=== PATIENT | male | born 1950 | race Caucasian/White ===

== ENCOUNTER 2017-04-27 09:29 | Observation (INO) | payer OTHER ==
[2017-04-21 15:04] VITALS: BMI 32.0
--- NOTE | 2017-04-21 15:43 | PAT Medication Instructions ---
Service Date Apr 21, 2017. Current Home Medication List Albuterol Sulfate (Proair Respiclick), 2 PUFF INH Q4 PRN for Wheezing Amlodipine (Norvasc), 5 MG PO QAM Aspirin (Aspirin Ec), 81 MG PO QAM Budesonide/Formoterol Fumarate (Symbicort 160/4.5 Inhaler ), 2 PUFFS INH BID Carvedilol (Coreg), 1 TAB PO BID Cetirizine (Zyrtec), 10 MG PO QAM Hydrocodone/Acetaminophen 5MG/325MG ([place] 5MG/325MG), 1 TABLET PO Q6 PRN for Pain Ibuprofen Tab (Advil), 400 MG PO QAM Pantoprazole (Protonix), 40 MG PO QAM Tamsulosin Hcl (Flomax), 0.4 MG PO QDD Tiotropium [place] (Spiriva Respimat), 1 PUFF INH QAM Medication Instructions For Your Scheduled Surgery - Hold the following medications the morning of surgery: Cetirizine (Zyrtec), 10 MG PO QAM Ibuprofen Tab (Advil), 400 MG PO QAM (otherwise okay to continue per surgeon) - Take the following medications the morning of surgery with a sip of water OTHERWISE NOTHING TO EAT OR DRINK AFTER MIDNIGHT: Budesonide/Formoterol Fumarate (Symbicort 160/4.5 Inhaler ), 2 PUFFS INH BID Albuterol Sulfate (Proair Respiclick), 2 PUFF INH Q4 PRN for Wheezing (use if needed; BRING TO HOSPITAL) Hydrocodone/Acetaminophen 5MG/325MG ([place] 5MG/325MG), 1 TABLET PO Q6 PRN for Pain (may take if needed up to 4 hours prior to surgery) Aspirin (Aspirin Ec), 81 MG PO QAM Tiotropium [place] (Spiriva Respimat), 1 PUFF INH QAM Pantoprazole (Protonix), 40 MG PO QAM Amlodipine (Norvasc), 5 MG PO QAM Carvedilol (Coreg), 1 TAB PO BID - Take the following medications as scheduled the night before surgery: Budesonide/Formoterol Fumarate (Symbicort 160/4.5 Inhaler ), 2 PUFFS INH BID Albuterol Sulfate (Proair Respiclick), 2 PUFF INH Q4 PRN for Wheezing Hydrocodone/Acetaminophen 5MG/325MG ([place] 5MG/325MG), 1 TABLET PO Q6 PRN for Pain Carvedilol (Coreg), 1 TAB PO BID Tamsulosin Hcl (Flomax), 0.4 MG PO QDD If you have any questions please call us at [phone] or [phone] or [phone]
[2017-04-21 16:29] LABS: BASO % 1.5 %; BASO ABS # 0.08 K/uL (0-0.2); COMPLETE YES; EOS % 5.1 %; HEMATOCRIT 43.5 % (42-52); IG% 0.2 %; LYMPH % 28.3 %; LYMPH ABS # 1.55 K/uL (1.2-3.4); MEAN CELL VOLUME 94.4 fL (80-100); MEAN CORPUSCULAR HEMOGLOBIN 34.1 pg (25-34); MEAN CORPUSCULAR HGB CONC 36.1 g/dl (32-36); MEAN PLATELET VOLUME 9.2 fL (7.4-10.4); MONO % 13.5 %; NEUT % 51.4 %; PLATELET COUNT 289 K/uL (130-400); RED BLOOD COUNT 4.61 M/uL (4.7-6.1); WHITE BLOOD COUNT 5.48 K/uL (4.8-10.8)
[2017-04-21 16:33] LABS: URINE APPEARANCE CLEAR (CLEAR); URINE BILIRUBIN NEG (NEG); URINE COLOR YELLOW; URINE EPITHELIAL CELL AUTO 0-5 /lpf (0-5); URINE NITRITE NEG (NEG); URINE SPECIFIC GRAVITY 1.008 (1.000-1.030); UROBILINOGEN NEG (NEG)
[2017-04-21 16:34] LABS: MANUAL MICROSCOPIC REQUIRED? NO; REVIEW REQ? NO
[2017-04-21 16:41] LABS: BUN/CREATININE RATIO 8.7 (10-20); CALCIUM 9.3 mg/dl (8.5-10.1); CREATININE 0.99 mg/dl (0.60-1.40); POTASSIUM 4.6 mmol/L (3.5-5.1)
--- NOTE | 2017-04-26 15:36 | HISTORY & PHYSICAL EXAMINATION ---
DATE OF ADMISSION: 04/27/2017 CHIEF COMPLAINT: Chronic right shoulder pain. HISTORY OF PRESENT ILLNESS: This is a 66-year-old male patient of Dr. Ruiz, complaining of chronic right shoulder pain, longstanding, progressively getting worse. The patient has failed conservative treatment. An MRI has confirmed a rotator cuff tear, impingement and AC joint arthritis with biceps tendinopathy. The patient wishes to proceed with a right shoulder arthroscopy, subacromial decompression, distal clavicle excision, rotator cuff repair, and possible biceps tenodesis. PAST MEDICAL HISTORY: Hypertension, atrial fibrillation and flutter, COPD, acid reflux, obesity, dental issues and BPH. SOCIAL HISTORY: He is a cigar smoker about 2 per week. Alcohol 12 drinks per week. PAST SURGICAL HISTORY: Cataract. REVIEW OF SYSTEMS: The patient complains of right shoulder pain and weakness. Otherwise, denies any shortness of breath, chest pain, nausea, vomiting or any other joint complaints. FAMILY HISTORY: Noncontributory. MEDICATIONS: 1. Coreg 12.5 mg b.i.d. 2. Norvasc 5 mg daily. 3. Flomax 0.4 mg daily. 4. Protonix 40 mg daily. 5. Zyrtec 10 mg daily. 6. Aspirin 81 mg daily. 7. Advil 200 mg as needed. 8. Symbicort 160/4.5 two puffs twice daily in the morning and evening. 9. Spiriva 2.5 mcg per actuation 2 puffs daily. 10. ProAir HFA 90 mcg per actuation aerosol 2 puffs every 4-6 hours p.r.n. ALLERGIES: No known drug allergies. PHYSICAL EXAMINATION: GENERAL: Well-developed and well-nourished 66-year-old male in no acute distress. He is alert and oriented x3 and pleasant. HEENT: Normocephalic and atraumatic. Extraocular motions are intact. Pupils are equal and reactive to light. HEART: Regular rate and rhythm, no murmurs appreciated. LUNGS: Clear. ABDOMEN: Soft and nontender. Bowel sounds present. EXTREMITIES: Right shoulder reveals 3/5 strength globally. He has got AC joint tenderness. He has got pain with impingement maneuvering. NEUROLOGIC: Neurovascularly, he is intact in his right upper extremity. DIAGNOSES: Right shoulder rotator cuff tear, impingement, acromioclavicular arthritis, and biceps tendinopathy. He also has a history of hypertension, atrial fibrillation and atrial flutter, chronic obstructive pulmonary disease, acid reflux, obesity, dental issues and benign prostatic hypertrophy. PLAN: The patient was advised of his diagnoses. Indications, risks, benefits, and postop course have all been reviewed. The patient wishes to proceed with a right shoulder arthroscopic rotator cuff repair, subacromial decompression and distal clavicle excision with a possible biceps tenodesis. Necessary consent forms, preoperative testing and clearances will be obtained.
[2017-04-27] VITALS (10 sets, daily range): BP systolic 130–189; BP diastolic 70–108; PULSE 68–92; TEMP 36.6–36.7; O2SAT 92–97; Ht 198.1 cm; Wt 126.1 kg
[~2017-04-27] VITALS: Ht 198.1 cm; Wt 126.1 kg
[~2017-04-27 09:29] MED LIST: ALBU18002 INH; AMLO-110 PO; ASPI81TA28 PO; CARV12.52 PO; CEFAZOLIN 3000 MG/65 ML D5W IV SCH; CETI10TA84 PO; DEXAMETHASONE SOD INJ 4 MG/ML VIAL ONE; HYDR-5688 PO; IBUP-103 PO; LACTATED RINGER'S 1000ML 1,000 ML IV SCH; PANT40TA PO; ROPIVACAINE 0.5% 5 MG/ML 30 ML VIAL ONE; SYMIN160 INH; TAMS0.4C38 PO; TIOT1SPR INH
[2017-04-27 11:10] LABS: BUN/CREATININE RATIO 10.2 (10-20); CALCIUM 8.7 mg/dl (8.5-10.1); POTASSIUM 4.3 mmol/L (3.5-5.1)
[2017-04-27] MEDS ORDERED: LIDOCAINE HCL 2% 2 ML VIAL (20MG/ML) ONE (11:42)
[2017-04-27] MEDS ORDERED: ROCURONIUM BROMIDE 10 MG/ML 5 ML VIAL ONE (11:42)
[2017-04-27] MEDS ORDERED: PROPOFOL IV EMULSION 10 MG/ML 20 ML VIAL IV ONE ×2 (11:42→15:49)
[2017-04-27] MEDS ORDERED: FENTANYL CITRATE INJ 50 MCG/1 ML 2 ML VIAL ONE ×3 (11:43→15:56)
[2017-04-27] MEDS ORDERED: MIDAZOLAM HCL 1 MG/ML 2ML VIAL ONE ×2 (11:43→13:23)
--- NOTE | 2017-04-27 13:20 | History & Physical Bridge Note ---
H&P Re-Evaluation Bridge Note: I have examined the patient, reviewed the History & Physical and in the interval since the performance of the History & Physical I have noted the following changes of clinical significance: No changes noted
[2017-04-27] MEDS ORDERED: EpINEphrine HCL INJ 1 MG/ML 5ML SYRINGE ONE ×4 (13:37→17:04)
[2017-04-27] MEDS ORDERED: ATROPINE SULFATE 0.1 MG/ML 5ML SYR IV PRN (14:45)
[2017-04-27] MEDS ORDERED: PROMETHAZINE HCL INJ 6.25 MG in SODIUM CHLORIDE 0.9% 50ML 50 ML IV PRN (14:45)
[2017-04-27] MEDS ORDERED: ONDANSETRON INJ 2 MG/ML 2 ML VIAL IV PRN ×2 (14:45→17:00)
[2017-04-27] MEDS ORDERED: FENTANYL CITRATE INJ 50 MCG/1 ML 2 ML VIAL IV PRN (14:45)
[2017-04-27] MEDS ORDERED: EpHEDrine SULFATE INJ 50 MG/ML AMP IV PRN (14:45)
[2017-04-27] MEDS ORDERED: ONDANSETRON INJ 2 MG/ML 2 ML VIAL ONE (15:11)
[2017-04-27] MEDS ORDERED: DEXAMETHASONE SOD INJ 4 MG/ML VIAL ONE (15:11)
--- NOTE | 2017-04-27 15:58 | Discharge Instructions ---
Discharge Instructions Date of Service Apr 27, 2017. Visit Reason for Visit: Right Shoulder Impingement Syndrome, Djd, Rtc Tear Discharge Discharge Diagnosis / Problem: Right Shoulder Impingement Syndrome; RTC Tear Discharge Goals Goal(s): Decrease discomfort, Improve function Activity Recommendations Activity Limitations: per Instructions/Follow-up section Anesthesia . Post Anesthesia Instructions: If you have had General Anesthesia or IV Sedation: * Do not drive today. * Resume driving when surgeon permits. * Do not make important decisions or sign legal documents today. * Call surgeon for: 1. Temperature elevations greater than 101 degrees F. 2. Uncontrollable pain. 3. Excessive bleeding. 4. Persistent nausea and vomiting. 5. Medication intolerance (nausea, vomiting or rash). * For nausea and vomiting use only clear liquids such as: tea, soda, bouillon until nausea subsides, then gradually increase diet as tolerated. * If you have any concerns or questions, call your surgeon's office. If physician is unavailable and it is an emergency, call 911 or go to the nearest emergency room. . Instructions / Follow-Up Instructions / Follow-Up U DISCHARGE INSTRUCTIONS: ROTATOR CUFF REPAIR SELF CARE INSTRUCTIONS A. You are permitted to loosen your sling/immobilizer to move your elbow, wrist , and hand to prevent stiffness. You should use your well arm (good arm) to assist the operated extremity when trying to raise the arm away from the body, hygiene purposes. Do NOT actively try to use/engage your shoulder muscles in operative arm at this time. You should NOT do overhead activity, lifting, or attempt to reach behind your back. B. You may/may not be instructed to start Physical Therapy upon discharge depending upon the size and difficulty of the repair. You will be provided a prescription for therapy with specific restrictions, if needed, at time of discharge. C. At 48 hours post-operatively, you may change your dressing. (Leave white steri-strips intact if present). Use band-aids and change daily. You are allowed to shower at this time and get the incision area wet, but DO NOT soak or submerge incision area in water. (No baths, swimming pools, hot tubs) D. Do NOT apply soap or any ointment/lotions directly over incision. E. You may use ice as needed to operative shoulder SPECIAL CARE INSTRUCTIONS: VERY IMPORTANT TO READ AND REVIEW A. There are a few signs you need to watch for after you are home. Call [facility] at [phone] if you experience any of the following: a. Increased severe shoulder pain. Some pain is expected especially when you exercise b. Increased swelling in your shoulder or arm; pain or swelling in either upper extremity. (Note: swelling and stiffness is normal and expected for several weeks post op, depending on type of shoulder surgery you had). c. Any fluid or drainage from the incision; redness of the incision. d. Shortness of breath or chest pain. B. Please call [facility] at [phone] if you have any questions or concerns about your operation or recovery. C. Call your physician if: a. Temperature is greater than 101 degrees (F). b. Pain is not relieved by prescribed pain medications. c. Increase drainage or redness from incision. d. Unanswered questions or concerns. D. Pain Medication: a. You will be prescribed pain medication upon discharge that should last till your first post-operative appointment. b. If you experience nausea and/or skin rash, discontinue this medication and contact our office for an alternative medication. c. Caution- narcotic pain medication can cause constipation. FOLLOW UP VISIT: Please call [facility] at [phone] to schedule a follow up appointment 10-14 days from your surgery date. Diet Recommendations Recommended Home Diet: resume previous diet Pending Studies Studies pending at discharge: no Medical Emergencies . Who to Call and When: Medical Emergencies: If at any time you feel your situation is an emergency, please call 911 immediately. . Non-Emergent Contact Non-Emergency issues call your: Surgeon Call Non-Emergent contact if: temperature is above 101.5, your pain is not controlled, your pain is worsening, wound has increased drainage, wound has increased redness . . "Provider Documentation" section prepared by Andrew Dobbs. . [place] Drug Monitoring Program Search Results: patient reviewed within database, no issues identified
[2017-04-27] MEDS ORDERED: MAGNESIUM HYDROXIDE SUSP 30 ML UDC PO PRN (17:00)
[2017-04-27] MEDS ORDERED: ALUMINUM/MAGNESIUM SUSP 30 ML UDC PO PRN (17:00)
[2017-04-27] MEDS ORDERED: MoRPHine SULFATE 4 MG/ML 1 ML CARP\\VIAL IV PRN (17:00)
[2017-04-27] MEDS ORDERED: BISACODYL 10 MG SUPP PR PRN (17:00)
[2017-04-27] MEDS ORDERED: MoRPHine SULFATE 2 MG/ML CARP IV PRN (17:00)
[2017-04-27] MEDS ORDERED: OXYCODONE HCL IR 5 MG TAB (IMMEDIATE RELEASE) PO PRN (17:00)
--- NOTE | 2017-04-27 18:18 | [facility] Post Operative Brief Note ---
Immediate Operative Summary Operative Date Apr 27, 2017. Pre-Operative Diagnosis Right shoulder rotator cuff tear, impingement, acromioclavicular arthritis, and biceps tendinopathy Post-Operative Diagnosis Right shoulder rotator cuff tear, biceps partial tear, acromioclavicular arthritis, glenohumeral arthritis,glenoid labral tear Procedure(s) Performed Right Shoulder Arthroscopy with Rotator Cuff Repair, Subacromial Decompression, Distal Clavicle Excision, Extensive Debridement, Biceps Tenodesis Surgeon Dr. Ruiz Food Service Counter Clerk Surgeon(s) none Estimated Blood Loss 20ML Findings Grade 4 humeral head chondral lesion, degenerative glenoid labral tear, synovitis glenohumeral joint, chronic scarred rotator cuff subacromial bursa. Simply retracted tears of supraspinatus and infraspinatus. Intact subscapularis. Biceps tendinopathy with Ceftin fraying of biceps tendon intra- articular. Subacromial impingement type III acromion advanced acromial clavicular joint osteoarthritis with deformed acromioclavicular joint Specimens None per surgeon Drains none Anesthesia Gen. and regional block Complication(s) None Disposition Recovery Room / PACU
[2017-04-27] MEDS ORDERED: ALBUTEROL HFA 8 GM INHALER INH PRN (19:00)
--- NOTE | 2017-04-27 19:07 | Anesthesiology Progress Note ---
Anesthesia Post Op Note Date & Time Apr 27, 2017 at 19:07 Vital Signs Pain Intensity: 0 Vital Signs Past 12 Hours Date Time Temp Pulse Resp B/P (MAP) Pulse Ox O2 Delivery O2 Flow Rate FiO2 04/27/17 18:40 36.3 87 18 186/101 96 Nasal Cannula 2 04/27/17 18:30 83 17 178/100 96 Nasal Cannula 2 04/27/17 18:20 81 14 183/101 99 Oxymask 10 04/27/17 18:10 82 21 171/97 98 Oxymask 10 04/27/17 18:03 36.3 86 20 173/99 97 Oxymask 10 04/27/17 10:02 36.6 68 18 176/99 (124) 97 Notes Mental Status: alert / awake / arousable, participated in evaluation Pt Amnestic to Procedure: Yes Nausea / Vomiting: adequately controlled Pain: adequately controlled Airway Patency, RR, SpO2: stable & adequate BP & HR: stable & adequate Hydration State: stable & adequate Anesthetic Complications: no major complications apparent
[2017-04-27] MEDS ORDERED: D5W AND 1/2NSS + 20MEQ KCL 1,000 ML IV SCH (19:30)
[2017-04-27] MEDS ORDERED: TAMSULOSIN HCL 0.4 MG CAP PO SCH (19:45)
[2017-04-27] MEDS: CEFAZOLIN IV 2,000 MG in DEXTROSE 5% 50ML 50 ML IV SCH (19:56)
[2017-04-27] MEDS: KETOROLAC TROMETHAMINE 15 MG/ML VIAL IV. SCH (19:57)
[2017-04-27] MEDS: CARVEDILOL 12.5 MG TAB PO SCH (20:13)
[2017-04-27] MEDS: BUDESONIDE/FORMOTEROL FUMARATE 160/4.5 60 PUFFS/INHALER INH SCH (21:31)
[2017-04-27] MEDS: ACETAMINOPHEN 500 MG TAB PO SCH (21:32)
[2017-04-27] MEDS ORDERED: CARVEDILOL 3.125 MG TAB PO ONE (22:30)
--- NOTE | 2017-04-27 22:33 | Medical Consult ---
Consultation Date of Consultation: Apr 27, 2017. Attending Physician: Oleksandr Ruiz M.D. Reason for Consultation: Hypertension History of Present Illness Mr Mcbride is a 66-year-old male with long history of hypertension who had right shoulder surgery today with Dr. Ochoa. He has had elevated blood pressure since arrival, during his surgery, and now postoperatively. He reports that he has a history of whitecoat hypertension and his home medication regime includes carvedilol 12.5 mg twice a day and amlodipine 5 mg in the morning. He denies any headaches, visual changes, chest pain, shortness of breath. He reports his pain from his surgery is tolerable. He is tolerating PO intake. Past Medical/Surgical History Medical Problems: (1) Rotator cuff tear, right Family History No pertinent family history Social History Smoking Status: Current Every Day Smoker Smokeless Tobacco Use: No Alcohol Use: socially Drug Use: none Marital Status: Housing Status: lives with family Occupation Status: employed Allergies Uncoded Allergies: CHLORHEXADINE GLUCONATE (Allergy, Mild, redness, burning, 04/27/17) SEASONAL (Allergy, Unknown, runny nose, cough, itching eyes, 04/21/17) Home Medications Reported Home Medications Medications Dose Route/Sig Max Daily Dose Days Date Category Dose Instructions [place] 5MG/325MG (Acetaminophen/Hydrocodone Bitart) Tab 1 Tablet PO Q6 PRN 04/21/17 Reported PRN PAIN Proair Respiclick (Albuterol Sulfate) 108 Mcg/Act Aer 2 Puff INH Q4 PRN 04/21/17 Reported Spiriva Respimat (Tiotropium [place]) 2.5 Mcg/Act Spr 1 Puff INH QAM 04/21/17 Reported Symbicort 160/4.5 Inhaler (Budesonide/Formoterol Fumarate) Aero 2 Puffs INH BID 04/21/17 Reported Advil (Ibuprofen) 200 Mg Tab 400 Mg PO QAM 04/21/17 Reported Aspirin Ec (Aspirin) 81 Mg Tab 81 Mg PO QAM 04/21/17 Reported Zyrtec (Cetirizine HCl) 10 Mg Tab 10 Mg PO QAM 04/21/17 Reported Protonix (Pantoprazole Sodium) 40 Mg Tab 40 Mg PO QAM 04/21/17 Reported Flomax (Tamsulosin Hcl) 0.4 Mg Cap 0.4 Mg PO QDD 04/21/17 Reported Norvasc (Amlodipine Besylate) 5 Mg Tab 5 Mg PO QAM 04/21/17 Reported Coreg (Carvedilol) 12.5 Mg Tab 1 Tab PO BID 90 04/21/17 Reported take with food Current Inpatient Medications Current Inpatient Medications Medications (Trade) Dose Ordered Sig/Jules Route Start Time Stop Time Status Last Admin Dose Admin Lactated Ringer's 1,000 ml @ 15 mls/hr Q24H IV 04/27/17 06:00 04/28/17 05:59 Amlodipine Besylate (Norvasc Tab) 5 mg QAM PO 04/28/17 09:00 05/28/17 08:59 Aspirin (Ecotrin Tab) 81 mg QAM PO 04/28/17 09:00 05/28/17 08:59 Budesonide/ Formoterol Fumarate (Symbicort 160/ 4.5 Inh) 2 puffs BID INH 04/27/17 21:00 05/27/17 20:59 04/27/17 21:31 2 PUFFS Carvedilol (Coreg Tab) 12.5 mg BID PO 04/27/17 21:00 05/27/17 20:59 04/27/17 20:13 12.5 MG Cetirizine HCl (zyrTEC TAB) 10 mg QAM PO 04/28/17 09:00 05/28/17 08:59 Pantoprazole Sodium (Protonix Tab) 40 mg QAM PO 04/28/17 09:00 05/28/17 08:59 Tamsulosin HCl (Flomax Cap) 0.4 mg QDD PO 04/27/17 19:45 05/27/17 19:44 04/27/17 19:56 0.4 MG Albuterol (Ventolin Hfa Inhaler) 2 puffs Q4H PRN INH 04/27/17 19:00 05/27/17 18:59 Tiotropium [place] (Spiriva Handihaler Inhaler) 1 puff QAM INH 04/28/17 09:00 05/28/17 08:59 Morphine Sulfate (MoRPHine SULFATE INJ) 2 mg Q4HWA PRN IV 04/27/17 17:00 05/11/17 16:59 Morphine Sulfate (MoRPHine SULFATE INJ) 4 mg Q4HWA PRN IV 04/27/17 17:00 05/11/17 16:59 Ondansetron HCl (Zofran Inj) 4 mg Q6H PRN IV 04/27/17 17:00 05/27/17 16:59 Al Hydroxide/Mg Hydroxide (Maalox Susp) 30 ml Q4H PRN PO 04/27/17 17:00 05/27/17 16:59 Potassium Chloride/Dextrose/ Sod Cl 1,000 ml @ 100 mls/hr Q10H IV 04/27/17 19:30 05/27/17 19:29 04/27/17 19:56 100 MLS/HR Ketorolac Tromethamine (Toradol Inj) 15 mg Q6H IV. 04/27/17 20:00 04/29/17 19:59 04/27/17 19:57 15 MG Oxycodone HCl (Roxicodone Immediate Rel Tab) `1-2 TABS FOR PAIN `1 TAB... Q4H PRN PO 04/27/17 17:00 05/11/17 16:59 Acetaminophen (Tylenol Tab) 1,000 mg Q8 PO 04/27/17 22:00 05/27/17 21:59 04/27/17 21:32 1,000 MG Magnesium Hydroxide (Milk Of Magnesia Susp) 30 ml Q6H PRN PO 04/27/17 17:00 05/27/17 16:59 Bisacodyl (Dulcolax Supp) [address] 04/27/17 17:00 05/27/17 16:59 Cefazolin Sodium 2000 mg/Dextrose 60 ml @ 100 mls/hr Q8H IV 04/27/17 20:00 04/28/17 04:35 04/27/17 19:56 100 MLS/HR Review of Systems See HPI for pertinent positives & negatives. A total of 10 systems reviewed and were otherwise negative. Physical Exam Date Time Temp Pulse Resp B/P (MAP) Pulse Ox O2 Delivery O2 Flow Rate FiO2 04/27/17 21:38 165/92 (116) 04/27/17 21:25 36.6 91 18 177/108 (131) 94 Room Air 04/27/17 20:40 Room Air 04/27/17 20:37 36.7 92 18 155/82 (106) 96 Nasal Cannula 3.0 04/27/17 20:03 36.6 86 18 174/89 (117) 92 Room Air 04/27/17 19:40 36.7 90 17 172/100 (124) 97 Nasal Cannula 3.0 04/27/17 19:00 Nasal Cannula 2.0 04/27/17 18:40 36.3 87 18 186/101 96 Nasal Cannula 2 04/27/17 18:30 83 17 178/100 96 Nasal Cannula 2 04/27/17 18:20 81 14 183/101 99 Oxymask 10 04/27/17 18:10 82 21 171/97 98 Oxymask 10 04/27/17 18:03 36.3 86 20 173/99 97 Oxymask 10 04/27/17 17:00 36.7 86 20 189/107 (134) 93 Nasal Cannula 2.0 04/27/17 10:02 36.6 68 18 176/99 (124) 97 GENERAL: Awake, alert, well-appearing, in no acute distress HENT: Normocephalic, atraumatic. Oropharynx unremarkable. EYES: Normal conjunctiva. Sclera non-icteric. NECK: Supple. No nuchal rigidity. FROM. No JVD. RESPIRATORY: Clear to auscultation. CARDIAC: Regular rate, normal rhythm. Extremities warm and well perfused. Pulses equal. ABDOMEN: Soft, non-distended. No tenderness to palpation. No rebound or guarding. No masses. MUSCULOSKELETAL: R shoulder in dressing. Chest examination reveals no tenderness. The back is symmetrical on inspection without obvious abnormality. LOWER EXTREMITIES: Calves are equal size bilaterally and non-tender. No edema. No discoloration. NEURO: Normal sensorium. No sensory or motor deficits noted. SKIN: No rash or jaundice noted. Laboratory Results Last 24 Hours Test 04/27/17 10:41 Sodium Level 134 mmol/L Potassium Level 4.3 mmol/L Chloride Level 103 mmol/L Carbon Dioxide Level 28 mmol/L Anion Gap 3.0 mmol/L Blood Urea Nitrogen 10 mg/dl Creatinine 1.00 mg/dl Est Creatinine Clear Calc Drug Dose 106.7 ml/min Estimated GFR () 89.9 Estimated GFR (Non- 77.5 BUN/Creatinine Ratio 10.2 Random Glucose 102 mg/dl Calcium Level 8.7 mg/dl Assessment & Plan 66 yo M day 0 s/p R shoulder surgery, with known HTN. Recommendations: - His home medications have been restarted, he received a dose of carvedilol this evening and will receive amlodipine tomorrow morning - Overnight if his blood pressure remains elevated, I recommended a 3.125 mg dose of carvedilol for SBP > 160 when the heart rate is greater than 70. - If his heart rate is less than 70, with a systolic blood pressure > 160, he can receive amlodipine 2.5 mg. - Both of these medications may take time to work. Thank you for this consult. We will continue to follow along. Attending Addendum: I have physically seen and examined this patient, have supervised the medical residents activities, and agree with the H&P as noted above with the following exceptions: NONE The patient denies chest pain, palpitations, shortness of breath, cough, sore throat, fevers, chills, sweats, fatigue, nausea, vomiting, abdominal pain, pelvic pain, blood in urine or stool, dysuria, urinary frequency or urgency, lightheadedness, dizziness, headache, rash, abnormal bruising or bleeding, imbalance, focal or generalized weakness, numbness or tingling in arms or legs, arthralgias or myalgias, back or neck pain, or allergy symptoms. The review of systems is otherwise negative other than for that already noted above, and at least 10 systems have been reviewed. The patient is awake, well-developed and adequately nourished, alert and oriented 3, normocephalic and atraumatic, lying in bed and in no acute distress. HEENT--PERRL, EOMI, mucous membranes and oropharynx dry. Neck--supple, no JVD or bruits, thyroid normal, trachea midline, no adenopathy. Heart--normal S1 and S2, no extra beats, no murmurs, rubs or gallops. Lungs--clear bilaterally with good air movement, no respiratory distress, no accessory muscle use. Abdomen--normal bowel sounds and soft, nontender and nondistended, no hernias or masses, no organomegaly. Extremities--no cyanosis, clubbing or edema. There are good distal pulses b/l. Dermatologic--normal skin turgor, normal color, warm and dry, no abnormal lymph nodes, no rash. Neurologic--cranial nerves II through XII grossly intact, motor and sensory examination normal. Rheumatologic--right shoulder and post surgical dressing is clean, dry and intact Psychiatric--normal affect. Assessment and Plan: 1. Status post right shoulder surgery is medically stable. 2. Hypertension/elevated blood pressure postoperatively--continue carvedilol 12.5 mg by mouth twice a day and amlodipine 5 mg by mouth every morning. We will add carvedilol 3.125 mg by mouth tonight if systolic blood pressure greater 160 while heart rate is greater than 70, or amlodipine 2.5 mg by mouth if systolic blood pressure rate was 60 and heart rate less than 70. 3. Asthma--continue albuterol HFA, Spiriva, and Symbicort as at home. If develops shortness of breath, will add Xopenex/Atrovent nebulizers to use every 2 hours when necessary. 4. BPH--continue Flomax 0.4 mg by mouth at bedtime. 5. GERD--continue pantoprazole 40 mg by mouth every morning. 6. Seasonal allergy--continue Zyrtec 10 mg by mouth every morning. 7. Pain management--per primary service. Resident Tracking Resident Involvement: Resident Care Provided Care Provided: Adult [facility]
[2017-04-27] MEDS ORDERED: AMLODIPINE BESYLATE 5 MG TAB PO STA (22:35)
--- NOTE | 2017-04-27 23:47 | OPERATIVE REPORT ---
DATE OF OPERATION: 04/27/2017 INDICATION FOR PROCEDURE: The patient is a 66-year-old male with an injury to his right shoulder and severe weakness after the injury. He had marked bruising down the entire arm below the elbow to his forearm and inability to raise his arm any longer. He was having some difficulty prior to that, so it may have had some chronic component to this tissue of his shoulder, but he clearly had some acute tear of his rotator cuff. MRI verifies massive retracted tear of the rotator cuff, supraspinatus and infraspinatus completely torn and retracted, possible upper subscapularis damage and biceps tendinopathy, probable. He also had hypertrophic AC joint arthritis and significant inflammation in the AC joint, so likely an impingement syndrome and AC joint arthritis preexisting the injury. PREOPERATIVE DIAGNOSIS: Subacute rotator cuff tear but likely chronic rotator cuff tendinopathy or tear prior to the acute component of the tear with biceps tendinopathy and acromioclavicular joint osteoarthritis contributing to impingement syndrome of the right shoulder. POSTOPERATIVE DIAGNOSIS: Large retracted rotator cuff tear, supraspinatus and infraspinatus. Some chronicity to this tear with the marked retraction and significant scarred bursa tissue identified. The scarred rotator cuff bursitis which appeared to be chronic, there was subacromial impingement and acromioclavicular joint osteoarthritis. There was osteoarthritis in the glenohumeral joint with grade 4 humeral head chondral lesion. There was degeneration of the glenoid labrum and partial tearing of the biceps with biceps tendinopathy with intact subscapularis. PROCEDURE: Right shoulder arthroscopic rotator cuff repair, supraspinatus and infraspinatus tendons, with subacromial decompression, distal clavicle excision and biceps tenodesis and extensive debridement including debridement of the rotator cuff, synovium, glenoid labral tear, biceps tendinopathy, subacromial bursa. SURGEON: Dr. Ruiz. EXPORT PACKER: None. ANESTHESIA: Regional block general. OPERATIVE PROCEDURE: The patient was taken to the operating room, anesthetized under regional block and general anesthetic. He was placed in the 70 degree beach chair position on a [facility] shoulder table and we secured his head with foam straps and he had well-padded extremities. His right shoulder was examined. He had good passive range of motion and had a prominent AC joint and he had ecchymosis down his arm into his forearm. His right shoulder was sterilely prepped and draped where we used DuraPrep instead of ChloraPrep because HE HAD SOME ALLERGIC REACTION TO CHLORHEXIDINE WIPES. His shoulder was then arthroscoped starting with a posterior arthroscopy portal in the soft spot, and an anterior portal in the rotator interval anterior to the AC joint and a lateral portal in the subacromial space. Then we used 3 small stab wounds superolaterally and anterior superolaterally for placement of 3 different suture anchors. Intra-articular findings demonstrated that he had a large grade 4 lesion in the central region of the humeral head. This was at least 3 cm in diameter. There were delaminating flaps around the edge of the lesion. The glenoid had a good articular surface though. There was degenerative fraying of the glenoid labrum primarily posterior superiorly. This was consistent with type 1 SLAP tear. There was significant fraying of the biceps tendon just at the entrance to the bicipital groove area. The rotator cuff was torn and retracted medially, it was almost to the point at the glenoid rim but not that close. The subscapularis tendon was intact. The supraspinatus was completely torn and retracted, the infraspinatus was completely torn and retracted, teres minor was still intact. In the subacromial space, there was very thickened frayed CA ligament. There was type 3 acromion. There was significant subacromial impingement. There was a very deformed eroded articular surface of the AC joint with significant acromioclavicular joint osteoarthritis. There was a significant scarred bursa tissue overlying the cuff tear, so this is not typical of a recent acute tear without some chronic component to it. There was very thickened scarred bursa surrounding the teres minor and the rest of the rotator cuff. Starting in the glenohumeral joint, I did a circumferential debridement of the delaminated flaps around the humeral head lesion. I debrided the labrum back to intact tissue. I debrided the biceps tendon back to intact good biceps tendon tissue. Then because of the biceps tendinopathy, we thought that biceps tenodesis would be required, so a spinal needle was placed through the biceps tendon and #1 PDS suture was advanced to control the biceps and then we used a radiofrequency ablator to do tenotomy of the biceps. Then I released the superior capsule underlying the supraspinatus and the infraspinatus using radiofrequency ablator taking care not to go too far medially to protect the suprascapular nerve. We did ablate and resection some of the markedly inflamed synovium tissue from the chronic synovitis. At this time, the arthroscopic instrumentation was placed into the subacromial space. Then I did a thorough subacromial bursectomy and we used both the radiofrequency ablator to ablate bursa tissue, we used the resector blade to resect the tissues so we could fully visualize the rotator cuff tear pattern. We debrided the edges of the rotator cuff, undersurface of the rotator cuff. The teres minor was still intact. The infraspinatus was retracted medially and toward the posterior aspect. After we debrided all of the scarred bursa tissue overlying the rotator cuffs and debrided the very thickened CA ligament tissue back, then I used a soft tissue manipulator to see if the cuff could be reduced back to the greater tuberosity after we released the scarred bursa overlying the cuff, we were able to mobilize the cuff back to the greater tuberosity not all the way lateral but close to within 4 mm of the anatomic placement. There was a good portion of cuff tissue still remaining on the greater tuberosity, supraspinatus and infraspinatus where the cuff tore off of, so there was some tendon loss. At this point, I felt the cuff was repairable, so we went ahead and debrided the remaining cuff tissue on the greater tuberosity back to bleeding bony surface for repair, we debrided off the lateral aspect of the greater tuberosity some to help with the healing response. Then I first placed a [id number] suture between the infraspinatus and the teres minor using a scorpion suture passer to place it through the infraspinatus and using a spinal needle, advanced through the teres minor and shuttling the other remaining suture end with a PDS suture. This was done percutaneously. Then the fixation for the cuff was performed by placing two FiberTape type sutures in inverted horizontal mattress fashion, one in the infraspinatus and one in the supraspinatus. These were [employer] FiberWire tapes. Then we placed the Q-FIX anchors one for the infraspinatus and one for the supraspinatus. These were two-way Q-FIX anchors fixed in the lateral tuberosity footprint of the supraspinatus and infraspinatus. I then placed a 2.8 Q-FIX anchor in the proximal bicipital groove for tenodesis of the biceps. We placed traction on the biceps tendon to get the outer length appropriately, placed the Q-FIX anchor into the upper bicipital groove with good fixation, placed 1 whipstitch and 1 simple suture to do the tenodesis. I resected the excess biceps tendon. I took the elbow through range of motion and repair was secure. Then we repaired the rotator cuff by placing the Q-FIX sutures around each of the tapes which were used as rip-stop sutures. We placed it a little bit more medial in the cuff, then tapes were placed. Then the Q-FIX sutures were tied with a [place] sliding locking knots, 3 reverse half hitches in alternating posts and then that brought the cuff back to the greater tuberosity, infraspinatus followed by supraspinatus and then we placed the tapes through a footprint anchor laterally causing further compression and taking tension off the repair. The repair was secured with the arm at the side with rotation. After the repair was completed and felt to be stable, we went ahead and did a subacromial decompression using a 5.5 bur to plane down the acromion to a type 1 flat shape and resected 1 cm of distal clavicle. I then closed the arthroscopic portals with 3-0 nylon sutures and placed sterile dressings and a sterile gauze and foam tape in place. The patient was then placed into abduction pillow, sling and immobilizer. The patient tolerated the procedure well. I attest to the content of the Intraoperative Record and any orders documented therein. Any exception s are noted below.
[2017-04-28] MEDS: KETOROLAC TROMETHAMINE 15 MG/ML VIAL IV. SCH ×2 (01:57→08:07)
[2017-04-28 03:13] VITALS: BP 128/67; PULSE 76; TEMP 36.7; O2SAT 94
[2017-04-28] MEDS: CEFAZOLIN IV 2,000 MG in DEXTROSE 5% 50ML 50 ML IV SCH (03:50)
[2017-04-28] MEDS: ACETAMINOPHEN 500 MG TAB PO SCH (05:01)
[2017-04-28 07:58] VITALS: BP 130/78; PULSE 78; TEMP 36.8; O2SAT 97
[2017-04-28] MEDS: CARVEDILOL 12.5 MG TAB PO SCH (08:10)
[2017-04-28] MEDS: BUDESONIDE/FORMOTEROL FUMARATE 160/4.5 60 PUFFS/INHALER INH SCH (08:11)
--- NOTE | 2017-04-28 08:14 | Anesthesiology Progress Note ---
Anesthesia Post Op Note Date & Time Apr 28, 2017 at 08:13 Vital Signs Vital Signs Past 12 Hours Date Time Temp Pulse Resp B/P (MAP) Pulse Ox O2 Delivery O2 Flow Rate FiO2 04/28/17 07:58 36.8 78 18 130/78 (95) 97 Room Air 04/28/17 07:34 Room Air 04/28/17 03:13 36.7 76 16 128/67 (87) 94 Room Air 04/27/17 23:24 Room Air 04/27/17 23:00 36.7 82 16 130/70 (90) 92 Room Air 04/27/17 22:50 84 149/74 (99) 94 Room Air 04/27/17 22:30 36.7 85 18 157/82 (107) 94 Room Air 04/27/17 21:38 165/92 (116) 04/27/17 21:25 36.6 91 18 177/108 (131) 94 Room Air 04/27/17 20:40 Room Air 04/27/17 20:37 36.7 92 18 155/82 (106) 96 Nasal Cannula 3.0 Notes Mental Status: alert / awake / arousable, participated in evaluation Pt Amnestic to Procedure: Yes Nausea / Vomiting: adequately controlled Pain: adequately controlled Airway Patency, RR, SpO2: stable & adequate BP & HR: stable & adequate Hydration State: stable & adequate Anesthetic Complications: no major complications apparent
[2017-04-28 08:40] VITALS: O2SAT 97
[2017-04-28] MEDS ORDERED: CETIRIZINE HCL 10 MG TAB PO SCH (09:00)
[2017-04-28] MEDS ORDERED: ASPIRIN 81 MG ECTAB PO SCH (09:00)
[2017-04-28] MEDS ORDERED: TIOTROPIUM BROMIDE 5 PUFF/90 MCG INH INH SCH (09:00)
[2017-04-28] MEDS ORDERED: OXYCODONE HCL IR 5 MG TAB (IMMEDIATE RELEASE) PO STA (09:00)
[2017-04-28] MEDS ORDERED: PANTOprazole SOD 40 MG TAB PO SCH (09:00)
[2017-04-28] MEDS ORDERED: AMLODIPINE BESYLATE 5 MG TAB PO SCH (09:00)
[2017-04-28] MEDS ORDERED: OXYC-57 PO (09:19)
[2017-04-28 09:23] VITALS: BP 130/78; PULSE 78; TEMP 36.8; O2SAT 97
--- NOTE | 2017-04-28 09:23 | Orthopedic Progress Note ---
Orthopedic Progress Note Date of Service Apr 28, 2017. Subjective Post OP Day: 1 Reports: feeling well, pain controlled w PO medications, Denies: complaints, chest pain, SOB, nausea / vomiting, light headedness, calf pain Objective calves soft nontender, splint C/D/I, capillary refill less than 2 sec., dressing C/D/I, A&O x3, toes mobile Patient is able to move fingers. He is Neurovascularly intact. Date Time Temp Pulse Resp B/P (MAP) Pulse Ox O2 Delivery O2 Flow Rate FiO2 04/28/17 08:40 97 Room Air 04/28/17 07:58 36.8 78 18 130/78 (95) 97 Room Air 04/28/17 07:34 Room Air 04/28/17 03:13 36.7 76 16 128/67 (87) 94 Room Air 04/27/17 23:24 Room Air 04/27/17 23:00 36.7 82 16 130/70 (90) 92 Room Air 04/27/17 22:50 84 149/74 (99) 94 Room Air 04/27/17 22:30 36.7 85 18 157/82 (107) 94 Room Air 04/27/17 21:38 165/92 (116) 04/27/17 21:25 36.6 91 18 177/108 (131) 94 Room Air 04/27/17 20:40 Room Air 04/27/17 20:37 36.7 92 18 155/82 (106) 96 Nasal Cannula 3.0 04/27/17 20:03 36.6 86 18 174/89 (117) 92 Room Air 04/27/17 19:40 36.7 90 17 172/100 (124) 97 Nasal Cannula 3.0 04/27/17 19:00 Nasal Cannula 2.0 04/27/17 18:40 36.3 87 18 186/101 96 Nasal Cannula 2 04/27/17 18:30 83 17 178/100 96 Nasal Cannula 2 04/27/17 18:20 81 14 183/101 99 Oxymask 10 04/27/17 18:10 82 21 171/97 98 Oxymask 10 04/27/17 18:03 36.3 86 20 173/99 97 Oxymask 10 04/27/17 17:00 36.7 86 20 189/107 (134) 93 Nasal Cannula 2.0 04/27/17 10:02 36.6 68 18 176/99 (852) 30 Assessment & Plan Assessment: POD# 1 Right shoulder RCR, SAD, biceps tenodesis. Plan: Going home today. Patient is feeling well. He will not be doing PT for 3 weeks. Inhouse Planning Pain Management: Percocet Discharge Planning Discharge Planning: home Pain Management: Percocet Therapy: Physical Therapy (will start in 3 weeks. )
--- NOTE | 2017-04-28 10:25 | Family Medicine Progress Note ---
Progress Note Date of Service Apr 28, 2017. Subjective Pt evaluation today including: conversation w/ patient, physical exam, chart review, lab review The patient was seen and examined at bedside. No acute overnight events. Pt has a brace on right arm. States that he would like more pain medication for his long road trip. 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 Lives in [place]. present at bedside. Patient is resting comfortably in bed. Eating and urinating well. Plan of care was described to the patient and all questions were answered. ROS: No chest pain, no SOB, no dyspnea on exertion, no palpitations, no fevers, no chills, no nausea, no vomiting, no diarrhea, no dysuria, no rash. +R Shoulder Pain. Objective Physical Exam General Appearance: WD/WN, no apparent distress Respiratory/Chest: chest non-tender, lungs clear, normal breath sounds, no respiratory distress, no accessory muscle use Cardiovascular: regular rate, rhythm, no edema, no gallop, no JVD, no murmur Abdomen: normal bowel sounds, non tender, soft, no organomegaly, no pulsatile mass Extremities: + pertinent finding (R Arm in slight, limited ROM, defer to Dr. Ruiz's assessment) Neurologic/Psychiatric: alert, normal mood/affect, oriented x 3 Skin: warm/dry, + pertinent finding (venous stasis changes in the lower extremities bilaterally) Assessment and Plan 66M s/p R Shoulder Surgery. Post Op Day #1. Right shoulder surgery Progressing towards goals, Defer to Dr. Ruiz's Management. HTN Well controlled at present Continue home meds: carvedilol 12.5 mg by mouth twice a day and amlodipine 5 mg by mouth every morning. Will continue to monitor, if BP elevates consider 2.5mg dose of Amlodipine or 3.125mg one time dose of Carvedilol (if SBP > 160 and HR > 70) Asthma Continue albuterol HFA, Spiriva, and Symbicort as at home. If develops shortness of breath, will add Xopenex/Atrovent nebulizers to use every 2 hours when necessary. BPH Continue Flomax 0.4 mg by mouth at bedtime. GERD Continue pantoprazole 40 mg by mouth every morning. Seasonal allergy Continue Zyrtec 10 mg by mouth every morning. Dispo: Med Surg FULL CODE Resident Physician Supervision Note: I interviewed and examined the patient. Discussed with Dr. Gallegos and agree with findings and plan as documented in the note. Any exceptions or clarifications are listed here: None Documented By: Kelvin Eldridge feeling better ready to go home already written for dc from ortho. no new complaints vitals noted nad breathing unlabored no pallor or icterus HTN - reasonable control continue home meds asthma - breathing stable continue home meds medically stable for home f/u PCP Resident Involvement: Resident Care Provided Care Provided: Adult Hospital Medicine
--- NOTE | 2017-04-28 13:24 | DISCHARGE SUMMARY ---
DISCHARGE DIAGNOSES: Right shoulder rotator cuff tear, biceps partial tear, acromioclavicular arthritis, glenohumeral arthritis, glenoid labral tear. SECONDARY DIAGNOSES: Hypertension, atrial fibrillation and flutter, chronic obstructive pulmonary disease, gastroesophageal reflux disease, obesity, benign prostatic hypertrophy, dental issues. CONSULTS: Darling Luciano M.D. COMPLICATIONS: None. PROCEDURES: Right shoulder arthroscopy with rotator cuff repair, subacromial decompression, distal clavicle excision, extensive debridement and biceps tenodesis by Dr. Ruiz on 04/27/2017. BRIEF HISTORY: As dictated in history and physical. HOSPITAL SUMMARY: The patient was admitted under observation on the above-noted date and had the above-noted surgery performed which he tolerated well. On his first postoperative day, he was feeling well and pain was controlled. He had no complaints. Calves were soft and nontender. Capillary refill is less than 2 seconds. Dressings clean, dry and intact. Toes were mobile. The patient was moving all his fingers and was neurovascularly intact. Vital signs were stable. He was afebrile. He was remaining medically stable, had been seen by medicine service this morning and it was felt he could be discharged to home. For further review, please see chart. LAB AND X-RAY DATA: As per chart. DISCHARGE INSTRUCTIONS: The patient was discharged to home in satisfactory condition on 04/28/2017. DIET: Resume previous diet. ACTIVITY: Follow rotator cuff repair instructions and follow up with Dr. Ruiz in 2 weeks. The patient to call for appointment if one has not been made for you. DISCHARGE MEDICATIONS: Percocet 5/325 1-2 tabs p.o. q. 4-6 hours p.r.n. Resume home meds as listed and stop taking [place].
== END 2017-04-28 09:48 | disposition home or self-care (01) ==
LOC: C.ACU 09:29 → C.3E 17:01 → ENRESERV 18:26
PROVIDERS: ADMIT Orthopaedic Surgery Sports Medicine; ATTEND Orthopaedic Surgery Sports Medicine
DX: M75.101 Unspecified rotator cuff tear or rupture of right shoulder, not specified as traumatic (principal); M75.51 Bursitis of right shoulder; M19.011 Primary osteoarthritis, right shoulder; M75.21 Bicipital tendinitis, right shoulder; I48.91 Unspecified atrial fibrillation; I48.92 Unspecified atrial flutter; I10 Essential (primary) hypertension; J44.9 Chronic obstructive pulmonary disease, unspecified; K21.9 Gastro-esophageal reflux disease without esophagitis; N40.0 Benign prostatic hyperplasia without lower urinary tract symptoms; E66.9 Obesity, unspecified; F17.290 Nicotine dependence, other tobacco product, uncomplicated; Z79.82 Long term (current) use of aspirin; Z79.899 Other long term (current) drug therapy

== ENCOUNTER 2019-04-02 08:14 | Inpatient (IN) ==
--- NOTE | 2019-03-06 15:51 | PAT Medication Instructions ---
Medication Instructions Date of Service March 06, 2019 Home Medications albuterol sulfate [ProAir HFA] 2 puff INHALATION QID PRN amlodipine 5 mg PO QAM aspirin [Aspirin Low Dose] 81 mg PO QAM budesonide-formoterol 2 puff INHALATION BID carvedilol 12.5 mg PO BID pantoprazole 40 mg PO QAM tamsulosin 0.4 mg PO QDD tiotropium bromide 2 puff INHALATION QAM Take morning of surgery With a small sip of water, OTHERWISE NOTHING TO EAT OR DRINK AFTER MIDNIGHT: albuterol sulfate [ProAir HFA] 2 puff INHALATION QID PRN (if needed, and bring with you to the hospital) amlodipine 5 mg PO QAM aspirin [Aspirin Low Dose] 81 mg PO QAM budesonide-formoterol 2 puff INHALATION BID carvedilol 12.5 mg PO BID pantoprazole 40 mg PO QAM tiotropium bromide 2 puff INHALATION QAM Take evening before surgery albuterol sulfate [ProAir HFA] 2 puff INHALATION QID PRN (if needed) budesonide-formoterol 2 puff INHALATION BID carvedilol 12.5 mg PO BID tamsulosin 0.4 mg PO QDD Other Notes If you have any questions please call us at [phone] or [phone] or [phone] or [phone]
--- NOTE | 2019-03-07 11:57 | Anesthesiology Consultation ---
Date of Service March 07, 2019 Assessment & Plan (1) Encounter for pre-operative examination: Cardiology clearance 03/19/2019: "He has rate controlled atrial fibrillation. He continues on carvedilol 12.5 mg twice per day. He continues to decline anticoagulation due to severe nosebleed. Heart rate and BP are both well controlled on current regimen... The patient is stable and at optimal cardiac status presently to proceed with the planned surgery." Note sent to nephro regarding chronic hyponatremia. Per response, "check Na level AM DOS, restrict fluids, avoid ETOH." CHECK BMP AM DOS. Chart Review Chart Review: Acceptable Risk for Surgery and Patient seen in Pre Admission Testing Teaching & Discussion Instructed NPO after midnight before surgery, except medications with 15 cc of water. Medication instructions provided according to the PAT guidelines. History Surgery Operation Date: 04/02/19 08:50 Proposed Procedures p Left Total Knee Replacement - Rubin Grimes MD Height/Weight Height: 6 ft 6 in Weight: 119.6 kg Allergies Allergy/AdvReac Type Severity Reaction Status Date / Time CHLORHEXADINE GLUCONATE Allergy Mild redness, Uncoded 03/06/19 09:55 burning SEASONAL Allergy Unknown runny Uncoded 03/06/19 09:55 nose, cough, itching eyes Medications Home Medications Medication Instructions Recorded Confirmed Last Taken albuterol sulfate [ProAir HFA] 2 puff INHALATION QID PRN 03/06/19 03/06/19 Unknown aspirin [Aspirin Low Dose] 81 mg PO QAM 03/06/19 03/06/19 Unknown budesonide-formoterol 2 puff INHALATION BID 03/06/19 03/06/19 Unknown carvedilol 12.5 mg PO BID 03/06/19 03/06/19 Unknown pantoprazole 40 mg PO QAM 03/06/19 03/06/19 Unknown tamsulosin 0.4 mg PO QDD 03/06/19 03/06/19 Unknown tiotropium bromide 2 puff INHALATION QAM 03/06/19 03/06/19 Unknown furosemide 20 mg PO QAM 03/07/19 03/07/19 Unknown hydrochlorothiazide 12.5 mg PO QAM 03/07/19 03/07/19 Unknown levocetirizine 5 mg PO QAM 03/07/19 03/07/19 Unknown lisinopril 10 mg PO HS 03/07/19 03/07/19 Unknown Past Medical History Medical History AA (aortic aneurysm) Following with vascular, CTA chest 11/2018 showed aortic root to be 4.8-5 cm. Per vascular office note 02/26/19, "Maintain good BP control, pt is at risk of complications of rupture and dissection which were discussed...Echo in [address] Thorax in 12 months" BPH (benign prostatic hyperplasia) Chronic obstructive pulmonary disease Per pulmonology 08/2018, "He is stable at this time and stays on his current regimen." Environmental allergies GERD (gastroesophageal reflux disease) History of epistaxis DESCRIBES SEVERE SINGLE EPISODE THAT REQUIRED PLATELETS AND FFP TO BE TRANSFUSED, spring 2017. No other bleeding issues. Hypertension Hyponatremia Following with nephrology. Per last office note 10/2018 "ETOH/liver disease and/or COPD/pulmonary nodule (R/O CA)/SIADH...longstanding history of hyponatremia, 128-133 dating back to 2009. Paroxysmal A-fib and A-flutter. S/P radiofrequency ablation ~3 yrs ago, but afib/flutter has reoccurred. Per cardiology, patient should be on anticoagulation, but he refuses anything more than ASA 81mg. Seasonal allergies Sleep apnea NO CPAP OR BIPAP Exercise / Class Metabolic Activity III < 4 Walking/Shop/Light housework (No SOB or CP with ambulation, very limited by knee pain. +SOB but no CP with stairs.) Past Family History Family History Father Family hx of colon cancer Past Surgical History Surgical History History of cardiac radiofrequency ablation DONE AT [facility] Hx of appendectomy Hx of foot surgery LEFT Hx of repair of left rotator cuff Hx of repair of right rotator cuff Hx of tonsillectomy Past Anesthesia History No Hx of Anesthesia Complications and No Family Hx of Anesthesia Complications History of PONV No Hx of PONV and No Hx of Motion Sickness Social History Smoking Status: Current every day smoker tobacco type: cigars Smoking cigarettes per day: 2-3 PE WK Do You Dip or Chew Tobacco: No Hx Alcohol Use: Yes Alcohol type: beer and hard liquor alcohol intake frequency: 0-2 drinks per day (1/day) Hx Substance Use: No Review of Systems Pt denies any recent chest pain, shortness of breath, palpitations, cough, fever or URI. +sinus drainage from seasonal allergies Physical Exam Vital Signs BP: 182/89 (pt states he has severe white coat syndrome) P: 71bpm SPO2: 96% RA T: 98.7 F R: 16 ENMT Mouth: + chipped teeth (several broken) and + small oral opening (large mouth but narrow opening between tongue and teeth); no dental restorations and no loose teeth Thyromental Distance: > or= 3.5 Finger Breadths (4) Mallampati Class: III Neck + thick neck and + facial hair (short goatee); neck extension not limited Respiratory normal respiratory effort Auscultation: lungs clear to auscultation bilaterally Cardiovascular Rate/Rhythm: regular rate; + abnormal rhythm (irregularly irregular -- PVCS???) Heart Sounds: no murmur Vessels: no carotid bruit Extremities: no edema Testing Laboratory Results 03/07/19 12:35 03/07/19 12:35 PT 10.9 Seconds (9.0-12.0) 03/07/19 12:35 INR 1.1 (0.9-1.1) 03/07/19 12:35 APTT 26.8 Seconds (21.0-31.0) 03/07/19 12:35 Blood Type O Positive 03/07/19 12:35 Antibody Screen NEGATIVE 03/07/19 12:35 Electrocardiogram Date: 03/07/19 Findings: + AFIB @ (64) Chest X-Ray Date: 03/07/19 Findings: + NAD Echocardiogram Date: 06/07/17 EF: 60% Mild concentric LVH. Left ventricular function is normal. Moderately abnormal left atrial volume (moderately dilated). Trace aortic regurgitation. The aortic valve is thickened. Mildly dilated thoracic aorta measuring 41 mm at the sinus of Valsalva and 42 mm at the proximal ascending aorta. Pulmonary Function Test Date: 01/21/19 Findings: + FEV1 pre (80% predicted) and + FEV1 post (83% predicted) No obstruction. Postbronchodilator decreased FEV1 and FVC. No significant bronc dilator response. Nonsignificant bronchodilator response does not preclude a clinical response to bronchodilators. Maximum voluntary ventilation is reduced. Other Testing 11/21/18 CT Chest Angio No evidence of pulmonary embolism. Stable caliber of the ascending aorta without evidence of rupture (up to 4.8 cm measured perpendicular to the long axis or 5 cm on axial images). Cholelithiasis.
--- NOTE | 2019-03-07 12:28 | PAT Medication Instructions ---
Medication Instructions Date of Service March 07, 2019 Home Medications albuterol sulfate [ProAir HFA] 2 puff INHALATION QID PRN aspirin [Aspirin Low Dose] 81 mg PO QAM budesonide-formoterol 2 puff INHALATION BID carvedilol 12.5 mg PO BID pantoprazole 40 mg PO QAM tamsulosin 0.4 mg PO QDD tiotropium bromide 2 puff INHALATION QAM furosemide 20 mg PO QAM hydrochlorothiazide 12.5 mg PO QAM levocetirizine 5 mg PO QAM lisinopril 10 mg PO HS DO NOT take the morning of surgery furosemide 20 mg PO QAM hydrochlorothiazide 12.5 mg PO QAM levocetirizine 5 mg PO QAM Take morning of surgery With a small sip of water, OTHERWISE NOTHING TO EAT OR DRINK AFTER MIDNIGHT: albuterol sulfate [ProAir HFA] 2 puff INHALATION QID PRN (if needed, and bring with you to the hospital) aspirin [Aspirin Low Dose] 81 mg PO QAM budesonide-formoterol 2 puff INHALATION BID carvedilol 12.5 mg PO BID pantoprazole 40 mg PO QAM tiotropium bromide 2 puff INHALATION QAM Take evening before surgery albuterol sulfate [ProAir HFA] 2 puff INHALATION QID PRN (if needed) budesonide-formoterol 2 puff INHALATION BID carvedilol 12.5 mg PO BID tamsulosin 0.4 mg PO QDD lisinopril 10 mg PO HS Other Notes If you have any questions please call us at [phone] or [phone] or [phone] or [phone]
--- NOTE | 2019-03-07 13:23 | XRay Report ---
XR chest Pre-admission PA/Lat CLINICAL HISTORY: pat preoperative evaluation COMPARISON STUDY: No previous studies for comparison. FINDINGS: The bones soft tissues and hemidiaphragms are normal. The cardiomediastinal silhouette is n ormal. The lungs are clear. The pulmonary vasculature is normal. IMPRESSION: Negative chest. The above report was generated using voice recognition software. It may contain grammatical, syntax or spelling errors. Electronically signed by: Sim Crockett M.D. 03/07/2019 1:22 PM
[2019-03-07 14:22] LABS: Basophils # (auto) 0.03 K/uL (0-0.2); Basophils % (auto) 0.4 %; Eosinophils % (auto) 1.4 %; Hematocrit (blood only) 34.8 % (42-52); Hemoglobin 12.7 g/dL (14.0-18.0); Immature Granulocytes # (auto) 0.02 K/uL (0.00-0.02); Immature Granulocytes % (auto) 0.3 %; Lymphocytes # (auto) 1.43 K/uL (1.2-3.4); Lymphocytes % (auto) 20.3 %; Mean Corpuscular Hgb Conc 36.5 g/dL (32-36); Mean Corpuscular Volume 91.6 fL (80-100); Mean Platelet Volume 9.6 fL (7.4-10.4); Monocytes # (auto) 0.92 K/uL (0.11-0.59); Neutrophils # (auto) 4.55 K/uL (1.4-6.5); Neutrophils % (auto) 64.6 %; Platelet Count 254 K/uL (130-400); RDW Coefficient of Variation 14.4 % (11.5-14.5); RDW Standard Deviation 49.2 fL (36.4-46.3); White Blood Count 7.05 K/uL (4.8-10.8)
[2019-03-07 14:29] LABS: INR 1.1 (0.9-1.1); Partial Thromboplastin Time 26.8 Seconds (21.0-31.0); Prothrombin Time 10.9 Seconds (9.0-12.0)
[2019-03-07 14:33] LABS: BUN Creatinine Ratio 17.7 (10-20); Calcium 9.2 mg/dl (8.5-10.1); Creatinine Clr Calc Pharmacy 100.3 ml/min; Est GFR (African American) 87.6; Est GFR (Non-African American) 75.5; Potassium 4.1 mmol/L (3.5-5.1)
--- NOTE | 2019-03-29 20:57 | History and Physical Report ---
DATE OF ADMISSION: 04/02/2019 CHIEF COMPLAINT: Left knee pain, discomfort and instability. 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 He had his knee scoped at some point. 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 He continues to have persistent progressive left knee pain, which has gotten worse over the past 10-15 years. He has been through extensive conservative treatment including steroid shots and viscosupplementation, which help him very little anymore. Over the past several months, he has resorted to using a cane due to the pain and instability in his knee. He has had a fall or 2 intermittently and is concerned about this. His pain is global. The more he walks, the more it hurts. It does swell. He now would like to have his knee fixed. PAST MEDICAL HISTORY: Significant for: 1. COPD. 2. Chronic AFib and he refuses anticoagulation. 3. Hypertension. PAST SURGICAL HISTORY: Include: 1. Cardiac ablation done at [facility] for atrial fibrillation. 2. Appendectomy. 3. Bilateral shoulder rotator cuff surgery. 4. Left big toe surgery. ALLERGIES: None. CURRENT MEDICINES: Include: 1. Carvedilol 12.5 mg twice a day. 2. Tamsulosin 0.4 mg once a day. 3. Pantoprazole 40 mg a day. 4. Baby aspirin 81 mg. 5. Lisinopril 10 mg a day. 6. Furosemide 20 mg a day as needed. 7. Levocetirizine once a day. 8. Hydrochlorothiazide 20 mg. 9. Symbicort inhaler 2 puffs twice a day. 10. Spiriva inhaler 2 puffs once a day. 11. ProAir inhaler 2 puffs 4 times a day. 12. Vitamin D. SOCIAL HISTORY: A 68-year-old male. Recently moved to [place]. 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 His is a therapist. FAMILY HISTORY: Significant for heart disease, diabetes and colon cancer. REVIEW OF SYSTEMS: Significant for atrial fibrillation, currently on a beta christina and rate controlled. He is refusing anticoagulation. Denies any chest pain or shortness of breath. No signs of DVT or PE. PHYSICAL EXAMINATION: GENERAL: Reveals a pleasant, fairly large middle-aged male, looks to be in pretty good health. HEENT: Benign. NECK: Supple. No lymphadenopathy. LUNGS: Clear to auscultation. HEART: Has an irregularly irregular rhythm consistent with AFib. No detectable murmurs. ABDOMEN: Soft, nontender and nondistended. EXTREMITIES: Grossly neurovascularly intact except as follows: Examination of the left knee reveals patient walks with a fairly neutral alignment. He does use a cane to walk. He has got diffuse tenderness around his knee. He has got bony hypertrophy medially. Range of motion is 5-10 degrees short of full extension to 120 degrees of flexion. No gross instability. Small knee effusion. X-RAYS: X-rays of the left knee are reviewed. It shows moderately advanced tricompartment DJD with chondrocalcinosis. He has a little bit of tibial femoral subluxation. He does have evidence of previous femur fracture above this with a healed fracture. He fractured this as a child. X-rays of the femur revealed just a slight deformity due to the previous femur fracture. His alignment otherwise looks good. 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 He has failed conservative care. PLAN: We talked about treatment options. He would like to have his left knee replaced. He has failed conservative treatment. We will proceed with left total knee replacement. The risks and benefits of this procedure were explained to the patient including but not limited to DVT, PE, , infection, neurological injury, vascular injury, bleeding problem, pain, limited range of motion, stiffness, failure to relieve his symptoms, incomplete relief of symptoms, persistent pain, etc. The patient understands and desires to proceed. Informed consent is obtained. He has been seen by his supply chain program manager and cleared. His AFib is stable and rate controlled with the beta christina. He has refused anticoagulation. We will likely use a baby aspirin twice a day for DVT prophylaxis. As far as discharge plans, he is planning to be discharged to home. He will use [facility] home health program. His is also a therapist. BERYL
[~2019-04-02 08:14] MED LIST changes: +ACETAMINOPHEN 500 MG TAB PO SCH; -ALBU18002 INH; -AMLO-110 PO; -ASPI81TA28 PO; +BUPIVACAINE 0.5 % 5 MG/1 ML PF 10ML VIAL ONE; +BUPIVACAINE LIPOSOME/PF 266 MG, BUPIVACAINE/EPINEPHRINE 50 ML, SODIUM CHLORIDE 0.9% 30 ... INFIL SCH; -CARV12.52 PO; +CEFAZOLIN 2000MG 2,000 MG/15 ML SYR IV SCH; -CEFAZOLIN 3000 MG/65 ML D5W IV SCH; -CETI10TA84 PO; -DEXAMETHASONE SOD INJ 4 MG/ML VIAL ONE; +FAMOTIDINE 20 MG TAB PO SCH; +GABAPENTIN 300 MG CAP PO SCH; -HYDR-5688 PO; -IBUP-103 PO; -LACTATED RINGER'S 1000ML 1,000 ML IV SCH; +LR 60ML/HR IV SCH; +METOCLOPRAMIDE HCL 10 MG TABLET PO SCH; -PANT40TA PO; -SYMIN160 INH; -TAMS0.4C38 PO; -TIOT1SPR INH; +TRANEXAMIC ACID 1,000 MG **IV Intra-op IV SCH
--- NOTE | 2019-04-02 08:29 | History & Physical Bridge Note ---
Date of Service April 02, 2019 History & Physical Bridge Note I have examined the patient, reviewed the History & Physical and in the interval since the performance of the History & Physical I have noted the following changes of clinical significance: no changes noted
[2019-04-02] MEDS ORDERED: MIDAZOLAM HCL 1 MG/ML 2ML VIAL ONE ×2 (08:57→11:59)
[2019-04-02] MEDS ORDERED: LIDOCAINE HCL 2% 2 ML VIAL/AMP(20MG/ML) INFIL ONE (09:07)
[2019-04-02] MEDS ORDERED: PROPOFOL IV EMULSION 10 MG/ML 20 ML VIAL IV ONE (09:07)
[2019-04-02] MEDS: LR 500ML BOLUS, THEN 15ML/HR IV SCH ×2 (09:13→10:24)
[2019-04-02 09:20] LABS: BUN Creatinine Ratio 17.5 (10-20); Calcium 9.6 mg/dl (8.5-10.1); Creatinine Clr Calc Pharmacy 72.9 ml/min; Est GFR (African American) 60.6; Est GFR (Non-African American) 52.3
[2019-04-02] MEDS ORDERED: fentaNYL citrate 100 MCG/2 ML VIAL IV PRN (09:49)
[2019-04-02] MEDS ORDERED: ATROPINE SULFATE 0.1 MG/ML 10ML SYR IV PRN (09:49)
[2019-04-02] MEDS ORDERED: ePHEDrine sulfate 50 MG/ML AMP IV PRN (09:49)
[2019-04-02] MEDS ORDERED: ONDANSETRON INJ 2 MG/ML 2 ML VIAL IV PRN ×2 (09:49→15:19)
[2019-04-02] MEDS ORDERED: SODIUM CHLORIDE 0.9% PF 50 ML VIAL ONE (10:23)
[2019-04-02] MEDS ORDERED: BUPIVACAINE LIPOSOME 1.3% 266 MG/20 ML VIAL ONE (10:24)
[2019-04-02] MEDS ORDERED: BACITRACIN INJ 50,000 UNIT VIAL ONE (10:24)
[2019-04-02] MEDS ORDERED: BUPIVACAINE/EPINEPHRINE 0.25% 1:200,000 30 ML VIAL ONE (10:25)
[2019-04-02] MEDS ORDERED: BUPIVACAINE/EPINEPHRINE 0.25% 1:200,000 30 ML VIAL INFIL ONE (11:43)
--- NOTE | 2019-04-02 12:26 | Post Operative Brief Note ---
Immediate Post Op Note v1 Date of Surgery April 02, 2019 Pre & Post Diagnosis Operation Date: 04/02/19 10:40 Pre-Op Diagnosis: LEFT KNEE DEGENERATIVE JOINT DISEASE W/KNEE PAIN Post-Op Diagnosis: LEFT KNEE DEGENERATIVE JOINT DISEASE W/KNEE PAIN Procedure Operation Date: 04/02/19 10:40 Actual Procedures p Left Total Knee Replacement(Left) - Rubin Grimes MD Surgeon Rubin Grimes MD Seating And Mobility Technologist Deb, PAC Estimated Blood Loss 50 Findings Consistent with Post-Op Diagnosis Fluids 1500 cc Specimens Left Knee Drains Garvey Catheter Anesthesia Type Spinal MAC Complications none Disposition Accompanied Patient To Recovery: No Disposition: Recovery Room
--- NOTE | 2019-04-02 13:08 | XRay Report ---
XR knee LT 2V routine CLINICAL HISTORY: Postoperative evaluation. COMPARISON: Left knee radiographs March 01, 2019. FINDINGS: Alignment of the total left knee arthroplasty is anatomic. There is no periprosthetic frac ture or unexpected radiopaque foreign body. There are skin moiz. Cortical thickening of the mid to distal diaphysis of the left femur is chronic and may reflect an old healed fracture. IMPRESSION: Expected findings following total left knee arthroplasty. Electronically signed by: Jonathan Carpenter M.D. 04/02/2019 1:07 PM
--- NOTE | 2019-04-02 13:31 | Anesthesiology Progress Note ---
Date of Service April 02, 2019 Anesthesia Post Procedure Vital Signs Vital Signs: Temp Pulse Pulse Resp BP Pulse Ox 04/02/19 13:15 47 L 15 104/91 100 04/02/19 13:05 391 H 15 170/82 H 100 04/02/19 12:55 37 L 15 153/83 H 100 04/02/19 12:45 48 L 17 132/91 100 04/02/19 12:35 53 L 19 133/87 100 04/02/19 12:28 97.0 F L 55 L 17 124/79 100 04/02/19 08:53 97.5 F L 89 20 156/92 H 95 Pain Intensity Left Knee: Pain Intensity: 0 Transfer of Care Handoff Completed per policy Notes Mental Status: alert / awake / arousable and participated in evaluation Patient Amnestic to Procedure: Yes Nausea / Vomiting: adequately controlled Pain: adequately controlled Airway Patency, RR, SpO2: stable & adequate BP & HR: stable & adequate Hydration State: stable & adequate Neuraxial Anesthesia: was administered and sensory block is resolving Anesthetic Complications: no major complications apparent and Pt Satisfied with anesthetic care
[2019-04-02] MEDS ORDERED: BISACODYL 10 MG SUPP PR PRN (15:19)
[2019-04-02] MEDS ORDERED: ALUMINUM/MAGNESIUM SUSP 30 ML UDC PO PRN (15:19)
[2019-04-02] MEDS ORDERED: MAGNESIUM HYDROXIDE SUSP 30 ML UDC PO PRN (15:19)
[2019-04-02] MEDS ORDERED: ALBUTEROL HFA 8 GM INHALER INH PRN (15:19)
[2019-04-02] MEDS ORDERED: METOCLOPRAMIDE HCL INJ 5 MG/ML 2 ML VIAL IV PRN (15:19)
[2019-04-02] MEDS ORDERED: TAMSULOSIN HCL 0.4 MG CAP PO PRN (15:19)
[2019-04-02] MEDS ORDERED: NALOXONE HCL 0.4 MG/1 ML VIAL/CARP IV PRN (15:19)
[2019-04-02] MEDS: SODIUM CHLORIDE 0.9% 1000ML 1,000 ML IV SCH ×2 (16:17→22:12)
[2019-04-02] MEDS: FERROUS GLUCONATE 324 MG TAB PO SCH (17:42)
[2019-04-02] MEDS: ACETAMINOPHEN 500 MG TAB PO SCH ×2 (17:42→22:06)
[2019-04-02] MEDS: TAMSULOSIN HCL 0.4 MG CAP PO SCH (17:42)
[2019-04-02] MEDS: KETOROLAC TROMETHAMINE 15 MG/ML VIAL IV SCH ×2 (17:42→23:20)
[2019-04-02] MEDS: ASCORBIC ACID 500 MG TAB PO SCH (17:42)
[2019-04-02] MEDS: CEFAZOLIN 2000MG 2,000 MG/15 ML SYR IV SCH (17:43)
--- NOTE | 2019-04-02 19:27 | Progress Note ---
DATE: 04/02/2019 SUBJECTIVE: A 68-year-old gentleman with underlying chronic AFib, postop from a left knee replacement. He is doing well. His legs are still numb. No significant sensory or motor function yet. He has no chest pain or shortness of breath. He was transferred to the PCU from the recovery room due to low pulse. He is asymptomatic. OBJECTIVE: VITAL SIGNS: Temperature is 36.6. Pulse is now 70. GENERAL: Reveals a pleasant, middle-aged male. He is sitting up in bed and talking to his . He looks comfortable. LUNGS: Clear to auscultation. HEART: Heart has an irregularly irregular rhythm. ABDOMEN: Soft, nontender, nondistended. EXTREMITIES: Grossly neurovascularly intact except as follows: Examination of the left lower extremity reveals the leg to be well aligned. Dressing is clean, dry and intact. His toes are pink with good refill. He has no significant sensory or motor function yet. X-RAYS: X-rays of the left knee from recovery room are reviewed. It shows a cemented posterior stabilized total knee arthroplasty. Components looked to be in good position. No signs of problems. ASSESSMENT: A 68-year-old gentleman postoperative from a left knee replacement, doing well. His pain is controlled. He is neurologically intact. He has been bradycardic and therefore sent to the PCU to monitor overnight. He is asymptomatic. He does have chronic atrial fibrillation and has refused anticoagulation. PLAN: 1. DVT prophylaxis including thigh-high TEDs, SCDs, and aspirin twice a day. 2. PT/OT. Weight bear as tolerated. Left total knee protocol. 3. Pain control, doing well with current pain regimen. 4. IV antibiotics x24 hours. 5. Bradycardia. Heart rate has already improved significantly. He is asymptomatic. 6. Disposition: Plan to discharge to home with some home health once adequately recovered.
[2019-04-02] MEDS: OXYCODONE HCL IR 5 MG TAB (IMMEDIATE RELEASE) PO PRN (19:30)
[2019-04-02] MEDS: DOCUSATE SODIUM 100 MG CAP PO SCH (20:37)
[2019-04-02] MEDS: TAPENTADOL HCL ER 50 MG TABCR PO SCH (20:37)
[2019-04-02] MEDS: CARVEDILOL 12.5 MG TAB PO SCH (20:37)
[2019-04-02] MEDS: HYDROmorphone INJ 0.5 MG/0.5 ML SYR IV PRN (20:37)
[2019-04-02] MEDS: SENNA 8.6 MG TAB PO SCH (20:38)
[2019-04-02] MEDS: LISINOPRIL 10 MG TAB PO SCH (20:38)
[2019-04-02] MEDS: ASPIRIN 81 MG ECTAB PO SCH (20:38)
[2019-04-02] MEDS: BUDESONIDE/FORMOTEROL FUMARATE 160/4.5 60 PUFFS/INHALER INH SCH (20:38)
--- NOTE | 2019-04-03 00:46 | Operative Report ---
DATE OF OPERATION: 04/02/2019 SURGEON: Rubin Grimes MD SPRING WINDER: CAREY Burks PREOPERATIVE DIAGNOSIS: Left knee degenerative joint disease. POSTOPERATIVE DIAGNOSIS: Left knee degenerative joint disease. PROCEDURE PERFORMED: Left cemented posterior stabilized total knee arthroplasty. COMPLICATIONS: None. ESTIMATED BLOOD LOSS: 50 mL. FLUID REPLACEMENT: 1500 mL crystalloid fluid replacement. TOURNIQUET TIME: 60 minutes at 300 mmHg. ANESTHESIA: Spinal with adductor canal block. DRAINS: None. SPECIMENS: Left knee sent for pathology. OPERATIVE INDICATIONS: The patient is a 68-year-old gentleman with a history of chronic atrial fibrillation and longstanding left knee pain. 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 He had some surgery back then. Over the years, he has developed increased pain and discomfort. He describes it has gotten worse over the past 10-15 years. He had x-rays which revealed tricompartment DJD. The patient failed conservative care and elected to proceed with total knee arthroplasty. OPERATIVE FINDINGS: Operative findings revealed extensive grade 4 [id number] disease in all 3 compartments. He had a moderate sized joint effusion and osteophytes in all 3 compartments. OPERATIVE IMPLANTS: Operative implants consisted of: 1. Biomet Vanguard size 72.5 left posterior bifemoral component. 2. Biomet size 83 tibial tray. 3. A 10 mm posterior stabilized polyethylene insert. 4. A 34 x 8.5 all poly patella. OPERATIVE PROCEDURE: The patient was taken to the operating room, identified and placed on the Operating Room table in supine position. All contact areas were appropriately padded. I.V. antibiotics provided by anesthesia team. A spinal anesthetic and adductor canal block had been provided in the holding area. Garvey catheter was placed in sterile fashion. Left thigh tourniquet was then placed and left lower extremity was then prepped and draped in usual sterile fashion. Left leg was elevated and exsanguinated with Esmarch and tourniquet was placed at 300 mmHg. An anterior approach to the left knee was then performed through a longitudinal incision centered over the patella. Sharp dissection was carried through the subcutaneous tissue down below the extensor mechanism. A medial parapatellar arthrotomy incision was made. Some subperiosteal dissection was carried out medially. The fat pad resected from beneath the patellar tendon. The lateral patellofemoral ligament was released. The patella was everted and knee was flexed. The osteophytes were taken off the distal femur. His ACL was chronically absent. The PCL was released from the distal femur. The tibia subluxated anteriorly. I did a pretty extensive medial and posteromedial release due to his flexion contracture and his varus deformity. The external tibial alignment jig was then placed in the anterior face of the tibia and adjusted 16 mm medially. Proximal tibial cut was made to remove about a millimeter or 2 of bone from the most deficient aspect of the medial tibial plateau. Some osteophytes were taken off medial and posteromedially. Tibia sized to a size 83. Attention was then drawn to the femur. The distal femur was entered with a sharp drill bit. Intramedullary canal was suctioned. A left 6-degree valgus cutting guide was placed. Distal femoral cutting block was pinned in place. Distal femoral cut was made to take an additional 3 mm of bone off distal femur. Femur was then sized to a size 72.5. We did downsize this slightly. The AP cutting block was pinned parallel to the epicondylar axis, which was 5 degrees of external rotation. The anterior cut, anterior chamfer, posterior cut, posterior chamfer cuts were made. Box cutting guide was placed and adjusted slightly lateral and the box cut was made. The knee was flexed. The remnants of the medial and lateral menisci were excised. The osteophytes were taken off the posterior aspect of the femur. Trial femoral component was placed. Tibial tray was pinned in maximum external rotation and drill and stem punch were used to create defect in proximal tibia for the tibial tray. The knee was then trialed with a 10 mm insert fit most appropriately. Attention was then drawn to the patella. The patella cleaned of all soft tissues. Patella thickness measured 25 mm in thickness and was cut down to 15. It was sized to a size 34 patella. Lateral osteophyte was removed. Patella button was placed. Knee was taken through range of motion, patella tracked nicely with no thumbs test. Attention was then drawn toward placement of permanent components. All trial components were removed. Bone plug was placed in the distal femur to limit blood loss. A double batch of Palacos G cement was mixed. A BiomIdeedock Vanguard size 72.5 left posterior stabilized femoral component, size 83 tibial tray, 10 mm posterior stabilized polyethylene insert, and a 34 x 8.5 all poly patella were then cemented in place. The knee was brought out into full extension until cement hardened. A final cement check was then performed. Pericapsular tissues were injected with a total of 100 mL of a combination of 20 mL of Exparel, 30 mL of normal saline, 50 mL of 0.25% Marcaine with epinephrine. The patient did receive 1 g of tranexamic acid. The tourniquet was then let down for a final tourniquet time of 60 minutes. Hemostasis was assured using electrocautery. The extensor mechanism was then closed with a combination of #1 PDS suture and #1 Vicryl suture in a [id number]-[id number] fashion. Extensor mechanism was checked and found to be intact and subcutaneous tissue was then closed with #2 Dexon suture in buried interrupted fashion. Skin was closed with skin moiz. Leg was then cleaned and dried and a sterile dressing of Xeroform, 4 x 4, sterile cast padding and Austen bandage were applied. The patient was then transferred to the recovery room in a stable condition. The patient tolerated the procedure well with no complications. All needle and sponge counts were correct at the end of the operation. I attest to the content of the Intraoperative Record and any orders documented therein. Any exception s are noted below.
[2019-04-03] MEDS: HYDROmorphone INJ 0.5 MG/0.5 ML SYR IV PRN ×4 (02:31→17:02)
[2019-04-03] MEDS: CEFAZOLIN 2000MG 2,000 MG/15 ML SYR IV SCH (02:31)
[2019-04-03] MEDS: ACETAMINOPHEN 500 MG TAB PO SCH ×3 (05:52→21:29)
[2019-04-03] MEDS: KETOROLAC TROMETHAMINE 15 MG/ML VIAL IV SCH ×3 (05:52→17:58)
[2019-04-03 07:27] LABS: Hematocrit (blood only) 30.9 % (42-52); Hemoglobin 10.9 g/dL (14.0-18.0); Mean Corpuscular Hgb Conc 35.3 g/dL (32-36); Mean Corpuscular Volume 91.2 fL (80-100); Mean Platelet Volume 9.4 fL (7.4-10.4); Platelet Count 170 K/uL (130-400); RDW Coefficient of Variation 14.1 % (11.5-14.5); RDW Standard Deviation 46.5 fL (36.4-46.3); Red Blood Count 3.39 M/uL (4.7-6.1); White Blood Count 4.59 K/uL (4.8-10.8)
[2019-04-03 07:59] LABS: BUN Creatinine Ratio 16.6 (10-20); Calcium 8.7 mg/dl (8.5-10.1); Creatinine Clr Calc Pharmacy 81.2 ml/min; Est GFR (Non-African American) 59.5; Potassium 4.3 mmol/L (3.5-5.1)
[2019-04-03] MEDS: FUROSEMIDE 20 MG TAB PO SCH (08:12)
[2019-04-03] MEDS: FERROUS GLUCONATE 324 MG TAB PO SCH ×2 (08:12→17:59)
[2019-04-03] MEDS: TIOTROPIUM BROMIDE 5 PUFF/90 MCG INH INH SCH (08:12)
[2019-04-03] MEDS: BUDESONIDE/FORMOTEROL FUMARATE 160/4.5 60 PUFFS/INHALER INH SCH ×2 (08:12→21:32)
[2019-04-03] MEDS: hydroCHLOROthiazide 25 MG TAB PO SCH (08:12)
[2019-04-03] MEDS: PANTOprazole 40 MG TAB PO SCH (08:12)
[2019-04-03] MEDS: ASCORBIC ACID 500 MG TAB PO SCH ×2 (08:13→17:59)
[2019-04-03] MEDS: CARVEDILOL 12.5 MG TAB PO SCH ×2 (08:13→21:29)
[2019-04-03] MEDS: MULTIVITAMIN TAB PO SCH (08:13)
[2019-04-03] MEDS: DOCUSATE SODIUM 100 MG CAP PO SCH ×2 (08:13→21:29)
[2019-04-03] MEDS: ASPIRIN 81 MG ECTAB PO SCH ×2 (08:13→21:30)
[2019-04-03] MEDS: TAPENTADOL HCL ER 50 MG TABCR PO SCH ×2 (08:19→21:31)
[2019-04-03] MEDS: OXYCODONE HCL IR 5 MG TAB (IMMEDIATE RELEASE) PO PRN ×3 (09:39→21:32)
--- NOTE | 2019-04-03 13:49 | Progress Note ---
DATE: 04/03/2019 SUBJECTIVE: A 68-year-old gentleman postop day #1 from a left knee replacement. He is doing pretty well. Having a little bit more pain today. Denies any chest pain or shortness of breath. Not feeling dizzy or lightheaded. OBJECTIVE: VITAL SIGNS: Temperature 36.8. Vital signs stable. GENERAL: Physical examination shows a pleasant, middle-aged male. He is sitting up in bed, looks completely comfortable. He is talking to his . LUNGS: Clear to auscultation. HEART: Has an irregularly irregular rhythm, but normal rate. ABDOMEN: Soft, nontender, nondistended. EXTREMITIES: Grossly neurovascularly intact except as follows: Examination of the left lower extremity reveals the leg to be well aligned. Dressing is clean, dry, and intact. He can dorsiflex and plantarflex his foot appropriately. He is neurologically intact. LABORATORY DATA: Hemoglobin 10.9, hematocrit 30.9. Electrolytes are stable. Sodium continues to be a little low, which is his baseline. ASSESSMENT: A 68-year-old gentleman postop day #1 from a left knee replacement, doing well. He was sent to the PCU for bradycardia. Heart rate is now in the normal range. He is in chronic atrial fibrillation. He is refusing anticoagulation. PLAN: 1. DVT prophylaxis including thigh-high TEDs, SCDs, and aspirin twice a day for. 2. PT/OT. Weight bear as tolerated. Left total knee protocol. 3. Pain control, doing okay with current pain regimen. 4. Bradycardia. This seems to be resolved. He is completely asymptomatic. We will transfer him to the floor today. 5. Disposition: He is planning to be discharged to home with some home health once adequately recovered.
[2019-04-03] MEDS: TAMSULOSIN HCL 0.4 MG CAP PO SCH (17:59)
[2019-04-03] MEDS: LISINOPRIL 10 MG TAB PO SCH (21:28)
[2019-04-03] MEDS: SENNA 8.6 MG TAB PO SCH (21:29)
[2019-04-04] MEDS: KETOROLAC TROMETHAMINE 15 MG/ML VIAL IV SCH ×3 (00:09→11:26)
[2019-04-04] MEDS: ACETAMINOPHEN 500 MG TAB PO SCH ×2 (06:09→13:47)
[2019-04-04] MEDS: OXYCODONE HCL IR 5 MG TAB (IMMEDIATE RELEASE) PO PRN ×2 (07:36→14:13)
--- NOTE | 2019-04-04 08:04 | Progress Note ---
DATE: 04/04/2019 SUBJECTIVE: A 68-year-old gentleman postop day 2 from a left knee replacement. He is doing well. Pain is controlled. Only problem is he is having trouble voiding. They had the straight cath him this morning. No chest pain or shortness of breath. Not feeling dizzy or lightheaded. OBJECTIVE: VITAL SIGNS: Temperature 37.0. Vital signs stable. GENERAL: Physical examination shows a pleasant, middle-aged male. He is sitting up in bed, looks pretty comfortable. EXTREMITIES: Examination of the left leg reveals some bruising around the knee. Some moderate swelling. He does have a little bit of bloody drainage from the incision site. His calf is soft and supple. He is neurologically intact. ASSESSMENT: A 68-year-old gentleman postop day 2 from left knee replacement, doing pretty well. He is having difficulty voiding. PLAN: 1. DVT prophylaxis including thigh-high TEDs, SCDs, and aspirin twice a day. 2. PT/OT. Weight bear as tolerated. Left total knee protocol. 3. Pain control, doing okay with current pain regimen. 4. Voiding difficulties. He is going to get some Flomax this morning, we will see how he does. If he is not voiding on his own, we will have to get a urology consult. 5. Disposition: Plan to discharge to home with some home health once adequately recovered and voiding voluntarily.
[2019-04-04] MEDS: FERROUS GLUCONATE 324 MG TAB PO SCH (09:02)
[2019-04-04] MEDS: ASCORBIC ACID 500 MG TAB PO SCH (09:02)
[2019-04-04] MEDS: DOCUSATE SODIUM 100 MG CAP PO SCH (09:02)
[2019-04-04] MEDS: hydroCHLOROthiazide 25 MG TAB PO SCH (09:03)
[2019-04-04] MEDS: ASPIRIN 81 MG ECTAB PO SCH (09:03)
[2019-04-04] MEDS: CARVEDILOL 12.5 MG TAB PO SCH (09:03)
[2019-04-04] MEDS: MULTIVITAMIN TAB PO SCH (09:04)
[2019-04-04] MEDS: FUROSEMIDE 20 MG TAB PO SCH (09:04)
[2019-04-04] MEDS: PANTOprazole 40 MG TAB PO SCH (09:06)
[2019-04-04] MEDS: TIOTROPIUM BROMIDE 5 PUFF/90 MCG INH INH SCH (09:07)
[2019-04-04] MEDS: BUDESONIDE/FORMOTEROL FUMARATE 160/4.5 60 PUFFS/INHALER INH SCH (09:09)
[2019-04-04] MEDS: TAPENTADOL HCL ER 50 MG TABCR PO SCH (09:12)
--- NOTE | 2019-04-04 15:45 | Urology Consultation ---
Date of Consultation April 04, 2019 Assessment & Plan (1) Postoperative urinary retention: Postop UR. Recommend that patient continue Tamsulosin QHS and maintain Garvey for a total of 7-10d. Discussed with patient and , they live in [facility] and are interested in seeking further URO care close to home. Will arrange outpatient follow up with our office here in [place] for patient if unable to locate closer urologist. Thanks for allowing us to participate in the inpatient care of Mr. Mcbride. Please contact our service if we can be of further assistance during hospitalization. History of Present Illness Reason for Consultation: Postop urinary retention Attending Physician: Rubin Grimes MD History of Present Illness 68 YO male POD #2 s/p orthopaedic surgery with urinary retention. Patient reports that he has never seen a Urologist. He takes Tamsulosin as baseline x several years per PCP. Reports voiding difficulty after shoulder surgery several years ago. Has required straight cath since surgery. Indwelling Garvey placed earlier this afternoon by nursing. Feeling better since Garvey insertion. No bladder or genital pain. No hematuria. Allergies Allergy/AdvReac Type Severity Reaction Status Date / Time CHLORHEXADINE GLUCONATE Allergy Mild redness, Uncoded 04/02/19 08:44 burning SEASONAL Allergy Unknown runny Uncoded 04/02/19 08:44 nose, cough, itching eyes Home Medications Home Medications Medication Instructions Recorded Confirmed Type albuterol sulfate [ProAir HFA] 2 puff INHALATION QID PRN 03/06/19 04/02/19 History budesonide-formoterol 2 puff INHALATION BID 03/06/19 04/02/19 History carvedilol 12.5 mg PO BID 03/06/19 04/02/19 History pantoprazole 40 mg PO QAM 03/06/19 04/02/19 History tamsulosin 0.4 mg PO QDD 03/06/19 04/02/19 History tiotropium bromide 2 puff INHALATION QAM 03/06/19 04/02/19 History furosemide 20 mg PO QAM 03/07/19 04/02/19 History hydrochlorothiazide 12.5 mg PO QAM 03/07/19 04/02/19 History levocetirizine 5 mg PO QAM 03/07/19 04/02/19 History lisinopril 10 mg PO HS 03/07/19 04/02/19 History acetaminophen [Tylenol Extra 1,000 mg PO Q8 30 Days #180 tab 04/03/19 Rx Strength] aspirin [Ecotrin Low Strength] 81 mg PO BID 45 Days #90 tab 04/03/19 Rx ferrous gluconate 324 mg PO BIDM 30 Days #60 tab 04/03/19 Rx oxycodone 5 - 10 mg PO Q6H PRN 15 Days #40 04/03/19 Rx tab Patient History Medical History AA (aortic aneurysm) Following with vascular, CTA chest 11/2018 showed aortic root to be 4.8-5 cm. Per vascular office note 02/26/19, "Maintain good BP control, pt is at risk of complications of rupture and dissection which were discussed...Echo in [address] Thorax in 12 months" BPH (benign prostatic hyperplasia) Chronic obstructive pulmonary disease Per pulmonology 08/2018, "He is stable at this time and stays on his current regimen." Environmental allergies GERD (gastroesophageal reflux disease) History of epistaxis DESCRIBES SEVERE SINGLE EPISODE THAT REQUIRED PLATELETS AND FFP TO BE TRANSFUSED, spring 2017. No other bleeding issues. Hypertension Hyponatremia Following with nephrology. Per last office note 10/2018 "ETOH/liver disease and/or COPD/pulmonary nodule (R/O CA)/SIADH...longstanding history of hyponatremia, 128-133 dating back to 2009. Paroxysmal A-fib and A-flutter. S/P radiofrequency ablation ~3 yrs ago, but afib/flutter has reoccurred. Per cardiology, patient should be on anticoagulation, but he refuses anything more than ASA 81mg. Seasonal allergies Sleep apnea NO CPAP OR BIPAP Surgical History History of cardiac radiofrequency ablation DONE AT [facility] Hx of appendectomy Hx of foot surgery LEFT Hx of repair of left rotator cuff Hx of repair of right rotator cuff Hx of tonsillectomy Family History Father Family hx of colon cancer Social History Preferred Language: Monegasque Communication Ability: Effective Neonatal Nurse Required: No Beliefs That Will Affect Care: None marital status: Current Living Situation: Spouse Feels Safe at Home: Yes Safety Concerns: Feels Safe At This Time Smoking Status: Current every day smoker Tobacco Type: cigars Cigarettes Per Day: 2-3 PER WK Do You Dip or Chew Tobacco: No Second Hand Exposure: No Hx Alcohol Use: Yes Alcohol type: beer and hard liquor Hx Substance Use: No Review of Systems Review of Systems: All systems reviewed & are unremarkable except as noted in HPI & below Physical Exam Physical Exam: WN/WD NAD. Resp effort normal. No JVD. Abd soft/nontender. : bladder nontender, nondistended. Garvey in place draining clear yellow urine. A&Ox3 appropriate affect. Skin: +surgical dressing to L knee intact. Results & Data Vital Signs (Past 12 Hours) Vital Signs Temp Pulse Pulse Resp BP BP Pulse Ox 04/04/19 13:51 37.1 C 69 74 18 163/72 H 155/87 H 94 04/04/19 10:17 37.1 C 69 74 18 163/72 H 155/87 H 94 04/04/19 07:30 37.1 C 74 18 163/72 H 94
--- NOTE | 2019-04-10 10:28 | Discharge Summary ---
ADMITTING PHYSICIAN AND SURGEON: Rubin Grimes MD. ADMITTING DIAGNOSIS: Left knee degenerative joint disease. SURGERY PERFORMED: Left total knee arthroplasty. SECONDARY DIAGNOSES: Chronic obstructive pulmonary disease, chronic atrial fibrillation, hypertension, postoperative urinary retention. CONSULTS: Dr. Coughlin for urology for postoperative urinary retention. HISTORY AND PHYSICAL EXAMINATION: Well documented in the patient's chart. HOSPITAL COURSE: The patient was admitted on 04/02/2019, underwent total knee arthroplasty, tolerated the procedure well. There were no complications. He was transferred to the PACU postoperatively and later to the orthopedic floor for further care. He was given Ancef for antibiotic prophylaxis, ABEBE stockings, SCDs and aspirin for DVT prophylaxis. Hemoglobin, hematocrit and vital signs were monitored during his hospital stay. He did develop some postoperative bradycardia and was transferred to the PCU. He remained completely asymptomatic and was later transferred to the orthopedic floor again. He did not require any blood transfusions. There were no complications. He did develop some urinary retention postoperatively and a consult was obtained with urology. On postoperative day 2, he was tolerating a regular diet, pain was controlled with oral pain medicine. He was participating in physical therapy. On postop day 2, he was discharged home, set up with home health services. He was given printed discharge instructions including new prescriptions for extra strength Tylenol, aspirin, iron supplement and oxycodone. Continue his home medicines. Continue physical therapy, weightbearing as tolerated, ABEBE stockings. Follow up with urology as an outpatient as well as Dr. Grimes in approximately 2 weeks postop or sooner if there are any problems or concerns.
== END 2019-04-04 14:40 | disposition home health service (06) | DRG 470 ==
LOC: ASU 08:14 → 2S 12:30 → 3E 04-03 14:39
DX: R33.9 Retention of urine, unspecified; G47.30 Sleep apnea, unspecified; I71.4 Abdominal aortic aneurysm, without rupture; K21.9 Gastro-esophageal reflux disease without esophagitis; M17.12 Unilateral primary osteoarthritis, left knee; N40.1 Benign prostatic hyperplasia with lower urinary tract symptoms; E87.1 Hypo-osmolality and hyponatremia; J30.2 Other seasonal allergic rhinitis; M25.462 Effusion, left knee; J44.9 Chronic obstructive pulmonary disease, unspecified; F17.290 Nicotine dependence, other tobacco product, uncomplicated; Z79.899 Other long term (current) drug therapy; Z91.81 History of falling; I48.2 Chronic atrial fibrillation; I10 Essential (primary) hypertension; Z79.51 Long term (current) use of inhaled steroids; Z79.82 Long term (current) use of aspirin; R00.1 Bradycardia, unspecified

== ENCOUNTER 2019-04-27 01:28 | Inpatient (IN) ==
--- OUTSIDE RECORDS SUMMARY | 2019-04-27 01:36 | External Medical Summary | Continuity of Care Document ---
:1950 Author Name Jorge Webb Address Unavailable Unavailable , Care Team Providers Name Role Phone Shade DIAS Unavailable [email or web address], [email or web address] Unavailable Unavailable Problems Active medical history not documented Allergies and Adverse Reactions Allergy history not documented Medications Medications not documented Procedures Procedures not documented Immunizations Immunizations not documented Plan of Treatment Planned Observations Planned Goals not documented Results No Known Results Results not documented
[2019-04-27] MEDS ORDERED: LACTATED RINGER'S 1,000 ML IV SCH (02:45)
--- NOTE | 2019-04-27 02:53 | History & Physical Report ---
Date of Service April 27, 2019 Assessment & Plan (1) HTN (hypertension): 8yoM with hx of AFib/Aflutter, HTN, mild SHEREEN - not on CPAP, hx of post of urinary retention s/p 04/02/19 L TKA presents as transfer from [facility]. Pt had presented to [facility] per records and sign out for concern of intermittent confusion and increasing fatigue since TKA on 04/02/19. Symptoms worsened over the past 2 days. At [facility]: Found to be hyponatremic to 118 with confusion, had Ct head with no acute abnl; Ammonia level nl, lactate 1, elevated LFTs AST 193, ALT 195 and Alk Phos 409. US GB revealed CBD dilation and stones at neck of GB with upper limit of normal gallbladder dilation possible passed stone/rule out distal bile duct dilation; Doppler LLE neg for DVT. UA negative. Received percocet x 2 and 1L NS. Pt transferred here for additional care Of note: Initial labs here ordered under wrong pt: WBC 6.8, Hgb/Hct 9.9/27.5, Plt 256, Sodium 121, K 3.6, Cl 86, Bicarb 25, BUN/Cr 11/1.1, BSG 1923, LFT TB 2.4, AST 133, ALT 155, Alk phos 347, ESR 65 Confusion - now improved -Likely in the setting of hyponatremia vs. possible gallbladder etiology -Pt noted to have hyponatremia during recent hospitalization and surgery 04/03 126 and in february 2019 low as well -Ordered urine osm, urine NA, serum osm to rule out SIADH, pt does not appear to be hypovolemic and NA did not improve s/p IV hydration at [facility] -Ct head at [facility]: no acute abnl, atrophy and chronic deep white matter ischemia -Doppler LLE no DVT -no WBC, lactate and ammonia levels normal -Hold home levicetirizine - could be causing symptoms -Continue to monitor LFT abnormalities with CBD dilation -Pt asymptomatic with normal exam -LFTs abnormal here: Ast 133, Alt 155, Alk phos 347, TB 2.8 -US GB at [facility]: revealed CBD dilation 1.2 cm, stones at neck of GB with upper limit of normal gallbladder dilation 2.7mm possible passed stone/rule out distal bile duct dilation -CT abdomen w/ot contrast ordered -Monitor LFT AFib/HTN -ECHO 05/2017: mild con LVH, EF 60%, trace aortic regurg, mildly dilated thoracic aorta (41mm sinus of valsalva, 42mm proximal ascending aorta) -Not anticoagulated, hx of severe nose bleeds -Continue carvedilol, lisinopril, Furosemide, HCTZ Dilated thoracic aorta -ECHO 05/2017: mild con LVH, EF 60%, trace aortic regurg, mildly dilated thoracic aorta (41mm sinus of valsalva, 42mm proximal ascending aorta) -Follows with Dr. Malone COPD -Continue home symbicort, proAir and spiriva Mild SHEREEN -Not on CPAP Anemia - Hgb stable at 9.9 (on 04/03/19 was 10.9) -No concern for acute GI bleed at this time -Continue home ferrous gluconate 324mg BID -Monitor CBC GERD -Continue home protonix BPH? Hx of post op urinary retention s/p L TKA on 04/02/19 -Continue Tamsulosin L Knee TKA -Continue home pain medications -Continue aspirin for anticoagulation 81mg BID FEN/GI: NPO with sibs/chips and meds for possible GI intervention DVT: SCDs, encourage ambulation, aspirin 81mg BID Code: Full per discussion with pt Dispo: PCU telemetry (2) Afib: (3) COPD (chronic obstructive pulmonary disease): (4) Confusion: (5) Hyponatremia: (6) Elevated LFTs: History of Present Illness Chief Complaint: Confusion, hyponatremia Primary Care Provider: Unruly Laughlin 68yoM with hx of AFib/Aflutter, HTN, mild SHEREEN - not on CPAP, hx of post of urinary retention s/p 04/02/19 L TKA presents as transfer from [facility]. Pt had presented to [facility] per records and sign out for concern of intermittent confusion and increasing fatigue since TKA on 04/02/19. Symptoms worsened over the past 2 days. Per also had urinary urgency, and incontinence x 2 days. Pt now reports his concerned he is confused. had him stop oxycodone which was prescribed for L knee pain post TKA as she believed it was causing c onfusion and took him to [facility] today. He however denies any notice of being confused. He denies any f/c, FLETCHER, dizziness, cp, sob, abdominal pain, n/v, diarrhea, constipation, dysuria, hematuria. At [facility]: Found to be hyponatremic to 118 with confusion, had Ct head with no acute abnl; Ammonia level nl, lactate 1, elevated LFTs AST 193, ALT 195 and Alk Phos 409. US GB revealed CBD dilation and stones at neck of GB with upper limit of normal gallbladder dilation possible passed stone/rule out distal bile duct dilation; Doppler LLE neg for DVT. Pt transferred here for additional care Shx: L TKA on 04/02/19, appendectomy, cardiac ablation, bilateral shoulder rotator cuff, L big toe Allergies Allergy/AdvReac Type Severity Reaction Status Date / Time CHLORHEXADINE GLUCONATE Allergy Mild redness, Uncoded 04/02/19 08:44 burning SEASONAL Allergy Unknown runny Uncoded 04/02/19 08:44 nose, cough, itching eyes Home Medications Home Medications Medication Instructions Recorded Confirmed Type albuterol sulfate [ProAir HFA] 2 puff INHALATION QID PRN 03/06/19 04/27/19 History budesonide-formoterol 2 puff INHALATION BID 03/06/19 04/27/19 History carvedilol 12.5 mg PO BID 03/06/19 04/27/19 History pantoprazole 40 mg PO QAM 03/06/19 04/27/19 History tamsulosin 0.4 mg PO QDD 03/06/19 04/27/19 History tiotropium bromide 2 puff INHALATION QAM 03/06/19 04/27/19 History furosemide 20 mg PO QAM 03/07/19 04/27/19 History hydrochlorothiazide 12.5 mg PO QAM 03/07/19 04/27/19 History levocetirizine 5 mg PO QAM 03/07/19 04/27/19 History lisinopril 10 mg PO HS 03/07/19 04/27/19 History acetaminophen [Tylenol Extra 1,000 mg PO Q8 30 Days #180 tab 04/03/19 04/27/19 Rx Strength] aspirin [Ecotrin Low Strength] 81 mg PO BID 45 Days #90 tab 04/03/19 04/27/19 Rx ferrous gluconate 324 mg PO BIDM 30 Days #60 tab 04/03/19 04/27/19 Rx Past Med/Surg History Medical History AA (aortic aneurysm) Following with vascular, CTA chest 11/2018 showed aortic root to be 4.8-5 cm. Per vascular office note 02/26/19, "Maintain good BP control, pt is at risk of complications of rupture and dissection which were discussed...Echo in [address] Thorax in 12 months" BPH (benign prostatic hyperplasia) Chronic obstructive pulmonary disease Per pulmonology 08/2018, "He is stable at this time and stays on his current regimen." Environmental allergies GERD (gastroesophageal reflux disease) History of epistaxis DESCRIBES SEVERE SINGLE EPISODE THAT REQUIRED PLATELETS AND FFP TO BE TRANSFUSED, spring 2017. No other bleeding issues. Hypertension Hyponatremia Following with nephrology. Per last office note 10/2018 "ETOH/liver disease and/or COPD/pulmonary nodule (R/O CA)/SIADH...longstanding history of hyponatremia, 128-133 dating back to 2009. Paroxysmal A-fib and A-flutter. S/P radiofrequency ablation ~3 yrs ago, but afib/flutter has reoccurred. Per cardiology, patient should be on anticoagulation, but he refuses anything more than ASA 81mg. 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 Required: No Beliefs That Will Affect Care: None marital status: Current Living Situation: Spouse Feels Safe at Home: Yes Smoking Status: Current some day smoker Tobacco Type: cigars ; Cigarettes Per Day: 2-3 week ; Second Hand Exposure: No ; Hx Alcohol Use: Yes Alcohol type: beer and hard liquor Hx Substance Use: No Review of Systems Review of Systems: As per HPI Physical Exam Physical Exam: General: In NAD HEENT: moist mucous membranes Pulm: CTAB equal breath sounds bilaterally CV: irregular rhythm regular rate, no m/r/g, cap refill 2 secs Abdomen:+BS, no TTP in all quadrants, negative James's, non-distended LE: no LE edema, no calf TTP, chronic venous stasis skin changes, L Knee moiz intact from TKA on 04/02 - wound healing well, clean/dry/intact Results & Data Vital Signs (Past 12 Hours) Vital Signs Temp Pulse Resp BP Pulse Ox 04/27/19 01:42 37.1 C 67 16 139/71 98 Medications Administered Current Inpatient Medications Aspirin (Ecotrin Ectab) 81 mg PO BID ROCKY Stop: 05/27/19 08:59 Budesonide/Formoterol Fumarate (Symbicort 160mcg/4.5mcg) 2 puffs INH BID ROCKY Stop: 05/27/19 08:59 Carvedilol (Coreg) 12.5 mg PO BID ROCKY Stop: 05/27/19 08:59 Ferrous Gluconate (Ferrous Gluconate) 324 mg PO BIDM ROCKY Stop: 05/27/19 07:59 Furosemide (Lasix) 20 mg PO QAM ROCKY Stop: 05/27/19 08:59 Hydrochlorothiazide (Hctz) 12.5 mg PO QAM ROCKY Stop: 05/27/19 08:59 Lisinopril (Zestril) 10 mg PO HS ROCKY Stop: 05/27/19 20:59 Non-Formulary Medication (Albuterol Hfa) 2 puffs INH QID PRN PRN Reason: Wheezing Non-Formulary Medication (Tiotropium [place]) 2 puffs INH QAM ROCKY Stop: 05/27/19 08:59 Pantoprazole Sodium (Protonix) 40 mg PO QAM ROCKY Stop: 05/27/19 08:59 Tamsulosin HCl (Flomax) 0.4 mg PO QDD ROCKY Stop: 05/27/19 16:29 Code Status & VTE Plan Code Status Full VTE Prophylaxis Plan VTE Prophylaxis will be ordered: Yes Supervising Physician Co-Signing Physician Notes Attending addendum: I have physically seen this patient, have supervised the medical residents activities, and agree with the H&P unless as otherwise noted. Assessment and Plan: Symptomatic acute on chronic hyponatremia- Transferred from [facility] emergency department. Check CBC with differential, chemistry profile, serum and urine osmolality. On furosemide and HCTZ, both to be held. Follow serial laboratories. Abnormal liver enzymes/common bile duct dilatation- Repeating laboratories. CT of abdomen and pelvis without contrast to further assess gallbladder. May need MRCP/ERCP. Remainder of orders and notations as noted. PG Care Time/CCT Total # of Minutes Spent Total Time Spent with Patient: Total time spent is greater than 50% in coordination of care (as documented) at patient's floor/unit and/or counseling patient: Resident Activity Tracking Resident Involvement: Resident Care Provided Care Provided: Adult Hospital Medicine
[2019-04-27] MEDS ORDERED: ALBUTEROL HFA 8 GM INHALER INH PRN (03:35)
[2019-04-27 04:20] LABS: Albumin Globulin Ratio 0.8 (0.9-2); BUN Creatinine Ratio 9.8 (10-20); Bilirubin,Total 2.2 mg/dl (0.2-1); Calcium 8.3 mg/dl (8.5-10.1); Creatinine Clr Calc Pharmacy 94.6 ml/min; Est GFR (African American) 84.5; Est GFR (Non-African American) 72.9; Globulin 3.7 gm/dl (2.5-4.0); Potassium 3.2 mmol/L (3.5-5.1); Total Protein 6.7 gm/dl (6.4-8.2)
[2019-04-27] MEDS ORDERED: POTASSIUM CHLORIDE 20 MEQ TABCR PO STA (04:24)
[2019-04-27 05:15] LABS: Appearance Urine Clear (Clear); Bilirubin Urine Negative (Negative); Blood Urine 1+ (Negative); Color Urine Yellow; Glucose Urine UA Negative (Negative); Ketones Urine Negative (Negative); Leukocyte Esterase Urine 3+ (Negative); Nitrite Urine Negative (Negative); Protein Urine Negative (Negative); Specific Gravity Urine 1.005 (1.000-1.030); Urobilinogen Urine Negative (Negative); pH Urine 7.5 (4.5-7.5)
[2019-04-27 05:44] LABS: Cast Urine Automated 0 /lpf (0-5); Epithelial Cell Urine Auto 20-30 /lpf (0-5); RBC Urine Automated 0-4 /hpf (0-4)
[2019-04-27 05:45] LABS: Bacteria Urine Automated Negative (Negative)
--- NOTE | 2019-04-27 07:11 | CT Scan Report ---
CT SCAN OF THE ABDOMEN AND PELVIS WITHOUT IV CONTRAST CLINICAL HISTORY: Elevated hepatic transaminases. COMPARISON STUDY: No priors. TECHNIQUE: CT scan of the abdomen and pelvis is performed from the lung bases to the proximal femora. Images are reviewed in the axial, sagittal, and coronal planes. IV contrast was not administered for this examination as per the referring clinician. Note that the examination was performed in suboptim al fashion without oral and IV contrast. A dose lowering technique was utilized adhering to the [facility]ANCY. FINDINGS: Lung bases: The heart is normal in size and without pericardial effusion. The coronary arteries are d ensely calcified. There is a tiny hiatal hernia. Emphysematous change is suspected. There are trace p leural effusions and bibasilar atelectasis. Scattered calcified granulomas are identified. Foci of sc arring/atelectasis are seen at the lung bases. Liver: The unenhanced liver is mildly enlarged measuring 18.8 cm in length. The liver is heterogeneou s in attenuation. Nodularity of the hepatic surface contour suggests early change of cirrhosis. There is no intrahepatic biliary ductal dilatation. Gallbladder: The gallbladder is mildly distended. There is gallbladder wall thickening and pain and p ericholecystic fluid. Calcified gallstones are seen within the gallbladder lumen. There are least 2 l arge gallstones within the common bile duct seen on image #197 and #217. The largest stone measures 1 3 mm. The common bile duct is dilated, measuring up to 1.4 cm in diameter. Spleen: Normal in size and attenuation. Pancreas: The unenhanced pancreas is moderately atrophic and grossly unremarkable. Adrenal glands: Unremarkable. Kidneys: The unenhanced kidneys demonstrate mild cortical atrophy and are without hydronephrosis. The re are no renal calculi identified. There is no evidence of contour deforming renal mass lesion. Abdominal vasculature: The abdominal aorta is normal in course and caliber noting moderate to advance d atherosclerotic calcification. Bowel: There is no bowel obstruction. The appendix is not identified and reported surgically absent. Peritoneum: There is no intraperitoneal free air or abdominal ascites. Lymphadenopathy: None. Pelvic viscera: The the bladder is decompressed around a Garvey catheter. Foci of intraluminal gas are likely related to instrumentation. The prostate gland is diminutive. Skeletal structures: The skeletal structures are osteopenic. Mild lumbosacral spondylosis is observed . An indeterminant sclerotic lesion in the right inferior pubic ramus/ischium measures up to 3.5 cm a s seen on image #497. No additional similar-appearing bony lesions are identified. IMPRESSION: 1. Suboptimal examination without oral and IV contrast. 2. Cholelithiasis and choledocholithiasis with evidence of acute cholecystitis. 3. There are 2 large calcified gallstones within the common bile duct measuring up to 13 mm. Surgical consultation is advised. MRCP is unlikely to provide further information. 4. The liver is mildly enlarged and heterogeneous. Nodularity of the hepatic surface contour suggests early change of cirrhosis. 5. Trace pleural effusions. 6. The bladder is decompressed and a Garvey catheter. Foci of intraluminal gas are likely related to i nstrumentation. Correlation with clinical findings and urinalysis will be required. 7. An ill-defined sclerotic lesion is seen within the inferior right pubic ring/ischium. This is path ologically indeterminant and may represent the sequelae of remote trauma. If there is a cancer histor y an osteoblastic bone lesion is not excluded. No additional similar-appearing bony lesions are ident ified. 8. Additional findings as above. Electronically signed by: Sourav Brown M.D. 04/27/2019 7:08 AM
[2019-04-27] MEDS ORDERED: hydroCHLOROthiazide 25 MG TAB PO SCH (09:00)
[2019-04-27] MEDS ORDERED: FUROSEMIDE 20 MG TAB PO SCH (09:00)
[2019-04-27] MEDS ORDERED: ASPIRIN 81 MG ECTAB PO SCH (09:00)
[2019-04-27 09:04] LABS: Basophils # (auto) 0.02 K/uL (0-0.2); Basophils % (auto) 0.3 %; Eosinophils # (auto) 0.16 K/uL (0-0.5); Eosinophils % (auto) 2.7 %; Hematocrit (blood only) 27.4 % (42-52); Immature Granulocytes # (auto) 0.02 K/uL (0.00-0.02); Immature Granulocytes % (auto) 0.3 %; Lymphocytes # (auto) 0.86 K/uL (1.2-3.4); Lymphocytes % (auto) 14.5 %; Mean Corpuscular Hgb Conc 36.5 g/dL (32-36); Mean Corpuscular Volume 88.4 fL (80-100); Mean Platelet Volume 8.8 fL (7.4-10.4); Monocytes # (auto) 0.85 K/uL (0.11-0.59); Monocytes % (auto) 14.3 %; Neutrophils # (auto) 4.04 K/uL (1.4-6.5); Neutrophils % (auto) 67.9 %; Platelet Count 269 K/uL (130-400); RDW Coefficient of Variation 14.4 % (11.5-14.5); RDW Standard Deviation 47.1 fL (36.4-46.3); White Blood Count 5.95 K/uL (4.8-10.8)
[2019-04-27] MEDS: FERROUS GLUCONATE 324 MG TAB PO SCH ×2 (09:09→17:58)
[2019-04-27] MEDS: CARVEDILOL 12.5 MG TAB PO SCH ×2 (09:09→21:05)
[2019-04-27] MEDS: TIOTROPIUM BROMIDE 5 PUFF/90 MCG INH INH SCH (09:10)
[2019-04-27] MEDS: BUDESONIDE/FORMOTEROL FUMARATE 160/4.5 60 PUFFS/INHALER INH SCH ×2 (09:10→21:05)
[2019-04-27] MEDS: PANTOprazole 40 MG TAB PO SCH (09:11)
[2019-04-27] MEDS: NSS + 20MEQ KCL 20 MEQ/1,000 ML BAG IV SCH ×2 (09:12→21:06)
[2019-04-27] MEDS ORDERED: ONDANSETRON INJ 2 MG/ML 2 ML VIAL IV PRN (09:13)
--- NOTE | 2019-04-27 09:27 | Hospitalist Progress Note ---
Date of Service April 27, 2019 Assessment & Plan (1) Cholecystitis with cholelithiasis: no pain in RUQ, no nausea, no fever or chills, just has poor appetite CT abd/pelvis shows acute cholecystitis LFT elevated, bili 2 and Alk phos 350, AST and ALT in 100's repeating CBC this morning keep NPO until evaluated by GI and surgery Cipro/Flagyl IV NSS at 100cc/hr (2) Choledocholithiasis: CT shows two stones in CBC consult [facility] for consideration of ERCP keep NPO modest elevations in LFT with bili 2.2 and Alk phos 350 will repeat tomorrow no evidence of overwhelming infection, doubt cholangitis since vitals stable, no fever, mental status clear keep on Cipro and Flagyl (3) Elevated LFTs: as above, due to cholecystitis and choledocholithiasis repeat tomorrow (4) Hyponatremia: due to dehydration and poor solute intake the past two weeks serum osmolality low in 240s but urine osmolality is appropriately low in 100's, kidneys trying to get rid of free water will treat with NSS at 100cc/hr mental status is clear this morning repeat BMP this morning and then this aftenoon (5) Confusion: due to infection and low sodium resolved this morning (6) COPD (chronic obstructive pulmonary disease): lungs clear, continue maintenance inhalers (7) Afib: chronic conditions continue coreg does not take anticoagulation due to history of significant nose bleeds (8) HTN (hypertension): BP up slightly holding HCTZ due to low sodium continue Coreg (9) Postoperative urinary retention: sent home with brown after left TKA on 04/[address] Rosas here in hospital, recommended follow up in 7-10 days for voiding trial offered [facility] follow up but since he lives in [place] he wanted to follow up there he saw a urology PA in the office, brown pulled 04/11 and he was urinating well for two weeks two days ago he started to develop overflow incontinence in the ED in [place] he had 1 liter of urine in bladder new brown placed will consult urology again, perhaps he should follow up with [facility] this time around (10) S/P total knee arthroplasty: on 04/[address] Rubin Grimes knee looks good, minimal swelling, he is at full extension has moiz still, supposed to get them out this week no need for formal consult, should call Dr. Grimes or Liban Boyd on Monday to request staple removal Subjective patient feeling okay this morning, no complaints his says that his mental status is better, not confused, more alert discussed recent history, had left TKA with Dr. Grimes on 04/02 went home with home therapy, did not do well, eating less, urinary retention when he was discharged from [facility] he had brown followed up with a PA in office with urology, brown pulled 04/11 and was doing well up until two days ago when he had retention again he never had RUQ pain, fever, chills, nausea or diarrhea last BM was three days ago, normal caliber and color he admits to a generalized poor appetite, no even drinking much despite encouragement from reviewed labs, Na up to 120 from 118 serum osmolality low at 240 and urine osmolality lower in 100's suggesting kidney responding appropriately, he is just very dry discussed results of CT with patient and , evidence of cholecystitis, cholelithiasis, choledocholithiasis he said that he has had gall stones for years, never had symptoms discussed plans for GI and general surgery consultations explained that it is unlikely he will have any procedures over the weekend since he is stable Review of Systems Review of Systems: All systems reviewed & are unremarkable except as noted in HPI & below Constitutional: + fatigue and + weakness; no fever, no chills and no sweats Respiratory: no cough and no dyspnea Cardiovascular: no chest pain and no edema Gastrointestinal: + early satiety; no abdominal pain, no nausea, no vomiting, no constipation and no diarrhea/loose stools Genitourinary: + difficulty urinating (brown in place) Musculoskeletal: + joint pain (left knee) Physical Exam Constitutional: WD/WN, vitals as above Eyes: PERRL, conjunctivae normal, anicteric sclerae ENMT: external ear and nose normal, oropharynx normal Neck: trachea midline, no thyromegaly Respiratory: normal respiratory effort, lungs clear to auscultation Cardiovascular: RRR, no murmur, no edema Gastrointestinal (Abdomen): normal bowel sounds, soft, nontender, no hepatosplenomegaly (no pain to deep palpation to RUQ) Musculoskeletal: no cyanosis or clubbing, extremities motor strength 5/5 Skin: no rashes, warm and dry + incision (left knee, intact, dry, moiz in inferior portion, superior moiz out) Neurologic: patellar DTR's 2+ bilat, sensation intact and PERRL, EOMI, accommodation nl, no face palsy, no dysarthria Psychiatric: A+Ox3, euthymic affect Lymphatic: no cervical or axillary lymphadenopathy Results & Data Vital Signs (Past 12 Hours) Vital Signs Temp Pulse Pulse Resp BP Pulse Ox 04/27/19 08:09 36.9 C 60 18 152/87 H 98 04/27/19 04:30 58 L 04/27/19 04:10 36.8 C 55 L 16 125/70 98 04/27/19 01:42 37.1 C 67 16 139/71 98 Laboratory Results Laboratory Results - last 24 hr 04/27/19 04/27/19 04/27/19 03:02 03:02 08:43 WBC 5.95 RBC 3.10 L Hgb 10.0 L Hct 27.4 L MCV 88.4 MCH 32.3 MCHC 36.5 H RDW Std Deviation 47.1 H RDW Coeff of Greer 14.4 Plt Count 269 MPV 8.8 Immature Gran % (Auto) 0.3 Neut % (Auto) 67.9 Lymph % (Auto) 14.5 Dolores % (Auto) 14.3 Eos % (Auto) 2.7 Baso % (Auto) 0.3 Immature Gran # (Auto) 0.02 Neut # (Auto) 4.04 Lymph # (Auto) 0.86 L Dolores # (Auto) 0.85 H Eos # (Auto) 0.16 Baso # (Auto) 0.02 Sodium 120 L Potassium 3.2 L Chloride 85 L Carbon Dioxide 28 Anion Gap 7.0 BUN 10 Creatinine 1.04 Est Cr Clr Drug Dosing 94.6 Est GFR ( Amer) 84.5 Est GFR (Non-Af Amer) 72.9 BUN/Creatinine Ratio 9.8 L Glucose 100 H Osmolality 249 L Calcium 8.3 L Total Bilirubin 2.2 H AST 121 H ALT 148 H Alkaline Phosphatase 350 H Total Protein 6.7 Albumin 3.0 L Globulin 3.7 Albumin/Globulin Ratio 0.8 L Lipase Urine Color Urine Appearance Urine pH Ur Specific [place] Urine Protein Urine Glucose (UA) Urine Ketones Urine Blood Urine Nitrite Urine Bilirubin Urine Urobilinogen Ur Leukocyte Esterase Urine WBC (Auto) Urine RBC (Auto) U Hyaline Cast (Auto) U Epithel Cells (Auto) Urine Bacteria (Auto) Urine Osmolality Ur Random Sodium 04/27/19 04/27/19 04/27/19 08:43 08:43 Unknown WBC RBC Hgb Hct MCV MCH MCHC RDW Std Deviation RDW Coeff of [place] Plt Count MPV Immature Gran % (Auto) Neut % (Auto) Lymph % (Auto) Dolores % (Auto) Eos % (Auto) Baso % (Auto) Immature Gran # (Auto) Neut # (Auto) Lymph # (Auto) Dolores # (Auto) Eos # (Auto) Baso # (Auto) Sodium 121 L Potassium 3.8 D Chloride 87 L Carbon Dioxide 25 Anion Gap 8.0 BUN 11 Creatinine 0.99 Est Cr Clr Drug Dosing 99.4 Est GFR ( Amer) 89.7 Est GFR (Non-Af Amer) 77.4 BUN/Creatinine Ratio 10.8 Glucose 107 H Osmolality Calcium 9.0 Total Bilirubin AST ALT Alkaline Phosphatase Total Protein Albumin Globulin Albumin/Globulin Ratio Lipase 395 H Urine Color Urine Appearance Urine pH Ur Specific [place] Urine Protein Urine Glucose (UA) Urine Ketones Urine Blood Urine Nitrite Urine Bilirubin Urine Urobilinogen Ur Leukocyte Esterase Urine WBC (Auto) Urine RBC (Auto) U Hyaline Cast (Auto) U Epithel Cells (Auto) Urine Bacteria (Auto) Urine Osmolality 103 L Ur Random Sodium 04/27/19 04/27/19 Unknown Unknown WBC RBC Hgb Hct MCV MCH MCHC RDW Std Deviation RDW Coeff of Greer Plt Count MPV Immature Gran % (Auto) Neut % (Auto) Lymph % (Auto) Dolores % (Auto) Eos % (Auto) Baso % (Auto) Immature Gran # (Auto) Neut # (Auto) Lymph # (Auto) Dolores # (Auto) Eos # (Auto) Baso # (Auto) Sodium Potassium Chloride Carbon Dioxide Anion Gap BUN Creatinine Est Cr Clr Drug Dosing Est GFR ( Amer) Est GFR (Non-Af Amer) BUN/Creatinine Ratio Glucose Osmolality Calcium Total Bilirubin AST ALT Alkaline Phosphatase Total Protein Albumin Globulin Albumin/Globulin Ratio Lipase Urine Color Yellow Urine Appearance Clear Urine pH 7.5 Ur Specific [place] 1.005 Urine Protein Negative Urine Glucose (UA) Negative Urine Ketones Negative Urine Blood 1+ H Urine Nitrite Negative Urine Bilirubin Negative Urine Urobilinogen Negative Ur Leukocyte Esterase 3+ H Urine WBC (Auto) 10-30 H Urine RBC (Auto) 0-4 U Hyaline Cast (Auto) 0 U Epithel Cells (Auto) 20-30 H Urine Bacteria (Auto) Negative Urine Osmolality Ur Random Sodium [address] ABDOMEN/PELVIS IMPRESSION: 1. Suboptimal examination without oral and IV contrast. 2. Cholelithiasis and choledocholithiasis with evidence of acute cholecystitis. 3. There are 2 large calcified gallstones within the common bile duct measuring up to 13 mm. Surgical consultation is advised. MRCP is unlikely to provide further information. 4. The liver is mildly enlarged and heterogeneous. Nodularity of the hepatic surface contour suggests early change of cirrhosis. 5. Trace pleural effusions. 6. The bladder is decompressed and a Brown catheter. Foci of intraluminal gas are likely related to instrumentation. Correlation with clinical findings and urinalysis will be required. 7. An ill-defined sclerotic lesion is seen within the inferior right pubic ring/ischium. This is pathologically indeterminant and may represent the sequelae of remote trauma. If there is a cancer history an osteoblastic bone lesion is not excluded. No additional similar-appearing bony lesions are identified. Medications Administered Current Inpatient Medications Acetaminophen (Tylenol) 650 mg PO Q4H PRN PRN Reason: Fever Stop: 05/27/19 09:12 Albuterol (Ventolin Hfa) 2 puffs INH QID PRN PRN Reason: Wheezing Aspirin (Ecotrin Ectab) 81 mg PO BID ROCKY Stop: 05/27/19 08:59 Budesonide/Formoterol Fumarate (Symbicort 160mcg/4.5mcg) 2 puffs INH BID ROCKY Stop: 05/27/19 08:59 Carvedilol (Coreg) 12.5 mg PO BID ROCKY Stop: 05/27/19 08:59 Ferrous Gluconate (Ferrous Gluconate) 324 mg PO BIDM ROCKY Stop: 05/27/19 07:59 Furosemide (Lasix) 20 mg PO QAM ROCKY Stop: 05/27/19 08:59 Potassium Chloride/Sodium Chloride (Normal Saline W/20 Meq Kcl) 20 meq in 1,000 mls @ 100 mls/hr IV .Q10H ROCKY Stop: 05/27/19 08:59 Metronidazole (Flagyl) 500 mg in 100 mls @ 100 mls/hr IV Q8H ROCKY Stop: 08/20/19 09:59 Ciprofloxacin (Cipro) 400 mg in 200 mls @ 100 mls/hr IV Q12H ROCKY; Protocol Stop: 05/07/19 09:59 Lisinopril (Zestril) 10 mg PO HS ROCKY Stop: 05/27/19 20:59 Ondansetron HCl (Zofran) 4 mg IV Q6H PRN PRN Reason: Nausea Stop: 05/27/19 09:12 Pantoprazole Sodium (Protonix) 40 mg PO QAM ROCKY Stop: 05/27/19 08:59 Tamsulosin HCl (Flomax) 0.4 mg PO QDD ROCKY Stop: 05/27/19 16:29 Tiotropium [place] (Spiriva) 1 puffs INH QAM ROCKY Stop: 05/27/19 08:59 PG Care Time/CCT Total # of Minutes Spent Total Time Spent with Patient: Total time spent is greater than 50% in coordination of care (as documented) at patient's floor/unit and/or counseling patient:
[2019-04-27 09:38] LABS: BUN Creatinine Ratio 10.8 (10-20); Creatinine Clr Calc Pharmacy 99.4 ml/min; Est GFR (African American) 89.7; Est GFR (Non-African American) 77.4; Potassium 3.8 mmol/L (3.5-5.1)
[2019-04-27] MEDS: metroNIDAZOLE 500 MG/100 ML BAG IV SCH ×2 (09:38→18:00)
[2019-04-27] MEDS: CIPROFLOXACIN 400 MG/200 ML BAG IV SCH ×2 (09:39→21:14)
[2019-04-27] MEDS: ACETAMINOPHEN 325 MG TAB PO PRN (09:50)
[2019-04-27] MEDS: TRAMADOL HCL 50 MG TABLET PO PRN ×3 (12:48→21:06)
--- NOTE | 2019-04-27 17:23 | Surgery Consultation ---
Date of Consultation April 27, 2019 Assessment & Plan (1) Choledocholithiasis: This patient has cholelithiasis with CT evidence of possible cholecystitis and also has choledocholithiasis but they are completely asymptomatic. Agree with gastroenterology consult for evaluation for ERCP. He would need a cholecystectomy at some point after that. We will await the GI consult. Can then discuss timing of cholecystectomy. Present on Admission?: Yes History of Present Illness Reason for Consultation: Choledocholithiasis and cholelithiasis Requesting Physician: Elijah Sepulveda DO Attending Physician: Elijah Sepulveda DO History of Present Illness I been asked by Dr. Sepulveda to see this 68-year-old gentleman who presented initially to [facility] but then to [facility] when his felt that he was confused. He also describes weakness and some disorientation. He was found to have hyponatremia with a sodium of 118. Sodium has been corrected and his confusion has resolved. However during that same evaluation he had LFTs obtained that demonstrated a bilirubin of 2.2, AST 121, ALT 148, alkaline phosphatase 350. He denies abdominal pain. He has not had any nausea or vomiting. There is no change in his bowel habits. He denies melena and hematochezia. He has known that gallstones were present but they have been completely asymptomatic and that has not changed. Allergies Allergy/AdvReac Type Severity Reaction Status Date / Time CHLORHEXADINE GLUCONATE Allergy Mild redness, Uncoded 04/02/19 08:44 burning SEASONAL Allergy Unknown runny Uncoded 04/02/19 08:44 nose, cough, itching eyes Home Medications Home Medications Medication Instructions Recorded Confirmed Type albuterol sulfate [ProAir HFA] 2 puff INHALATION QID PRN 03/06/19 04/27/19 History budesonide-formoterol 2 puff INHALATION BID 03/06/19 04/27/19 History carvedilol 12.5 mg PO BID 03/06/19 04/27/19 History pantoprazole 40 mg PO QAM 03/06/19 04/27/19 History tamsulosin 0.4 mg PO QDD 03/06/19 04/27/19 History tiotropium bromide 2 puff INHALATION QAM 03/06/19 04/27/19 History furosemide 20 mg PO QAM 03/07/19 04/27/19 History hydrochlorothiazide 12.5 mg PO QAM 03/07/19 04/27/19 History levocetirizine 5 mg PO QAM 03/07/19 04/27/19 History lisinopril 10 mg PO HS 03/07/19 04/27/19 History acetaminophen [Tylenol Extra 1,000 mg PO Q8 30 Days #180 tab 04/03/19 04/27/19 Rx Strength] aspirin [Ecotrin Low Strength] 81 mg PO BID 45 Days #90 tab 04/03/19 04/27/19 Rx ferrous gluconate 324 mg PO BIDM 30 Days #60 tab 04/03/19 04/27/19 Rx Patient History Medical History AA (aortic aneurysm) Following with vascular, CTA chest 11/2018 showed aortic root to be 4.8-5 cm. Per vascular office note 02/26/19, "Maintain good BP control, pt is at risk of complications of rupture and dissection which were discussed...Echo in [address] Thorax in 12 months" BPH (benign prostatic hyperplasia) Chronic obstructive pulmonary disease Per pulmonology 08/2018, "He is stable at this time and stays on his current regimen." Environmental allergies GERD (gastroesophageal reflux disease) History of epistaxis DESCRIBES SEVERE SINGLE EPISODE THAT REQUIRED PLATELETS AND FFP TO BE TRANSFUSED, spring 2017. No other bleeding issues. Hypertension Hyponatremia Following with nephrology. Per last office note 10/2018 "ETOH/liver disease and/or COPD/pulmonary nodule (R/O CA)/SIADH...longstanding history of hyponatremia, 128-133 dating back to 2009. Paroxysmal A-fib and A-flutter. S/P radiofrequency ablation ~3 yrs ago, but afib/flutter has reoccurred. Per cardiology, patient should be on anticoagulation, but he refuses anything more than ASA 81mg. Seasonal allergies Sleep apnea NO CPAP OR BIPAP Surgical History History of cardiac radiofrequency ablation DONE AT [facility] Hx of appendectomy Hx of foot surgery LEFT Hx of repair of left rotator cuff Hx of repair of right rotator cuff Hx of tonsillectomy Family History Father Family hx of colon cancer Social History Preferred Language: Maltese Communication Ability: Effective Size Changer Required: No Beliefs That Will Affect Care: None marital status: Current Living Situation: Spouse Feels Safe at Home: Yes Smoking Status: Current some day smoker Tobacco Type: cigars ; Cigarettes Per Day: 2-3 week ; Second Hand Exposure: No ; Hx Alcohol Use: Yes Alcohol type: beer and hard liquor Hx Substance Use: No Physical Exam Constitutional: no acute distress Neck: trachea midline Respiratory: normal respiratory effort, lungs clear to auscultation Cardiovascular: Rate/Rhythm: + irregularly irregular Gastrointestinal (Abdomen): normal bowel sounds, soft, nontender, no hepatosplenomegaly Skin: no rashes Lymphatic: no cervical lymphadenopathy Results & Data Vital Signs (Past 12 Hours) Vital Signs Temp Pulse Pulse Resp BP BP Pulse Ox 04/27/19 16:38 56 L 04/27/19 15:51 36.9 C 49 L 20 145/76 H 100 04/27/19 15:12 36.9 C 91 H 19 119/75 92 04/27/19 12:11 37.1 C 51 L 18 132/80 99 04/27/19 08:09 36.9 C 60 18 152/87 H 98 04/27/19 07:48 53 L Laboratory Results 04/27/19 04/27/19 04/27/19 Range/Units Unknown Unknown Unknown WBC (4.8-10.8) K/uL RBC (4.7-6.1) M/uL Hgb (14.0-18.0) g/dL Hct (42-52) % MCV (80-100) fL MCH (25-34) pg MCHC (32-36) g/dL RDW Std Deviation (36.4-46.3) fL RDW Coeff of Greer (11.5-14.5) % Plt Count (130-400) K/uL MPV (7.4-10.4) fL Immature Gran % (Auto) % Neut % (Auto) % Lymph % (Auto) % Hardy % (Auto) % Eos % (Auto) % Baso % (Auto) % Immature Gran # (Auto) (0.00-0.02) K/uL Neut # (Auto) (1.4-6.5) K/uL Lymph # (Auto) (1.2-3.4) K/uL Hardy # (Auto) (0.11-0.59) K/uL Eos # (Auto) (0-0.5) K/uL Baso # (Auto) (0-0.2) K/uL Sodium (136-145) mmol/L Potassium (3.5-5.1) mmol/L Chloride (98-107) mmol/L Carbon Dioxide (21-32) mmol/L Anion Gap (3-11) BUN (7-18) mg/dl Creatinine (0.6-1.4) mg/dl Est Cr Clr Drug Dosing ml/min Est GFR ( Amer) Est GFR (Non-Af Amer) BUN/Creatinine Ratio (10-20) Glucose (70-99) mg/dl Osmolality (280-300) mOsm/kg Calcium (8.5-10.1) mg/dl Total Bilirubin (0.2-1) mg/dl AST (15-37) U/L ALT (12-78) U/L Alkaline Phosphatase (45-117) U/L Total Protein (6.4-8.2) gm/dl Albumin (3.4-5.0) gm/dl Globulin (2.5-4.0) gm/dl Albumin/Globulin Ratio (0.9-2) Lipase (73-393) U/L Urine Color Yellow Urine Appearance Clear (Clear) Urine pH 7.5 (4.5-7.5) Ur Specific [place] 1.005 (1.000-1.030) Urine Protein Negative (Negative) Urine Glucose (UA) Negative (Negative) Urine Ketones Negative (Negative) Urine Blood 1+ H (Negative) Urine Nitrite Negative (Negative) Urine Bilirubin Negative (Negative) Urine Urobilinogen Negative (Negative) Ur Leukocyte Esterase 3+ H (Negative) Urine WBC (Auto) 10-30 H (0-5) /hpf Urine RBC (Auto) 0-4 (0-4) /hpf U Hyaline Cast (Auto) 0 (0-5) /lpf U Epithel Cells (Auto) 20-30 H (0-5) /lpf Urine Bacteria (Auto) Negative (Negative) Urine Osmolality 103 L (500-800) mOsm/kg Ur Random Sodium 22 mmol/L 04/27/19 04/27/19 04/27/19 Range/Units 08:43 08:43 08:43 WBC 5.95 (4.8-10.8) K/uL RBC 3.10 L (4.7-6.1) M/uL Hgb 10.0 L (14.0-18.0) g/dL Hct 27.4 L (42-52) % MCV 88.4 (80-100) fL MCH 32.3 (25-34) pg MCHC 36.5 H (32-36) g/dL RDW Std Deviation 47.1 H (36.4-46.3) fL RDW Coeff of Greer 14.4 (11.5-14.5) % Plt Count 269 (130-400) K/uL MPV 8.8 (7.4-10.4) fL Immature Gran % (Auto) 0.3 % Neut % (Auto) 67.9 % Lymph % (Auto) 14.5 % Hardy % (Auto) 14.3 % Eos % (Auto) 2.7 % Baso % (Auto) 0.3 % Immature Gran # (Auto) 0.02 (0.00-0.02) K/uL Neut # (Auto) 4.04 (1.4-6.5) K/uL Lymph # (Auto) 0.86 L (1.2-3.4) K/uL Hardy # (Auto) 0.85 H (0.11-0.59) K/uL Eos # (Auto) 0.16 (0-0.5) K/uL Baso # (Auto) 0.02 (0-0.2) K/uL Sodium 121 L (136-145) mmol/L Potassium 3.8 D (3.5-5.1) mmol/L Chloride 87 L (98-107) mmol/L Carbon Dioxide 25 (21-32) mmol/L Anion Gap 8.0 (3-11) BUN 11 (7-18) mg/dl Creatinine 0.99 (0.6-1.4) mg/dl Est Cr Clr Drug Dosing 99.4 ml/min Est GFR ( Amer) 89.7 Est GFR (Non-Af Amer) 77.4 BUN/Creatinine Ratio 10.8 (10-20) Glucose 107 H (70-99) mg/dl Osmolality (280-300) mOsm/kg Calcium 9.0 (8.5-10.1) mg/dl Total Bilirubin (0.2-1) mg/dl AST (15-37) U/L ALT (12-78) U/L Alkaline Phosphatase (45-117) U/L Total Protein (6.4-8.2) gm/dl Albumin (3.4-5.0) gm/dl Globulin (2.5-4.0) gm/dl Albumin/Globulin Ratio (0.9-2) Lipase 395 H (73-393) U/L Urine Color Urine Appearance (Clear) Urine pH (4.5-7.5) Ur Specific [place] (1.000-1.030) Urine Protein (Negative) Urine Glucose (UA) (Negative) Urine Ketones (Negative) Urine Blood (Negative) Urine Nitrite (Negative) Urine Bilirubin (Negative) Urine Urobilinogen (Negative) Ur Leukocyte Esterase (Negative) Urine WBC (Auto) (0-5) /hpf Urine RBC (Auto) (0-4) /hpf U Hyaline Cast (Auto) (0-5) /lpf U Epithel Cells (Auto) (0-5) /lpf Urine Bacteria (Auto) (Negative) Urine Osmolality (500-800) mOsm/kg Ur Random Sodium mmol/L 04/27/19 04/27/19 Range/Units 03:02 03:02 WBC (4.8-10.8) K/uL RBC (4.7-6.1) M/uL Hgb (14.0-18.0) g/dL Hct (42-52) % MCV (80-100) fL MCH (25-34) pg MCHC (32-36) g/dL RDW Std Deviation (36.4-46.3) fL RDW Coeff of Greer (11.5-14.5) % Plt Count (130-400) K/uL MPV (7.4-10.4) fL Immature Gran % (Auto) % Neut % (Auto) % Lymph % (Auto) % Hardy % (Auto) % Eos % (Auto) % Baso % (Auto) % Immature Gran # (Auto) (0.00-0.02) K/uL Neut # (Auto) (1.4-6.5) K/uL Lymph # (Auto) (1.2-3.4) K/uL Hardy # (Auto) (0.11-0.59) K/uL Eos # (Auto) (0-0.5) K/uL Baso # (Auto) (0-0.2) K/uL Sodium 120 L (136-145) mmol/L Potassium 3.2 L (3.5-5.1) mmol/L Chloride 85 L (98-107) mmol/L Carbon Dioxide 28 (21-32) mmol/L Anion Gap 7.0 (3-11) BUN 10 (7-18) mg/dl Creatinine 1.04 (0.6-1.4) mg/dl Est Cr Clr Drug Dosing 94.6 ml/min Est GFR ( Amer) 84.5 Est GFR (Non-Af Amer) 72.9 BUN/Creatinine Ratio 9.8 L (10-20) Glucose 100 H (70-99) mg/dl Osmolality 249 L (280-300) mOsm/kg Calcium 8.3 L (8.5-10.1) mg/dl Total Bilirubin 2.2 H (0.2-1) mg/dl AST 121 H (15-37) U/L ALT 148 H (12-78) U/L Alkaline Phosphatase 350 H (45-117) U/L Total Protein 6.7 (6.4-8.2) gm/dl Albumin 3.0 L (3.4-5.0) gm/dl Globulin 3.7 (2.5-4.0) gm/dl Albumin/Globulin Ratio 0.8 L (0.9-2) Lipase (73-393) U/L Urine Color Urine Appearance (Clear) Urine pH (4.5-7.5) Ur Specific [place] (1.000-1.030) Urine Protein (Negative) Urine Glucose (UA) (Negative) Urine Ketones (Negative) Urine Blood (Negative) Urine Nitrite (Negative) Urine Bilirubin (Negative) Urine Urobilinogen (Negative) Ur Leukocyte Esterase (Negative) Urine WBC (Auto) (0-5) /hpf Urine RBC (Auto) (0-4) /hpf U Hyaline Cast (Auto) (0-5) /lpf U Epithel Cells (Auto) (0-5) /lpf Urine Bacteria (Auto) (Negative) Urine Osmolality (500-800) mOsm/kg Ur Random Sodium mmol/L Diagnostic Findings CT SCAN OF THE ABDOMEN AND PELVIS WITHOUT IV CONTRAST CLINICAL HISTORY: Elevated hepatic transaminases. COMPARISON STUDY: No priors. TECHNIQUE: CT scan of the abdomen and pelvis is performed from the lung bases to the proximal femora. Images are reviewed in the axial, sagittal, and coronal planes. IV contrast was not administered for this examination as per the referring clinician. Note that the examination was performed in suboptimal fashion without oral and IV contrast. A dose lowering technique was utilized adhering to the principles of ALARA. FINDINGS: Lung bases: The heart is normal in size and without pericardial effusion. The coronary arteries are densely calcified. There is a tiny hiatal hernia. Emphysematous change is suspected. There are trace pleural effusions and bibasilar atelectasis. Scattered calcified granulomas are identified. Foci of scarring/atelectasis are seen at the lung bases. Liver: The unenhanced liver is mildly enlarged measuring 18.8 cm in length. The liver is heterogeneous in attenuation. Nodularity of the hepatic surface contour suggests early change of cirrhosis. There is no intrahepatic biliary ductal dilatation. Gallbladder: The gallbladder is mildly distended. There is gallbladder wall thickening and pain and pericholecystic fluid. Calcified gallstones are seen within the gallbladder lumen. There are least 2 large gallstones within the common bile duct seen on image #197 and #217. The largest stone measures 13 mm. The common bile duct is dilated, measuring up to 1.4 cm in diameter. Spleen: Normal in size and attenuation. Pancreas: The unenhanced pancreas is moderately atrophic and grossly unremarkable. Adrenal glands: Unremarkable. Kidneys: The unenhanced kidneys demonstrate mild cortical atrophy and are without hydronephrosis. There are no renal calculi identified. There is no evidence of contour deforming renal mass lesion. Abdominal vasculature: The abdominal aorta is normal in course and caliber noting moderate to advanced atherosclerotic calcification. Bowel: There is no bowel obstruction. The appendix is not identified and reported surgically absent. Peritoneum: There is no intraperitoneal free air or abdominal ascites. Lymphadenopathy: None. Pelvic viscera: The the bladder is decompressed around a Garvey catheter. Foci of intraluminal gas are likely related to instrumentation. The prostate gland is diminutive. Skeletal structures: The skeletal structures are osteopenic. Mild lumbosacral spondylosis is observed. An indeterminant sclerotic lesion in the right inferior pubic ramus/ischium measures up to 3.5 cm as seen on image #497. No additional similar-appearing bony lesions are identified. IMPRESSION: 1. Suboptimal examination without oral and IV contrast. 2. Cholelithiasis and choledocholithiasis with evidence of acute cholecystitis. 3. There are 2 large calcified gallstones within the common bile duct measuring up to 13 mm. Surgical consultation is advised. MRCP is unlikely to provide further information. 4. The liver is mildly enlarged and heterogeneous. Nodularity of the hepatic surface contour suggests early change of cirrhosis. 5. Trace pleural effusions. 6. The bladder is decompressed and a Garvey catheter. Foci of intraluminal gas are likely related to instrumentation. Correlation with clinical findings and urinalysis will be required. 7. An ill-defined sclerotic lesion is seen within the inferior right pubic ring/ischium. This is pathologically indeterminant and may represent the sequelae of remote trauma. If there is a cancer history an osteoblastic bone lesion is not excluded. No additional similar-appearing bony lesions are identified. 8. Additional findings as above.
[2019-04-27] MEDS: TAMSULOSIN HCL 0.4 MG CAP PO SCH (17:58)
[2019-04-27] MEDS: NYSTATIN OINT 15 GM TUBE EXT SCH (20:12)
[2019-04-27] MEDS ORDERED: LISINOPRIL 10 MG TAB PO SCH (21:00)
[2019-04-27] MEDS: HEPARIN SOD 5,000 UNIT/0.5 ML VIAL SQ SCH (21:12)
[2019-04-28] MEDS: metroNIDAZOLE 500 MG/100 ML BAG IV SCH ×3 (01:48→17:17)
[2019-04-28 05:22] LABS: Basophils # (auto) 0.03 K/uL (0-0.2); Basophils % (auto) 0.6 %; Eosinophils # (auto) 0.28 K/uL (0-0.5); Eosinophils % (auto) 5.4 %; Hemoglobin 9.7 g/dL (14.0-18.0); Immature Granulocytes # (auto) 0.02 K/uL (0.00-0.02); Immature Granulocytes % (auto) 0.4 %; Lymphocytes # (auto) 1.27 K/uL (1.2-3.4); Lymphocytes % (auto) 24.3 %; Mean Corpuscular Hgb Conc 35.9 g/dL (32-36); Mean Corpuscular Volume 89.4 fL (80-100); Mean Platelet Volume 8.7 fL (7.4-10.4); Monocytes # (auto) 0.82 K/uL (0.11-0.59); Monocytes % (auto) 15.7 %; Neutrophils # (auto) 2.81 K/uL (1.4-6.5); Neutrophils % (auto) 53.6 %; Platelet Count 248 K/uL (130-400); RDW Coefficient of Variation 14.3 % (11.5-14.5); RDW Standard Deviation 47.8 fL (36.4-46.3); Red Blood Count 3.02 M/uL (4.7-6.1); White Blood Count 5.23 K/uL (4.8-10.8)
[2019-04-28 05:39] LABS: Albumin Level 2.8 gm/dl (3.4-5.0); BUN Creatinine Ratio 11.2 (10-20); Calcium 8.3 mg/dl (8.5-10.1); Creatinine Clr Calc Pharmacy 102.5 ml/min; Est GFR (African American) 93.1; Est GFR (Non-African American) 80.3; Potassium 4.2 mmol/L (3.5-5.1)
[2019-04-28 05:43] LABS: Albumin Globulin Ratio 0.7 (0.9-2); Bilirubin,Total 1.2 mg/dl (0.2-1); Globulin 3.8 gm/dl (2.5-4.0); Total Protein 6.6 gm/dl (6.4-8.2)
[2019-04-28] MEDS: HEPARIN SOD 5,000 UNIT/0.5 ML VIAL SQ SCH ×3 (06:00→21:45)
[2019-04-28] MEDS ORDERED: fentaNYL citrate 100 MCG/2 ML VIAL ONE (07:13)
[2019-04-28] MEDS ORDERED: PROPOFOL IV EMULSION 10 MG/ML 20 ML VIAL IV ONE (07:13)
[2019-04-28] MEDS ORDERED: ROCURONIUM BROMIDE 10 MG/ML 5 ML VIAL ONE (07:13)
[2019-04-28] MEDS ORDERED: ONDANSETRON INJ 2 MG/ML 2 ML VIAL ONE (07:13)
[2019-04-28] MEDS ORDERED: LIDOCAINE HCL 2% 2 ML VIAL/AMP(20MG/ML) INFIL ONE (07:13)
[2019-04-28] MEDS ORDERED: DEXAMETHASONE SOD INJ 4 MG/ML VIAL ONE (07:13)
[2019-04-28] MEDS ORDERED: fentaNYL citrate 100 MCG/2 ML VIAL IV PRN (07:25)
[2019-04-28] MEDS ORDERED: INDOMETHACIN 50 MG SUPP PR STA (07:25)
[2019-04-28] MEDS ORDERED: ATROPINE SULFATE 0.1 MG/ML 10ML SYR IV PRN (07:25)
[2019-04-28] MEDS ORDERED: ONDANSETRON INJ 2 MG/ML 2 ML VIAL IV PRN (07:25)
[2019-04-28] MEDS ORDERED: LABETALOL HCL IV 5 MG/ML 20ML IV PRN (07:25)
--- NOTE | 2019-04-28 07:25 | History & Physical Bridge Note ---
Date of Service April 28, 2019 History & Physical Bridge Note I have examined the patient, reviewed the History & Physical and in the interval since the performance of the History & Physical I have noted the following changes of clinical significance: no changes noted. Patient presents with a history of pain and was found to have elevated liver enzymes with 2 stones noted in the common bile duct on CT scan. We are planning for ERCP today for gallstone extraction. We have discussed the risks of the procedure to include bleeding, infection, perforation need for follow-up studies and failed biliary cannulation.
--- NOTE | 2019-04-28 07:25 | Anesthesiology Consultation ---
Date of Service April 28, 2019 Assessment & Plan (1) Encounter for pre-operative examination: Chart Review Chart Review: Acceptable Risk for Surgery History Surgery Operation Date: 04/28/19 06:50 Proposed Procedures p Endoscopic Retrograde Cholangiopancreato Douglas Ba Height/Weight Height: 6 ft 6 in Weight: 112.4 kg Allergies Allergy/AdvReac Type Severity Reaction Status Date / Time CHLORHEXADINE GLUCONATE Allergy Mild redness, Uncoded 04/02/19 08:44 burning SEASONAL Allergy Unknown runny Uncoded 04/02/19 08:44 nose, cough, itching eyes Medications Home Medications Medication Instructions Recorded Confirmed Last Taken albuterol sulfate [ProAir HFA] 2 puff INHALATION QID PRN 03/06/19 04/27/19 Unknown budesonide-formoterol 2 puff INHALATION BID 03/06/19 04/27/19 04/02/19 06:05 carvedilol 12.5 mg PO BID 03/06/19 04/27/19 04/02/19 06:05 pantoprazole 40 mg PO QAM 03/06/19 04/27/19 04/02/19 06:05 tamsulosin 0.4 mg PO QDD 03/06/19 04/27/19 03/31/19 21:00 tiotropium bromide 2 puff INHALATION QAM 03/06/19 04/27/19 04/02/19 06:05 furosemide 20 mg PO QAM 03/07/19 04/27/19 04/01/19 06:30 hydrochlorothiazide 12.5 mg PO QAM 03/07/19 04/27/19 04/01/19 06:30 levocetirizine 5 mg PO QAM 03/07/19 04/27/19 04/01/19 06:30 lisinopril 10 mg PO HS 03/07/19 04/27/19 03/31/19 21:00 acetaminophen [Tylenol Extra 1,000 mg PO Q8 30 Days #180 tab 04/03/19 04/27/19 Unknown Strength] aspirin [Ecotrin Low Strength] 81 mg PO BID 45 Days #90 tab 04/03/19 04/27/19 Unknown ferrous gluconate 324 mg PO BIDM 30 Days #60 tab 04/03/19 04/27/19 Unknown Active Medications Generic Name Dose Route Start Last Admin Trade Name Freq PRN Reason Stop Dose Admin Acetaminophen 650 mg 04/27/19 09:13 04/27/19 09:50 Tylenol PO 05/27/19 09:12 650 mg Q4H PRN Administration Fever Budesonide/Formoterol Fumarate 2 puffs 04/27/19 09:00 04/27/19 21:05 Symbicort 160mcg/4.5mcg INH 05/27/19 08:59 2 puffs BID ROCKY Administration Carvedilol 12.5 mg 04/27/19 09:00 04/27/19 21:05 Coreg PO 05/27/19 08:59 12.5 mg BID ROCKY Administration Ferrous Gluconate 324 mg 04/27/19 08:00 04/27/19 17:58 Ferrous Gluconate PO 05/27/19 07:59 324 mg BIDM ROCKY Administration Heparin Sodium (Porcine) 5,000 units 04/27/19 22:00 04/28/19 06:00 Heparin Sodium (Porcine) SQ 05/27/19 21:59 5,000 units Q8 ROCKY Administration Potassium Chloride/Sodium Chloride 20 meq in 1,000 mls @ 100 mls/hr 04/27/19 09:00 04/27/19 23:44 Normal Saline W/20 Meq Kcl IV 05/27/19 08:59 100 mls/hr .Q10H ROCKY Infusion Metronidazole 500 mg in 100 mls @ 100 mls/hr 04/27/19 10:00 04/28/19 02:58 Flagyl IV 05/07/19 09:59 Infused Q8H ROCKY Infusion Ciprofloxacin 400 mg in 200 mls @ 100 mls/hr 04/27/19 10:00 04/27/19 23:43 Cipro IV 05/07/19 09:59 Infused Q12H ROCKY Infusion Protocol Lisinopril 10 mg 04/27/19 21:00 04/27/19 21:05 Zestril PO 05/27/19 20:59 10 mg HS ROCKY Administration Nystatin 1 appln 04/27/19 21:00 04/27/19 20:12 Mycostatin EXT 05/27/19 20:59 Not Given Q12 ROCKY Pantoprazole Sodium 40 mg 04/27/19 09:00 04/27/19 09:11 Protonix PO 05/27/19 08:59 40 mg QAM ROCKY Administration Tamsulosin HCl 0.4 mg 04/27/19 16:30 04/27/19 17:58 Flomax PO 05/27/19 16:29 0.4 mg QDD ROCKY Administration Tiotropium Emmett 1 puffs 04/27/19 09:00 04/27/19 09:10 Spiriva INH 05/27/19 08:59 1 puffs QAM ROCKY Administration Tramadol HCl 50 mg 04/27/19 11:58 04/27/19 21:06 Ultram PO 05/27/19 11:57 50 mg Q4H PRN Administration Pain Past Medical History Medical History Anemia did have recent TKA AA (aortic aneurysm) Following with vascular, CTA chest 11/2018 showed aortic root to be 4.8-5 cm. Per vascular office note 02/26/19, "Maintain good BP control, pt is at risk of complications of rupture and dissection which were discussed...Echo in [address] Thorax in 12 months" BPH (benign prostatic hyperplasia) Chronic obstructive pulmonary disease Per pulmonology 08/2018, "He is stable at this time and stays on his current regimen." Environmental allergies GERD (gastroesophageal reflux disease) History of epistaxis DESCRIBES SEVERE SINGLE EPISODE THAT REQUIRED PLATELETS AND FFP TO BE TRANSFUSED, spring 2017. No other bleeding issues. Hypertension Hyponatremia Following with nephrology. Per last office note 10/2018 "ETOH/liver disease and/or COPD/pulmonary nodule (R/O CA)/SIADH...longstanding history of hyponatremia, 128-133 dating back to 2009. Paroxysmal A-fib and A-flutter. S/P radiofrequency ablation ~3 yrs ago, but afib/flutter has reoccurred. Per cardiology, patient should be on anticoagulation, but he refuses anything more than ASA 81mg. Seasonal allergies Sleep apnea NO CPAP OR BIPAP Past Family History Family History Father Family hx of colon cancer Past Surgical History Surgical History History of cardiac radiofrequency ablation DONE AT [facility] Hx of appendectomy Hx of foot surgery LEFT Hx of repair of left rotator cuff Hx of repair of right rotator cuff Hx of tonsillectomy Social History Smoking Status: Current some day smoker tobacco type: cigars Smoking cigarettes per day: 2-3 week Do You Dip or Chew Tobacco: No Hx Alcohol Use: Yes Alcohol type: beer and hard liquor alcohol intake frequency: a few times a week Alcohol Intake Frequency Comment: 2-3 drinks Hx Substance Use: No Physical Exam Vital Signs Last Vital Signs Temp 36.6 C 04/28/19 07:07 Pulse 58 L 04/28/19 07:07 Resp 18 04/28/19 07:07 BP 164/84 H 04/28/19 07:07 Pulse Ox 98 04/28/19 07:07 Testing Laboratory Results 04/28/19 05:10 04/28/19 05:10 Urine Color Yellow 04/27/19 Unknown Urine Appearance Clear (Clear) 04/27/19 Unknown Urine pH 7.5 (4.5-7.5) 04/27/19 Unknown Ur Specific [place] 1.005 (1.000-1.030) 04/27/19 Unknown Urine Protein Negative (Negative) 04/27/19 Unknown Urine Glucose (UA) Negative (Negative) 04/27/19 Unknown Urine Ketones Negative (Negative) 04/27/19 Unknown Urine Nitrite Negative (Negative) 04/27/19 Unknown Ur Leukocyte Esterase 3+ (Negative) H 04/27/19 Unknown Urine WBC (Auto) 10-30 /hpf (0-5) H 04/27/19 Unknown Urine RBC (Auto) 0-4 /hpf (0-4) 04/27/19 Unknown U Hyaline Cast (Auto) 0 /lpf (0-5) 04/27/19 Unknown U Epithel Cells (Auto) 20-30 /lpf (0-5) H 04/27/19 Unknown Urine Bacteria (Auto) Negative (Negative) 04/27/19 Unknown Electrocardiogram Date: 03/07/19 Findings: + AFIB @ (63) Chest X-Ray Date: 03/07/19 Findings: + NAD
[2019-04-28] MEDS ORDERED: KETOROLAC 30 MG/ML VIAL IV PRN (07:26)
[2019-04-28] MEDS ORDERED: INDOMETHACIN 50 MG SUPP PR ONE (07:31)
--- NOTE | 2019-04-28 07:41 | History & Physical Report ---
Date of Service April 28, 2019 Assessment & Plan (1) Choledocholithiasis: Patient with symptomatic choledocholithiasis. We are planning for ERCP for biliary decompression and gallstone extraction. As the stones are somewhat large and calcified I did describe the extra potential for complexity of the procedure. We will likely need to do a distal duct dilation which carries an increased risk of pancreatitis and post ERCP hemorrhage. Plan ERCP today History of Present Illness Chief Complaint: Weakness Primary Care Provider: Unruly Laughlin The patient was brought to the emergency room by his for history of weakness. He was found to have significant hyponatremia elevated liver enzymes and evidence of choledocholithiasis. The patient reports that he had intermittent abdominal pain over several years and was previously told of gallstones but told that these did not require any intervention. Today he notes that he is feeling somewhat improved without any nausea vomiting fevers or chills. ERCP has been requested for gallstone extraction. Allergies Allergy/AdvReac Type Severity Reaction Status Date / Time CHLORHEXADINE GLUCONATE Allergy Mild redness, Uncoded 04/02/19 08:44 burning SEASONAL Allergy Unknown runny Uncoded 04/02/19 08:44 nose, cough, itching eyes Home Medications Home Medications Medication Instructions Recorded Confirmed Type albuterol sulfate [ProAir HFA] 2 puff INHALATION QID PRN 03/06/19 04/27/19 History budesonide-formoterol 2 puff INHALATION BID 03/06/19 04/27/19 History carvedilol 12.5 mg PO BID 03/06/19 04/27/19 History pantoprazole 40 mg PO QAM 03/06/19 04/27/19 History tamsulosin 0.4 mg PO QDD 03/06/19 04/27/19 History tiotropium bromide 2 puff INHALATION QAM 03/06/19 04/27/19 History furosemide 20 mg PO QAM 03/07/19 04/27/19 History hydrochlorothiazide 12.5 mg PO QAM 03/07/19 04/27/19 History levocetirizine 5 mg PO QAM 03/07/19 04/27/19 History lisinopril 10 mg PO HS 03/07/19 04/27/19 History acetaminophen [Tylenol Extra 1,000 mg PO Q8 30 Days #180 tab 07/17/19 08/10/19 Rx Strength] aspirin [Ecotrin Low Strength] 81 mg PO BID 45 Days #90 tab 04/03/19 04/27/19 Rx ferrous gluconate 324 mg PO BIDM 30 Days #60 tab 04/03/19 04/27/19 Rx Past Med/Surg History Medical History Anemia did have recent TKA AA (aortic aneurysm) Following with vascular, CTA chest 11/2018 showed aortic root to be 4.8-5 cm. Per vascular office note 02/26/19, "Maintain good BP control, pt is at risk of complications of rupture and dissection which were discussed...Echo in [address] Thorax in 12 months" BPH (benign prostatic hyperplasia) Chronic obstructive pulmonary disease Per pulmonology 08/2018, "He is stable at this time and stays on his current regimen." Environmental allergies GERD (gastroesophageal reflux disease) History of epistaxis DESCRIBES SEVERE SINGLE EPISODE THAT REQUIRED PLATELETS AND FFP TO BE TRANSFUSED, spring 2017. No other bleeding issues. Hypertension Hyponatremia Following with nephrology. Per last office note 10/2018 "ETOH/liver disease and/or COPD/pulmonary nodule (R/O CA)/SIADH...longstanding history of hyponatremia, 128-133 dating back to 2009. Paroxysmal A-fib and A-flutter. S/P radiofrequency ablation ~3 yrs ago, but afib/flutter has reoccurred. Per cardiology, patient should be on anticoagulation, but he refuses anything more than ASA 81mg. Seasonal allergies Sleep apnea NO CPAP OR BIPAP Surgical History History of cardiac radiofrequency ablation DONE AT [facility] Hx of appendectomy Hx of foot surgery LEFT Hx of repair of left rotator cuff Hx of repair of right rotator cuff Hx of tonsillectomy Family History Father Family hx of colon cancer Social History Preferred Language: Palauan Communication Ability: Effective Associate Producer Required: No Beliefs That Will Affect Care: None marital status: Current Living Situation: Spouse Feels Safe at Home: Yes Smoking Status: Current some day smoker Tobacco Type: cigars ; Cigarettes Per Day: 2-3 week ; Second Hand Exposure: No ; Hx Alcohol Use: Yes Alcohol type: beer and hard liquor Hx Substance Use: No Review of Systems no sweats no diplopia no foul smell and no facial pain no change in sputum and no hemoptysis no chest pain with activity + abdominal pain and + nausea; no hematemesis and no cramping no radicular pain no falls no hopelessness no polydipsia Physical Exam Eyes: PERRL, conjunctivae normal, anicteric sclerae No scleral icterus today Neck: trachea midline, no thyromegaly Respiratory: normal respiratory effort, lungs clear to auscultation Cardiovascular: Rate/Rhythm: regular rate and regular rhythm Skin: no rashes, warm and dry Results & Data Vital Signs (Past 12 Hours) Vital Signs Temp Pulse Resp BP BP Pulse Ox 04/28/19 07:07 36.6 C 58 L 18 164/84 H 98 04/27/19 22:50 36.6 C 58 L 16 151/86 H 97 Laboratory Results Laboratory Results - last 24 hr 04/27/19 04/27/19 04/27/19 08:43 08:43 08:43 WBC 5.95 RBC 3.10 L Hgb 10.0 L Hct 27.4 L MCV 88.4 MCH 32.3 MCHC 36.5 H RDW Std Deviation 47.1 H RDW Coeff of Greer 14.4 Plt Count 269 MPV 8.8 Immature Gran % (Auto) 0.3 Neut % (Auto) 67.9 Lymph % (Auto) 14.5 [place] % (Auto) 14.3 Eos % (Auto) 2.7 Baso % (Auto) 0.3 Immature Gran # (Auto) 0.02 Neut # (Auto) 4.04 Lymph # (Auto) 0.86 L [place] # (Auto) 0.85 H Eos # (Auto) 0.16 Baso # (Auto) 0.02 Sodium 121 L Potassium 3.8 D Chloride 87 L Carbon Dioxide 25 Anion Gap 8.0 BUN 11 Creatinine 0.99 Est Cr Clr Drug Dosing 99.4 Est GFR ( Amer) 89.7 Est GFR (Non-Af Amer) 77.4 BUN/Creatinine Ratio 10.8 Glucose 107 H Calcium 9.0 Total Bilirubin AST ALT Alkaline Phosphatase Total Protein Albumin Globulin Albumin/Globulin Ratio Lipase 395 H 04/28/19 04/28/19 05:10 05:10 WBC 5.23 RBC 3.02 L Hgb 9.7 L Hct 27.0 L MCV 89.4 MCH 32.1 MCHC 35.9 RDW Std Deviation 47.8 H RDW Coeff of Greer 14.3 Plt Count 248 MPV 8.7 Immature Gran % (Auto) 0.4 Neut % (Auto) 53.6 Lymph % (Auto) 24.3 [place] % (Auto) 15.7 Eos % (Auto) 5.4 Baso % (Auto) 0.6 Immature Gran # (Auto) 0.02 Neut # (Auto) 2.81 Lymph # (Auto) 1.27 [place]lette # (Auto) 0.82 H Eos # (Auto) 0.28 Baso # (Auto) 0.03 Sodium 125 L Potassium 4.2 Chloride 93 L Carbon Dioxide 23 Anion Gap 9.0 BUN 11 Creatinine 0.96 Est Cr Clr Drug Dosing 102.5 Est GFR ( Amer) 93.1 Est GFR (Non-Af Amer) 80.3 BUN/Creatinine Ratio 11.2 Glucose 104 H Calcium 8.3 L Total Bilirubin 1.2 H AST 60 H ALT 102 H Alkaline Phosphatase 310 H Total Protein 6.6 Albumin 2.8 L Globulin 3.8 Albumin/Globulin Ratio 0.7 L Lipase Diagnostic Findings CT SCAN OF THE ABDOMEN AND PELVIS WITHOUT IV CONTRAST CLINICAL HISTORY: Elevated hepatic transaminases. COMPARISON STUDY: No priors. TECHNIQUE: CT scan of the abdomen and pelvis is performed from the lung bases to the proximal femora. Images are reviewed in the axial, sagittal, and coronal planes. IV contrast was not administered for this examination as per the referring clinician. Note that the examination was performed in suboptimal fashion without oral and IV contrast. A dose lowering technique was utilized adhering to the principles of ALARA. FINDINGS: Lung bases: The heart is normal in size and without pericardial effusion. The coronary arteries are densely calcified. There is a tiny hiatal hernia. Emphysematous change is suspected. There are trace pleural effusions and bibasilar atelectasis. Scattered calcified granulomas are identified. Foci of scarring/atelectasis are seen at the lung bases. Liver: The unenhanced liver is mildly enlarged measuring 18.8 cm in length. The liver is heterogeneous in attenuation. Nodularity of the hepatic surface contour suggests early change of cirrhosis. There is no intrahepatic biliary ductal dilatation. Gallbladder: The gallbladder is mildly distended. There is gallbladder wall thickening and pain and pericholecystic fluid. Calcified gallstones are seen within the gallbladder lumen. There are least 2 large gallstones within the common bile duct seen on image #197 and #217. The largest stone measures 13 mm. The common bile duct is dilated, measuring up to 1.4 cm in diameter. Spleen: Normal in size and attenuation. Pancreas: The unenhanced pancreas is moderately atrophic and grossly unremarkable. Adrenal glands: Unremarkable. Kidneys: The unenhanced kidneys demonstrate mild cortical atrophy and are without hydronephrosis. There are no renal calculi identified. There is no evidence of contour deforming renal mass lesion. Abdominal vasculature: The abdominal aorta is normal in course and caliber noting moderate to advanced atherosclerotic calcification. Bowel: There is no bowel obstruction. The appendix is not identified and reported surgically absent. Peritoneum: There is no intraperitoneal free air or abdominal ascites. Lymphadenopathy: None. Pelvic viscera: The the bladder is decompressed around a Garvey catheter. Foci of intraluminal gas are likely related to instrumentation. The prostate gland is diminutive. Skeletal structures: The skeletal structures are osteopenic. Mild lumbosacral spondylosis is observed. An indeterminant sclerotic lesion in the right inferior pubic ramus/ischium measures up to 3.5 cm as seen on image #497. No additional similar-appearing bony lesions are identified. IMPRESSION: 1. Suboptimal examination without oral and IV contrast. 2. Cholelithiasis and choledocholithiasis with evidence of acute cholecystitis. 3. There are 2 large calcified gallstones within the common bile duct measuring up to 13 mm. Surgical consultation is advised. MRCP is unlikely to provide further information. 4. The liver is mildly enlarged and heterogeneous. Nodularity of the hepatic surface contour suggests early change of cirrhosis. 5. Trace pleural effusions. 6. The bladder is decompressed and a Garvey catheter. Foci of intraluminal gas are likely related to instrumentation. Correlation with clinical findings and urinalysis will be required. 7. An ill-defined sclerotic lesion is seen within the inferior right pubic ring/ischium. This is pathologically indeterminant and may represent the sequelae of remote trauma. If there is a cancer history an osteoblastic bone lesion is not excluded. No additional similar-appearing bony lesions are identified. 8. Additional findings as above. Code Status & VTE Plan VTE Prophylaxis Plan VTE Prophylaxis will be ordered: Yes
[2019-04-28] MEDS ORDERED: GLYCOPYRROLATE 0.2 MG/ML VIAL ONE (08:13)
[2019-04-28] MEDS ORDERED: NEOSTIGMINE METHYLSULFATE 5 MG/5 ML SYR ONE (08:13)
[2019-04-28] MEDS ORDERED: LABETALOL HCL IV 5 MG/ML 20ML IV ONE (08:13)
--- NOTE | 2019-04-28 08:17 | GI REPORT ---
Addendum Number: 1 Addendum Date: 05/12/2019 9:10:26 AM Note should have read that complete removal of stones was completed. No Gallstones remained at completion of the procedure. Harpal Don DO 05/12/2019 9:11:00 AM This report has been signed electronically. Patient Name: Ruy Mcbride Procedure Date: 04/28/2019 7:43 AM Date of : 1950 Admit Type: Inpatient Age: 68 Gender: Male Attending MD: Barron Ba DO Procedure: ERCP Providers: Barron Ba DO Referring MD: Jose Luis Lopez MD, Aviva Castro Md, Sim Zuniga MD Indications: Abdominal pain of suspected biliary origin, For therapy of bile duct stone(s), Elevated liver enzymes Medicines: General Anesthesia Complications: No immediate complications. Estimated blood loss: Minimal. Estimated Blood Loss: Estimated blood loss was minimal. Procedure: Pre-Anesthesia Assessment: - Prior to the procedure, a History and Physical was performed, and patient medications, allergies and sensitivities were reviewed. The patient's tolerance of previous anesthesia was reviewed. - The risks and benefits of the procedure and the sedation options and risks were discussed with the patient. All questions were answered and informed consent was obtained. - Patient identification and proposed procedure were verified prior to the procedure by the physician, the nurse and the interactive marketing strategist. The procedure was verified in the procedure room. - Pre-procedure physical examination revealed no contraindications to sedation. - ASA Grade Assessment: III - A patient with severe systemic disease. - After reviewing the risks and benefits, the patient was deemed in satisfactory condition to undergo the procedure. - The anesthesia plan was to use general anesthesia. - Immediately prior to administration of medications, the patient was re-assessed for adequacy to receive sedatives. - The heart rate, respiratory rate, oxygen saturations, blood pressure, adequacy of pulmonary ventilation, and response to care were monitored throughout the procedure. - The physical status of the patient was re-assessed after the procedure. After obtaining informed consent, the scope was passed under direct vision. Throughout the procedure, the patient's blood pressure, pulse, and oxygen saturations were monitored continuously. The Scope was introduced through the mouth, and advanced to the duodenum and used to inject contrast into the bile duct. The ERCP was accomplished without difficulty. The patient tolerated the procedure well. Findings: The mobile ui/ux designer film was normal. The esophagus was successfully intubated under direct vision without detailed examination of the pharynx, larynx, and associated structures, and upper GI tract. The upper GI tract was grossly normal. The major papilla was congested. The bile duct was deeply cannulated with the short-nosed traction sphincterotome and o.035 in Acrobat 2 guidewire (PE not injected or cannulated). Contrast was injected. I personally interpreted the bile duct images. Contrast extended to the entire biliary tree. The main bile duct was diffusely dilated, with a stone causing an obstruction. Biliary sphincterotomy was made with a monofilament Fusion OMNI sphincterotome using ERBE electrocautery. There was no post-sphincterotomy bleeding. To discover objects, the biliary tree was swept with an 15 mm balloon and 18 mm balloon starting at the bifurcation. Three stones were removed. Three stones remained. The endoscope was withdrawn from the patient. Indomethacin 100 mg was given via suppository to decrease the risk of post-ERCP pancreatitis (PEP). The total fluoroscopy exposure time was 9 seconds. Impression: - The major papilla appeared congested. - The entire main bile duct was dilated, with a stone causing an obstruction. - Choledocholithiasis was found. Partial removal was accomplished by biliary sphincterotomy; no stent was inserted. - A biliary sphincterotomy was performed. - The biliary tree was swept. - Indomethacin given to decrease risk of post-ERCP pancreatitis. Recommendation: - Avoid aspirin and nonsteroidal anti-inflammatory medicines for 1 week. - Clear liquid diet today. - Use broad spectrum antibiotics for 3 days. Barron Ba D.O. Barron Ba DO 04/28/2019 8:16:37 AM This report has been signed electronically. Note Initiated On: 04/28/2019 7:43 AM Number of Addenda: 1 I attest to the content of the Intraoperative Record and orders documented therein, exceptions below {[id number]}
--- NOTE | 2019-04-28 08:28 | Post Operative Brief Note ---
Immediate Post Op Note v1 Date of Surgery April 28, 2019 Pre & Post Diagnosis Operation Date: 04/28/19 06:50 Pre-Op Diagnosis: Choledocholithiasis Post-Op Diagnosis: Choledocholithiasis Procedure Operation Date: 04/28/19 06:50 Actual Procedures p Endoscopic Retrograde Cholangiopancreatography(Not Applicable) - Barron Ba Surgeon Barron Ba Feather Duster Winder None Estimated Blood Loss 0 Findings Consistent with Post-Op Diagnosis Drains Garvey Catheter
[2019-04-28] MEDS ORDERED: CIPROFLOXACIN 400 MG/200 ML BAG IV SCH (08:30)
--- NOTE | 2019-04-28 08:31 | Communication Note ---
Date of Service: April 28, 2019 The patient underwent ERCP this morning. 3 large gallstones were removed. Recommendation Clear liquid diet today Continue with IV hydration Cholecystectomy per general surgery prophylactic ciprofloxacin x3 days
[2019-04-28] MEDS: CIPROFLOXACIN 400 MG/200 ML BAG IV SCH ×2 (08:33→21:38)
--- NOTE | 2019-04-28 08:43 | Fluoroscopy Report ---
[place] ERCP biliary ductal CLINICAL HISTORY: 68 years-old Male presenting with ERCP IN OR. TECHNIQUE: Fluoroscopy was provided for endoscopic retrograde cholangiopancreatography. 9 fluoroscopi c image(s) recorded. COMPARISON: CT from 04/27/2019. FINDINGS: Procedure: An endoscope projects over the descending duodenum. A catheter was inserted into the commo n bile duct, which was subsequently opacified with contrast. Filling defect suggesting calculus in th e common duct, which is dilated. Microcatheter advanced to the intrahepatic bile ducts, which were al so opacified with contrast and noted to be dilated centrally. A balloon was used to clear the common duct distally. No gross filling defect on the last recorded image. Peritoneal spillage: No evidence of peritoneal spillage of contrast. Extrahepatic bile ducts: Dilated common bile duct with apparent choledocholithiasis. Contrast does no t extend into the small bowel. Intrahepatic bile ducts: Central moderate intrahepatic biliary ductal dilatation. Fluoroscopy dosage (mGy): 22.13. Fluoroscopy time: 61.7 seconds. Number or time of high level fluoroscopy (HLF), digital spot, or digital subtraction images: 0. IMPRESSION: Choledocholithiasis with intrahepatic and extra hepatic duct dilatation. Balloon clearance by ERCP. Electronically signed by: Jacky Villatoro M.D. 04/28/2019 8:41 AM
--- NOTE | 2019-04-28 09:03 | Anesthesiology Progress Note ---
Date of Service April 28, 2019 Anesthesia Post Procedure Vital Signs Vital Signs: Temp Pulse Pulse Pulse Resp BP BP 04/28/19 08:50 36.5 C 56 L 16 147/85 H 04/28/19 08:40 52 L 14 146/78 H 04/28/19 08:30 52 L 14 149/81 H 04/28/19 08:20 36.2 C L 58 L 16 135/72 04/28/19 07:07 36.6 C 58 L 18 164/84 H 04/27/19 22:50 36.6 C 58 L 16 151/86 H 04/27/19 17:00 37 C 49 L 17 158/74 H 04/27/19 16:38 56 L 04/27/19 15:51 36.9 C 49 L 20 145/76 H 04/27/19 15:12 36.9 C 91 H 19 119/75 04/27/19 12:11 37.1 C 51 L 18 132/80 Pulse Ox 04/28/19 08:50 100 04/28/19 08:40 97 04/28/19 08:30 100 04/28/19 08:20 100 04/28/19 07:07 98 04/27/19 22:50 97 04/27/19 17:00 04/27/19 16:38 04/27/19 15:51 100 04/27/19 15:12 92 04/27/19 12:11 99 Transfer of Care Handoff Completed per policy Notes Mental Status: alert / awake / arousable Patient Amnestic to Procedure: Yes Nausea / Vomiting: adequately controlled Pain: adequately controlled Airway Patency, RR, SpO2: stable & adequate BP & HR: stable & adequate Hydration State: stable & adequate Anesthetic Complications: no major complications apparent
[2019-04-28] MEDS: OXYCODONE HCL IR 5 MG TAB (IMMEDIATE RELEASE) PO PRN ×3 (10:39→21:36)
[2019-04-28] MEDS: CARVEDILOL 12.5 MG TAB PO SCH ×2 (10:42→21:35)
[2019-04-28] MEDS: PANTOprazole 40 MG TAB PO SCH (10:42)
[2019-04-28] MEDS: FERROUS GLUCONATE 324 MG TAB PO SCH ×2 (10:43→16:41)
[2019-04-28] MEDS: BUDESONIDE/FORMOTEROL FUMARATE 160/4.5 60 PUFFS/INHALER INH SCH ×2 (10:43→21:37)
[2019-04-28] MEDS: TIOTROPIUM BROMIDE 5 PUFF/90 MCG INH INH SCH (10:44)
--- NOTE | 2019-04-28 11:47 | Urology Consultation ---
Date of Consultation April 28, 2019 Assessment & Plan (1) Retention of urine, unspecified: Patient never fully recovered from AUR after orthoped procedure. Recovering now from ERCP. Likely going to have cholecystectomy in near future. Mobility improved but decreased in post op period. Bowels not regular. Recommend continuing flomax. Monitor. Maintain catheter. May need 2-3 days post next procedure and then attempt removal. May need d/c with catheter if still issues need to set up for outpatient workup of LUTS and retention. History of incontinence. History of Present Illness Attending Physician: Aviva Castro MD History of Present Illness Patient with AUR. Started after orthoped procedure around 04/04/19. Was home with catheter and plans for follow up and attempted removal Developed severe abd issues and liver problems. found to have obs gallstones. Admitted. Still with emptying issues and catheter in place. had ERCP this am Mobility improved. Bowels having major issues and constipation problems with acute issues. History OF LUTS with low bother on flomax. has not changed meds. No pain with catheter. Abd pain diffuse. Improved. Still groggy from anesthesia this AM Allergies Allergy/AdvReac Type Severity Reaction Status Date / Time CHLORHEXADINE GLUCONATE Allergy Mild redness, Uncoded 04/02/19 08:44 burning SEASONAL Allergy Unknown runny Uncoded 04/02/19 08:44 nose, cough, itching eyes Home Medications Home Medications Medication Instructions Recorded Confirmed Type albuterol sulfate [ProAir HFA] 2 puff INHALATION QID PRN 03/06/19 04/27/19 History budesonide-formoterol 2 puff INHALATION BID 03/06/19 04/27/19 History carvedilol 12.5 mg PO BID 03/06/19 04/27/19 History pantoprazole 40 mg PO QAM 03/06/19 04/27/19 History tamsulosin 0.4 mg PO QDD 03/06/19 04/27/19 History tiotropium bromide 2 puff INHALATION QAM 03/06/19 04/27/19 History furosemide 20 mg PO QAM 03/07/19 04/27/19 History hydrochlorothiazide 12.5 mg PO QAM 03/07/19 04/27/19 History levocetirizine 5 mg PO QAM 03/07/19 04/27/19 History lisinopril 10 mg PO HS 03/07/19 04/27/19 History acetaminophen [Tylenol Extra 1,000 mg PO Q8 30 Days #180 tab 04/03/19 04/27/19 Rx Strength] aspirin [Ecotrin Low Strength] 81 mg PO BID 45 Days #90 tab 04/03/19 04/27/19 Rx ferrous gluconate 324 mg PO BIDM 30 Days #60 tab 04/03/19 04/27/19 Rx Patient History Medical History Anemia did have recent TKA AA (aortic aneurysm) Following with vascular, CTA chest 11/2018 showed aortic root to be 4.8-5 cm. Per vascular office note 02/26/19, "Maintain good BP control, pt is at risk of complications of rupture and dissection which were discussed...Echo in [address] Thorax in 12 months" BPH (benign prostatic hyperplasia) Chronic obstructive pulmonary disease Per pulmonology 08/2018, "He is stable at this time and stays on his current regimen." Environmental allergies GERD (gastroesophageal reflux disease) History of epistaxis DESCRIBES SEVERE SINGLE EPISODE THAT REQUIRED PLATELETS AND FFP TO BE TRANSFUSED, spring 2017. No other bleeding issues. Hypertension Hyponatremia Following with nephrology. Per last office note 10/2018 "ETOH/liver disease and/or COPD/pulmonary nodule (R/O CA)/SIADH...longstanding history of hyponat remia, 128-133 dating back to 2009. Paroxysmal A-fib and A-flutter. S/P radiofrequency ablation ~3 yrs ago, but afib/flutter has reoccurred. Per cardiology, patient should be on anticoagulation, but he refuses anything more than ASA 81mg. Seasonal allergies Sleep apnea NO CPAP OR BIPAP Surgical History History of cardiac radiofrequency ablation DONE AT [facility] Hx of appendectomy Hx of foot surgery LEFT Hx of repair of left rotator cuff Hx of repair of right rotator cuff Hx of tonsillectomy Family History Father Family hx of colon cancer Social History Preferred Language: Italian Communication Ability: Effective Contract Negotiator Required: No Beliefs That Will Affect Care: None marital status: Current Living Situation: Spouse Feels Safe at Home: Yes Smoking Status: Current some day smoker Tobacco Type: cigars ; Cigarettes Per Day: 2-3 week ; Second Hand Exposure: No ; Hx Alcohol Use: Yes Alcohol type: beer and hard liquor Hx Substance Use: No Review of Systems Review of Systems: All systems reviewed & are unremarkable except as noted in HPI & below Physical Exam Constitutional: WD/WN, vitals as above no acute distress Eyes: PERRL, conjunctivae normal, anicteric sclerae ENMT: Mouth: + poor dentition and + chipped teeth Mallampati Class: II Neck: trachea midline, no thyromegaly normal visual inspection and trachea midline Respiratory: normal respiratory effort; no respiratory distress and no labored breathing Cardiovascular: Rate/Rhythm: not tachycardic Gastrointestinal (Abdomen): normal bowel sounds, soft, nontender, no hepatosplenomegaly Musculoskeletal: no cyanosis or clubbing, extremities motor strength 5/5 Skin: no rashes, warm and dry + incision (left knee, intact, dry, moiz in inferior portion, superior moiz out); no rashes Neurologic: patellar DTR's 2+ bilat, sensation intact and PERRL, EOMI, accommodation nl, no face palsy, no dysarthria Psychiatric: A+Ox3, euthymic affect Genitourinary: Garvey draining clear yellow. Lymphatic: no cervical or axillary lymphadenopathy no cervical lymphadenopathy Results & Data Vital Signs (Past 12 Hours) Vital Signs Temp Pulse Pulse Resp BP BP Pulse Ox 04/28/19 11:15 47 L 16 159/75 H 98 04/28/19 10:11 56 L 16 159/91 H 98 04/28/19 09:45 36.5 C 50 L 16 183/83 H 99 04/28/19 09:00 50 L 16 147/83 H 100 04/28/19 08:50 36.5 C 56 L 16 147/85 H 100 04/28/19 08:40 52 L 14 146/78 H 97 04/28/19 08:30 52 L 14 149/81 H 100 04/28/19 08:20 36.2 C L 58 L 16 135/72 100 04/28/19 07:07 36.6 C 58 L 18 164/84 H 98 PG Care Time/CCT Total # of Minutes Spent Total Time Spent with Patient: Total time spent is greater than 50% in coordination of care (as documented) at patient's floor/unit and/or counseling patient:
[2019-04-28] MEDS: NYSTATIN OINT 15 GM TUBE EXT SCH ×2 (14:20→21:28)
[2019-04-28] MEDS: NSS + 20MEQ KCL 20 MEQ/1,000 ML BAG IV SCH ×2 (14:22)
--- NOTE | 2019-04-28 15:17 | Hospitalist Progress Note ---
Date of Service April 28, 2019 Assessment & Plan (1) Choledocholithiasis: Presented with elevated LFTs and confusion, found to have choledocholithiasis Now status post ERCP on 04/28 with obstructing stones removed from CBD LFTs improving -Remains on Cipro and Flagyl empirically x3 more days -General surgery consultation-discussed with surgery today-plan for cholecystectomy in the next 1 to 2 days Clear liquids diet for now and n.p.o. after midnight for surgery -Trend LFTs Preoperative ECG obtained which shows slow atrial fibrillation, no evidence of acute ischemia Secondary to his recent TKA, he has not been able to climb up and down stairs, however he has not had any angina ever even with walking long distances. He has had a normal stress test in the last few years as per his report. Recent cardiology outpatient note reviewed prior to TKA and was considered medically optimized for surgery of which I agree. (2) HTN (hypertension): Blood pressures elevated -Has enlarging ascending thoracic aortic aneurysm-needs improved blood pressure control -Discontinued HCTZ due to low sodium -Continue Coreg -Discontinued furosemide -Continue lisinopril and increase to 20 mg daily (3) Afib: With persistent atrial fibrillation Rate controlled with some bradycardia here continue coreg 12.5 mg p.o. twice daily does not take anticoagulation due to history of significant nose bleeds requiring FFP (4) S/P total knee arthroplasty: Needs moiz removed tomorrow -holding ASA bid for DVT prophylaxis due to recent ERCP - will ask orthopedics to come by in the morning -Continue oxycodone as needed for pain -Tramadol discontinued as it can contribute to hyponatremia (5) Confusion: due to infection and low sodium resolved as sodium is improving (6) Hyponatremia: due to dehydration and poor solute intake the past two weeks in the setting of chronic hyponatremia-Baseline sodium is 128-131 as per outpatient nephrology notes Has been on HCTZ for many years, also takes furosemide occasionally serum osmolality low in 240s but urine osmolality is appropriately low in 100's, kidneys trying to get rid of free water Treated with NSS at 100cc/hr--we will continue but lower the rate to 75 -mental status is clear -Permanently discontinue HCTZ, discontinue furosemide for now -Repeat BMP in the morning (7) Retention of urine, unspecified: With recurrent urinary retention, with Garvey catheter in place again -Appreciate urology consultation -Maintain Garvey for at least 2 to 3 days status post cholecystectomy -will need outpatient follow-up for urinary retention (8) Thoracic aortic aneurysm without rupture: Measuring 5.0 cm on latest outpatient imaging Seen by thoracic surgery and advised no surgery for now -Continued surveillance -Continue good blood pressure control (9) SHEREEN (obstructive sleep apnea): Reportedly mild, not on CPAP (10) Anemia: Hemoglobin low at 9.7, likely secondary to recent blood loss anemia from TKA -Follow CBC Continue ferrous gluconate (11) Cirrhosis of liver: Mild cirrhosis changes seen on CT scan of the abdomen/pelvis. No evidence of portal hypertension Does drink 3 alcoholic beverages daily and is overweight but did recently lose 30 pounds intentionally -Encouraged alcohol cessation -Encouraged continued weight loss and low carbohydrate diet -Should follow-up with PCP and/or GI as an outpatient (12) COPD (chronic obstructive pulmonary disease): lungs clear, continue maintenance inhalers (13) Elevated LFTs: as above, due to cholecystitis and choledocholithiasis repeat tomorrow (14) DVT prophylaxis: Heparin SQ Disposition-remain hospitalized and possible cholecystectomy in the next 1 to 2 days Subjective Patient feeling well. reports his mental status is pretty much back to his baseline. He denies any abdominal pain now or ever. He is having a lot of pain in the left knee, at times is a 9 out of 10 in severity. He denies any nausea or vomiting, is tolerating clears after his ERCP this morning. Denies diarrhea. No bowel movement in 3 days. Denies chest pain or shortness of breath. He would like to have his gallbladder removed this admission if possible As for his possible early or mild changes of cirrhosis seen on CT scan, discussed with patient and his . He does admit to drinking 2-3 alcoholic beverages a day and has been overweight for a long time in fact he was 30 pounds heavier than this in the last 6 months but lost weight purposefully for his TKA. He also reports having a thoracic aortic aneurysm that has been evaluated by thoracic surgeon and deemed not necessary to have surgery at this time. Review of Systems Review of Systems: All systems reviewed & are unremarkable except as noted in HPI & below (He has not been able to go up and down stairs due to his knee arthritis, but can walk distances and never has chest pain or shortness of breath. He has had stress test several years ago that was normal.) Physical Exam Constitutional: WD/WN, vitals as above + overweight Eyes: PERRL, conjunctivae normal, anicteric sclerae ENMT: external ear and nose normal, oropharynx normal Neck: trachea midline, no thyromegaly Respiratory: normal respiratory effort, lungs clear to auscultation Cardiovascular: RRR, no murmur, no edema Vessels: no JVD and no carotid bruit Gastrointestinal (Abdomen): normal bowel sounds, soft, nontender, no hepatosplenomegaly Musculoskeletal: Extremities: extremities normal to inspection; no cyanosis and no clubbing Skin: no rashes, warm and dry Neurologic: moves all extremities and awake; no focal motor deficits Psychiatric: A+Ox3, euthymic affect Results & Data Vital Signs (Past 12 Hours) Vital Signs Temp Pulse Pulse Resp BP BP Pulse Ox 04/28/19 15:05 36.4 C L 44 L 16 142/78 H 98 04/28/19 12:23 47 L 16 153/73 H 99 04/28/19 11:15 47 L 16 159/75 H 98 04/28/19 10:11 56 L 16 159/91 H 98 04/28/19 09:45 36.5 C 50 L 16 183/83 H 99 04/28/19 09:00 50 L 16 147/83 H 100 04/28/19 08:50 36.5 C 56 L 16 147/85 H 100 04/28/19 08:40 52 L 14 146/78 H 97 04/28/19 08:30 52 L 14 149/81 H 100 04/28/19 08:20 36.2 C L 58 L 16 135/72 100 04/28/19 07:07 36.6 C 58 L 18 164/84 H 98 Laboratory Results 04/28/19 04/28/19 Range/Units 05:10 05:10 WBC 5.23 (4.8-10.8) K/uL RBC 3.02 L (4.7-6.1) M/uL Hgb 9.7 L (14.0-18.0) g/dL Hct 27.0 L (42-52) % MCV 89.4 (80-100) fL MCH 32.1 (25-34) pg MCHC 35.9 (32-36) g/dL RDW Std Deviation 47.8 H (36.4-46.3) fL RDW Coeff of [place] 14.3 (11.5-14.5) % Plt Count 248 (130-400) K/uL MPV 8.7 (7.4-10.4) fL Immature Gran % (Auto) 0.4 % Neut % (Auto) 53.6 % Lymph % (Auto) 24.3 % [place] % (Auto) 15.7 % Eos % (Auto) 5.4 % Baso % (Auto) 0.6 % Immature Gran # (Auto) 0.02 (0.00-0.02) K/uL Neut # (Auto) 2.81 (1.4-6.5) K/uL Lymph # (Auto) 1.27 (1.2-3.4) K/uL [place] # (Auto) 0.82 H (0.11-0.59) K/uL Eos # (Auto) 0.28 (0-0.5) K/uL Baso # (Auto) 0.03 (0-0.2) K/uL Sodium 125 L (136-145) mmol/L Potassium 4.2 (3.5-5.1) mmol/L Chloride 93 L (98-107) mmol/L Carbon Dioxide 23 (21-32) mmol/L Anion Gap 9.0 (3-11) BUN 11 (7-18) mg/dl Creatinine 0.96 (0.6-1.4) mg/dl Est Cr Clr Drug Dosing 102.5 ml/min Est GFR ( Amer) 93.1 Est GFR (Non-Af Amer) 80.3 BUN/Creatinine Ratio 11.2 (10-20) Glucose 104 H (70-99) mg/dl Calcium 8.3 L (8.5-10.1) mg/dl Total Bilirubin 1.2 H (0.2-1) mg/dl AST 60 H (15-37) U/L ALT 102 H (12-78) U/L Alkaline Phosphatase 310 H (45-117) U/L Total Protein 6.6 (6.4-8.2) gm/dl Albumin 2.8 L (3.4-5.0) gm/dl Globulin 3.8 (2.5-4.0) gm/dl Albumin/Globulin Ratio 0.7 L (0.9-2) PG Care Time/CCT Total # of Minutes Spent Total Time Spent with Patient: Total time spent is greater than 50% in coordination of care (as documented) at patient's floor/unit and/or counseling patient:
[2019-04-28] MEDS: TAMSULOSIN HCL 0.4 MG CAP PO SCH (16:41)
--- NOTE | 2019-04-28 19:40 | Surgery Progress Note ---
Date of Service April 28, 2019 Assessment & Plan (1) Cholelithiasis: This patient has cholelithiasis and had choledocholithiasis cleared by ERCP today. He is going to need a cholecystectomy. I recommended a laparoscopic cholecystectomy with possible use of the robot. I explained the possible need to convert to an open procedure and explained some of the complications that can be associated with those procedures. He understands. Hopefully we can form the procedure tomorrow. We will plan for that. He has signed a consent form. Subjective No confusion today Denies abdominal pain Underwent ERCP with clearance of stones from the common bile duct. No stent was placed. Physical Exam Gastrointestinal (Abdomen): Inspection/Auscultation: abdomen normal to inspection; abdomen not distended Percussion/Palpation: abdomen soft; abdomen nontender Results & Data Vital Signs (Past 12 Hours) Vital Signs Temp Pulse Pulse Resp BP BP Pulse Ox 04/28/19 16:34 44 L 18 154/76 H 98 04/28/19 15:05 36.4 C L 44 L 16 142/78 H 98 04/28/19 12:23 47 L 16 153/73 H 99 04/28/19 11:15 47 L 16 159/75 H 98 04/28/19 10:11 56 L 16 159/91 H 98 04/28/19 09:45 36.5 C 50 L 16 183/83 H 99 04/28/19 09:00 50 L 16 147/83 H 100 04/28/19 08:50 36.5 C 56 L 16 147/85 H 100 04/28/19 08:40 52 L 14 146/78 H 97 04/28/19 08:30 52 L 14 149/81 H 100 04/28/19 08:20 36.2 C L 58 L 16 135/72 100 Laboratory Results 04/28/19 04/28/19 Range/Units 05:10 05:10 WBC 5.23 (4.8-10.8) K/uL RBC 3.02 L (4.7-6.1) M/uL Hgb 9.7 L (14.0-18.0) g/dL Hct 27.0 L (42-52) % MCV 89.4 (80-100) fL MCH 32.1 (25-34) pg MCHC 35.9 (32-36) g/dL RDW Std Deviation 47.8 H (36.4-46.3) fL RDW Coeff of Greer 14.3 (11.5-14.5) % Plt Count 248 (130-400) K/uL MPV 8.7 (7.4-10.4) fL Immature Gran % (Auto) 0.4 % Neut % (Auto) 53.6 % Lymph % (Auto) 24.3 % [place] % (Auto) 15.7 % Eos % (Auto) 5.4 % Baso % (Auto) 0.6 % Immature Gran # (Auto) 0.02 (0.00-0.02) K/uL Neut # (Auto) 2.81 (1.4-6.5) K/uL Lymph # (Auto) 1.27 (1.2-3.4) K/uL [place] # (Auto) 0.82 H (0.11-0.59) K/uL Eos # (Auto) 0.28 (0-0.5) K/uL Baso # (Auto) 0.03 (0-0.2) K/uL Sodium 125 L (136-145) mmol/L Potassium 4.2 (3.5-5.1) mmol/L Chloride 93 L (98-107) mmol/L Carbon Dioxide 23 (21-32) mmol/L Anion Gap 9.0 (3-11) BUN 11 (7-18) mg/dl Creatinine 0.96 (0.6-1.4) mg/dl Est Cr Clr Drug Dosing 102.5 ml/min Est GFR ( Amer) 93.1 Est GFR (Non-Af Amer) 80.3 BUN/Creatinine Ratio 11.2 (10-20) Glucose 104 H (70-99) mg/dl Calcium 8.3 L (8.5-10.1) mg/dl Total Bilirubin 1.2 H (0.2-1) mg/dl AST 60 H (15-37) U/L ALT 102 H (12-78) U/L Alkaline Phosphatase 310 H (45-117) U/L Total Protein 6.6 (6.4-8.2) gm/dl Albumin 2.8 L (3.4-5.0) gm/dl Globulin 3.8 (2.5-4.0) gm/dl Albumin/Globulin Ratio 0.7 L (0.9-2)
[2019-04-28] MEDS: ACETAMINOPHEN 325 MG TAB PO PRN (19:51)
[2019-04-28] MEDS: LISINOPRIL 20 MG TAB PO SCH (21:36)
[2019-04-29] MEDS: metroNIDAZOLE 500 MG/100 ML BAG IV SCH ×3 (01:37→19:43)
[2019-04-29] MEDS: NSS + 20MEQ KCL 20 MEQ/1,000 ML BAG IV SCH ×2 (01:37→21:11)
[2019-04-29] MEDS: HEPARIN SOD 5,000 UNIT/0.5 ML VIAL SQ SCH (05:51)
[2019-04-29 06:35] LABS: Basophils # (auto) 0.06 K/uL (0-0.2); Basophils % (auto) 1.3 %; Eosinophils # (auto) 0.29 K/uL (0-0.5); Eosinophils % (auto) 6.4 %; Hematocrit (blood only) 27.9 % (42-52); Hemoglobin 9.7 g/dL (14.0-18.0); Immature Granulocytes # (auto) 0.02 K/uL (0.00-0.02); Immature Granulocytes % (auto) 0.4 %; Lymphocytes # (auto) 1.23 K/uL (1.2-3.4); Lymphocytes % (auto) 27.3 %; Mean Corpuscular Hgb Conc 34.8 g/dL (32-36); Mean Corpuscular Volume 90.3 fL (80-100); Mean Platelet Volume 9.3 fL (7.4-10.4); Monocytes # (auto) 0.61 K/uL (0.11-0.59); Monocytes % (auto) 13.5 %; Neutrophils % (auto) 51.1 %; Platelet Count 277 K/uL (130-400); RDW Coefficient of Variation 14.5 % (11.5-14.5); RDW Standard Deviation 47.8 fL (36.4-46.3); Red Blood Count 3.09 M/uL (4.7-6.1); White Blood Count 4.51 K/uL (4.8-10.8)
[2019-04-29 07:08] LABS: Albumin Level 2.9 gm/dl (3.4-5.0); BUN Creatinine Ratio 11.1 (10-20); Calcium 8.5 mg/dl (8.5-10.1); Creatinine Clr Calc Pharmacy 99.4 ml/min; Est GFR (African American) 89.7; Est GFR (Non-African American) 77.4; Potassium 4.3 mmol/L (3.5-5.1)
[2019-04-29 07:10] LABS: Albumin Globulin Ratio 0.8 (0.9-2); Bilirubin,Total 1.3 mg/dl (0.2-1); Globulin 3.8 gm/dl (2.5-4.0); Total Protein 6.7 gm/dl (6.4-8.2)
--- NOTE | 2019-04-29 07:39 | Urology Progress Note ---
Date of Service April 29, 2019 Assessment & Plan (1) Retention of urine, unspecified: 68yo M with post operative retention, BPH, gallstones. Planning for lap heather today with Dr. Zuniga. Pt is currently NPO awaiting OR time. Likely will go home with brown catheter in place. Continue tamsulosin. Pt and family wish to follow up with [facility] given their proximity. We will help arrange, likely will need TOV early next week by their service. All questions, concerns addressed. Thank you for allowing us to participate in the acute care of Mr. Mcbride. Please reconsult with additional questions, concerns, or changes in patient status. Subjective 68yo M with AUR, gall stones. Pt doing well today from standpoint. at bedside. Planning for heather with Dr. Zuniga later today. In discussion with patient and , it appears he had brown catheter removed on 04/11 at [facility] urology. He was able to void, however sounds as though patient developed overflow incontinence. Brown catheter was replaced, drained "over a pint". Tolerating catheter, draining clear yellow. He was able to get some rest last evening. Denies suprapubic or flank pain. Denies bladder spasms or hematuria. Review of Systems Review of Systems: All systems reviewed & are unremarkable except as noted in HPI & below Physical Exam Constitutional: no acute distress and not ill appearing Eyes: no nystagmus ENMT: Ears: no hearing impairment Neck: trachea midline Respiratory: no respiratory distress and no cough Cardiovascular: Vessels: no JVD Chest (Breasts): Chest: normal inspection of chest Gastrointestinal (Abdomen): Inspection/Auscultation: abdomen not distended and no abdominal edema Percussion/Palpation: abdomen soft; abdomen nontender Musculoskeletal: Head/Neck/Chest: normocephalic and head atraumatic Skin: no rashes, warm and dry Neurologic: awake; not confused and not obtunded Psychiatric: Orientation: alert and oriented x 3 Eye Contact: good eye contact Affect: no depressed affect Genitourinary: bladder normal to inspection; no CVA tenderness brown draining clear yellow Lymphatic: no lymphadenopathy and no lymphedema Results & Data Vital Signs (Past 12 Hours) Vital Signs Temp Pulse Pulse Resp BP BP Pulse Ox 04/29/19 03:55 36.5 C 54 L 18 157/83 H 96 04/28/19 23:02 36.4 C L 60 18 156/74 H 97 04/28/19 21:33 48 L 158/81 H 04/28/19 19:45 36.4 C L 58 L 18 128/81 98
[2019-04-29] MEDS: CARVEDILOL 12.5 MG TAB PO SCH ×2 (07:51→19:42)
[2019-04-29] MEDS: BUDESONIDE/FORMOTEROL FUMARATE 160/4.5 60 PUFFS/INHALER INH SCH ×2 (07:51→19:43)
[2019-04-29] MEDS: PANTOprazole 40 MG TAB PO SCH (07:51)
[2019-04-29] MEDS: TIOTROPIUM BROMIDE 5 PUFF/90 MCG INH INH SCH (07:52)
[2019-04-29] MEDS: OXYCODONE HCL IR 5 MG TAB (IMMEDIATE RELEASE) PO PRN ×4 (07:58→23:59)
--- NOTE | 2019-04-29 08:34 | Anesthesiology Progress Note ---
Date of Service April 29, 2019 Anesthesia Post Procedure Vital Signs Vital Signs: Temp Pulse Pulse Pulse Resp BP BP 04/29/19 08:00 36.6 C 58 L 18 160/94 H 04/29/19 03:55 36.5 C 54 L 18 157/83 H 04/28/19 23:02 36.4 C L 60 18 156/74 H 04/28/19 21:33 48 L 158/81 H 04/28/19 19:45 36.4 C L 58 L 18 128/81 04/28/19 16:34 44 L 18 154/76 H 04/28/19 15:05 36.4 C L 44 L 16 142/78 H 04/28/19 12:23 47 L 16 153/73 H 04/28/19 11:15 47 L 16 159/75 H 04/28/19 10:11 56 L 16 159/91 H 04/28/19 09:45 36.5 C 50 L 16 183/83 H 04/28/19 09:00 50 L 16 147/83 H 04/28/19 08:50 36.5 C 56 L 16 147/85 H 04/28/19 08:40 52 L 14 146/78 H Pulse Ox 04/29/19 08:00 96 04/29/19 03:55 96 04/28/19 23:02 97 04/28/19 21:33 04/28/19 19:45 98 04/28/19 16:34 98 04/28/19 15:05 98 04/28/19 12:23 99 04/28/19 11:15 98 04/28/19 10:11 98 04/28/19 09:45 99 04/28/19 09:00 100 04/28/19 08:50 100 04/28/19 08:40 97 Pain Intensity Groin: Pain Intensity: 4 Notes Mental Status: alert / awake / arousable Patient Amnestic to Procedure: Yes Nausea / Vomiting: adequately controlled Pain: adequately controlled Airway Patency, RR, SpO2: stable & adequate BP & HR: stable & adequate Hydration State: stable & adequate Anesthetic Complications: no major complications apparent and Pt Satisfied with anesthetic care
[2019-04-29] MEDS: NYSTATIN OINT 15 GM TUBE EXT SCH ×2 (10:14→19:44)
[2019-04-29] MEDS: FERROUS GLUCONATE 324 MG TAB PO SCH ×2 (10:14→19:43)
[2019-04-29] MEDS: CIPROFLOXACIN 400 MG/200 ML BAG IV SCH ×2 (10:16→21:11)
--- NOTE | 2019-04-29 11:35 | Hospitalist Progress Note ---
Date of Service April 29, 2019 Assessment & Plan (1) Choledocholithiasis: Presented with elevated LFTs and confusion, found to have choledocholithiasis Now status post ERCP on 04/28 with obstructing stones removed from CBD No evidence of post-ERCP pancreatitis LFTs continue to improve -Remains on Cipro and Flagyl empirically x 2 more days -General surgery consultation-discussed with surgery today-plan for cholecystectomy today NPO for now for surgery -Trend LFTs in AM Preoperative ECG obtained which shows slow atrial fibrillation, no evidence of acute ischemia Secondary to his recent TKA, he has not been able to climb up and down stairs, however he has not had any angina ever even with walking long distances. He has had a normal stress test in the last few years as per his report. Recent cardiology outpatient note reviewed prior to TKA and was considered medically optimized for surgery of which I agree. (2) HTN (hypertension): Blood pressures continue to be elevated, however did not receive Coreg due to bradycardia on evening of 04/28 -Has enlarging ascending thoracic aortic aneurysm-needs improved blood pressure control -Discontinued HCTZ due to low sodium -Continue Coreg 12.5bid and changed hold parameters to be able to give for HR>55 rather than 60 -Discontinued furosemide -Continue lisinopril and increased to 20 mg daily (3) Afib: With persistent atrial fibrillation Rate controlled with bradycardia here continue coreg 12.5 mg p.o. twice daily-typically is in the 80s-90s in the office but reports he has been as low as the 30s after his last surgery does not take anticoagulation due to history of significant nose bleeds requiring FFP (4) S/P total knee arthroplasty: Needs moiz removed -discussed with Ortho today who will see him this afternoon -holding ASA bid for DVT prophylaxis due to recent ERCP, using SCDs, SQ heparin -Continue oxycodone as needed for pain and increase frequency to q4h -Tramadol discontinued as it can contribute to hyponatremia (5) Confusion: due to infection and low sodium resolved as sodium is improving (6) Hyponatremia: due to dehydration and poor solute intake the past two weeks in the setting of chronic hyponatremia-Baseline sodium is 128-131 as per outpatient nephrology notes Was 118 on admission at outside hospital Na+ improved to 128 today Has been on HCTZ for many years, also takes furosemide occasionally serum osmolality low in 240s but urine osmolality is appropriately low in 100's, kidneys trying to get rid of free water Treated with NSS at 75mLs/hr now while NPO, can stop IVFs tomorrow -mental status is clear -Permanently discontinue HCTZ, discontinue furosemide for now -Repeat BMP in the morning (7) Retention of urine, unspecified: With recurrent urinary retention, with Garvey catheter in place again -Appreciate urology consultation -Maintain Garvey for at least 2 to 3 days status post cholecystectomy-will send home with Garvey and arrange outpt f/u with Urology in [place] within the week for TOV -continue Flomax (8) Thoracic aortic aneurysm without rupture: Measuring 5.0 cm on latest outpatient imaging Seen by thoracic surgery and advised no surgery for now -Continued surveillance -Continue good blood pressure control-changes as above (9) SHEREEN (obstructive sleep apnea): Reportedly mild, not on CPAP (10) Anemia: Hemoglobin low at 9.7 and stable, likely secondary to recent blood loss anemia from TKA -Follow CBC Continue ferrous gluconate (11) Cirrhosis of liver: Mild cirrhosis changes seen on CT scan of the abdomen/pelvis. No evidence of portal hypertension Does drink 3 alcoholic beverages daily and is overweight but did recently lose 30 pounds intentionally LFTs elevated as above due to choledocholithiasis -Encouraged alcohol cessation -Encouraged continued weight loss and low carbohydrate diet -Should follow-up with PCP and/or GI as an outpatient (12) COPD (chronic obstructive pulmonary disease): lungs clear, continue maintenance inhalers (13) Elevated LFTs: as above, due to cholecystitis and choledocholithiasis, improving now that CBD stones removed repeat tomorrow (14) DVT prophylaxis: Heparin SQ-will hold now for cholecystectomy Disposition-remain hospitalized for cholecystectomy today, hopeful for dc to home tomorrow if doing well s/p heather Subjective Denies CP or SOB, denies abd pain. he has not had a BM since admission but not eating much either. No nausea. No other concerns except left knee pain. Wants to make oxycodone more frequently. Review of Systems Review of Systems: All systems reviewed & are unremarkable except as noted in HPI & below Physical Exam Constitutional: WD/WN, vitals as above + overweight Eyes: PERRL, conjunctivae normal, anicteric sclerae ENMT: external ear and nose normal, oropharynx normal Neck: trachea midline, no thyromegaly Respiratory: normal respiratory effort, lungs clear to auscultation Cardiovascular: Rate/Rhythm: + bradycardic and + irregularly irregular Heart Sounds: no murmur Vessels: no JVD Gastrointestinal (Abdomen): normal bowel sounds, soft, nontender, no hepatosplenomegaly Musculoskeletal: Extremities: extremities normal to inspection; no cyanosis and no clubbing Skin: no rashes, warm and dry Neurologic: moves all extremities and awake; no focal motor deficits Psychiatric: A+Ox3, euthymic affect Results & Data Vital Signs (Past 12 Hours) Vital Signs Temp Pulse Pulse Resp BP Pulse Ox 04/29/19 08:00 36.6 C 58 L 18 160/94 H 96 04/29/19 03:55 36.5 C 54 L 18 157/83 H 96 Laboratory Results 04/29/19 04/29/19 04/27/19 Range/Units 06:09 06:09 01:00 WBC 4.51 L (4.8-10.8) K/uL RBC 3.09 L (4.7-6.1) M/uL Hgb 9.7 L (14.0-18.0) g/dL Hct 27.9 L (42-52) % MCV 90.3 (80-100) fL MCH 31.4 (25-34) pg MCHC 34.8 (32-36) g/dL RDW Std Deviation 47.8 H (36.4-46.3) fL RDW Coeff of Greer 14.5 (11.5-14.5) % Plt Count 277 (130-400) K/uL MPV 9.3 (7.4-10.4) fL Immature Gran % (Auto) 0.4 % Neut % (Auto) 51.1 % Lymph % (Auto) 27.3 % [place] % (Auto) 13.5 % Eos % (Auto) 6.4 % Baso % (Auto) 1.3 % Immature Gran # (Auto) 0.02 (0.00-0.02) K/uL Neut # (Auto) 2.30 (1.4-6.5) K/uL Lymph # (Auto) 1.23 (1.2-3.4) K/uL [place] # (Auto) 0.61 H (0.11-0.59) K/uL Eos # (Auto) 0.29 (0-0.5) K/uL Baso # (Auto) 0.06 (0-0.2) K/uL Absolute Nucleated RBC (0-0) K/uL Nucleated RBC % (auto) % Neutrophils % (Manual) % Band Neutrophils % % Lymphocytes % (Manual) % Prolymphocyte % % Reactive Lymphs % (Man) % Monocytes % (Manual) % Eosinophils % (Manual) % Basophils % (Manual) % Metamyelocytes % (Man) % Myelocytes % (Man) % Promyelocytes % (Man) % Blast Cells % (Manual) % Plasma Cell % (Manual) % Other Cells % % Nucleated RBC % % Neutrophils # (Manual) (1.4-6.5) K/uL Band Neutrophils # (0-0.6) K/uL Total Absolute Neuts (1.4-6.5) K/uL Lymphocytes # (Manual) (1.2-3.4) K/uL Reactive Lymphs # K/uL Total Abs Lymphocytes (1.2-3.4) K/uL Large Granular Lymphs % ESR (0-14) mm/hr Sodium 128 L (136-145) mmol/L Potassium 4.3 (3.5-5.1) mmol/L Chloride 96 L (98-107) mmol/L Carbon Dioxide 22 (21-32) mmol/L Anion Gap 10.0 (3-11) BUN 11 (7-18) mg/dl Creatinine 0.99 (0.6-1.4) mg/dl Est Cr Clr Drug Dosing 99.4 ml/min Est GFR ( Amer) 89.7 Est GFR (Non-Af Amer) 77.4 BUN/Creatinine Ratio 11.1 (10-20) Glucose 112 H (70-99) mg/dl Osmolality Cancelled Calcium 8.5 (8.5-10.1) mg/dl Magnesium (1.8-2.4) mg/dl Total Bilirubin 1.3 H (0.2-1) mg/dl AST 39 H (15-37) U/L ALT 81 H (12-78) U/L Alkaline Phosphatase 286 H (45-117) U/L Troponin I (0-0.045) ng/ml Total Protein 6.7 (6.4-8.2) gm/dl Albumin 2.9 L (3.4-5.0) gm/dl Globulin 3.8 (2.5-4.0) gm/dl Albumin/Globulin Ratio 0.8 L (0.9-2) 04/27/19 04/27/19 04/27/19 Range/Units 01:00 01:00 01:00 WBC (4.8-10.8) K/uL RBC (4.7-6.1) M/uL Hgb (14.0-18.0) g/dL Hct (42-52) % MCV (80-100) fL MCH (25-34) pg MCHC (32-36) g/dL RDW Std Deviation (36.4-46.3) fL RDW Coeff of Greer (11.5-14.5) % Plt Count (130-400) K/uL MPV (7.4-10.4) fL Immature Gran % (Auto) % Neut % (Auto) % Lymph % (Auto) % [place] % (Auto) % Eos % (Auto) % Baso % (Auto) % Immature Gran # (Auto) (0.00-0.02) K/uL Neut # (Auto) (1.4-6.5) K/uL Lymph # (Auto) (1.2-3.4) K/uL [place] # (Auto) (0.11-0.59) K/uL Eos # (Auto) (0-0.5) K/uL Baso # (Auto) (0-0.2) K/uL Absolute Nucleated RBC (0-0) K/uL Nucleated RBC % (auto) % Neutrophils % (Manual) % Band Neutrophils % % Lymphocytes % (Manual) % Prolymphocyte % % Reactive Lymphs % (Man) % Monocytes % (Manual) % Eosinophils % (Manual) % Basophils % (Manual) % Metamyelocytes % (Man) % Myelocytes % (Man) % Promyelocytes % (Man) % Blast Cells % (Manual) % Plasma Cell % (Manual) % Other Cells % % Nucleated RBC % % Neutrophils # (Manual) (1.4-6.5) K/uL Band Neutrophils # (0-0.6) K/uL Total Absolute Neuts (1.4-6.5) K/uL Lymphocytes # (Manual) (1.2-3.4) K/uL Reactive Lymphs # K/uL Total Abs Lymphocytes (1.2-3.4) K/uL Large Granular Lymphs % ESR (0-14) mm/hr Sodium (136-145) mmol/L Potassium (3.5-5.1) mmol/L Chloride (98-107) mmol/L Carbon Dioxide (21-32) mmol/L Anion Gap (3-11) BUN (7-18) mg/dl Creatinine (0.6-1.4) mg/dl Est Cr Clr Drug Dosing ml/min Est GFR ( Amer) Est GFR (Non-Af Amer) BUN/Creatinine Ratio (10-20) Glucose (70-99) mg/dl Osmolality Calcium (8.5-10.1) mg/dl Magnesium (1.8-2.4) mg/dl Total Bilirubin (0.2-1) mg/dl AST (15-37) U/L ALT (12-78) U/L Alkaline Phosphatase (45-117) U/L Troponin I (0-0.045) ng/ml Total Protein (6.4-8.2) gm/dl Albumin (3.4-5.0) gm/dl Globulin (2.5-4.0) gm/dl Albumin/Globulin Ratio (0.9-2) PG Care Time/CCT Total # of Minutes Spent Total Time Spent with Patient: Total time spent is greater than 50% in coordination of care (as documented) at patient's floor/unit and/or counseling patient:
[2019-04-29] MEDS ORDERED: PROPOFOL IV EMULSION 10 MG/ML 20 ML VIAL IV ONE (14:55)
[2019-04-29] MEDS ORDERED: LIDOCAINE HCL 2% 2 ML VIAL/AMP(20MG/ML) INFIL ONE (14:55)
[2019-04-29] MEDS ORDERED: DEXAMETHASONE SOD INJ 4 MG/ML VIAL ONE (14:55)
[2019-04-29] MEDS ORDERED: ONDANSETRON INJ 2 MG/ML 2 ML VIAL ONE (14:55)
[2019-04-29] MEDS ORDERED: NEOSTIGMINE METHYLSULFATE 5 MG/5 ML SYR ONE (14:55)
[2019-04-29] MEDS ORDERED: GLYCOPYRROLATE 0.2 MG/ML VIAL ONE (14:55)
[2019-04-29] MEDS ORDERED: MIDAZOLAM HCL 1 MG/ML 2ML VIAL ONE (14:56)
[2019-04-29] MEDS ORDERED: fentaNYL citrate 100 MCG/2 ML VIAL ONE (14:56)
--- NOTE | 2019-04-29 15:03 | Surgery Progress Note ---
Date of Service April 29, 2019 Assessment & Plan (1) Cholelithiasis: Planning for laparoscopic cholecystectomy as he is status post ERCP for choledocholithiasis. We previously discussed the procedure and the possible complications and answers questions he signed consent form. He understands the increased risk relative to his possible cirrhosis as identified by CT scan. Subjective Doing well this morning Denies abdominal no fever or chills Physical Exam Gastrointestinal (Abdomen): normal bowel sounds, soft, nontender, no hepatosplenomegaly Results & Data Vital Signs (Past 12 Hours) Vital Signs Temp Pulse Pulse Resp BP Pulse Ox 04/29/19 14:53 36.8 C 50 L 16 166/88 H 99 04/29/19 11:47 36.4 C L 54 L 18 170/83 H 97 04/29/19 08:00 36.6 C 58 L 18 160/94 H 96 04/29/19 03:55 36.5 C 54 L 18 157/83 H 96
[2019-04-29] MEDS ORDERED: HYDROmorphone INJ 2 MG/ML SYR/VIAL IV PRN (15:12)
[2019-04-29] MEDS ORDERED: ePHEDrine sulfate 50 MG/ML AMP IV PRN (15:12)
[2019-04-29] MEDS ORDERED: KETOROLAC 30 MG/ML VIAL IV PRN (15:12)
[2019-04-29] MEDS ORDERED: fentaNYL citrate 100 MCG/2 ML VIAL IV PRN (15:12)
[2019-04-29] MEDS ORDERED: ONDANSETRON INJ 2 MG/ML 2 ML VIAL IV PRN (15:12)
[2019-04-29] MEDS ORDERED: ATROPINE SULFATE 0.1 MG/ML 10ML SYR IV PRN (15:12)
[2019-04-29] MEDS ORDERED: PROMETHAZINE HCL 12.5 MG in SODIUM CHLORIDE 0.9% 50 ML IV PRN (15:12)
[2019-04-29] MEDS ORDERED: BUPIVACAINE 0.5 % 5 MG/1 ML MPF 30ML VIAL ONE (15:19)
[2019-04-29] MEDS ORDERED: HEPARIN (PORCINE) 1000 UNIT/ML 10 ML (CATH LAB USE ONLY) ONE (15:21)
[2019-04-29] MEDS ORDERED: CEFAZOLIN 250 MG/ML 1 GM VIAL ONE (15:21)
--- NOTE | 2019-04-29 17:42 | Surgery Progress Note ---
Date of Service April 29, 2019 Results & Data Vital Signs (Past 12 Hours) Vital Signs Temp Pulse Pulse Resp BP Pulse Ox 04/29/19 11:47 36.4 C L 54 L 18 170/83 H 97 04/29/19 08:00 36.6 C 58 L 18 160/94 H 96 04/29/19 03:55 36.5 C 54 L 18 157/83 H 96
--- NOTE | 2019-04-29 17:44 | Post Operative Brief Note ---
Immediate Post Op Note v1 Date of Surgery April 29, 2019 Pre & Post Diagnosis Operation Date: 04/29/19 09:20 Pre-Op Diagnosis: Cholelithiasis, hx Choledocholithiasis Post-Op Diagnosis: Cholelithiasis, hx Choledocholithiasis Procedure Operation Date: 04/29/19 09:20 Actual Procedures p Laparoscopic Cholecystectomy(Not Applicable) - Sim Zuniga MD Surgeon Sim Zuniga MD Area Attendant None Estimated Blood Loss 20 Findings Consistent with Post-Op Diagnosis Specimens Gallbladder and contents Drains Lezama Catheter (PATIENT CAME TO OR WITH LEZAMA IN PLACE) Anesthesia Type General Complications none
--- NOTE | 2019-04-29 18:19 | Anesthesiology Progress Note ---
Date of Service April 29, 2019 Anesthesia Post Procedure Vital Signs Vital Signs: Temp Pulse Pulse Pulse Resp BP BP 04/29/19 18:15 59 L 16 154/94 H 04/29/19 18:05 62 16 163/94 H 04/29/19 17:55 36.2 C L 68 14 143/83 H 04/29/19 15:20 36.9 C 51 L 18 170/85 H 04/29/19 14:53 36.8 C 50 L 16 166/88 H 04/29/19 11:47 36.4 C L 54 L 18 170/83 H 04/29/19 08:00 36.6 C 58 L 18 160/94 H 04/29/19 03:55 36.5 C 54 L 18 157/83 H 04/28/19 23:02 36.4 C L 60 18 156/74 H 04/28/19 21:33 48 L 158/81 H 04/28/19 19:45 36.4 C L 58 L 18 128/81 Pulse Ox 04/29/19 18:15 98 04/29/19 18:05 96 04/29/19 17:55 95 04/29/19 15:20 95 04/29/19 14:53 99 04/29/19 11:47 97 04/29/19 08:00 96 04/29/19 03:55 96 04/28/19 23:02 97 04/28/19 21:33 04/28/19 19:45 98 Pain Intensity Groin: Pain Intensity: 4 Transfer of Care Handoff Completed per policy Notes Mental Status: alert / awake / arousable and participated in evaluation Patient Amnestic to Procedure: Yes Nausea / Vomiting: adequately controlled Pain: adequately controlled Airway Patency, RR, SpO2: stable & adequate BP & HR: stable & adequate Hydration State: stable & adequate Anesthetic Complications: no major complications apparent
[2019-04-29] MEDS: TAMSULOSIN HCL 0.4 MG CAP PO SCH (19:42)
[2019-04-29] MEDS: LISINOPRIL 20 MG TAB PO SCH (19:42)
--- NOTE | 2019-04-29 20:50 | Operative Report ---
DATE OF OPERATION: 04/27/2019 PREOPERATIVE DIAGNOSES: Cholelithiasis, history of choledocholithiasis. POSTOPERATIVE DIAGNOSES: Cholelithiasis, history of choledocholithiasis. PROCEDURE: Laparoscopic cholecystectomy. SURGEON: Sim Zuniga MD. FINDINGS: The gallbladder was not dilated. There were few adhesions to the gallbladder. There was no thickening of the wall. The liver was firm and nodular in appearance. Photographs were taken. There was no ascites. The visible bowel appeared normal. TECHNIQUE: The patient was given a general anesthetic and the area was prepped and draped in the usual sterile fashion. Transverse incision was made below the umbilicus, carried down through the subcutaneous tissue to the fascia, which was grasped with 2 Palma clamps and incised between. The peritoneum was identified, incised, and the introducer was placed bluntly. The abdomen was then insufflated to a pressure of 15 mmHg with carbon dioxide. The upper midline, midclavicular and anterior axillary introducers were placed under direct vision through small skin incisions. Traction was placed on the gallbladder and there were adhesions to the fundus and body in a linear fashion that were taken down using blunt and cautery dissection where appropriate. When I got down near the infundibulum and the neck, there were some small adhesions and flimsy of the duodenum, and these were taken down without using cautery with ease. I then was able to grasp the infundibulum and opened the peritoneum on the lateral side and peeled it down towards the common bile duct. I then worked medially opening the peritoneum and peeling connective tissue and lymphatics and then opened the triangle of Calot where the cystic duct lymph node was identified. There was a lot of fatty tissue behind the neck and the infundibulum. This was all peeled towards the common bile duct. The gallbladder was away from the liver on the lateral side up to the mid body and then dissected medially off the liver to allow for better mobility. I then dissected the neck and infundibulum away on the medial side. This exposed the cystic duct lymph node. I isolated the feeding vessels, clamped and divided them and allowed me then to elevate that area, which allowed me to better visualize the cystic duct. There was a lot of connective tissue attached to the duct, which was peeled away skeletonizing the anterior medial and lateral surfaces. I then was able to further dissect the gallbladder away from the liver behind that area and establish a plane behind the cystic duct establishing an adequate window and confirming the site of the gallbladder-cystic duct junction. Two clips were placed on the proximal cystic duct, one near the gallbladder and it was divided. That allowed me then to dissect the triangle of Calot and identify the cystic artery lying behind the cystic duct lymph node where it was isolated, clamped twice proximally and once near the gallbladder and divided. The gallbladder was then peeled off the liver bed. There was not a good plane of dissection and it required careful meticulous dissection, but I was eventually able to complete the dissection. I placed the gallbladder into an Endobag and brought out through the upper midline incision where I had to open the gallbladder and remove the stones in order to extract it, but that was accomplished. Then, an introducer was replaced. The liver edge was elevated. Subdiaphragmatic and subhepatic spaces were irrigated and the irrigation was removed. There was a small amount of oozing from 2 areas of the gallbladder bed of the liver that were controlled easily with cautery. The previously placed clips were intact. The irrigation was instilled and removed and that was repeated until the return was clear. The gallbladder bed of the liver was again inspected. There was no bleeding. The gas was allowed to escape and the introducers were removed. The fascia of the umbilical and upper midline introducer sites was closed with interrupted 0 Vicryl and the skin of all the incisions was closed with 4-0 Monocryl in either an interrupted or running subcuticular fashion. The skin was anesthetized with 0.5% Marcaine. The skin was cleansed, dried, benzoin placed, Steri-Strips applied. Estimated blood loss was 20 mL. Sponge, needle and instrument counts were correct prior to closure. The patient tolerated the surgical procedure without complication and was transferred to recovery. I attest to the content of the Intraoperative Record and any orders documented therein. Any exception s are noted below.
[2019-04-29] MEDS ORDERED: METOPROLOL TARTRATE 25 MG TAB PO ONE (21:50)
[2019-04-30] MEDS: metroNIDAZOLE 500 MG/100 ML BAG IV SCH (01:39)
[2019-04-30] MEDS: OXYCODONE HCL IR 5 MG TAB (IMMEDIATE RELEASE) PO PRN ×4 (04:26→21:02)
[2019-04-30 07:22] LABS: Hematocrit (blood only) 28.3 % (42-52); Hemoglobin 9.9 g/dL (14.0-18.0); Mean Corpuscular Volume 90.7 fL (80-100); Mean Platelet Volume 8.9 fL (7.4-10.4); Platelet Count 282 K/uL (130-400); RDW Coefficient of Variation 14.6 % (11.5-14.5); RDW Standard Deviation 48.6 fL (36.4-46.3); Red Blood Count 3.12 M/uL (4.7-6.1); White Blood Count 6.67 K/uL (4.8-10.8)
[2019-04-30 07:38] LABS: Albumin Level 2.9 gm/dl (3.4-5.0); BUN Creatinine Ratio 9.6 (10-20); Bilirubin Direct 0.8 mg/dl (0-0.2); Calcium 8.8 mg/dl (8.5-10.1); Creatinine Clr Calc Pharmacy 100.4 ml/min; Est GFR (African American) 90.8; Est GFR (Non-African American) 78.4; Magnesium 1.7 mg/dl (1.8-2.4); Potassium 4.5 mmol/L (3.5-5.1)
[2019-04-30 07:41] LABS: Bilirubin,Total 1.3 mg/dl (0.2-1); Total Protein 6.6 gm/dl (6.4-8.2)
[2019-04-30] MEDS: CARVEDILOL 12.5 MG TAB PO SCH ×2 (07:48→21:02)
[2019-04-30] MEDS ORDERED: MAGNESIUM SULFATE / D5W 1 GM/100 ML BAG IV ONE (08:00)
[2019-04-30] MEDS ORDERED: LISINOPRIL 20 MG TAB PO ONE (08:15)
[2019-04-30] MEDS: TIOTROPIUM BROMIDE 5 PUFF/90 MCG INH INH SCH (08:23)
[2019-04-30] MEDS: CALCIUM CARBONATE 500 MG CHEWABLE TAB PO PRN ×2 (08:23→21:49)
[2019-04-30] MEDS: PANTOprazole 40 MG TAB PO SCH (08:23)
[2019-04-30] MEDS: FERROUS GLUCONATE 324 MG TAB PO SCH ×2 (08:23→16:53)
[2019-04-30] MEDS: BUDESONIDE/FORMOTEROL FUMARATE 160/4.5 60 PUFFS/INHALER INH SCH ×2 (08:24→21:02)
[2019-04-30] MEDS: NYSTATIN OINT 15 GM TUBE EXT SCH ×3 (08:24→21:03)
[2019-04-30] MEDS: NSS + 20MEQ KCL 20 MEQ/1,000 ML BAG IV SCH (08:48)
[2019-04-30] MEDS: CIPROFLOXACIN 400 MG/200 ML BAG IV SCH ×2 (09:25→21:03)
--- NOTE | 2019-04-30 11:26 | Orthopedic Progress Note ---
Date of Service April 30, 2019 Assessment & Plan (1) S/P total knee arthroplasty: He was seen and examined by Dr. Grimes today as well. He approx 3 1/2 weeks s/p left TKA and underwent cholecystectomy yesterday. We removed the remaining moiz from his knee and applied steri strips. If okay with general surgery, he can resume aspirin 81mg bid for 6 weeks total post op from the tka. Continue PT. He should follow up with Dr. Grimes in approx 4 weeks. Courtney Redmond is a 68 y/o male who is approx 3 1/2 weeks s/p Left TKA. He was admitted last Monday and underwent cholecystectomy with Dr. Zuniga yesterday. He has some moiz remaining in his left knee because he had some drainage at his previous office visit. He has not had much knee pain. No drainage since maybe last monday his says. Physical Exam Physical Exam: he's alert and oriented. NAD. Left knee: mild swelling of his knee and leg. Some moiz still in place. He mattson s a scab over some of the incision distally. No active drainage. he can do a straight leg raise. Motion is near full extension to about 95 degrees. Results & Data Vital Signs (Past 12 Hours) Vital Signs Temp Pulse Pulse Resp BP BP Pulse Ox 04/30/19 09:51 143/76 H 04/30/19 07:41 36.6 C 70 18 174/90 H 98 04/30/19 06:15 67 159/88 H 04/30/19 04:23 36.5 C 61 16 172/89 H 97 04/30/19 01:38 151/76 H PG Care Time/CCT Total # of Minutes Spent Total Time Spent with Patient: Total time spent is greater than 50% in coordination of care (as documented) at patient's floor/unit and/or counseling patient:
[2019-04-30] MEDS: POLYETHYLENE (MIRALAX) 17 GM PACK PO SCH (15:35)
[2019-04-30] MEDS: DOCUSATE SODIUM/SENNA 50/8.6MG TAB PO SCH (15:36)
[2019-04-30] MEDS ORDERED: HydrALAZINE HCL 20 MG/ML VIAL IV PRN (15:53)
--- NOTE | 2019-04-30 15:54 | Hospitalist Progress Note ---
Date of Service April 30, 2019 Assessment & Plan (1) Choledocholithiasis: Presented with elevated LFTs and confusion, found to have choledocholithiasis Now status post ERCP on 04/28 with obstructing stones removed from CBD No evidence of post-ERCP pancreatitis LFTs continue to improve Now s/p lap heather on 04/29, doing well post-op, no BM yet -Appreciate GI and Surgery management -no biliary stent placed, had sphincterotomy and CBD stones removed -adv diet to regular -dc IVFs -continue pain control prn -increase bowel regimen -needs Surgery f/u as outpt -continue Cipro x 1 more day -dc Flagyl -no NSAIDS/ASA until Thursday 05/03 due to sphincterotomy (2) HTN (hypertension): Blood pressures continue to be elevated today -Has enlarging ascending thoracic aortic aneurysm-needs improved blood pressure control -Discontinued HCTZ due to low sodium -Continue Coreg 12.5bid and changed hold parameters to be able to give for HR>55 rather than 60 -restart furosemide 20 mg daily -Continue lisinopril and increased again to 20 mg bid -add prn IV hydralazine (3) Afib: With persistent atrial fibrillation Rate controlled with bradycardia here continue coreg 12.5 mg p.o. twice daily-typically is in the 80s-90s in the office but reports he has been as low as the 30s after his last surgery does not take anticoagulation due to history of significant nose bleeds requiring FFP (4) S/P total knee arthroplasty: Had moiz removed here -holding ASA bid for DVT prophylaxis due to recent ERCP, using SCDs, SQ heparin--> can restart ASA 81 bid on Thursday 05/03 for 3 more weeks -Continue oxycodone as needed for pain a -Tramadol discontinued as it can contribute to hyponatremia (5) Confusion: due to infection and low sodium resolved as sodium is improving (6) Hyponatremia: due to dehydration and poor solute intake the past two weeks in the setting of chronic hyponatremia-Baseline sodium is 128-131 as per outpatient nephrology notes Was 118 on admission at outside hospital Na+ improved and stable at 128 today Has been on HCTZ for many years, also takes furosemide occasionally serum osmolality low in 240s but urine osmolality is appropriately low in 100's Treated with NSS at 75mLs/hr now while NPO, can stop IVFs now -mental status is clear -Permanently discontinue HCTZ -restarting lasix -Repeat BMP in the morning (7) Retention of urine, unspecified: With recurrent urinary retention, with Garvey catheter in place again -Appreciate urology consultation -Maintain Garvey for at least 2 to 3 days status post cholecystectomy-will send home with Garvey and arrange outpt f/u with Urology in [place] within the week for TOV -continue Flomax (8) Thoracic aortic aneurysm without rupture: Measuring 5.0 cm on latest outpatient imaging Seen by thoracic surgery and advised no surgery for now -Continued surveillance -Continue good blood pressure control-changes as above (9) SHEREEN (obstructive sleep apnea): Reportedly mild, not on CPAP (10) Anemia: Hemoglobin low at 9.9 and stable from previous, likely secondary to recent blood loss anemia from TKA several weeks ago -Follow CBC Continue ferrous gluconate (11) Cirrhosis of liver: Mild cirrhosis changes seen on CT scan of the abdomen/pelvis. No evidence of portal hypertension Does drink 3 alcoholic beverages daily and is overweight but did recently lose 30 pounds intentionally LFTs elevated as above due to choledocholithiasis and now improving Liver noted to be firm and nodular during Surgery--> pictures noted to have been taken -Encouraged alcohol cessation -Encouraged continued weight loss and low carbohydrate diet -Should follow-up with PCP and/or GI as an outpatient (12) COPD (chronic obstructive pulmonary disease): lungs clear, continue maintenance inhalers (13) Elevated LFTs: as above, due to cholecystitis and choledocholithiasis, improving now that CBD stones removed repeat tomorrow (14) DVT prophylaxis: Heparin SQ-restart Disposition-likely dc to home tomorrow if continues to improve and advance diet, BP controlled Subjective DOing well, some abd bloating. No N/V, no BM yet. Minimal abd pain. Having left knee pain still relieved with oxycodone Had moiz removed by Ortho today Review of Systems Review of Systems: All systems reviewed & are unremarkable except as noted in HPI & below (denies CP, SOB) Physical Exam Constitutional: WD/WN, vitals as above + overweight Neck: trachea midline, no thyromegaly Respiratory: normal respiratory effort, lungs clear to auscultation Cardiovascular: Rate/Rhythm: + bradycardic and + irregularly irregular Heart Sounds: no murmur Vessels: no JVD Gastrointestinal (Abdomen): Inspection/Auscultation: normal bowel sounds; + abdomen abnormal to inspection (4 lap sites with steri strips in palce, no erythema or drainage) Percussion/Palpation: + abdomen tender (mild, around incision sites, no guarding) and abdomen soft; no guarding, abdomen not rigid and no abdominal mass Musculoskeletal: Extremities: extremities normal to inspection; no cyanosis and no clubbing Skin: no rashes, warm and dry Neurologic: moves all extremities and awake; no focal motor deficits Psychiatric: A+Ox3, euthymic affect Results & Data Vital Signs (Past 12 Hours) Vital Signs Temp Pulse Pulse Resp BP BP Pulse Ox 04/30/19 15:26 36.6 C 59 L 17 174/71 H 96 04/30/19 15:00 36.7 C 68 18 149/84 H 99 04/30/19 11:56 36.8 C 56 L 56 L 16 137/69 99 04/30/19 09:51 143/76 H 04/30/19 07:41 36.6 C 70 18 174/90 H 98 04/30/19 06:15 67 159/88 H 04/30/19 04:23 36.5 C 61 16 172/89 H 97 Laboratory Results 04/30/19 04/30/19 04/30/19 Range/Units 16:17 06:58 06:58 WBC 6.67 (4.8-10.8) K/uL RBC 3.12 L (4.7-6.1) M/uL Hgb 9.9 L (14.0-18.0) g/dL Hct 28.3 L (42-52) % MCV 90.7 (80-100) fL MCH 31.7 (25-34) pg MCHC 35.0 (32-36) g/dL RDW Std Deviation 48.6 H (36.4-46.3) fL RDW Coeff of Greer 14.6 H (11.5-14.5) % Plt Count 282 (130-400) K/uL MPV 8.9 (7.4-10.4) fL PT 12.1 H (9.0-12.0) Seconds INR 1.2 H (0.9-1.1) Sodium 128 L (136-145) mmol/L Potassium 4.5 (3.5-5.1) mmol/L Chloride 97 L (98-107) mmol/L Carbon Dioxide 24 (21-32) mmol/L Anion Gap 7.0 (3-11) BUN 9 (7-18) mg/dl Creatinine 0.98 (0.6-1.4) mg/dl Est Cr Clr Drug Dosing 100.4 ml/min Est GFR ( Amer) 90.8 Est GFR (Non-Af Amer) 78.4 BUN/Creatinine Ratio 9.6 L (10-20) Glucose 117 H (70-99) mg/dl Calcium 8.8 (8.5-10.1) mg/dl Magnesium 1.7 L (1.8-2.4) mg/dl Total Bilirubin 1.3 H (0.2-1) mg/dl Direct Bilirubin 0.8 H (0-0.2) mg/dl AST 32 (15-37) U/L ALT 64 (12-78) U/L Alkaline Phosphatase 243 H (45-117) U/L Total Protein 6.6 (6.4-8.2) gm/dl Albumin 2.9 L (3.4-5.0) gm/dl PG Care Time/CCT Total # of Minutes Spent Total Time Spent with Patient: Total time spent is greater than 50% in coordination of care (as documented) at patient's floor/unit and/or counseling patient:
[2019-04-30] MEDS: TAMSULOSIN HCL 0.4 MG CAP PO SCH (16:53)
[2019-04-30] MEDS: FUROSEMIDE 20 MG TAB PO SCH (16:57)
[2019-04-30 16:58] LABS: INR 1.2 (0.9-1.1); Prothrombin Time 12.1 Seconds (9.0-12.0)
--- NOTE | 2019-04-30 18:32 | Surgery Progress Note ---
Date of Service April 30, 2019 Assessment & Plan (1) Cholelithiasis: Postoperative day #1, status post laparoscopic cholecystectomy Doing well surgically Can advance to regular diet If tolerates regular diet consider discharge from surgical standpoint tomorrow Present on Admission?: Yes Subjective Postoperative day #1, status post laparoscopic cholecystectomy Tolerating regular diet Incisional pain only No nausea or vomiting Physical Exam Gastrointestinal (Abdomen): Inspection/Auscultation: abdomen not distended Percussion/Palpation: + abdomen tender (Incisional only and mild) and abdomen soft Results & Data Vital Signs (Past 12 Hours) Vital Signs Temp Pulse Pulse Resp BP BP Pulse Ox 04/30/19 16:57 160/78 H 04/30/19 15:26 36.6 C 59 L 17 174/71 H 96 04/30/19 15:00 36.7 C 68 18 149/84 H 99 04/30/19 11:56 36.8 C 56 L 56 L 16 137/69 99 04/30/19 09:51 143/76 H 04/30/19 07:41 36.6 C 70 18 174/90 H 98 Laboratory Results 04/30/19 04/30/19 04/30/19 Range/Units 16:17 06:58 06:58 WBC 6.67 (4.8-10.8) K/uL RBC 3.12 L (4.7-6.1) M/uL Hgb 9.9 L (14.0-18.0) g/dL Hct 28.3 L (42-52) % MCV 90.7 (80-100) fL MCH 31.7 (25-34) pg MCHC 35.0 (32-36) g/dL RDW Std Deviation 48.6 H (36.4-46.3) fL RDW Coeff of Greer 14.6 H (11.5-14.5) % Plt Count 282 (130-400) K/uL MPV 8.9 (7.4-10.4) fL PT 12.1 H (9.0-12.0) Seconds INR 1.2 H (0.9-1.1) Sodium 128 L (136-145) mmol/L Potassium 4.5 (3.5-5.1) mmol/L Chloride 97 L (98-107) mmol/L Carbon Dioxide 24 (21-32) mmol/L Anion Gap 7.0 (3-11) BUN 9 (7-18) mg/dl Creatinine 0.98 (0.6-1.4) mg/dl Est Cr Clr Drug Dosing 100.4 ml/min Est GFR ( Amer) 90.8 Est GFR (Non-Af Amer) 78.4 BUN/Creatinine Ratio 9.6 L (10-20) Glucose 117 H (70-99) mg/dl Calcium 8.8 (8.5-10.1) mg/dl Magnesium 1.7 L (1.8-2.4) mg/dl Total Bilirubin 1.3 H (0.2-1) mg/dl Direct Bilirubin 0.8 H (0-0.2) mg/dl AST 32 (15-37) U/L ALT 64 (12-78) U/L Alkaline Phosphatase 243 H (45-117) U/L Total Protein 6.6 (6.4-8.2) gm/dl Albumin 2.9 L (3.4-5.0) gm/dl
[2019-04-30] MEDS: HEPARIN SOD 5,000 UNIT/0.5 ML VIAL SQ SCH (18:45)
[2019-04-30] MEDS ORDERED: LISINOPRIL 40 MG TAB PO SCH (21:00)
[2019-04-30] MEDS: LISINOPRIL 20 MG TAB PO SCH (21:02)
[2019-05-01] MEDS: HEPARIN SOD 5,000 UNIT/0.5 ML VIAL SQ SCH (05:25)
[2019-05-01] MEDS: POLYETHYLENE (MIRALAX) 17 GM PACK PO SCH (05:39)
[2019-05-01] MEDS: DOCUSATE SODIUM/SENNA 50/8.6MG TAB PO SCH (05:39)
[2019-05-01 07:42] LABS: Basophils # (auto) 0.06 K/uL (0-0.2); Basophils % (auto) 0.8 %; Eosinophils % (auto) 5.6 %; Hematocrit (blood only) 29.1 % (42-52); Hemoglobin 10.3 g/dL (14.0-18.0); Immature Granulocytes # (auto) 0.02 K/uL (0.00-0.02); Immature Granulocytes % (auto) 0.3 %; Lymphocytes # (auto) 1.39 K/uL (1.2-3.4); Lymphocytes % (auto) 19.6 %; Mean Corpuscular Hgb Conc 35.4 g/dL (32-36); Mean Corpuscular Volume 91.2 fL (80-100); Mean Platelet Volume 8.9 fL (7.4-10.4); Monocytes # (auto) 0.92 K/uL (0.11-0.59); Neutrophils # (auto) 4.29 K/uL (1.4-6.5); Neutrophils % (auto) 60.7 %; Platelet Count 301 K/uL (130-400); RDW Coefficient of Variation 14.6 % (11.5-14.5); Red Blood Count 3.19 M/uL (4.7-6.1); White Blood Count 7.08 K/uL (4.8-10.8)
[2019-05-01 08:15] LABS: Albumin Level 3.2 gm/dl (3.4-5.0); Bilirubin Direct 0.8 mg/dl (0-0.2); Creatinine Clr Calc Pharmacy 85.6 ml/min; Est GFR (African American) 74.8; Est GFR (Non-African American) 64.6; Potassium 4.2 mmol/L (3.5-5.1)
[2019-05-01 08:19] LABS: Bilirubin,Total 1.4 mg/dl (0.2-1); Total Protein 6.9 gm/dl (6.4-8.2)
--- NOTE | 2019-05-01 08:50 | Surgery Progress Note ---
Date of Service May 01, 2019 Assessment & Plan (1) Cholelithiasis: Postoperative day #2, status post laparoscopic cholecystectomy POD # 3 s/p ERCP with biliary sphincterotomy Doing well surgically vitals stable, afebrile, no leukocytosis. T. bili stable around 1.3-1.4 (admission was 2.2) LFTs and alk phos improving Plan: Okay from surgical standpoint for discharge discharge instructions provided Rx for Percocet prn pain will go home with Brown per Urology and will need follow-up in [place] F/u surgical office in [address] Zuniga has seen and examined pt, agrees with above. Subjective feeling good tolerating diet, no n/v has brown catheter in place abdominal pain about 3/10 also some knee pain Physical Exam Constitutional: WD/WN, vitals as above Gastrointestinal (Abdomen): Inspection/Auscultation: abdomen normal to inspection and normal bowel sounds; abdomen not distended Percussion/Palpatio n: + abdomen tender (mild tenderness at incision sites appropriate post op); no guarding, abdomen not rigid and + abdomen not soft Skin: no rashes, warm and dry + incision (clean/dry/intact) Psychiatric: A+Ox3, euthymic affect Results & Data Vital Signs (Past 12 Hours) Vital Signs Temp Pulse Resp BP BP Pulse Ox 05/01/19 07:00 36.7 C 63 16 145/87 H 97 04/30/19 23:05 36.6 C 60 18 177/80 H 94 Laboratory Results 05/01/19 05/01/19 04/30/19 Range/Units 07:22 07:22 16:17 WBC 7.08 (4.8-10.8) K/uL RBC 3.19 L (4.7-6.1) M/uL Hgb 10.3 L (14.0-18.0) g/dL Hct 29.1 L (42-52) % MCV 91.2 (80-100) fL MCH 32.3 (25-34) pg MCHC 35.4 (32-36) g/dL RDW Std Deviation 49.0 H (36.4-46.3) fL RDW Coeff of Greer 14.6 H (11.5-14.5) % Plt Count 301 (130-400) K/uL MPV 8.9 (7.4-10.4) fL Immature Gran % (Auto) 0.3 % Neut % (Auto) 60.7 % Lymph % (Auto) 19.6 % Coke % (Auto) 13.0 % Eos % (Auto) 5.6 % Baso % (Auto) 0.8 % Immature Gran # (Auto) 0.02 (0.00-0.02) K/uL Neut # (Auto) 4.29 (1.4-6.5) K/uL Lymph # (Auto) 1.39 (1.2-3.4) K/uL Coke # (Auto) 0.92 H (0.11-0.59) K/uL Eos # (Auto) 0.40 (0-0.5) K/uL Baso # (Auto) 0.06 (0-0.2) K/uL PT 12.1 H (9.0-12.0) Seconds INR 1.2 H (0.9-1.1) Sodium 128 L (136-145) mmol/L Potassium 4.2 (3.5-5.1) mmol/L Chloride 95 L (98-107) mmol/L Carbon Dioxide 25 (21-32) mmol/L Anion Gap 9.0 (3-11) BUN 10 (7-18) mg/dl Creatinine 1.15 (0.6-1.4) mg/dl Est Cr Clr Drug Dosing 85.6 ml/min Est GFR ( Amer) 74.8 Est GFR (Non-Af Amer) 64.6 BUN/Creatinine Ratio 9.0 L (10-20) Glucose 112 H (70-99) mg/dl Calcium 9.0 (8.5-10.1) mg/dl Total Bilirubin 1.4 H (0.2-1) mg/dl Direct Bilirubin 0.8 H (0-0.2) mg/dl AST 24 (15-37) U/L ALT 55 (12-78) U/L Alkaline Phosphatase 225 H (45-117) U/L Total Protein 6.9 (6.4-8.2) gm/dl Albumin 3.2 L (3.4-5.0) gm/dl
[2019-05-01] MEDS: FUROSEMIDE 20 MG TAB PO SCH (09:25)
[2019-05-01] MEDS: TIOTROPIUM BROMIDE 5 PUFF/90 MCG INH INH SCH (09:25)
[2019-05-01] MEDS: BUDESONIDE/FORMOTEROL FUMARATE 160/4.5 60 PUFFS/INHALER INH SCH (09:25)
[2019-05-01] MEDS: FERROUS GLUCONATE 324 MG TAB PO SCH (09:26)
[2019-05-01] MEDS: CARVEDILOL 12.5 MG TAB PO SCH (09:26)
[2019-05-01] MEDS: PANTOprazole 40 MG TAB PO SCH (09:26)
[2019-05-01] MEDS: NYSTATIN OINT 15 GM TUBE EXT SCH (09:30)
[2019-05-01] MEDS: LISINOPRIL 20 MG TAB PO SCH (09:30)
[2019-05-01] MEDS: OXYCODONE HCL IR 5 MG TAB (IMMEDIATE RELEASE) PO PRN (12:06)
--- NOTE | 2019-05-01 12:08 | Discharge Summary ---
Date of Service May 01, 2019 Admission HPI Per Admitting Provider Chief Complaint: Confusion, hyponatremia Primary Care Provider: Unruly Laughlin 68yoM with hx of AFib/Aflutter, HTN, mild SHEREEN - not on CPAP, hx of post of urinary retention s/p 04/02/19 L TKA [facility]. Pt had presented to [facility] per records and sign out for concern of intermittent confusion and increasing fatigue since TKA on 04/02/19. Symptoms worsened over the past 2 days. Per also had urinary urgency, and incontinence x 2 days. Pt now reports his concerned he is confused. had him stop oxycodone which was prescribed for L knee pain post TKA as she believed it was causing confusion and took him to [facility] today. He however denies any notice of being confused. He denies any f/c, FLETCHER, dizziness, cp, sob, abdominal pain, n/v, diarrhea, constipation, dysuria, hematuria. At [facility]: Found to be hyponatremic to 118 with confusion, had Ct head with no acute abnl; Ammonia level nl, lactate 1, elevated LFTs AST 193, ALT 195 and Alk Phos 409. US GB revealed CBD dilation and stones at neck of GB with upper limit of normal gallbladder dilation possible passed stone/rule out distal bile duct dilation; Doppler LLE neg for DVT. Pt transferred here for additional care Shx: L TKA on 04/02/19, appendectomy, cardiac ablation, bilateral shoulder rotator cuff, L big toe Principal Diagnosis Choledocholithiasis, Hyponatremia Discharge Exam Constitutional WD/WN, vitals as above + overweight Eyes PERRL, conjunctivae normal, anicteric sclerae Neck trachea midline, no thyromegaly Respiratory normal respiratory effort, lungs clear to auscultation Cardiovascular Rate/Rhythm: + bradycardic and + irregularly irregular Heart Sounds: no murmur Vessels: no JVD Gastrointestinal (Abdomen) normal bowel sounds, soft, nontender, no hepatosplenomegaly Inspection/Auscultation: normal bowel sounds; + abdomen abnormal to inspection (4 lap sites with steri strips in palce, no erythema or drainage) Percussion/Palpation: + abdomen tender (mild, around incision sites, no guarding) and abdomen soft; no guarding, abdomen not rigid and no abdominal mass Musculoskeletal Extremities: extremities normal to inspection; no cyanosis and no clubbing Skin no rashes, warm and dry Neurologic moves all extremities and awake; no focal motor deficits Psychiatric A+Ox3, euthymic affect Genitourinary Garvey catheter in place draining clear yellow urine Discharge Data Allergies Allergy/AdvReac Type Severity Reaction Status Date / Time chlorhexidine Allergy Mild Redness, Verified 04/29/19 13:23 burning Consultations 04/27/19 08:03 Consult Gastroenterology Routine 04/27/19 08:05 Consult General Surgery Routine 04/27/19 12:44 Consult Urology Routine Procedures Performed Operation Date: 04/28/19 06:50 Actual Procedures p Endoscopic Retrograde Cholangiopancreatography(Not Applicable) - Barron Ba Operation Date: 04/29/19 09:20 Actual Procedures p Laparoscopic Cholecystectomy(Not Applicable) - Sim Zuniga MD Ordered Studies 04/27/19 02:45 CT abd pelvis wo con Urgent 04/28/19 [place] ERCP biliary ductal Routine Hospital Course (1) Choledocholithiasis: Presented with elevated LFTs and confusion, found to have choledocholithiasis Now status post ERCP on 04/28 with obstructing stones removed from CBD No evidence of post-ERCP pancreatitis LFTs continue to improve, only alk phos remains mildly elevated Now s/p lap heather on 04/29, doing well post-op, had a small BM -Appreciate GI and Surgery management -no biliary stent placed, had sphincterotomy and CBD stones removed -tolerating regular diet -continue pain control prn-was given Rx for percocet prn x 3 days -continue bowel regimen with Miralax, senna, docusate -needs Surgery f/u as outpt in 2 weeks -received Cipro and FLagyl x 5 days -no NSAIDS/ASA until Thursday 05/03 due to sphincterotomy (2) HTN (hypertension): Blood pressures continued to be elevated, at times in the 180s systolic, now improved control with increasing meds as below -Has enlarging ascending thoracic aortic aneurysm-needs improved blood pressure control -Discontinued HCTZ due to low sodium -Continue Coreg 12.5bid -could not increase due to bradycardia -changed furosemide to 20 mg daily rather than prn -Continue lisinopril and increased to 40mg qhs F/u with PCP closely as outpt (3) Afib: With persistent atrial fibrillation Rate controlled with bradycardia here in 40s-60s continue coreg 12.5 mg p.o. twice daily-typically is in the 80s-90s in the office but reports he has been as low as the 30s after his last surgery does not take anticoagulation due to history of significant nose bleeds requiring FFP (4) S/P total knee arthroplasty: Had moiz removed here by Ortho -holding ASA bid for DVT prophylaxis due to recent ERCP, using SCDs, SQ heparin--> can restart ASA 81 bid on Thursday 05/03 for 3 more weeks -Continue oxycodone as needed for pain -Tramadol discontinued as it can contribute to hyponatremia (5) Confusion: due to infection and low sodium resolved as sodium is improving (6) Hyponatremia: due to dehydration and poor solute intake the past two weeks in the setting of chronic hyponatremia-Baseline sodium is 128-131 as per outpatient nephrology notes Was 118 on admission at outside hospital Na+ improved and stable again at 128 today Has been on HCTZ for many years, also takes furosemide occasionally serum osmolality low in 240s but urine osmolality is appropriately low in 100's Treated with NSS IVFs Remains stable at 128 despite NS and holding HCTZ--> could be reset osmostat? Has followed with Nephrology for this as outpt-continue f/u with Nephrology. SHould have thyroid, cortisol checked if not already done--> not done here in setting of acute illness -mental status is clear -Permanently discontinue HCTZ -restarted lasix for daily rather than prn -Repeat BMP in 1 week (7) Retention of urine, unspecified: With recurrent urinary retention, with Garvey catheter in place again -Appreciate urology consultation -Maintain Garvey at home and arranged outpt f/u with Urology in [place] within the week for TOV -continue Flomax (8) Thoracic aortic aneurysm without rupture: Measuring 5.0 cm on latest outpatient imaging Seen by thoracic surgery and advised no surgery for now -Continued surveillance -Continue good blood pressure control-changes as above (9) SHEREEN (obstructive sleep apnea): Reportedly mild, not on CPAP -considering uncontrolled BPs here which may be from pain, however consider starting CPAP for SHEREEN control and could help improve BP (10) Anemia: Hemoglobin low at 9-10 and stable from previous, likely secondary to recent blood loss anemia from TKA several weeks ago Continue ferrous gluconate -check CBC in 1-2 weeks (11) Cirrhosis of liver: Mild cirrhosis changes seen on CT scan of the abdomen/pelvis. No evidence of portal hypertension Does drink 3 alcoholic beverages daily and is overweight but did recently lose 30 pounds intentionally LFTs elevated as above due to choledocholithiasis and now improving -check LFs in 1 week with PCP Liver noted to be firm and nodular during Surgery--> pictures noted to have been taken -Encouraged alcohol cessation -Encouraged continued weight loss and low carbohydrate diet -Should follow-up with PCP and/or GI as an outpatient (12) COPD (chronic obstructive pulmonary disease): lungs clear, continue maintenance inhalers (13) Elevated LFTs: as above, due to cholecystitis and choledocholithiasis, improving now that CBD stones removed repeat in 1 week as above (14) DVT prophylaxis: Heparin SQ Disposition-stable for dc to home Total Time Total Time Spent Total Time Spent (In Minutes): >30 min Total Time Includes: Examination of the Patient, Discharge Planning, Medication Reconciliation and Communication With Other Providers (SUrgery PA, Urology [employer]) Discharge Plan Discharge Items Patient Disposition: Home - Self-Care Reason For Visit: HYPONATREMIA, CONFUSION, ABNORMAL LFTS Discharge Diagnosis: Choledocholithiasis, cholecystectomy, urinary retention,hyponatremia Condition: Good Discharge Goals: Decrease discomfort, Diagnostic testing, Improve disease control, Learn about illness and Therapeutic intervention Activity: As commented below Non-emergency contact: Primary Care Provider, Surgeon and Urologist Call non-emergency contact if: you have any medication questions, your symptoms worsen, your pain is not controlled, your pain is worsening, your pain is unusual for you, your pain is concerning for you, you have a fever, your temperature is above 100.5, your wound has increased redness, your wound has increased drainage and your wound pain has increased Follow-up/Referrals: Sim Zuniga MD [Physician] - 05/16/19 2:15 pm (A follow up has been made for you with Dr. Zuniga on 05/16 at 2:15pm.) Joseph Duarte MD [Outside Practitioners] - 05/06/19 11:45 am (Please, follow up at [facility] Urology Office with Dr. Duarte on MondayMay 06 at 11:45 am. *If you need to change this appointment, call the office at [phone].) Unruly Laughlin D.O. [Primary Care Provider] - 05/06/19 11:00 am (Please, follow up with Dr. Laughlin on MondayMay 06 at 11:00 am. *If you need to change this appointment, call the office at [phone].) Diet: Heart Healthy Addtl Provider Instructions: Post-Surgical ~Discharge Instructions Activity Recommendations: - lifting limitation: (10 pounds for 2 weeks), - exercise/sex/sports limit: (nonstrenuous for 2 weeks), - driving or machine use limit: (none for 1 week), - Shower/bathe limit: (may shower, no submerging incisions underwater for 2 weeks) Diet: - Resume previous diet SPECIAL CARE INSTRUCTIONS: - May shower. Let water run over area and pat dry. - Leave steri strips on for one week and then remove - Call the surgeon's office with any questions or concerns - - (ex. temperature higher than 101 degrees F, excessive bleeding or pain). MEDICATIONS: - Resume previous medications unless instructed otherwise by your surgeon. - Percocet 1 every 4 hours, as needed for severe pain. Take as directed. You may take extra strength Tylenol for mild pain however be cautious of how much Tylenol you take as there is Tylenol in the Percocet. - Recommend taking stool softener (Colace) while taking narcotic pain medication to prevent constipation/straining. Also drink plenty of liquids and avoid foods that constipate FOLLOW UP VISIT: - Please call the Surgeon's office to schedule a two week follow-up appointment. Office number As for your low sodium and high blood pressures, there were changes made to your medications. Please STOP taking HCTZ. Your lisinopril was increased to 40mg daily at bedtime. You received 20mg of lisinopril this morning, so please take 20mg tonight and then begin the 40mg dosing tomorrow evening. Your lasix was changed to 20mg once daily EVERY DAY rather than as needed. It will be important for your doctor to be aware of these changes at your follow up visit. You should have your kidney function, electrolytes, and liver blood tests all checked in 1 week by your primary doctor. You will need to WAIT until Monday to restart your aspirin 81mg twice daily x 3 more weeks for prevention of blood clot from your knee surgery. Also, you had to have a Garvey catheter placed again for urinary retention. A follow up appointment was made for you at Urology in [place]. They will determine when to attempt to remove the catheter. Prescriptions: New oxycodone-acetaminophen 5-325 mg tablet 1 tab PO Q6H PRN (Reason: pain) Qty: 12 RF: 0 lisinopril 40 mg tablet 40 mg PO HS Qty: 30 RF: 0 polyethylene glycol 3350 [Miralax] 17 gram Powder In Packet 17 g PO DAILY Qty: 30 RF: 0 sennosides-docusate sodium [Senokot-S] 8.6-50 mg Tablet 1 tab PO QAM Qty: 30 RF: 0 Continued albuterol sulfate [ProAir HFA] 90 mcg/actuation Hfa Aerosol Inhaler 2 puff INHALATION QID PRN (Reason: Wheezing) RF: 0 carvedilol 12.5 mg Tablet 12.5 mg PO BID RF: 0 tamsulosin 0.4 mg Capsule 0.4 mg PO QDD RF: 0 pantoprazole 40 mg Tablet,Delayed Release (Dr/Ec) 40 mg PO QAM RF: 0 budesonide-formoterol 160-4.5 mcg/actuation Hfa Aerosol Inhaler 2 puff INHALATION BID RF: 0 tiotropium bromide 2.5 mcg/actuation Mist 2 puff INHALATION QAM RF: 0 furosemide 20 mg Tablet 20 mg PO QAM RF: 0 levocetirizine 5 mg Tablet 5 mg PO QAM RF: 0 ferrous gluconate 324 mg (38 mg iron) Tablet 324 mg PO BIDM 30 Days Qty: 60 RF: 0 acetaminophen [Tylenol Extra Strength] 500 mg Tablet 1,000 mg PO Q8 30 Days Qty: 180 RF: 0 aspirin [Ecotrin Low Strength] 81 mg Tablet,Delayed Release (Dr/Ec) 81 mg PO BID 21 Days Qty: 42 RF: 0 Discontinued lisinopril 10 mg Tablet 10 mg PO HS RF: 0 hydrochlorothiazide 12.5 mg Tablet 12.5 mg PO QAM RF: 0 Stand-Alone Forms: [facility] Discharge Orders: Discharge Order (Routine); Ordered 05/01/19 Ordered By: Aviva Castro Admission Data Admit Date/Time: 04/27/19 01:28 Attending Provider: Aviva Castro Admit Provider: Stef Israel Primary Care Provider: Unruly Laughlin Other Providers: Filipe Sepulveda ; Brittany Ramos ; Tammy Matamoros ; Nain Nolasco ; Barron Ba ; Jose Luis Lopez ; Janelle Alvarez ; Terrence Mata ; Jero Dwyer ; Karen David ; Sharon Alvarez ; Geetha Worthy ; Jeannie Avila ; Marcelino Hernandez ; Sim Zuniga ; Aureliano Rosas I. Service: Surgical Services Other Pending Studies at Discharge: Yes (Gallbladder pathology, will be reviewed at fo llow up visit)
== END 2019-05-01 12:45 | disposition home or self-care (01) | DRG 418 ==
LOC: SUATTDRO 01:28 → 2E 01:28 → 3W 17:10
DX: K74.60 Unspecified cirrhosis of liver; I10 Essential (primary) hypertension; K80.40 Calculus of bile duct with cholecystitis, unspecified, without obstruction; J44.9 Chronic obstructive pulmonary disease, unspecified; G47.33 Obstructive sleep apnea (adult) (pediatric); N40.0 Benign prostatic hyperplasia without lower urinary tract symptoms; D64.9 Anemia, unspecified; I48.0 Paroxysmal atrial fibrillation; R33.9 Retention of urine, unspecified; K21.9 Gastro-esophageal reflux disease without esophagitis; E87.1 Hypo-osmolality and hyponatremia; I71.2 Thoracic aortic aneurysm, without rupture

== ENCOUNTER 2021-11-18 10:50 | Observation (INO) ==
--- NOTE | 2021-06-07 16:02 | PAT Medication Instructions ---
Medication Instructions Date of Service June 07, 2021 Home Medications Medication Instructions Recorded oxycodone-acetaminophen 5 mg-325 1 tab PO Q6H PRN #12 tab 05/01/ mg tablet albuterol sulfate 90 mcg/actuation aerosol inhaler (ProAir HFA) 2 puff INHALATION QID PRN budesonide-formoterol HFA 160 mcg-4.5 mcg/actuation aerosol inhaler 2 puff INHALATION BID carvedilol 12.5 mg tablet 12.5 mg PO BID pantoprazole 40 mg tablet,delayed release 40 mg PO QAM tamsulosin 0.4 mg capsule 0.4 mg PO BID tiotropium bromide 2.5 mcg/actuation mist for inhalation 2 puff INHALATION QAM PRN furosemide 20 mg tablet 20 mg PO QAM levocetirizine 5 mg tablet 5 mg PO HS oxycodone-acetaminophen 5 mg-325 mg tablet 1 tab PO Q6H PRN amitriptyline 50 mg tablet 50 mg PO HS apixaban 5 mg tablet (Eliquis) 5 mg PO BID finasteride 5 mg tablet 5 mg PO QAM hyoscyamine sulfate 0.125 mg/mL oral drops 0.125 mg PO Q6H tolvaptan 30 mg tablet 30 mg PO QAM acetaminophen 500 mg tablet 1,000 mg PO Q6H PRN ipratropium bromide 21 mcg (0.03 %) nasal spray 2 spray INTRANASAL BID PRN lisinopril 40 mg tablet 40 mg PO QAM montelukast 10 mg tablet 10 mg PO HS polyethylene glycol 3350 17 gram oral powder packet (Miralax) 17 g PO DAILY PRN polysaccharide iron complex 150 mg iron capsule (Poly-Iron) 150 mg PO BID ASK your prescriber and surgeon apixaban 5 mg tablet (Eliquis) 5 mg PO BID tolvaptan 30 mg tablet 30 mg PO QAM DO NOT take the morning of surgery furosemide 20 mg tablet 20 mg PO QAM hyoscyamine sulfate 0.125 mg/mL oral drops 0.125 mg PO Q6H tolvaptan 30 mg tablet 30 mg PO QAM acetaminophen 500 mg tablet 1,000 mg PO Q6H PRN ipratropium bromide 21 mcg (0.03 %) nasal spray 2 spray INTRANASAL BID PRN lisinopril 40 mg tablet 40 mg PO QAM montelukast 10 mg tablet 10 mg PO HS polyethylene glycol 3350 17 gram oral powder packet (Miralax) 17 g PO DAILY PRN polysaccharide iron complex 150 mg iron capsule (Poly-Iron) 150 mg PO BID Take morning of surgery With a small sip of water, OTHERWISE NOTHING TO EAT OR DRINK AFTER MIDNIGHT: albuterol sulfate 90 mcg/actuation aerosol inhaler (ProAir HFA) 2 puff INHALATION QID PRN (use if needed; please bring rescue inhaler with you to hospital day of surgery if possible) budesonide-formoterol HFA 160 mcg-4.5 mcg/actuation aerosol inhaler 2 puff INHALATION BID carvedilol 12.5 mg tablet 12.5 mg PO BID pantoprazole 40 mg tablet,delayed release 40 mg PO QAM tamsulosin 0.4 mg capsule 0.4 mg PO BID tiotropium bromide 2.5 mcg/actuation mist for inhalation 2 puff INHALATION QAM PRN (if needed) oxycodone-acetaminophen 5 mg-325 mg tablet 1 tab PO Q6H PRN (okay to take up to 4 hours prior to surgery if needed) finasteride 5 mg tablet 5 mg PO QAM acetaminophen 500 mg tablet 1,000 mg PO Q6H PRN (okay to take up to 4 hours prior to surgery if needed) ipratropium bromide 21 mcg (0.03 %) nasal spray 2 spray INTRANASAL BID PRN (if needed) Take evening before surgery albuterol sulfate 90 mcg/actuation aerosol inhaler (ProAir HFA) 2 puff INHALATION QID PRN (if needed) budesonide-formoterol HFA 160 mcg-4.5 mcg/actuation aerosol inhaler 2 puff INHALATION BID carvedilol 12.5 mg tablet 12.5 mg PO BID tamsulosin 0.4 mg capsule 0.4 mg PO BID levocetirizine 5 mg tablet 5 mg PO HS oxycodone-acetaminophen 5 mg-325 mg tablet 1 tab PO Q6H PRN (if needed) amitriptyline 50 mg tablet 50 mg PO HS hyoscyamine sulfate 0.125 mg/mL oral drops 0.125 mg PO Q6H (if needed) acetaminophen 500 mg tablet 1,000 mg PO Q6H PRN (if needed) ipratropium bromide 21 mcg (0.03 %) nasal spray 2 spray INTRANASAL BID PRN (if needed) montelukast 10 mg tablet 10 mg PO HS polyethylene glycol 3350 17 gram oral powder packet (Miralax) 17 g PO DAILY PRN (if needed) polysaccharide iron complex 150 mg iron capsule (Poly-Iron) 150 mg PO BID Other Notes If you have any questions please call us at [phone] or [phone] or [phone] or [phone]
--- NOTE | 2021-06-10 10:10 | Anesthesiology Consultation ---
Date of Service June 10, 2021 Assessment & Plan (1) Encounter for pre-operative examination: - Cardiology office visit (01/20/21): "CTA of chest does show slight increase in size of aortic root to 5.3 cm. His BP has been elevated at home. He is com pliant with all medications. Recommend increasing carvedilol to 12.5 mL twice daily.. He will follow-up in [address] of chest to evaluate aortic root." - COVID screening: Per assessment on 06/10: Travel screen negative, no known COVID-19 positive contacts or current COVID-19 related symptoms. Patient vaccinated. Surgeon arranging preop COVID testing. Awaiting results. - Hx glidescope intubation: ERCP (04/28/19): Elective glidescope #3, ETT 7.5 at [facility] - Kidney function: Preop creatinine 1.94. Known hx of CKD with most recent comparison lab from nephrology 03/2021 at 1.6 in setting of urinary retention (reason for upcoming procedure). Per Dr. Anthony, leave at anesthesiologist discretion AM DOS if repeat labs needed from their perspective. 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 At that time, known hx of a.fib (pt not on anticoagulation at time of event). After CVA, patient was started on Eliquis. No residual effects. Patient being followed by PCP/cardiology. CVA was more than 3 months ago but less than 9 months. Patient aware of increased risks related to surgery/anesthesia due to proximity of CVA and wishes to proceed as scheduled. Case reviewed with Dr. Gomez/Dr. Mccrary. Okay to proceed as scheduled pending response from PCP regarding perioperative Eliquis recommendations. Received response from PCP (06/17/21): "he can hold day before procedure, nothing day of, and restart day after procedure." Spoke to patient to make them aware of PCP recommendations. Surgeon's office made aware of the above. Chart Review Chart Review: Acceptable Risk for Surgery (pending evaluation AM DOS) and Patient seen in Pre Admission Testing Teaching & Discussion Pre-Anesthesia Teaching/Discussion Notes: Instructed NPO after midnight before surgery,except medications with 15 cc of water. Medication instructions provided according to the PAT guidelines. History Surgery Operation Date: 06/24/21 08:15 Proposed Procedures p Photoselective Vaporization of the Prostate using the Greenlight Laser - Francisco Cordova, DO Height/Weight Height: 6 ft 6 in Weight: 115 kg Allergies Allergy/AdvReac Type Severity Reaction Status Date / Time chlorhexidine Allergy Mild Redness, Verified 06/04/21 09:14 burning Medications Home Medications Medication Instructions Recorded Confirmed Last Taken albuterol sulfate 90 mcg/actuation 2 puff INHALATION QID PRN 03/06/19 06/04/21 U nknown aerosol inhaler (ProAir HFA) budesonide-formoterol HFA 160 2 puff INHALATION BID 03/06/19 06/04/21 04/02/19 06:05 mcg-4.5 mcg/actuation aerosol inhaler carvedilol 12.5 mg tablet 12.5 mg PO BID 03/06/19 06/04/21 04/02/19 06:05 pantoprazole 40 mg tablet,delayed 40 mg PO QAM 03/06/19 06/04/21 04/02/19 06:05 release tamsulosin 0.4 mg capsule 0.4 mg PO BID 03/06/19 06/04/21 03/31/19 21:00 tiotropium bromide 2.5 2 puff INHALATION QAM PRN 03/06/19 06/04/21 04/02/19 06:05 mcg/actuation mist for inhalation furosemide 20 mg tablet 20 mg PO QAM 03/07/19 06/04/21 04/01/19 06:30 levocetirizine 5 mg tablet 5 mg PO HS 03/07/19 06/04/21 04/01/19 06:30 oxycodone-acetaminophen 5 mg-325 1 tab PO Q6H PRN #12 tab 05/01/19 06/04/21 Unknown mg tablet amitriptyline 50 mg tablet 50 mg PO HS 04/23/21 06/04/21 Unknown apixaban 5 mg tablet (Eliquis) 5 mg PO BID 04/23/21 06/04/21 Unknown finasteride 5 mg tablet 5 mg PO QAM 04/23/21 06/04/21 Unknown hyoscyamine sulfate 0.125 mg/mL 0.125 mg PO Q6H 04/23/21 06/04/21 Unknown oral drops tolvaptan 30 mg tablet 30 mg PO QAM 04/23/21 06/04/21 Unknown acetaminophen 500 mg tablet 1,000 mg PO Q6H PRN 06/04/21 06/04/21 Unknown ipratropium bromide 21 mcg (0.03 2 spray INTRANASAL BID PRN 06/04/21 06/04/21 Unknown %) nasal spray lisinopril 40 mg tablet 40 mg PO QAM 06/04/21 06/04/21 Unknown montelukast 10 mg tablet 10 mg PO HS 06/04/21 06/04/21 Unknown polyethylene glycol 3350 17 gram 17 g PO DAILY PRN 06/04/21 06/04/21 Unknown oral powder packet (Miralax) polysaccharide iron complex 150 mg 150 mg PO BID 06/04/21 06/04/21 Unknown iron capsule (Poly-Iron) Past Medical History Medical History (Updated 06/10/21 @ 10:40 by Fransisca Hayes) Anemia s/p blood transfusions 2-3 years ago BPH (benign prostatic hyperplasia) Chronic kidney disease Stage III, under surveillance by Dr. Moreno/Ryan Chronic obstructive pulmonary disease stable Cirrhosis Denies hx per patient, suspected per imaging/records GERD (gastroesophageal reflux disease) controlled History of kidney stones Hx of gastric ulcer remote hx Hypertension Paroxysmal A-fib + A-flutter S/P radiofrequency ablation (~3 yrs ago) SIADH (syndrome of inappropriate ADH production) Per nephrology records "ETOH/liver disease and/or COPD/pulmonary nodule (R/O CA)/SIADH...longstanding history of hyponatremia, baseline high 120s per chart review Sleep apnea Non-compliant with CPAP Stroke CVA (02/18/21) > no residual effects, PCP following, on Eliquis now (plavix was discontinued after 3 months) Thoracic aortic aneurysm Following with vascular, Dr. Bill Mcarthur/[facility] (CT surgery), stable per CTA 12/2020 at 5.3 x 5.1 per cardiology records, no surgical intervention planned at this time Exercise / Class Metabolic Activity III < 4 Walking/Shop/Light housework (one FS/hills (no CP, + SOB)) Past Family History Family History Father Family hx of colon cancer Mother Family history of diabetes mellitus Past Surgical History Surgical History H/O cardiac radiofrequency ablation 5+ years ago H/O total knee replacement Left History of cataract surgery R/L History of cholecystectomy History of colonoscopy History of ERCP ERCP (04/28/19): Elective glidescope #3, ETT 7.5 at [facility] History of esophagogastroduodenoscopy (EGD) History of lumbar fusion History of prostate surgery Partial prostatectomy Hx of appendectomy Hx of foot surgery Left Hx of repair of left rotator cuff Hx of repair of right rotator cuff Hx of tonsillectomy S/P TURP S/P ureteral stent placement Left (2019) Past Anesthesia History Difficult Airway (ERCP (04/28/19): Elective glidescope #3, ETT 7.5 at [facility]) and No Family Hx of Anesthesia Complications History of PONV No Hx of PONV and No Hx of Motion Sickness Social History Smoking Status: Light tobacco smoker tobacco type: cigars Smoking cigarettes per day: occasional cigar Do You Dip or Chew Tobacco: No Hx Alcohol Use: Yes Alcohol type: beer and hard liquor alcohol intake frequency: 3 or more drinks per day (2-3 drinks/day (beer with lunch, liquor/drink with dinner)) Hx Substance Use: No Review of Systems Patient denies chest pain, shortness of breath, fever, chills, cough, wheezing, palpitations. Physical Exam Vital Signs VITALS BP 159/76 P 80 TEMP 99.1 SP02 100%RA RESP 18 PHYSICAL Mildly decreased cervical extension range of motion. Full TMJ range of motion. TMD 3.5 finger breaths Mallampati Score 2 Dentition: several sides/molars missing, + several chipped molars and poor dentition Lungs: clear throughout to auscultation Cardiac: regular rate, irregular rhythm, no murmurs noted Spine: normal Carotid arteries: negative bruit Extremities: no edema Short neck Lab Results Anesthesia Preop Results Results Anesthesia Widget: WBC 4.56 K/uL (4.8-10.8) L 06/10/21 Hgb 10.6 g/dL (14.0-18.0) L 06/10/21 Hct 32.8 % (42-52) L 06/10/21 Plt 282 K/uL (130-400) 06/10/21 Na 133 mmol/L (136-145) L 06/10/21 K 4.2 mmol/L (3.5-5.1) 06/10/21 Cl 98 mmol/L (98-107) 06/10/21 CO2 27 mmol/L (21-32) 06/10/21 BUN 32 mg/dl (7-18) H 06/10/21 Creat 1.94 mg/dl (0.6-1.4) H 06/10/21 Glucose Level 90 mg/dl (70-99) 06/10/21 Urine Color Yellow 06/10/21 Urine Appearance Clear (Clear) 06/10/21 Urine pH 7.0 (4.5-7.5) 06/10/21 Urine Specific [place] 1.005 (1.000-1.030) 06/10/21 Urine Protein Negative (Negative) 06/10/21 Urine Glucose (UA) Negative (Negative) 06/10/21 Urine Ketones Negative (Negative) 06/10/21 Urine Blood 2+ (Negative) H 06/10/21 Urine Nitrite Negative (Negative) 06/10/21 Urine Bilirubin Negative (Negative) 06/10/21 Urine Urobilinogen Negative (Negative) 06/10/21 Urine Leukocyte Esterase 1+ (Negative) H 06/10/21 Urine WBC (Auto) 10-30 /hpf (0-5) H 06/10/21 Urine RBC (Auto) 0-4 /hpf (0-4) 06/10/21 Urine Hyaline Casts (Auto) 0 /lpf (0-5) 06/10/21 Urine Epithelial Cells (Auto) 0-5 /lpf (0-5) 06/10/21 Urine Bacteria (Auto) 3+ (Negative) H 06/10/21 Testing Electrocardiogram Date: 06/10/21 A. fib at 80bpm. Possible old inferior infarct (compared to 04/28/19 EKG per regulatory and compliance technician review) Chest X-Ray Date: 06/10/21 FINDINGS: Lung volumes are normal. Lungs are clear. There is no pneumothorax or pleural effusion. Mild cardiomegaly similar to prior exam. Mediastinal contours are normal. There is no evidence for pulmonary edema. IMPRESSION: No acute cardiopulmonary findings. No change in appearance of the chest. Echocardiogram Date: 05/03/20 EF 55%. Mild concentric LVH. Mild biatrial dilation. Mild AI. Ascending aorta 4.8 cm. Other Testing 11/21/18 CT Chest Angio No evidence of pulmonary embolism. Stable caliber of the ascending aorta without evidence of rupture (up to 4.8 cm measured perpendicular to the long axis or 5 cm on axial images). Cholelithiasis.
--- NOTE | 2021-11-09 13:41 | PAT Medication Instructions ---
Medication Instructions Date of Service November 09, 2021 Home Medications Medication Instructions Recorded oxycodone-acetaminophen 5 mg-325 1 tab PO Q6H PRN #12 tab 05/01/19 mg tablet tamsulosin 0.4 mg capsule 0.4 mg PO BID #120 cap 07/13/21 albuterol sulfate 90 mcg/actuation aerosol inhaler (ProAir HFA) 2 puff INHALATION QID PRN budesonide-formoterol HFA 160 mcg-4.5 mcg/actuation aerosol inhaler 2 puff INHALATION BID carvedilol 12.5 mg tablet 12.5 mg PO BID pantoprazole 40 mg tablet,delayed release 40 mg PO QAM tiotropium bromide 2.5 mcg/actuation mist for inhalation 2 puff INHALATION QAM PRN furosemide 20 mg tablet 80 mg PO QAM levocetirizine 5 mg tablet 5 mg PO HS oxycodone-acetaminophen 5 mg-325 mg tablet 1 tab PO Q6H PRN amitriptyline 50 mg tablet 50 mg PO HS apixaban 5 mg tablet (Eliquis) 5 mg PO BID finasteride 5 mg tablet 5 mg PO QAM tolvaptan 30 mg tablet 30 mg PO QAM acetaminophen 500 mg tablet 1,000 mg PO Q6H PRN ipratropium bromide 21 mcg (0.03 %) nasal spray 2 spray INTRANASAL BID PRN lisinopril 40 mg tablet 40 mg PO QAM montelukast 10 mg tablet 10 mg PO HS tamsulosin 0.4 mg capsule 0.4 mg PO BID amlodipine 2.5 mg tablet 2.5 mg PO QAM cholecalciferol (vitamin D3) 125 mcg (5,000 unit) tablet (Vitamin D3) 125 mcg PO QAM hyoscyamine sulfate 0.125 mg tablet 0.125 mg PO QID omalizumab 75 mg/0.5 mL subcutaneous syringe 0 mg SUBCUT Q14D ASK your prescriber and surgeon apixaban 5 mg tablet (Eliquis) 5 mg PO BID omalizumab 75 mg/0.5 mL subcutaneous syringe 0 mg SUBCUT Q14D DO NOT take the morning of surgery furosemide 20 mg tablet 80 mg PO QAM tolvaptan 30 mg tablet 30 mg PO QAM lisinopril 40 mg tablet 40 mg PO QAM cholecalciferol (vitamin D3) 125 mcg (5,000 unit) tablet (Vitamin D3) 125 mcg PO QAM hyoscyamine sulfate 0.125 mg tablet 0.125 mg PO QID Take morning of surgery With a small sip of water, OTHERWISE NOTHING TO EAT OR DRINK AFTER MIDNIGHT: albuterol sulfate 90 mcg/actuation aerosol inhaler (ProAir HFA) 2 puff INHALATION QID PRN(use if needed; please bring with you to hospital day of surgery if possible) budesonide-formoterol HFA 160 mcg-4.5 mcg/actuation aerosol inhaler 2 puff INHALATION BID carvedilol 12.5 mg tablet 12.5 mg PO BID pantoprazole 40 mg tablet,delayed release 40 mg PO QAM tiotropium bromide 2.5 mcg/actuation mist for inhalation 2 puff INHALATION QAM PRN(if needed) oxycodone-acetaminophen 5 mg-325 mg tablet 1 tab PO Q6H PRN(okay to take up to 4 hours prior to surgery if needed) finasteride 5 mg tablet 5 mg PO QAM acetaminophen 500 mg tablet 1,000 mg PO Q6H PRN(okay to take up to 4 hours prior to surgery if needed) ipratropium bromide 21 mcg (0.03 %) nasal spray 2 spray INTRANASAL BID PRN(if needed) tamsulosin 0.4 mg capsule 0.4 mg PO BID amlodipine 2.5 mg tablet 2.5 mg PO QAM Take evening before surgery albuterol sulfate 90 mcg/actuation aerosol inhaler (ProAir HFA) 2 puff INHALATION QID PRN(if needed) budesonide-formoterol HFA 160 mcg-4.5 mcg/actuation aerosol inhaler 2 puff INHALATION BID carvedilol 12.5 mg tablet 12.5 mg PO BID tiotropium bromide 2.5 mcg/actuation mist for inhalation 2 puff INHALATION QAM PRN(if needed) levocetirizine 5 mg tablet 5 mg PO HS oxycodone-acetaminophen 5 mg-325 mg tablet 1 tab PO Q6H PRN(if needed) amitriptyline 50 mg tablet 50 mg PO HS ipratropium bromide 21 mcg (0.03 %) nasal spray 2 spray INTRANASAL BID PRN(if needed) montelukast 10 mg tablet 10 mg PO HS tamsulosin 0.4 mg capsule 0.4 mg PO BID Other Notes If you have any questions please call us at [phone] or [phone] or [phone] or [phone]
--- NOTE | 2021-11-10 14:20 | Anesthesiology Consultation ---
Date of Service November 10, 2021 Assessment & Plan (1) Encounter for pre-operative examination: Chart Review Chart Review: Acceptable Risk for Surgery (pending most recent cardio/vascular notes and preop Covid testing results ) and Patient seen in Pre Admission Testing -Will attempt to get most recent routine cardio visit and vascular surgery visit Per [facility] appt on 11/10/21, patient denies any recent travel or large group activities. No known Covid positive exposures or Covid related symptoms. Pt is fully vaccinated for Covid. Pt tested Covid positive on 09/09/21- had cough- symptoms have since resolved. Preop Covid testing scheduled 11/16/21 = will await results. Educated on importance of self quarantining, social distancing and wearing mask in public for the patient one week prior to surgery and after Covid testing done CVA 02/18/21- small frontal lobe CVA. At time of CVA- known hx of a fib but was not on AC. Pt has since been started on Eliquis- follows with PCP and cardio. Pt was seen in [facility] on 06/10/21 (rescheduled multiple times secondary to Covid surgery)- at that time- case discussed with Dr. Mccrary and Dr Gomez- felt patient could proceed as scheduled. Pt will be 9 months from CVA on DOS. Hx glidescope intubation= ERCP (04/28/19): Elective glidescope #3, ETT 7.5 at [facility] History Surgery Operation Date: 07/12/21 08:20 Proposed Procedures p Photoselective Vaporization of the Prostate using the Greenlight Laser - Francisco Cordova DO Operation Date: 09/13/21 07:00 Proposed Procedures p (PVP Greenlight Laser) Photoselective Vaporization of the Prostate using Greenlight Laser - Francisco Cordova DO Operation Date: 11/18/21 12:15 Proposed Procedures p PVP Greenlight Laser) Photoselective Vaporization of the Prostate using the Greenlight Laser - Francisco Cordova DO Height/Weight Height: 6 ft 6 in Weight: 113.4 kg Allergies Allergy/AdvReac Type Severity Reaction Status Date / Time chlorhexidine Allergy Mild Redness, Verified 11/09/21 09:41 burning Medications Home Medications Medication Instructions Recorded Confirmed Last Taken albuterol sulfate 90 mcg/actuation 2 puff INHALATION QID PRN 03/06/19 11/09/21 Unknown aerosol inhaler (ProAir HFA) budesonide-formoterol HFA 160 2 puff INHALATION BID 03/06/19 11/09/21 04/02/19 06:05 mcg-4.5 mcg/actuation aerosol inhaler carvedilol 12.5 mg tablet 12.5 mg PO BID 03/06/19 11/09/21 04/02/19 06:05 pantoprazole 40 mg tablet,delayed 40 mg PO QAM 03/06/19 11/09/21 04/02/19 06:05 release tiotropium bromide 2.5 2 puff INHALATION QAM PRN 03/06/19 11/09/21 04/02/19 06:05 mcg/actuation mist for inhalation furosemide 20 mg tablet 80 mg PO QAM 03/07/19 11/09/21 04/01/19 06:30 levocetirizine 5 mg tablet 5 mg PO HS 03/07/19 11/09/21 04/01/19 06:30 oxycodone-acetaminophen 5 mg-325 1 tab PO Q6H PRN #12 tab 05/01/19 11/09/21 Unknown mg tablet amitriptyline 50 mg tablet 50 mg PO HS 04/23/21 11/09/21 Unknown apixaban 5 mg tablet (Eliquis) 5 mg PO BID 04/23/21 11/09/21 Unknown finasteride 5 mg tablet 5 mg PO QAM 04/23/21 11/09/21 Unknown tolvaptan 30 mg tablet 30 mg PO QAM 04/23/21 11/09/21 Unknown acetaminophen 500 mg tablet 1,000 mg PO Q6H PRN 06/04/21 11/09/21 Unknown ipratropium bromide 21 mcg (0.03 2 spray INTRANASAL BID PRN 06/04/21 11/09/21 Unknown %) nasal spray lisinopril 40 mg tablet 40 mg PO QAM 06/04/21 11/09/21 Unknown montelukast 10 mg tablet 10 mg PO HS 06/04/21 11/09/21 Unknown tamsulosin 0.4 mg capsule 0.4 mg PO BID #120 cap 07/13/21 11/09/21 Unknown amlodipine 2.5 mg tablet 2.5 mg PO QAM 11/09/21 11/09/21 Unknown cholecalciferol (vitamin D3) 125 125 mcg PO QAM 11/09/21 11/09/21 Unknown mcg (5,000 unit) tablet (Vitamin D3) hyoscyamine sulfate 0.125 mg tablet 0.125 mg PO QID 11/09/21 11/09/21 Unknown omalizumab 75 mg/0.5 mL 0 mg SUBCUT Q14D 11/09/21 11/09/21 Unknown subcutaneous syringe Past Medical History Medical History (Updated 11/10/21 @ 15:54 by Anayeli Jimenes PA-C) Anemia S/p blood transfusions 3+ years ago IRON INFUSIONS 09/2021 BPH (benign prostatic hyperplasia) Chronic kidney disease Stage III, under surveillance by Dr. Moreno/[place] Chronic obstructive pulmonary disease Stable Cirrhosis Suspected per imaging/records per patient Stable GERD (gastroesophageal reflux disease) Controlled History of COVID-19 DX'D 09/09/21 PH CAM SYMPTOMS OF COUGH-TREATED WITH ANTIBODIES/RECOVERED AT HOME-SYMPTOMS RESOLVED History of IBS Hx of gastric ulcer Remote hx Hypertension Paroxysmal A-fib + A-flutter S/P radiofrequency ablation (~3 yrs ago)-F/U DR AASHISH LEVY [facility] SIADH (syndrome of inappropriate ADH production) Per nephrology records "ETOH/liver disease and/or COPD/pulmonary nodule (R/O CA)/SIADH...longstanding history of hyponatremia, baseline high 120s per chart review Sleep apnea Non-compliant with CPAP Sleeps with wedge Stroke CVA (02/18/21) > no residual effects, PCP following, on Eliquis now (Plavix was discontinued after 3 months) Thoracic aortic aneurysm Following with vascular, Dr. Bill Mcarthur/[facility] (CT surgery), stable per CTA 12/2020 at 5.3 x 5.1 per cardiology records, no surgical intervention planned at this time Exercise / Class Metabolic Activity II 4-5 Yardwork/Stairs/Walk up hill (ONE FLIGHT OF STAIRS- NO CHEST PAIN OR SOB ) Past Family History Family History Father Family hx of colon cancer Mother Family history of diabetes mellitus Past Surgical History Surgical History H/O cardiac radiofrequency ablation 5+ years ago H/O total knee replacement Left History of cataract surgery R/L History of cholecystectomy History of colonoscopy History of ERCP ERCP (04/28/19): Elective glidescope #3, ETT 7.5 at [facility] History of esophagogastroduodenoscopy (EGD) History of lumbar fusion PT DENIES History of nasal cauterization Hx of appendectomy Hx of foot surgery Left Hx of repair of left rotator cuff Hx of repair of right rotator cuff Hx of tonsillectomy S/P TURP PT DENIES S/P ureteral stent placement Left (2019)-PT DENIES Past Anesthesia History No Hx of Anesthesia Complications and No Family Hx of Anesthesia Complications History of PONV No Hx of PONV and No Hx of Motion Sickness Social History Smoking Status: Light tobacco smoker tobacco type: cigars Smoking cigarettes per day: 2-3 CIGARS PER WEEK Do You Dip or Chew Tobacco: No Hx Alcohol Use: Yes Alcohol type: beer and hard liquor alcohol intake frequency: 0-2 drinks per day (2-3 BEERS/DAY) Hx Substance Use: No substance use type: does not use Review of Systems Patient denies chest pain, shortness of breath, dyspnea on exertion, cough, wheezing, palpitations. No hx of seizures, MT. No hx of blood clots Physical Exam Vital Signs VITALS BP 153/78 P 74 TEMP 98.5 SP02 98% RESP 16 Constitutional no acute distress ENMT Mouth: no TMJ clicking Thyromental Distance: > or= 3.5 Finger Breadths (3.5) Mallampati Class: III Broken and missing teeth (molars/side teeth) Neck + limited neck extension (significant ) Respiratory normal respiratory effort; no respiratory distress Auscultation: lungs clear to auscultation bilaterally; no wheezes Cardiovascular Heart Sounds: no murmur Vessels: no carotid bruit Irregularly irregular- rate controlled Musculoskeletal Spine: no pain with cervical ROM Extremities: extremities normal to inspection Psychiatric Orientation: alert Lab Results Anesthesia Preop Results Results Anesthesia Widget: WBC 5.10 K/uL (4.8-10.8) 11/10/21 Hgb 12.0 g/dL (14.0-18.0) L 11/10/21 Hct 34.9 % (42-52) L 11/10/21 Plt 259 K/uL (130-400) 11/10/21 Na 132 mmol/L (136-145) L 11/10/21 K 4.4 mmol/L (3.5-5.1) 11/10/21 Cl 95 mmol/L (98-107) L 11/10/21 CO2 28 mmol/L (21-32) 11/10/21 BUN 25 mg/dl (6-23) H 11/10/21 Creat 1.84 mg/dl (0.6-1.4) H 11/10/21 Glucose Level 88 mg/dl (70-99(Fasting)) 11/10/21 Urine Color Yellow 11/10/21 Urine Appearance Clear (Clear) 11/10/21 Urine pH 7.0 (4.5-7.5) 11/10/21 Urine Specific [place] 1.005 (1.000-1.030) 11/10/21 Urine Protein Negative (Negative) 11/10/21 Urine Glucose (UA) Negative (Negative) 11/10/21 Urine Ketones Negative (Negative) 11/10/21 Urine Blood 1+ (Negative) H 11/10/21 Urine Nitrite Negative (Negative) 11/10/21 Urine Bilirubin Negative (Negative) 11/10/21 Urine Urobilinogen Negative (Negative) 11/10/21 Urine Leukocyte Esterase 3+ (Negative) H 11/10/21 Urine WBC (Auto) >30 /hpf (0-5) H 11/10/21 Urine RBC (Auto) 0-4 /hpf (0-4) 11/10/21 Urine Hyaline Casts (Auto) 1-5 /lpf (0-5) 11/10/21 Urine Epithelial Cells (Auto) 5-10 /lpf (0-5) H 11/10/21 Urine Bacteria (Auto) Negative (Negative) 11/10/21 Urine Yeast Not Reportable 11/10/21 Lab Comments: Chronic anemia- stable- mildly improved from previous Chronic hyponatremia- stable Creatinine stable from 05/2021 Testing Electrocardiogram Date: 06/10/21 A. fib at 80bpm. Possible old inferior infarct (compared to 04/28/19 EKG per heel seater review) Chest X-Ray Date: 06/10/21 FINDINGS: Lung volumes are normal. Lungs are clear. There is no pneumothorax or pleural effusion. Mild cardiomegaly similar to prior exam. Mediastinal contours are normal. There is no evidence for pulmonary edema. IMPRESSION: No acute cardiopulmonary findings. No change in appearance of the chest. Echocardiogram Date: 05/03/20 EF 55%. Mild concentric LVH. Mild biatrial dilation. Mild AI. Ascending aorta 4.8 cm. Other Testing CTA of Chest 01/14/21= Thoracic aortic aneurysm with ascending segment measuring 5.3 x 5.1 cm at the MPA, ectatic aortic root, borderline aneurysm mid arch, mildly ectatic descending segment without aneurysm or evidence of dissection. Slight interval enlargement of the ascending segment and compared to previous study reported as 4.8 cm. No acute pulmonary process. CT of abdomen: Normal caliber aorta without aneurysm or dissection. Widely patent mesenteric, renal, visualized iliac arteries.
[~2021-11-18 10:50] MED LIST changes: -ACETAMINOPHEN 500 MG TAB PO SCH; -BUPIVACAINE 0.5 % 5 MG/1 ML PF 10ML VIAL ONE; -BUPIVACAINE LIPOSOME/PF 266 MG, BUPIVACAINE/EPINEPHRINE 50 ML, SODIUM CHLORIDE 0.9% 30 ... INFIL SCH; -CEFAZOLIN 2000MG 2,000 MG/15 ML SYR IV SCH; +CIPROFLOXACIN / D5W 400 MG/200 ML BAG IV SCH; -FAMOTIDINE 20 MG TAB PO SCH; -GABAPENTIN 300 MG CAP PO SCH; +LACTATED RINGER'S 1,000 ML IV SCH; -LR 60ML/HR IV SCH; -METOCLOPRAMIDE HCL 10 MG TABLET PO SCH; -ROPIVACAINE 0.5% 5 MG/ML 30 ML VIAL ONE; -TRANEXAMIC ACID 1,000 MG **IV Intra-op IV SCH; +ceFAZolin 3,000 MG in DEXTROSE 5% 50 ML IV SCH
[2021-11-18] MEDS ORDERED: PHENYLEPHRINE HCL 10 MG/ML VIAL ONE (11:08)
[2021-11-18] MEDS ORDERED: ePHEDrine sulfate 50 MG/ML AMP ONE (11:08)
[2021-11-18] MEDS ORDERED: MIDAZOLAM HCL 1 MG/ML 2ML VIAL ONE (11:08)
[2021-11-18] MEDS ORDERED: DEXAMETHASONE SOD INJ 4 MG/ML VIAL ONE (11:08)
[2021-11-18] MEDS ORDERED: LIDOCAINE 2% 2 ML VIAL/AMP(20MG/ML) INFIL ONE (11:08)
[2021-11-18] MEDS ORDERED: PROPOFOL IV EMULSION 10 MG/ML 20 ML VIAL IV ONE (11:08)
[2021-11-18] MEDS ORDERED: ONDANSETRON INJ 2 MG/ML 2 ML VIAL ONE (11:08)
[2021-11-18] MEDS ORDERED: fentaNYL citrate 100 MCG/2 ML VIAL ONE ×2 (11:09→13:24)
--- NOTE | 2021-11-18 12:01 | History & Physical Bridge Note ---
Date of Service November 18, 2021 History & Physical Bridge Note I have examined the patient, reviewed the History & Physical and in the interval since the performance of the History & Physical I have noted the following changes of clinical significance: no changes noted
[2021-11-18] MEDS ORDERED: PROMETHAZINE HCL 12.5 MG in SODIUM CHLORIDE 0.9% 50 ML IV PRN (13:07)
[2021-11-18] MEDS ORDERED: LABETALOL HCL IV 5 MG/ML 20ML IV PRN (13:07)
[2021-11-18] MEDS ORDERED: ATROPINE SULFATE 0.1 MG/ML 10ML SYR IV PRN (13:07)
[2021-11-18] MEDS ORDERED: FLUMAZENIL 0.1 MG/1 ML 10 ML VIAL IV PRN (13:07)
[2021-11-18] MEDS ORDERED: ePHEDrine sulfate 50 MG/ML AMP IV PRN (13:07)
[2021-11-18] MEDS ORDERED: ONDANSETRON INJ 2 MG/ML 2 ML VIAL IV PRN ×2 (13:07→17:39)
[2021-11-18] MEDS ORDERED: NALOXONE HCL 0.4 MG/1 ML VIAL/CARP IV PRN (13:07)
[2021-11-18] MEDS ORDERED: LABETALOL HCL IV 5 MG/ML 20ML IV ONE (13:21)
[2021-11-18] MEDS ORDERED: CIPROFLOXACIN / D5W 400 MG/200 ML BAG IV ONE (13:28)
--- NOTE | 2021-11-18 14:29 | Operative Report ---
PG Post Operative Report Pre & Post Diagnosis Operation Date: 11/18/21 12:35 Pre-Op Diagnosis: Acute Urinary Retention Gross Hematuria Post-Op Diagnosis: Acute Urinary Retention Gross Hematuria I identified the patient and participated in the time-out.: Yes Procedure Operation Date: 11/18/21 12:35 Actual Procedures p Photoselective Vaporization of the Prostate using the Greenlight Laser with Enucleation of Prostate and Placement of Garvey Catheter(Not Applicable) - Francisco Cordova, Surgeon Francisco Cordova, II, DO Aircraft Detail Draftsperson None Estimated Blood Loss 5 Findings Consistent with Post-Op Diagnosis Large Prostate with obstruction. Specimens Prostate adenoma Left lateral lobe. Drains 22Fr [address] Way Catheter Anesthesia Type General Complications none Disposition Disposition: Recovery Room Indications Patient with obstruction due to prostate enlargement. Risks and benefits discussed at length. Description of Procedure Patient was consented and brought back to the operating room. Patient was placed under anesthesia in the supine position and moved to the dorsal lithotomy posit ion. Patient was prepped and draped in the regular sterile fashion. A time out was completed. A 30degree Cystoscope was placed into the bladder and the entire bladder was examined. The UO's were identified as well as the bladder neck, trigone, dome, and the other important landmarks. The prostatic urethra and large lobes/adenoma was assessed and the veru and bladder neck identified and area/s ize was assessed. The cystoscope with laser bridge and the Greenlight laser fiber were selected. Starting at the 5 and 7 o'clock positions, a channel was created from bladder neck to the veru. A channel was further formed between the two areas. No major bleeding or areas of concern. The resection then started at the 1 and 11 oclock positions and swept down to the channel. On the left, Adenoma pieces were enucleated and displaced into the bladder. All bleeding was controlled. A button TURP was then used to resect and vaporize the adenoma pieces within the bladder. The remaining Specimen was removed and sent for analysis. The resection bed and any bleeding areas were fulgurated/cauterized and the entire area inspected. All bleeding was controlled. The bladder was inspected a final time. The bladder was emptied and irrigated. All specimen and debris was removed. The scope was removed with the bladder partially full. A catheter was placed and balloon elevated. This was easily irrigated. The patient was cleaned, aroused from anesthesia, and transferred to the pacu in stable condition having tolerated the procedure well with no complications. I was present and participated in all aspects of the procedure. The patient will be monitored in the PACU until transferred. Will monitor overnight with CBI. Plan to maintain catheter for approx 10 days. I attest to the content of the Intraoperative Record and any orders documented therein. Any exceptions are noted below.
[2021-11-18] MEDS: fentaNYL citrate 100 MCG/2 ML VIAL IV PRN ×3 (15:00→15:10)
[2021-11-18] MEDS ORDERED: hydrALAZINE HCL 20 MG/ML VIAL IV STA (15:17)
[2021-11-18] MEDS ORDERED: hydrALAZINE HCL 20 MG/ML VIAL ONE (15:19)
[2021-11-18] MEDS ORDERED: HYDROmorphone INJ 1 MG/ML SYRINGE ONE (15:19)
[2021-11-18] MEDS: HYDROmorphone INJ 0.5 MG/0.5 ML SYR IV PRN ×5 (15:20→16:20)
[2021-11-18] MEDS ORDERED: OXYBUTYNIN CHLORIDE 5 MG TAB PO PRN (16:24)
[2021-11-18] MEDS ORDERED: PHENAZOPYRIDINE HCL 200 MG TAB PO PRN (16:26)
[2021-11-18] MEDS ORDERED: PHENAZOPYRIDINE HCL 200 MG TAB ONE (16:29)
[2021-11-18] MEDS ORDERED: oxyCODONE HCL IR 5 MG TAB (IMMEDIATE RELEASE) PO PRN (17:39)
[2021-11-18] MEDS ORDERED: MoRPHine SULFATE 2 MG/ML CARP IV PRN ×2 (17:39→17:52)
[2021-11-18] MEDS: oxyCODONE HCL IR 5 MG TAB (IMMEDIATE RELEASE) PO PRN (18:38)
[2021-11-18] MEDS: LACTATED RINGER'S 1,000 ML IV SCH (18:39)
--- NOTE | 2021-11-18 19:04 | Anesthesiology Progress Note ---
Date of Service November 18, 2021 Anesthesia Post Procedure Vital Signs Vital Signs: Temp Pulse Pulse Resp BP BP Pulse Ox 11/18/21 18:09 37 C 87 18 156/53 H 97 11/18/21 17:48 85 16 161/86 H 96 11/18/21 17:15 37 C 84 18 171/89 H 97 11/18/21 16:55 82 20 158/88 H 96 11/18/21 16:40 86 20 166/92 H 95 11/18/21 16:30 36.4 C L 79 16 153/93 H 92 11/18/21 16:20 81 18 158/86 H 94 11/18/21 16:10 76 14 150/96 H 92 11/18/21 16:00 86 14 147/82 H 97 11/18/21 15:50 82 14 162/82 H 96 11/18/21 15:40 76 20 153/92 H 99 11/18/21 15:30 73 12 164/96 H 96 11/18/21 15:20 75 14 146/107 H 95 11/18/21 15:10 75 16 161/102 H 98 11/18/21 15:00 71 22 168/87 H 100 11/18/21 14:50 63 20 151/81 H 100 11/18/21 14:40 36.5 C 73 16 154/88 H 99 11/18/21 11:24 36.7 C 69 22 154/111 H 97 Pain Intensity Penis: Pain Intensity: 5 Transfer of Care Handoff Completed per policy Notes Mental Status: alert / awake / arousable and participated in evaluation Patient Amnestic to Procedure: Yes Nausea / Vomiting: adequately controlled Pain: adequately controlled Airway Patency, RR, SpO2: stable & adequate BP & HR: stable & adequate Hydration State: stable & adequate Anesthetic Complications: no major complications apparent and Pt Satisfied with anesthetic care
[2021-11-18] MEDS: AMITRIPTYLINE HCL 50 MG TAB PO SCH (20:36)
[2021-11-18] MEDS: carvediloL 12.5 MG TAB PO SCH (20:37)
[2021-11-18] MEDS: TAMSULOSIN HCL 0.4 MG CAP PO SCH (20:37)
[2021-11-19] MEDS: LACTATED RINGER'S 1,000 ML IV SCH ×3 (00:07→21:34)
[2021-11-19] MEDS: CIPROFLOXACIN / D5W 400 MG/200 ML BAG IV SCH ×2 (00:11→12:52)
[2021-11-19] MEDS: oxyCODONE HCL IR 5 MG TAB (IMMEDIATE RELEASE) PO PRN (00:11)
[2021-11-19 08:04] LABS: Basophils # (auto) 0.03 K/uL (0-0.2); Basophils % (auto) 0.3 %; Eosinophils # (auto) 0.18 K/uL (0-0.5); Eosinophils % (auto) 2.1 %; Hematocrit (blood only) 33.2 % (42-52); Hemoglobin 11.1 g/dL (14.0-18.0); Immature Granulocytes # (auto) 0.02 K/uL (0.00-0.02); Immature Granulocytes % (auto) 0.2 %; Lymphocytes # (auto) 0.44 K/uL (1.2-3.4); Mean Corpuscular Hemoglobin 34.9 pg (25-34); Mean Corpuscular Hgb Conc 33.4 g/dL (32-36); Mean Corpuscular Volume 104.4 fL (80-100); Mean Platelet Volume 9.3 fL (7.4-10.4); Monocytes # (auto) 0.64 K/uL (0.11-0.59); Monocytes % (auto) 7.3 %; Neutrophils # (auto) 7.44 K/uL (1.4-6.5); Neutrophils % (auto) 85.1 %; Platelet Count 179 K/uL (130-400); RDW Coefficient of Variation 15.4 % (11.5-14.5); Red Blood Count 3.18 M/uL (4.7-6.1); White Blood Count 8.75 K/uL (4.8-10.8)
[2021-11-19 08:28] LABS: BUN Creatinine Ratio 12.1 (10-20); Calcium 8.6 mg/dl (8.5-10.1); Creatinine Clr Calc Pharmacy 54.7 ml/min; Est GFR (African American) 44.7 ml/min; Est GFR (Non-African American) 38.6 ml/min; Potassium 3.8 mmol/L (3.5-5.1)
[2021-11-19] MEDS: TAMSULOSIN HCL 0.4 MG CAP PO SCH ×2 (08:59→20:23)
[2021-11-19] MEDS: PANTOprazole 40 MG TAB PO SCH (08:59)
[2021-11-19] MEDS ORDERED: FUROSEMIDE 80 MG TAB PO SCH (09:00)
[2021-11-19] MEDS: carvediloL 12.5 MG TAB PO SCH ×2 (09:00→20:22)
[2021-11-19] MEDS: amLODIPine BESYLATE 5 MG TAB PO SCH (09:00)
[2021-11-19] MEDS ORDERED: lisinopril 40 MG TAB PO SCH (09:00)
--- NOTE | 2021-11-19 09:45 | Urology Progress Note ---
Date of Service November 19, 2021 Assessment & Plan (1) Acute urinary retention: (2) Hematuria, gross: Plan: - POD #1 s/p Photoselective Vaporization of the Prostate using the Greenlight Laser with Enucleation of Prostate and Placement of Garvey Catheter - Patient feeling well, progressing as expected. - Afebrile, labs reviewed - Wbc normal, Creatinine 1.73, Hemoglobin stable. - Garvey catheter intact, draining clear yellow urine with CBI on slow. - Tolerating diet. - Minimal pain. - Ambulating without issue. Plan- - CBI clamped @0815 - will reassess later this AM - Maintain Garvey catheter. - Encourage ambulation. - Continue regular diet. - Anticipate home with Garvey catheter later today presuming urine appropriate and he continues to progress as expected. - Will reassess later this morning. Admission and Anticipated Discharge Date Admission Date: November 18, 2021 Subjective Pt examined at bedside this AM. Awake, resting in bed on arrival. No acute issues overnight. No fevers. Minimal pain. Garvey intact, draining clear yellow urine with CBI on slow. Tolerating diet, no nausea or vomiting. Ambulating without issue. No additional complaints. Review of Systems Constitutional: as per Subjective / HPI Gastrointestinal: as per Subjective / HPI Genitourinary: + as per Subjective / HPI Physical Exam Constitutional: well developed and well nourished; no acute distress and not ill appearing Respiratory: normal respiratory effort and able to speak in complete sentences; no labored breathing and no audible wheezes Gastrointestinal (Abdomen): Inspection/Auscultation: abdomen normal to inspection; abdomen not distended Musculoskeletal: Head/Neck/Chest: normocephalic Skin: No visible rashes or lesions to exposed skin areas Neurologic: moves all extremities and awake Psychiatric: Orientation: alert, oriented x 3 and cooperative Genitourinary: Garvey catheter intact, draining clear yellow urine with CBI on slow Results & Data ([facility]) Vital Signs (Past 12 Hours) Vital Signs Temp Pulse Resp BP Pulse Ox 11/19/21 08:03 37.0 C 72 16 155/95 H 100 11/19/21 02:31 36.9 C 91 H 18 129/75 98 11/18/21 23:03 36.8 C 86 16 150/86 H 97 PG Care Time/CCT Total # of Minutes Spent Total Time Spent with Patient: Total time spent is greater than 50% in coordination of care (as documented) at patient's floor/unit and/or counseling patient: Coding Level of Care Code None Diagnoses Acute urinary retention R33.8 Hematuria, gross R31.0
[2021-11-19] MEDS ORDERED: PIPERACILL/TAZOBAC CONSULT ACTIVE PRN (11:58)
[2021-11-19] MEDS ORDERED: PIPERACILLIN/TAZOBACTAM 3.375 GM in DEXTROSE 5% 100 ML IV ONE (12:30)
--- NOTE | 2021-11-19 13:37 | XRay Report ---
XR chest 2V PA/lateral CLINICAL HISTORY: fever. COMPARISON STUDY: 06/10/2021 TECHNIQUE: 2 views of the chest FINDINGS: Frontal and lateral radiographs of the chest demonstrate the cardiomediastinal silhouette to be withi n normal limits. The lungs are clear of alveolar opacities. There is no evidence for effusion bilater ally. There is no evidence for vascular congestion. There is no acute osseous pathology. IMPRESSION: 1. No acute cardiopulmonary disease. ACT 112: Negative or not required by law. Electronically signed by: Justin Pitts M.D. 11/19/2021 1:35 PM
--- NOTE | 2021-11-19 15:17 | Hospitalist Consultation ---
Date of Consultation November 19, 2021 Assessment & Plan (1) Postoperative fever: - Patient is approx. 24 hours post-operative -- had a temp of 38.1 C around 11 AM on 11/19 - Suspect either atelectasis vs drug fever vs bacterial dislodgement given prostate procedure in setting of recent UTI - Urine Cx from Oct 2021 - pansensitive Enterococcus faecalis and was on Ampicillin approx. 5 days prior to procedure -- given UTI and having prostatic procedure there is a chance that there was seeded bacteria that could have been mobilized. - BCx are pending as it could place him at risk for bacteremia -- May need to ultimately treat for acute prostatitis given circumstances with 10-14 days Abx based on previous UTI culture - will obtain new UA however may have low yield as he did have Abx already -- If BCx positive then will need 14 days Abx -- if BCx would have gram negative organism can likely treat with oral Abx however a gram positive bacteremia will require IV Abx coverage x 14 days - Of note, patient had COVID in August 2021 which results were updated in chart. Still testing positive but asymptomatic and do not suspect this explains the fever however if should require O2 could consider Decadron treatment. Currently no treatment is warranted and likely related to his previous infe ction. Also had monoclonal antibodies with initial episode - No skin or GI complaints to suggest a source; CXR negative for acute findings; check procal in AM - Encourage incentive spirometry and ambulation (2) Acute kidney injury: - Suspect this is in the setting of obstructive uropathy and will continue to improve post-operatively and with catheter placement - Baseline possibly around 1.0 however labs from 2018 as he is from an outside network PCP - Cr has been trending down and currently at 1.73; hold Lisinopril and Lasix for now and check labs in AM (3) Persistent atrial fibrillation: - Rate controlled - Was off AC for awhile due to significant nose bleeds however was restarted as he sustained a CVA in 2020. - Last dose of Eliquis given on Monday prior to procedure - will defer to Urology on resumption (4) Hyponatremia: - CHRONIC - asymptomatic - Review of nephrology notes suggest SIADH/Beer Potomania/Pulm Nodules -- baseline around 128-131 - Currently at 129. Can check TSH to assess contributing cause. - Is on LR - labs in AM (5) HTN (hypertension): - Elevated but asymptomatic - Holding Lisinopril and Lasix given mild renal impairment; Continue Amlodipine 2.5 mg daily and Carvedilol 12.5 mg BID (6) COPD (chronic obstructive pulmonary disease): - No acute exacerbation - Albuterol PRN; Symbicort interchange; Montelukast HS - On Omalizumab Q14D - last dose 11/17/21 (7) Thoracic aortic aneurysm without rupture: - CT (December 2020) - Thoracic aortic aneurysm with the ascending segment measuring 5.3 x 5.1 cm at the MPA, ectatic aortic root, borderline aneurysmal mid arch, and mildly ectatic descending segment without aneurysm or evidence of dissection - Close surveillance with PCP/vascular as is back on Eliquis -needs good BP control (8) Anemia: - Macrocytic - Can defer to PCP for B12/folate monitoring; per record he has had iron deficiency anemia and given iron transfusions in the past -could also be related to chronic liver disease (9) Cirrhosis of liver: - CT (2018) - liver noted to have nodularity suggesting early change of cirrhosis - Patient does follow with GI and can defer to them for monitoring and maintenance (10) Retention of urine, unspecified: - Appears in the setting of BPH now S/P vaporization - Management per primary team - plan for catheter x 10 days Await BCx to determine Abx duration. Suspect should cover total of 10-14 days for acute prostatitis given procedure and known UTI prior to admission/procedure. Total of 14 days if found to be bacteremic. Hospitalist will continue to follow. Supervising Physician Co-Signing Physician Notes PA Supervision Note: I personally saw and examined the patient. I verified all castellon points and agree with CAREY Bpwser with the following exceptions and/or additions: This patient is a 71-year-old male with a history of BPH, permanent A. fib on Eliquis, HTN, cirrhosis, anemia, TIA, COPD, hyponatremia's in the hospital recovering from a laser surgery of the prostate. He had a fever today and the hospital service was consulted. He feels very well, denies chest pains or shortness of breath, no abdominal pains. Is concerned about when he will restart his Eliquis. He is also anxious for discharge. History and ROS reviewed as above Vitals reviewed Gen: AAOx3, NAD HEENT: Anicteric sclerae, EOMI CV: Irregularly irregular no mgr nl S1S2 Pulm: CTAB no wcr Abd: +BS soft NT ND no masses or hernias : Brown catheter in place draining clear yellow urine Ext: No edema Skin: No rashes, warm/dry Neuro: Full strength throughout Labs and rads reviewed 71-year-old male here with postoperative fever Covid-19 test was positive prior to surgery but this seems to be most likely related to prolonged carriage of viral particles in the nose as he just had COVID on 09/09 and recovered. He has no symptoms of Covid at all other than a fever at this time. More likely related to recent procedure Do not see any evidence of DVT or PE on examination vitals are otherwise normal, is 100% on room air making PE not likely Chest x-ray without pneumonia UA without evidence of infection Continue empiric antibiotics and follow-up blood cultures History of Present Illness Reason for Consultation: Medical Management Attending Physician: Francisco Cordova, II, DO History of Present Illness Mr. Mcbride is a 71 y/o male with PMHx of Persistent A Fib/A Flutter, CVA (2020), HTN, SHEREEN (not on CPAP), Thoracic Aortic Aneurysm (5 cm), Liver Cirrhosis, SIADH/Beer Potomania/Hyponatremia, and COPD who is S/P Photoselective Vaporization of Prostate with Brown Insertion on 11/18. Hospitalist consulted due to UTI and post-operative fever. Patient seen at bedside with . He feels well and verbalizes no complaints. On vitals today he was found to have a fever of 38.1. Pt was noted to have a UTI growing pansensitive enterococcus faecalis. He was started on Ampicillin 500 mg TID which he filled on 11/15. He was then treated with pre-operative antibiotics. Therefore, only had about 5 days of treatment. Again, he feels in his normal state of health. He does note he tested positive for COVID in August and then had monoclonal antibodies. He endorses no cough, CP, SOB. He is oxygenating well on RA. He does not have any chronic skin issues and denies any abdominal pain or frequent diarrhea. CXR was negative for acute findings. He does not have a leukocytosis. Denies feeling fevered or chilled. Blood cultures obtained and pending. Will repeat a urinalysis. Allergies Allergy/AdvReac Type Severity Reaction Status Date / Time chlorhexidine Allergy Intermediate Redness, Verified 11/18/21 11:23 burning Home Medications Medication Instructions Recorded Confirmed Type albuterol sulfate 90 mcg/actuation 2 puff INHALATION QID PRN 03/06/19 11/18/21 History aerosol inhaler (ProAir HFA) budesonide-formoterol HFA 160 2 puff INHALATION BID 03/06/19 11/18/21 History mcg-4.5 mcg/actuation aerosol inhaler (Symbicort) carvedilol 12.5 mg tablet 12.5 mg PO BID 03/06/19 11/18/21 History pantoprazole 40 mg tablet,delayed 40 mg PO QAM 03/06/19 11/18/21 History release (Protonix) tiotropium bromide 2.5 2 puff INHALATION QAM PRN 03/06/19 11/18/21 History mcg/actuation mist for inhalation (Spiriva Respimat) furosemide 20 mg tablet 80 mg PO QAM 03/07/19 11/18/21 History levocetirizine 5 mg tablet 5 mg PO HS 03/07/19 11/18/21 History oxycodone-acetaminophen 5 mg-325 1 tab PO Q6H PRN #12 tab 05/01/19 11/18/21 Rx mg tablet amitriptyline 50 mg tablet 50 mg PO HS 04/23/21 11/18/21 History apixaban 5 mg tablet (Eliquis) 5 mg PO BID 04/23/21 11/18/21 History finasteride 5 mg tablet (Proscar) 5 mg PO QAM 04/23/21 11/18/21 History tolvaptan 30 mg tablet (Samsca) 30 mg PO QAM 04/23/21 11/18/21 History acetaminophen 500 mg tablet 1,000 mg PO Q6H PRN 06/04/21 11/18/21 History ipratropium bromide 21 mcg (0.03 2 spray INTRANASAL BID PRN 06/04/21 11/18/21 History %) nasal spray lisinopril 40 mg tablet 40 mg PO QAM 06/04/21 11/18/21 History montelukast 10 mg tablet 10 mg PO HS 06/04/21 11/18/21 History tamsulosin 0.4 mg capsule 0.4 mg PO BID #120 cap 07/13/21 11/18/21 Rx amlodipine 2.5 mg tablet 2.5 mg PO QAM 11/09/21 11/18/21 History cholecalciferol (vitamin D3) 125 125 mcg PO QAM 11/09/21 11/18/21 History mcg (5,000 unit) tablet (Vitamin D3) hyoscyamine sulfate 0.125 mg 0.125 mg PO QID 11/09/21 11/18/21 History tablet (Levsin) omalizumab 75 mg/0.5 mL 0 mg SUBCUT Q14D 11/09/21 11/18/21 History subcutaneous syringe ampicillin 500 mg capsule 500 mg PO TID #21 cap 11/13/21 11/18/21 Rx Patient History Medical History (Updated 11/19/21 @ 16:25 by Moon Hernandez PA-C) Anemia S/p blood transfusions 3+ years ago IRON INFUSIONS 09/2021 BPH (benign prostatic hyperplasia) Chronic kidney disease Stage III, under surveillance by Dr. Moreno/Cam Chronic obstructive pulmonary disease Stable Cirrhosis Suspected per imaging/records per patient Stable GERD (gastroesophageal reflux disease) Controlled History of COVID-19 DX'D 09/09/21 PH CAM SYMPTOMS OF COUGH-TREATED WITH ANTIBODIES/RECOVERED AT HOME-SYMPTOMS RESOLVED History of IBS Hx of gastric ulcer Remote hx Hypertension Paroxysmal A-fib + A-flutter S/P radiofrequency ablation (~3 yrs ago)-F/U DR [facility]ASH[facility] SIADH (syndrome of inappropriate ADH production) Per nephrology records "ETOH/liver disease and/or COPD/pulmonary nodule (R/O CA)/SIADH...longstanding history of hyponatremia, baseline high 120s per art review Sleep apnea Non-compliant with CPAP Sleeps with wedge Stroke CVA (02/18/21) > no residual effects, PCP following, on Eliquis now (Plavix was discontinued after 3 months) Thoracic aortic aneurysm Following with vascular, Dr. Bill Mcarthur/[facility] (CT surgery), stable per CTA 12/2020 at 5.3 x 5.1 per cardiology records, no surgical intervention planned at this time Surgical History H/O cardiac radiofrequency ablation 5+ years ago H/O total knee replacement Left History of cataract surgery R/L History of cholecystectomy History of colonoscopy History of ERCP ERCP (04/28/19): Elective glidescope #3, ETT 7.5 at [facility] History of esophagogastroduodenoscopy (EGD) History of lumbar fusion PT DENIES History of nasal cauterization Hx of appendectomy Hx of foot surgery Left Hx of repair of left rotator cuff Hx of repair of right rotator cuff Hx of tonsillectomy S/P TURP PT DENIES S/P ureteral stent placement Left (2018)-PT DENIES Family History Father Family hx of colon cancer Mother Family history of diabetes mellitus Social History Smoking Status: Light tobacco smoker Cigarettes Per Day: 2-3 CIGARS PER WEEK; Second Hand Exposure: Yes (WAS [employer]); Do You Dip or Chew Tobacco: No; Tobacco Cessation Education Requested by Patient: No Hx Alcohol Use: Yes Alcohol type: beer and hard liquor Hx Substance Use: No Preferred Language: Kuwaiti Communication Ability: Effective Welder Explosion Required: No Beliefs That Will Affect Care: None marital status: Current Living Situation: Spouse current occupational status: retired Other Information That Helps Us Care for You: No Feels Safe at Home: Yes Safety Concerns: Feels Safe At This Time Assistive Devices: None Assistive Devices Comment: CANE PRN Review of Systems Review of Systems: All systems reviewed & are unremarkable except as noted in HPI & below Physical Exam Physical Exam: PHYSICAL EXAM General Appearance: WDWN in NAD who is A&O x 3 HEENT: Head is normocephalic/atraumatic; Hearing grossly intact; Mucous membranes moist Neck: Supple; Trachea midline; Neg JVD Heart: irregularly irregular; rate controlled; with no M/G/R Lungs: CTA in all lung dyson bilaterally; Respirations unlabored; Neg accessory muscle use Abdomen: Soft, non-tender, non-distended; Positive BS x 4 quadrants; Neg organomegaly; brown present draining pale yellow urine Extremities: Neg cyanosis or edema Neurological: Speech clear; Gross motor/sensory function intact; Neg focal neurologic deficits Psychiatric: Appropriate mood/affect Skin: Normal Color; Warm/Dry Results & Data Results & Data ([facility]) Vital Signs (Past 12 Hours) Vital Signs Temp Pulse Resp BP Pulse Ox 11/19/21 11:35 38.1 C H 94 H 18 170/87 H 100 11/19/21 08:03 37.0 C 72 16 155/95 H 100 PG Care Time/CCT Total # of Minutes Spent Total Time Spent with Patient: Total time spent is greater than 50% in coordination of care (as documented) at patient's floor/unit and/or counseling patient: Coding Level of Care Code 05901 Inpt Consult Level 4 Diagnoses HTN (hypertension) I10 Hyponatremia E87.1 COPD (chronic obstructive pulmonary disease) J44.9 Thoracic aortic aneurysm without rupture I71.2 Anemia D64.9 Cirrhosis of liver K74.60 Retention of urine, unspecified R33.9 Postoperative fever R50.82 Acute kidney injury N17.9 Persistent atrial fibrillation I48.19
[2021-11-19 16:16] LABS: Appearance Urine Clear (Clear); Bacteria Urine Automated Negative (Negative); Bilirubin Urine Negative (Negative); Blood Urine 1+ (Negative); Color Urine Yellow; Epithelial Cell Urine Auto 0-5 /lpf (0-5); Glucose Urine UA Negative (Negative); Ketones Urine Negative (Negative); Leukocyte Esterase Urine Trace (Negative); Nitrite Urine Negative (Negative); Protein Urine Negative (Negative); Specific Gravity Urine 1.005 (1.000-1.030); Urobilinogen Urine Negative (Negative); pH Urine 7.5 (4.5-7.5)
[2021-11-19] MEDS: ACETAMINOPHEN 325 MG TAB PO PRN (17:25)
[2021-11-19] MEDS: PIPERACILLIN/TAZOBACTAM 3.375 GM in DEXTROSE 5% 100 ML IV SCH (17:25)
[2021-11-19] MEDS: AMITRIPTYLINE HCL 50 MG TAB PO SCH (20:22)
[2021-11-19] MEDS ORDERED: FLUTICASONE/VILANTEROL 200/25MCG 14 PUFFS/INHALER INH SCH (21:00)
[2021-11-19] MEDS ORDERED: MONTELUKAST SODIUM 10 MG TABLET PO SCH (21:00)
[2021-11-20] MEDS: PIPERACILLIN/TAZOBACTAM 3.375 GM in DEXTROSE 5% 100 ML IV SCH ×2 (02:38→09:45)
[2021-11-20 06:52] LABS: Basophils # (auto) 0.01 K/uL (0-0.2); Basophils % (auto) 0.2 %; Hemoglobin 11.7 g/dL (14.0-18.0); Immature Granulocytes # (auto) 0.01 K/uL (0.00-0.02); Immature Granulocytes % (auto) 0.2 %; Lymphocytes # (auto) 0.35 K/uL (1.2-3.4); Lymphocytes % (auto) 6.9 %; Mean Corpuscular Hemoglobin 34.7 pg (25-34); Mean Corpuscular Hgb Conc 33.4 g/dL (32-36); Mean Corpuscular Volume 103.9 fL (80-100); Mean Platelet Volume 9.5 fL (7.4-10.4); Monocytes # (auto) 0.65 K/uL (0.11-0.59); Monocytes % (auto) 12.9 %; Neutrophils # (auto) 3.82 K/uL (1.4-6.5); Neutrophils % (auto) 75.8 %; Platelet Count 171 K/uL (130-400); RDW Coefficient of Variation 15.3 % (11.5-14.5); RDW Standard Deviation 58.5 fL (36.4-46.3); Red Blood Count 3.37 M/uL (4.7-6.1); White Blood Count 5.04 K/uL (4.8-10.8)
[2021-11-20 07:13] LABS: Calcium 8.7 mg/dl (8.5-10.1); Creatinine Clr Calc Pharmacy 47.3 ml/min; Est GFR (African American) 37.5 ml/min; Est GFR (Non-African American) 32.4 ml/min; Potassium 3.5 mmol/L (3.5-5.1)
[2021-11-20] MEDS: carvediloL 12.5 MG TAB PO SCH (08:08)
[2021-11-20] MEDS: TAMSULOSIN HCL 0.4 MG CAP PO SCH (08:08)
[2021-11-20] MEDS: amLODIPine BESYLATE 5 MG TAB PO SCH (08:08)
[2021-11-20] MEDS: PANTOprazole 40 MG TAB PO SCH (08:08)
[2021-11-20] MEDS: LACTATED RINGER'S 1,000 ML IV SCH (08:08)
--- NOTE | 2021-11-20 09:35 | Urology Progress Note ---
Date of Service November 20, 2021 Assessment & Plan (1) Acute kidney injury: Plan: Creatinine has increased slightly from yesterday (1.73 up to 2.00), etiology is unclear as he is draining well and has been receiving IV fluids. His creatinine has been similarly elevated in the past (1.94 in May 2021) so this may actually be close to baseline for him. He additionally has some hyponatremia and hypochloremia, but these have also been seen in the past. I would favor stopping his IV fluids and allowing him to self regulate, but will discuss this with the hospitalist service beforehand. (2) Postoperative fever: Plan: Fever most likely represents atelectasis. Blood cultures still pending. Overall he continues to feel well and has only had the one measured fever. He is currently covered with Zosyn. We discussed that ideally we would like to have negative blood cultures, prior to discharging him home. However if blood cultures are negative for 24 hours and he is still feeling well, we may consider discharge on PO antibiotics. (3) BPH (benign prostatic hyperplasia): Plan: S/p greenlight photo vaporization of the prostate on 11/18/2021. Urine is draining well through his catheter with no hematuria. Other than the single postoperative fever, he is doing well postoperatively. We will plan for catheter to stay in for about a week. Plan: For now, we will continue broad-spectrum antibiotics while awaiting results of blood cultures. Admission and Anticipated Discharge Date Admission Date: November 18, 2021 Subjective Patient is feeling well, no fevers or chills since yesterday, no nausea or vomiting. Tolerating a diet without any issues Has been up and ambulating No issues with Brown catheter, draining clear yellow urine. Review of Systems Constitutional: No fevers or chills Respiratory: Breathing comfortably on room air Physical Exam Constitutional: Well-appearing, NAD Respiratory: Breathing comfortably on room air, no audible wheezing Gastrointestinal (Abdomen): soft, non-tender Genitourinary: brown catheter in good position, draining clear yellow urine off CBI. Results & Data ([facility]) Vital Signs (Past 12 Hours) Vital Signs Temp Pulse Resp BP Pulse Ox 11/20/21 07:29 37.4 C 90 18 144/79 H 94 PG Care Time/CCT Total # of Minutes Spent Total Time Spent with Patient: Total time spent is greater than 50% in coordination of care (as documented) at patient's floor/unit and/or counseling patient: Coding Level of Care Code None Diagnoses Acute kidney injury N17.9 Postoperative fever R50.82 BPH (benign prostatic hyperplasia) N40.0
--- NOTE | 2021-11-20 13:33 | Discharge Summary ---
Date of Service November 20, 2021 Admission HPI Per Admitting Provider This is a 71-year-old male with history of BPH presented to the hospital on 11/18/2021 for photo vaporization of the prostate. He underwent this procedure and then was admitted postoperatively for routine care. Admission Exam (Per Admitting) Constitutional Well-appearing, NAD Discharge Data Consultations 11/19/21 13:24 Consult Hospitalist Routine Procedures Performed Operation Date: 07/12/21 08:20 <No data on this case meets the specified criteria> Operation Date: 09/13/21 07:00 <No data on this case meets the specified criteria> Operation Date: 11/18/21 12:35 Actual Procedures p Photoselective Vaporization of the Prostate using the Greenlight Laser, Enucleation of Prostate and Placement of Garvey Catheter(Not Applicable) - Francisco Cordova DO Hospital Course (1) BPH (benign prostatic hyperplasia): (2) Acute kidney injury: (3) Postoperative fever: (4) Persistent atrial fibrillation: Mr. Mcbride underwent the procedure on 11/18/2021 and was admitted for routine postoperative care. On 11/19 he was ready for discharge as his urine was clear on continuous bladder irrigation, however he developed a postoperative fever to 38.1C. Blood cultures were drawn at that point and he was broadened to Zosyn for antibiotics. On 11/20/2021, he has had no further fevers and preliminary blood cultures were negative. Hospital medicine was consulted for chronic hyponatremia and further evaluation of postoperative fever. Most likely, it was thought to be related to atelectasis. Hyponatremia was stable and he is followed for this chronically as an outpatient. His renal function had a slight decrease, but this was thought to be related to his medications. It was felt that he was ready for discharge on 11/20/2021 with strict return precautions. Coding Level of Care Code None Diagnoses BPH (benign prostatic hyperplasia) N40.0 Acute kidney injury N17.9 Postoperative fever R50.82 Persistent atrial fibrillation I48.19
[2021-11-20] MEDS: ACETAMINOPHEN 325 MG TAB PO PRN (13:34)
--- NOTE | 2021-11-20 16:28 | Communication Note ---
Date of Service: November 20, 2021 Pt left before I could see him but I discussed his care with Urology. 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 Ok to restart home lasix and lisinopril. Ok to dc on po abx if BCxs remain no growth at > 24 hrs. WIll have Nurse Karri call patient on Monday to ensure he gets his lab work done and f/u with PCP and School Program Director.
[2021-11-20] MEDS ORDERED: APIXABAN 5 MG TABLET PO SCH (21:00)
== END 2021-11-20 15:22 | disposition home or self-care (01) ==
LOC: 3W 10:50 → ASU 10:50 → SUATTDRO 12:14

== ENCOUNTER 2022-12-06 02:49 | Observation (INO) ==
--- NOTE | 2022-12-06 03:06 | Emergency Department Note ---
History of Present Illness General Chief complaint: Catheter Replacement Stated complaint: UNABLE TO URINATE,HAD A CATHETER REMOVED Time Seen by Provider: 12/06/22 02:57 History of Present Illness Maximum Pain Intensity: 8 This 72-year-old male on Eliquis for history of A-fib presents the ER for urinary retention. Patient had a Garvey placed yesterday by urology and when he got home it stopped draining so he went to [facility] and they were unable to get the Garvey to drain. He went there twice. He comes here as he sees urology here, Dr. Cordova. Patient denies chest pain, dyspnea, fevers, flulike illness. No other concerns per patient. Home Medications Medication Instructions Recorded Confirmed Type budesonide-formoterol HFA 160 2 puff inhalation BID 03/06/19 12/05/22 History mcg-4.5 mcg/actuation aerosol inhaler (Symbicort) carvedilol 12.5 mg tablet 12.5 mg PO BID 03/06/19 12/05/22 History pantoprazole 40 mg tablet,delayed 40 mg PO QAM 03/06/19 12/05/22 History release (Protonix) tiotropium bromide 2.5 2 puff inhalation QAM PRN Wheezing 03/06/19 12/05/22 History mcg/actuation mist for inhalation (Spiriva Respimat) levocetirizine 5 mg tablet 5 mg PO HS 03/07/19 12/05/22 History apixaban 5 mg tablet (Eliquis) 5 mg PO BID 04/23/21 12/05/22 History tolvaptan 30 mg tablet (Samsca) 30 mg PO QAM 04/23/21 12/05/22 History acetaminophen 500 mg tablet 1,000 mg PO Q6H PRN Pain 06/04/21 12/05/22 History ipratropium bromide 21 mcg (0.03 2 spray intranasal BID PRN Nasal 06/04/21 12/05/22 History %) nasal spray Congestion montelukast 10 mg tablet 10 mg PO HS 06/04/21 12/05/22 History amlodipine 2.5 mg tablet 2.5 mg PO QAM 11/09/21 12/05/22 History hyoscyamine sulfate 0.125 mg 0.125 mg PO QID 11/09/21 12/05/22 History tablet (Levsin) omalizumab 75 mg/0.5 mL 0 mg subcut Q14D 11/09/21 12/05/22 History subcutaneous syringe cholecalciferol (vitamin D3) 125 125 mcg PO DAILY 01/21/22 12/05/22 History mcg (5,000 unit) capsule albuterol sulfate 90 mcg/actuation 1 inh inhalation QID 12/05/22 12/05/22 History aerosol inhaler (ProAir HFA) ciprofloxacin HCl 250 mg tablet 250 mg PO BID 10 days #20 tabs 12/05/22 12/05/22 Rx ferric subsulfate 259 mg/g topical 1 applic topical DAILY 12/05/22 12/05/22 History solution hydrocodone 7.5 mg-acetaminophen 15 ml PO Q6H PRN 12/05/22 12/05/22 History 325 mg/15 mL oral solution sacubitril 49 mg-valsartan 51 mg 1 tab PO BID 12/05/22 12/05/22 History tablet (Entresto) torsemide 20 mg tablet 20 mg PO DAILY 12/05/22 12/05/22 History vitamin B comp and C no.3 15 mg-10 1 cap PO DAILY 12/05/22 12/05/22 History mg-50 mg-5 mg-300 mg capsule (B Complex Plus Vitamin C) Allergies Allergy/AdvReac Type Severity Reaction Status Date / Time chlorhexidine Allergy Intermediate Redness, Verified 12/05/22 12:58 burning Past Med/Surg History Medical History Anemia S/p blood transfusions 3+ years ago IRON INFUSIONS 09/2021 BPH (benign prostatic hyperplasia) Chronic kidney disease Stage III, under surveillance by Dr. Moreno/Ryan Chronic obstructive pulmonary disease Stable Cirrhosis Suspected per imaging/records per patient Stable GERD (gastroesophageal reflux disease) Controlled History of COVID-19 DX'D 09/09/21 DAVIN LEVY SYMPTOMS OF COUGH-TREATED WITH ANTIBODIES/RECOVERED AT HOME-SYMPTOMS RESOLVED History of IBS Hx of gastric ulcer Remote hx Hypertension Paroxysmal A-fib + A-flutter S/P radiofrequency ablation (~3 yrs ago)-F/U DR AASHISH LEVY CARDIOLOGY SIADH (syndrome of inappropriate ADH production) Per nephrology records "ETOH/liver disease and/or COPD/pulmonary nodule (R/O CA)/SIADH...longstanding history of hyponatremia, baseline high 120s per chart review Sleep apnea Non-compliant with CPAP Sleeps with wedge Stroke CVA (02/18/21) > no residual effects, PCP following, on Eliquis now (Plavix was discontinued after 3 months) Thoracic aortic aneurysm Following with vascular, Dr. Bill Mcarthur/[facility] (CT surgery), stable per CTA 12/2020 at 5.3 x 5.1 per cardiology records, no surgical intervention planned at this time Surgical History H/O cardiac radiofrequency ablation 5+ years ago H/O total knee replacement Left History of cataract surgery R/L History of cholecystectomy History of colonoscopy History of ERCP ERCP (04/28/19): Elective glidescope #3, ETT 7.5 at [facility] History of esophagogastroduodenoscopy (EGD) History of lumbar fusion PT DENIES History of nasal cauterization Hx of appendectomy Hx of foot surgery Left Hx of repair of left rotator cuff Hx of repair of right rotator cuff Hx of tonsillectomy S/P TURP PT DENIES S/P ureteral stent placement Left (2018)-PT DENIES Family History Father Family hx of colon cancer Mother Family history of diabetes mellitus Social History Smoking Status: Current some day smoker Cigarettes Per Day: 2-3 CIGARS PER WEEK; Second Hand Exposure: Yes; Hx Alcohol Use: Yes Alcohol type: beer Hx Substance Use: No Preferred Language: Slovak Communication Ability: Effective Book Jogger Required: No Beliefs That Will Affect Care: None marital status: Current Living Situation: Spouse current occupational status: retired Feels Safe at Home: Yes Assistive Devices: None Review of Systems A total of 10 systems reviewed and were otherwise negative Physical Exam Vital Signs Vital Signs - 24 hr 12/06/22 02:51 12/06/22 04:09 12/06/22 04:43 Temperature 36.6 C Temperature Source Temporal Artery Scan Pulse Rate 85 99 H Pulse Rate [Apical] 99 H Pulse Rate [Right Finger] Pulse Rate from SpO2 Sensor Pulse Rhythm [Apical] Pulse Rhythm [Right Finger] Pulse Strength [Right Finger] Respiratory Rate 20 17 Respiratory Effort / Characteristics Non-Labored Non-Labored Spontaneous Respiratory Depth Normal Normal Respiratory Pattern Blood Pressure 143/83 H Blood Pressure [Left Arm] 139/90 Blood Pressure Mean 103 Blood Pressure Mean [Left Arm] 106 Blood Pressure Position [Left Arm] Lying Pulse Oximetry 97 97 Oxygen Delivery Method Room Air Room Air Oxygen Flow Rate Sepsis Recent Fever Within 48 Hours No Sepsis New/Unexplained Change in Mental Status N/A Sepsis Action Taken by Nursing No Action Required 12/06/22 05:45 12/06/22 04:33 12/06/22 05:00 Temperature Temperature Source Pulse Rate 97 H Pulse Rate [Apical] 104 H Pulse Rate [Right Finger] Pulse Rate from SpO2 Sensor 95 H Pulse Rhythm [Apical] Pulse Rhythm [Right Finger] Pulse Strength [Right Finger] Respiratory Rate 18 13 Respiratory Effort / Characteristics Non-Labored Spontaneous Respiratory Depth Normal Respiratory Pattern Blood Pressure 168/97 H Blood Pressure [Left Arm] 128/89 Blood Pressure Mean 120 Blood Pressure Mean [Left Arm] 102 Blood Pressure Position [Left Arm] Lying Pulse Oximetry 94 97 Oxygen Delivery Method Room Air Oxygen Flow Rate Sepsis Recent Fever Within 48 Hours Sepsis New/Unexplained Change in Mental Status Sepsis Action Taken by Nursing 12/06/22 05:00 12/06/22 05:30 12/06/22 05:30 Temperature Temperature Source Pulse Rate 113 H 100 H Pulse Rate [Apical] Pulse Rate [Right Finger] Pulse Rate from SpO2 Sensor 112 H 100 H Pulse Rhythm [Apical] Pulse Rhythm [Right Finger] Pulse Strength [Right Finger] Respiratory Rate 19 18 Respiratory Effort / Characteristics Respiratory Depth Respiratory Pattern Blood Pressure 128/89 Blood Pressure [Left Arm] Blood Pressure Mean 102 Blood Pressure Mean [Left Arm] Blood Pressure Position [Left Arm] Pulse Oximetry 96 95 Oxygen Delivery Method Oxygen Flow Rate Sepsis Recent Fever Within 48 Hours Sepsis New/Unexplained Change in Mental Status Sepsis Action Taken by Nursing 12/06/22 06:00 12/06/22 06:30 12/06/22 07:00 Temperature Temperature Source Pulse Rate 117 H 115 H 109 H Pulse Rate [Apical] Pulse Rate [Right Finger] Pulse Rate from SpO2 Sensor 123 H Pulse Rhythm [Apical] Pulse Rhythm [Right Finger] Pulse Strength [Right Finger] Respiratory Rate 19 21 19 Respiratory Effort / Characteristics Respiratory Depth Respiratory Pattern Blood Pressure Blood Pressure [Left Arm] Blood Pressure Mean Blood Pressure Mean [Left Arm] Blood Pressure Position [Left Arm] Pulse Oximetry 96 Oxygen Delivery Method Oxygen Flow Rate Sepsis Recent Fever Within 48 Hours Sepsis New/Unexplained Change in Mental Status Sepsis Action Taken by Nursing 12/06/22 07:30 12/06/22 07:47 12/06/22 07:50 Temperature Temperature Source Pulse Rate 101 H 113 H 104 H Pulse Rate [Apical] Pulse Rate [Right Finger] Pulse Rate from SpO2 Sensor Pulse Rhythm [Apical] Pulse Rhythm [Right Finger] Pulse Strength [Right Finger] Respiratory Rate 20 19 20 Respiratory Effort / Characteristics Respiratory Depth Respiratory Pattern Blood Pressure 172/94 H Blood Pressure [Left Arm] Blood Pressure Mean 120 Blood Pressure Mean [Left Arm] Blood Pressure Position [Left Arm] Pulse Oximetry 95 Oxygen Delivery Method Oxygen Flow Rate Sepsis Recent Fever Within 48 Hours Sepsis New/Unexplained Change in Mental Status Sepsis Action Taken by Nursing 12/06/22 08:07 12/06/22 09:03 12/06/22 09:10 Temperature 37.0 C 37.0 C Temperature Source Oral Temporal Artery Scan Pulse Rate Pulse Rate [Apical] 102 H 102 H Pulse Rate [Right Finger] 109 H Pulse Rate from SpO2 Sensor Pulse Rhythm [Apical] Irregular Irregular Pulse Rhythm [Right Finger] Regular Pulse Strength [Right Finger] Normal Respiratory Rate 20 20 20 Respiratory Effort / Characteristics Non-Labored Spontaneous Non-Labored Spontaneous Non-Labored Spontaneous Respiratory Depth Normal Normal Normal Respiratory Pattern Regular Regular Regular Blood Pressure Blood Pressure [Left Arm] 176/100 H 160/90 H 153/83 H Blood Pressure Mean Blood Pressure Mean [Left Arm] 125 113 106 Blood Pressure Position [Left Arm] Sitting Lying Lying Pulse Oximetry 100 100 100 Oxygen Delivery Method Room Air Oxymask Oxymask Oxygen Flow Rate 4 4 Sepsis Recent Fever Within 48 Hours Sepsis New/Unexplained Change in Mental Status Sepsis Action Taken by Nursing 12/06/22 09:30 12/06/22 09:20 12/06/22 09:40 Temperature 37.8 C H Temperature Source Oral Pulse Rate Pulse Rate [Apical] 110 H 100 H 103 H Pulse Rate [Right Finger] Pulse Rate from SpO2 Sensor Pulse Rhythm [Apical] Irregular Irregular Irregular Pulse Rhythm [Right Finger] Pulse Strength [Right Finger] Respiratory Rate 19 19 19 Respiratory Effort / Characteristics Non-Labored Spontaneous Non-Labored Spontaneous Non-Labored Spontaneous Respiratory Depth Normal Normal Normal Respiratory Pattern Regular Regular Regular Blood Pressure Blood Pressure [Left Arm] 152/80 H 159/83 H 146/77 H Blood Pressure Mean Blood Pressure Mean [Left Arm] 104 108 100 Blood Pressure Position [Left Arm] Lying Lying Semi-fowlers Pulse Oximetry 95 100 94 Oxygen Delivery Method Room Air Oxymask Room Air Oxygen Flow Rate 4 Sepsis Recent Fever Within 48 Hours Sepsis New/Unexplained Change in Mental Status Sepsis Action Taken by Nursing VITALS: Vitals are noted on the nurse's note and reviewed by myself. Vital sig ns stable. GENERAL: Pleasant gentleman, in no acute distress, nondiaphoretic, well- developed well-nourished. SKIN: The skin was without rashes, erythema, edema, or bruising. There is no tenting of the skin. Capillary reflex less than 2 seconds. HEAD: Normocephalic atraumatic. EARS: External auditory canals clear, EYES: Pupils equal round and reactive to light and accommodation. Conjunctivae without injection, sclerae without icterus. Extraocular movements intact. NOSE: Patent, turbinates without inflammation or discharge. MOUTH: Mucous membranes moist. Pharynx without erythema or exudate. Uvula midline. Airway patent. Tongue does not deviate. NECK: Supple without nuchal rigidity. No lymphadenopathy. No thyromegaly. Cervical spine is nontender. No JVD. HEART: Regular rate and rhythm LUNGS: Clear to auscultation bilaterally without wheezes, rales or rhonchi. No retractions or accessory muscle use. ABDOMEN: Positive bowel sounds x 4. Normal tympanic percussion. Soft, distended bladder, without masses or organomegaly. James sign negative. No guarding or rebound tenderness. No CVA tenderness MUSCULOSKELETAL: No muscle atrophy, erythema, or edema noted. NEURO: Patient was alert and oriented to person place and time. Normal sensation to light and sharp touch. No focal neurological deficits. Course Administered Medications Acetaminophen (Acetaminophen 325 Mg Tab) 650 mg PO Q4H PRN PRN Reason: pain/fever Stop: 01/05/23 10:11 Last Admin: 12/06/22 11:00 Dose: 650 mg Documented By: TAMANNA Apixaban (Apixaban 5 Mg Tablet) 5 mg PO BID ROCKY Stop: 01/05/23 12:14 Last Admin: 12/06/22 20:53 Dose: 5 mg Documented By: Admin: 12/06/22 13:05 Dose: 5 mg Documented By: TAMANNA Carvedilol (Carvedilol 12.5 Mg Tab) 12.5 mg PO BID [facility] Stop: 01/05/23 12:14 Last Admin: 12/06/22 21:14 Dose: 12.5 mg Documented By: Admin: 12/06/22 13:05 Dose: 12.5 mg Documented By: TAMANNA Ceftriaxone Sodium 2,000 mg/ (Dextrose) 70 mls @ 100 mls/hr IV DAILY [facility]; Protocol Stop: 12/16/22 12:29 Last Infusion: 12/06/22 14:13 Dose: 0 mls/hr Documented By: Admin: 12/06/22 13:07 Dose: 100 mls/hr Documented By: TAMANNA Oxycodone/Acetaminophen (Oxycodone/Acetaminophen 5mg/325mg Tab) 2 tab PO Q4H PRN PRN Reason: Severe Pain (Scale 7, 8, 9,10) Stop: 12/20/22 13:48 Last Admin: 12/06/22 21:16 Dose: 2 tab Documented By: Admin: 12/06/22 14:59 Dose: 2 tab Documented By: TAMANNA Sacubitril/Valsartan (Valsartan/Sacubitril 51/49 Mg Tab) 1 tab PO BID [facility] Stop: 01/05/23 12:14 Last Admin: 12/06/22 20:54 Dose: 1 tab Documented By: Admin: 12/06/22 13:05 Dose: 1 tab Documented By: TAMANNA Tamsulosin HCl (Tamsulosin Hcl 0.4 Mg Cap) 0.4 mg PO HS [facility] Stop: 01/05/23 20:59 Last Admin: 12/06/22 20:54 Dose: 0.4 mg Documented By: DEYSI Discontinued Medications Amlodipine Besylate (Amlodipine Besylate 5 Mg Tab) 2.5 mg PO QAM [facility] Stop: 01/05/23 12:14 Last Admin: 12/06/22 13:16 Dose: Not Given Documented By: TAMANNA Fentanyl Citrate (Fentanyl Citrate 100 Mcg/2 Ml Vial) 50 mcg IV NOW STA Stop: 12/06/22 03:51 Last Admin: 12/06/22 03:54 Dose: 50 mcg Documented By: DIVYA Fentanyl Citrate (Fentanyl Citrate 100 Mcg/2 Ml Vial) 50 mcg IV Q15M PRN PRN Reason: Pain Stop: 12/20/22 04:37 Last Admin: 12/06/22 06:51 Dose: 50 mcg Documented By: Admin: 12/06/22 06:18 Dose: 50 mcg Documented By: Admin: 12/06/22 05:38 Dose: 50 mcg Documented By: Admin: 12/06/22 04:41 Dose: 50 mcg Documented By: CC Cefazolin Sodium (Ancef 3000mg) 72.5 mls @ 130 mls/hr IV ONCE ONE; Protocol Stop: 12/06/22 09:46 Last Infusion: 12/06/22 10:38 Dose: 0 mls/hr Documented By: Admin: 12/06/22 08:41 Dose: 130 mls/hr Documented By: [id number] Sodium Chloride (Nss) 500 mls @ 80 mls/hr IV .Q6H15M ROCKY Stop: 12/06/22 16:44 Last Infusion: 12/06/22 17:45 Dose: 0 mls/hr Documented By: Admin: 12/06/22 10:57 Dose: 80 mls/hr Documented By: TAMANNA Lidocaine HCl (Lidocaine 2% Jelly 5 Ml Tube) Confirm Administered Dose 10 ml EXT .STK-MED ONE Stop: 12/06/22 06:40 Last Admin: 12/06/22 06:53 Dose: 10 ml Documented By: DIVYA Lorazepam (Lorazepam 2 Mg/1 Ml Vial) Confirm Administered Dose 2 mg .ROUTE .STK- MED ONE Stop: 12/06/22 06:56 Last Admin: 12/06/22 06:56 Dose: 1 mg Documented By: DIVYA Medical Decision Making Medical Records Attestation: I reviewed the patient's medical records. Home Medications Current Medication List: was personally reviewed by me Laboratory Data Attestation: I reviewed the patient's lab results. 12/06/22 03:58 12/06/22 03:58 Lab Results 12/06/22 12/06/22 12/06/22 Range/Units 03:58 03:58 04:07 WBC 6.44 (4.8-10.8) K/ul RBC 3.68 L (4.70-6.10) M/uL Hgb 11.7 L (14.0-18.0) g/dl POC Hgb 13.9 L (14.0-18.0) g/dl Hct 34.0 L (42.0-52.0) % POC Hct 41 L (42-52) % MCV 92.4 (80.0-100.0) fL MCH 31.8 (25.0-34.0) pg MCHC 34.4 (32.0-36.0) g/dL RDW Std Deviation 56.7 H (36.4-46.3) fL RDW Coeff of Greer 16.8 H (11.5-14.5) % Plt Count 224 (130-400) K/uL MPV 9.6 (9.4-12.4) fL Immature Gran % (Auto) 0.3 % Neut % (Auto) 86.7 % Lymph % (Auto) 6.1 % [place] % (Auto) 4.8 % Eos % (Auto) 1.2 % Baso % (Auto) 0.9 % Neut # (Auto) 5.58 (1.40-6.50) K/uL Lymph # (Auto) 0.39 L (1.2-3.4) K/uL [place] # (Auto) 0.31 (0.11-0.59) K/uL Eos # (Auto) 0.08 (0-0.50) K/uL Baso # (Auto) 0.06 (0-0.2) K/uL Immature Gran # (Auto) 0.02 (0.01-0.20) K/uL POC Sodium 130 L (135-144) mmol/L Sodium 129 L (136-145) mmol/L POC Potassium 4.2 (3.3-5.0) mmol/L Potassium 4.1 (3.5-5.1) mmol/L POC Chloride 95 L (101-112) mmol/L Chloride 93 L (98-107) mmol/L Carbon Dioxide 25 (21-32) mmol/L POC Total CO2 24 (24-31) mmol/L Anion Gap 11 (3-11) POC Anion Gap 16.0 (16-25) mmol/L POC BUN 45 H (7-18) mg/dl BUN 38 H (6-23) mg/dl Creatinine 2.50 H (0.6-1.4) mg/dl POC Creatinine 2.8 H (0.6-1.3) mg/dl Est Cr Clr Drug Dosing Not Reportable Est GFR ( Amer) 28.5 ml/min Est GFR (Non-Af Amer) 24.6 ml/min BUN/Creatinine Ratio 15.2 (10-20) Glucose 101 H (70-99(Fasting)) mg/dl POC Glucose (other) 105 H (70-99) mg/dl Calcium 9.5 (8.5-10.1) mg/dl POC Ioniz Calcium Roselia 1.11 L (1.12-1.32) mmol/l Total Bilirubin 0.8 (0.2-1.0) mg/dl AST 48 H (13-39) U/L ALT 27 (7-52) U/L Alkaline Phosphatase 79 (34-104) U/L Total Protein 8.6 H (6.0-8.3) gm/dl Albumin 4.6 (3.4-5.0) gm/dl Globulin 4.0 (2.5-4.0) gm/dl Albumin/Globulin Ratio 1.1 (0.9-2) Imaging Data Radiologist's Impression: Abdomen/Pelvis CT 12/06/22 04:07 Exam(s): CT ABDOMEN + PELVIS Without Contrast EXAM: CT Abdomen and Pelvis Without Intravenous Contrast CLINICAL HISTORY: Reason for exam: ua retention, ? prostate/bladder issue. TECHNIQUE: Axial computed tomography images of the abdomen and pelvis without intravenous contrast. CTDI is 36.59 mGy and DLP is 1906.43 mGy-cm. Automated exposure control was utilized for the study. A dose lowering technique was utilized adhering to the principles of ALARA. COMPARISON: Prior 04/27/2019 FINDINGS: Lung bases: Unremarkable. No mass. No consolidation. ABDOMEN: Liver: Unremarkable. Gallbladder and bile ducts: Interval cholecystectomy. No biliary dilation. Small foci of pneumobilia. Pancreas: Unremarkable. No ductal dilation. Spleen: Unremarkable. No splenomegaly. Adrenals: Unremarkable. No mass. Kidneys and ureters: Mildly dilated renal collecting systems likely relates to distended urinary bladder. No obstructing stones. Stomach and bowel: Unremarkable. No obstruction. No mucosal thickening. PELVIS: Appendix: No findings to suggest acute appendicitis. Bladder: Markedly distended urinary bladder. May represent bladder outlet obstruction. Prostate does not appear enlarged. Small amount of gas within the bladder. Reproductive: See above. ABDOMEN and PELVIS: Intraperitoneal space: Unremarkable. No free air. No significant fluid collection. Bones/joints: Stable curvilinear sclerotic lesion in the right inferior pubic ramus. Likely benign given stability. Degenerative changes of the spine. No acute fracture. No dislocation. Soft tissues: Fat-containing inguinal hernias. Vasculature: Unremarkable. No abdominal aortic aneurysm. Lymph nodes: Unremarkable. No enlarged lymph nodes. IMPRESSION: 1. Markedly distended urinary bladder. May represent bladder outlet obstruction. 2. Small amount of gas within the bladder. May relate to infection or recent instrumentation. 3. Interval cholecystectomy. No biliary dilation. Electronically signed by: Eloisa Mcclure M.D. 12/06/22 05:51 AM [facility] Narrative Prior records/ancillary studies reviewed. Triage Nursing notes reviewed. Additional history obtained from family. The patient's history was concerning for urinary retention Differential diagnosis: Etiologies such as urinary retention, urinary obstruction, infection, bleeding disorder, as well as others were entertained. ER treatment provided: Bladder scan was reviewed Garvey was ordered and three-way was ordered On reassessment the patient felt better. Diagnostics interpreted by me: The labs Independently Interpreted by myself revealed stable anemia per chart review. Stable sodium per chart review Elevated creatinine per chart review Imaging studies: CT was reviewed with urinary retention per my independent interpretation. Consultation: A consultation was placed with urology and recommends CAT scan for imaging of the bladder and prostate. Urology was consulted again after CT scan and will come and and see the patient. Medicine was consulted and will admit the patient. Case was reviewed. This appears to be consistent with urinary retention with acute kidney injury. Urology and medicine were consulted and the case was discussed. Patient admitted to the medical service for acute kidney injury and urology will come in to place the Garvey Labs and diagnostics were independent interpreted by myself. Patient is agreeable treatment plan of admission. By the evaluation outlined a gerald emergent etiologies such as pyelonephritis as well as others were deemed relatively unlikely. The pt informed about the findings as listed above. All questions were answered and pleased with the treatment. The chart was completed utilizing [employer] voice recognition software. Gr ammatical errors, random word insertions, pronoun errors, and incomplete sentences are an occassional consequence of this system due to software limitations, ambient noise, and hardware issues. Any formal questions or concerns about the content, text, or information contained within the body of this dictation should be directly addressed to the physician certified ophthalmic surgical assistant for clarification. Impression & Plan Acute urinary retention, Acute kidney injury Discharge Plan Visit Data Chief Complaint: Catheter Replacement Stated Complaint: UNABLE TO URINATE,HAD A CATHETER REMOVED ED Provider: Sim Sanches ED Midlevel Provider: Keyla Wheat Discharge Problem: Acute urinary retention, Acute kidney injury Patient Disposition: Admitted As Inpatient Condition: Good Discharge Instructions Interventions: ED Discharge Assessment Last Done: 12/06/22 08:05
[2022-12-06] MEDS ORDERED: fentaNYL citrate PF 100 MCG/2 ML VIAL IV STA (03:50)
[2022-12-06 04:19] LABS: iSTAT Creatinine 2.8 mg/dl (0.6-1.3); iSTAT Hemoglobin 13.9 g/dl (14.0-18.0); iSTAT Ionized Calcium 1.11 mmol/l (1.12-1.32); iSTAT Potassium 4.2 mmol/L (3.3-5.0)
[2022-12-06 04:35] LABS: Alanine Aminotransferase 27 U/L (7-52); Albumin Globulin Ratio 1.1 (0.9-2); Albumin Level 4.6 gm/dl (3.4-5.0); Alkaline Phosphatase 79 U/L (34-104); Anion Gap 11 (3-11); Aspartate Aminotransferase 48 U/L (13-39); BUN Creatinine Ratio 15.2 (10-20); Bilirubin,Total 0.8 mg/dl (0.2-1.0); Blood Urea Nitrogen 38 mg/dl (6-23); Calcium 9.5 mg/dl (8.5-10.1); Carbon Dioxide 25 mmol/L (21-32); Chloride 93 mmol/L (98-107); Est GFR (African American) 28.5 ml/min; Est GFR (Non-African American) 24.6 ml/min; Glucose 101 mg/dl (70-99(Fasting)); Potassium 4.1 mmol/L (3.5-5.1); Sodium 129 mmol/L (136-145); Total Protein 8.6 gm/dl (6.0-8.3)
[2022-12-06 04:38] LABS: Basophils # (auto) 0.06 K/uL (0-0.2); Basophils % (auto) 0.9 %; Eosinophils # (auto) 0.08 K/uL (0-0.50); Eosinophils % (auto) 1.2 %; Hemoglobin 11.7 g/dl (14.0-18.0); Immature Granulocytes # (auto) 0.02 K/uL (0.01-0.20); Immature Granulocytes % (auto) 0.3 %; Lymphocytes # (auto) 0.39 K/uL (1.2-3.4); Lymphocytes % (auto) 6.1 %; Mean Corpuscular Hemoglobin 31.8 pg (25.0-34.0); Mean Corpuscular Hgb Conc 34.4 g/dL (32.0-36.0); Mean Corpuscular Volume 92.4 fL (80.0-100.0); Mean Platelet Volume 9.6 fL (9.4-12.4); Monocytes # (auto) 0.31 K/uL (0.11-0.59); Monocytes % (auto) 4.8 %; Neutrophils # (auto) 5.58 K/uL (1.40-6.50); Neutrophils % (auto) 86.7 %; Platelet Count 224 K/uL (130-400); RDW Coefficient of Variation 16.8 % (11.5-14.5); RDW Standard Deviation 56.7 fL (36.4-46.3); Red Blood Count 3.68 M/uL (4.70-6.10); White Blood Count 6.44 K/ul (4.8-10.8)
[2022-12-06] MEDS: fentaNYL citrate PF 100 MCG/2 ML VIAL IV PRN ×4 (04:41→06:51)
--- NOTE | 2022-12-06 05:52 | CT Scan Report ---
Exam(s): CT ABDOMEN + PELVIS Without Contrast EXAM: CT Abdomen and Pelvis Without Intravenous Contrast CLINICAL HISTORY: Reason for exam: ua retention, ? prostate/bladder issue. TECHNIQUE: Axial computed tomography images of the abdomen and pelvis without intravenous contrast. CTDI is 36.59 mGy and DLP is 1906.43 mGy-cm. Automated exposure control was utilized for the study. A dose lowering technique was utilized adhering to the principles of ALARA. COMPARISON: Prior 04/27/2019 FINDINGS: Lung bases: Unremarkable. No mass. No consolidation. ABDOMEN: Liver: Unremarkable. Gallbladder and bile ducts: Interval cholecystectomy. No biliary dilation. Small foci of pneumobilia. Pancreas: Unremarkable. No ductal dilation. Spleen: Unremarkable. No splenomegaly. Adrenals: Unremarkable. No mass. Kidneys and ureters: Mildly dilated renal collecting systems likely relates to distended urinary bladder. No obstructing stones. Stomach and bowel: Unremarkable. No obstruction. No mucosal thickening. PELVIS: Appendix: No findings to suggest acute appendicitis. Bladder: Markedly distended urinary bladder. May represent bladder outlet obstruction. Prostate does not appear enlarged. Small amount of gas within the bladder. Reproductive: See above. ABDOMEN and PELVIS: Intraperitoneal space: Unremarkable. No free air. No significant fluid collection. Bones/joints: Stable curvilinear sclerotic lesion in the right inferior pubic ramus. Likely benign given stability. Degenerative changes of the spine. No acute fracture. No dislocation. Soft tissues: Fat-containing inguinal hernias. Vasculature: Unremarkable. No abdominal aortic aneurysm. Lymph nodes: Unremarkable. No enlarged lymph nodes. IMPRESSION: 1. Markedly distended urinary bladder. May represent bladder outlet obstruction. 2. Small amount of gas within the bladder. May relate to infection or recent instrumentation. 3. Interval cholecystectomy. No biliary dilation. Electronically signed by: Eloisa Mcclure M.D. 12/06/22 05:51 AM
[2022-12-06] MEDS ORDERED: LIDOCAINE 2% JELLY 5 ML TUBE EXT ONE (06:39)
[2022-12-06] MEDS ORDERED: LORazepam 2 MG/1 ML VIAL ONE (06:55)
--- NOTE | 2022-12-06 07:36 | Urology Consultation ---
Date of Consultation December 06, 2022 Assessment & Plan (1) Acute urinary retention: (2) Hematuria, gross: (3) Cirrhosis of liver: (4) Retention of urine, unspecified: (5) Hyponatremia: (6) SIADH (syndrome of inappropriate ADH production): (7) Stroke: (8) Persistent atrial fibrillation: (9) COPD (chronic obstructive pulmonary disease): Plan Numerous attempts at catheter placement at [facility] and our ER. Patient was prepped and draped in normal sterile fashion. 2 x lidocaine jelly injection. Multiple catheters attempted. Patient had likely area of false passage within the bulbar urethra. Areas of stricture likely as well due to resistance once past likely false passage. Catheter would advance to bladder neck but would not enter bladder. Possibly due to high bladder neck. Patient also significant uncomfortable once past area of false passage and considerable bearing down. Multiple catheter attempted. At one point approx 1 liter of urine drained but unable to inflate balloon. Wire was placed through this catheter and attempted to advance which met similar resistance. Imaging reviewed by myself. Significant bladder outlet obstruction with acute retention and hydronephrosis. Cr 2.50. White count 6.44. No major allergies to antibiotics. Covid test negative. Will give dose of ancef. Tachycardia likely secondary to distension and catheter attempts. Afebrile. Other labs stable. Patient with multiple comorbidities. Did discuss anesthesia risk. Due to findings and difficulty right at bladder neck would likely only need sedation with plan to place wire under direct visualization. Risks and benefits discussed at length for procedure. These include bleeding, infection, injury to surrounding tissues or organs, and risks associated with anesthesia. Patient states understanding and agrees to proceed. Will sign consent and proceed. NPO since 3 pm last evening. COVID negative. Admission pending to medicine for GEE and history of Vascular issues with Cirrhosis and hyponatremia. Will likely monitor with drainage. Approx 1 liter urine drained with the attempts at catheter placement. Considerably improved discomofort. Urine was clear/light pink. Bleeding likely at urethra/false passage. Plan for cystoscopy with possible clot evacuation and dilation. Plan for emergent procedure due to significant obstruction with severe distension and acute renal failure. Total time greater than 95 minutes in ER and in coordination with ER and medicine and OR as well as attempted catheter placement, drainage of bladder, and extensive review of history and recent episode starting at issues with incomplete emptying and multiple visits to [facility]. History of Present Illness History of Present Illness New consultation for patient with significant urinary retention, discomfort, obstruction, and ill feelings. Patient developed sudden onset of pain into suprapubic region and flank going down and radiating into groin and back in wave s comes and goes. Can be severe at times. Known history of severe bladder outlet obstruction. Went to [facility] [facility] x 2 yesterday due to catheter issues. Had catheter removed and then not replaced. Multiple attempts in last 24 hours. Imaging completed for possible obstruction. Significant bladder distension with bilateral hydro. Air in bladder likely from attempted catheter. Blood in urine. Unable to void. Numerous attempts by myself. Significant distension and pain. Discussed and reviewed patient's family history for any history of bladder obstruction issues. 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 Also, discussed patient's medical surgery history especially related to any history of urinary issues or stone disease. Patient was admitted and is undergoing observation. Allergies Allergy/AdvReac Type Severity Reaction Status Date / Time chlorhexidine Allergy Intermediate Redness, Verified 12/05/22 12:58 burning Home Medications Medication Instructions Recorded Confirmed Type budesonide-formoterol HFA 160 2 puff inhalation BID 03/06/19 12/05/22 History mcg-4.5 mcg/actuation aerosol inhaler (Symbicort) carvedilol 12.5 mg tablet 12.5 mg PO BID 03/06/19 12/05/22 History pantoprazole 40 mg tablet,delayed 40 mg PO QAM 03/06/19 12/05/22 History release (Protonix) tiotropium bromide 2.5 2 puff inhalation QAM PRN Wheezing 03/06/19 12/05/22 History mcg/actuation mist for inhalation (Spiriva Respimat) levocetirizine 5 mg tablet 5 mg PO HS 03/07/19 12/05/22 History apixaban 5 mg tablet (Eliquis) 5 mg PO BID 04/23/21 12/05/22 History tolvaptan 30 mg tablet (Samsca) 30 mg PO QAM 04/23/21 12/05/22 History acetaminophen 500 mg tablet 1,000 mg PO Q6H PRN Pain 06/04/21 12/05/22 History ipratropium bromide 21 mcg (0.03 2 spray intranasal BID PRN Nasal 06/04/21 12/05/22 History %) nasal spray Congestion montelukast 10 mg tablet 10 mg PO HS 06/04/21 12/05/22 History amlodipine 2.5 mg tablet 2.5 mg PO QAM 11/09/21 12/05/22 History hyoscyamine sulfate 0.125 mg 0.125 mg PO QID 11/09/21 12/05/22 History tablet (Levsin) omalizumab 75 mg/0.5 mL 0 mg subcut Q14D 11/09/21 12/05/22 History subcutaneous syringe cholecalciferol (vitamin D3) 125 125 mcg PO DAILY 01/21/22 12/05/22 History mcg (5,000 unit) capsule albuterol sulfate 90 mcg/actuation 1 inh inhalation QID 12/05/22 12/05/22 History aerosol inhaler (ProAir HFA) ciprofloxacin HCl 250 mg tablet 250 mg PO BID 10 days #20 tabs 12/05/22 12/05/22 Rx ferric subsulfate 259 mg/g topical 1 applic topical DAILY 12/05/22 12/05/22 History solution hydrocodone 7.5 mg-acetaminophen 15 ml PO Q6H PRN 12/05/22 12/05/22 History 325 mg/15 mL oral solution sacubitril 49 mg-valsartan 51 mg 1 tab PO BID 12/05/22 12/05/22 History tablet (Entresto) torsemide 20 mg tablet 20 mg PO DAILY 12/05/22 12/05/22 History vitamin B comp and C no.3 15 mg-10 1 cap PO DAILY 12/05/22 12/05/22 History mg-50 mg-5 mg-300 mg capsule (B Complex Plus Vitamin C) Patient History Medical History Anemia S/p blood transfusions 3+ years ago IRON INFUSIONS 09/2021 BPH (benign prostatic hyperplasia) Chronic kidney disease Stage III, under surveillance by Dr. Moreno/[facility] Chronic obstructive pulmonary disease Stable Cirrhosis Suspected per imaging/records per patient Stable GERD (gastroesophageal reflux disease) Controlled History of COVID-19 DX'D 09/09/21 PH CAM SYMPTOMS OF COUGH-TREATED WITH ANTIBODIES/RECOVERED AT HOME-SYMPTOMS RESOLVED History of IBS Hx of gastric ulcer Remote hx Hypertension Paroxysmal A-fib + A-flutter S/P radiofrequency ablation (~3 yrs ago)-F/U DR AASHISH LEVY [facility] SIADH (syndrome of inappropriate ADH production) Per nephrology records "ETOH/liver disease and/or COPD/pulmonary nodule (R/O CA)/SIADH...longstanding history of hyponatremia, baseline high 120s per chart review Sleep apnea Non-compliant with CPAP Sleeps with wedge Stroke CVA (02/18/21) > no residual effects, PCP following, on Eliquis now (Plavix was discontinued after 3 months) Thoracic aortic aneurysm Following with vascular, Dr. Bill Mcarthur/[facility] (CT surgery), stable per CTA 12/2020 at 5.3 x 5.1 per cardiology records, no surgical intervention planned at this time Surgical History H/O cardiac radiofrequency ablation 5+ years ago H/O total knee replacement Left History of cataract surgery R/L History of cholecystectomy History of colonoscopy History of ERCP ERCP (04/28/19): Elective glidescope #3, ETT 7.5 at [facility] History of esophagogastroduodenoscopy (EGD) History of lumbar fusion PT DENIES History of nasal cauterization Hx of appendectomy Hx of foot surgery Left Hx of repair of left rotator cuff Hx of repair of right rotator cuff Hx of tonsillectomy S/P TURP PT DENIES S/P ureteral stent placement Left (2018)-PT DENIES Family History Father Family hx of colon cancer Mother Family history of diabetes mellitus Social History Smoking Status: Current some day smoker Cigarettes Per Day: 2-3 CIGARS PER WEEK; 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 Very anxious in considerable discomfort due to distention. HEENT: Normocephalic Atraumatic. Inspection normal. Cranial Nerves 2-12 Samuel sly intact. Nares are clear. Neck is supple. Normal inspection of face. Normal inspection of neck. Neurologic: No deficits on inspection. Baseline for motor function and sensory. Psychologic: Normal affect. Respiratory: Nonlabored. No use of accessory muscles. No tachypnea or dyspnea. Cardiovascular: No tachycardia Skin: [place] and Dry. No rashes or visible lesions. Extremities: Moving without issues. No motor deficits on inspection Abdomen: Significant distension with suprapubic tenderness. Blood at meatus. No rebound or guarding. Results & Data Vital Signs (Past 12 Hours) Vital Signs Temp Pulse Pulse Resp BP BP Pulse Ox 12/06/22 05:45 104 H 18 128/89 94 12/06/22 04:43 99 H 12/06/22 04:09 99 H 17 139/90 97 12/06/22 02:51 36.6 C 85 20 143/83 H 97 O2 Del Method 12/06/22 05:45 Room Air 12/06/22 04:43 12/06/22 04:09 Room Air 12/06/22 02:51 Room Air PG Care Time/CCT Total # of Minutes Spent Total Time Spent with Patient: Total time spent is greater than 50% in coordination of care (as documented) at patient's floor/unit and/or counseling patient: Coding Level of Care Code 65353 IN/OBS CONSULT LVL 5,80M Diagnoses Acute urinary retention R33.8 Hematuria, gross R31.0 Cirrhosis of liver K74.60 Retention of urine, unspecified R33.9 Hyponatremia E87.1 SIADH (syndrome of inappropriate ADH production) E22.2 Stroke I63.9 Persistent atrial fibrillation I48.19 COPD (chronic obstructive pulmonary disease) J44.9
[2022-12-06] MEDS ORDERED: PROPOFOL IV EMULSION 10 MG/ML 20 ML VIAL IV ONE (07:47)
[2022-12-06] MEDS ORDERED: fentaNYL citrate PF 100 MCG/2 ML VIAL ONE (07:47)
[2022-12-06] MEDS ORDERED: MIDAZOLAM HCL 1 MG/ML 2ML VIAL ONE (07:47)
[2022-12-06] MEDS ORDERED: LIDOCAINE 2% MPF LOCAL 5 ML VIAL INFIL ONE (07:47)
[2022-12-06] MEDS ORDERED: ONDANSETRON INJ 2 MG/ML 2 ML VIAL ONE (07:47)
[2022-12-06] MEDS ORDERED: ceFAZolin 330 MG/ML 1 GM VIAL ONE ×3 (08:32→09:55)
--- NOTE | 2022-12-06 08:34 | Anesthesiology Consultation ---
Date of Service December 06, 2022 Assessment & Plan Chart Review Chart Review: Acceptable Risk for Surgery Consults Requested none History Surgery Operation Date: 12/06/22 11:30 Proposed Procedures p Cystoscopy Clot Evacuation - Francisco Cordova, Height/Weight Height: 6 ft 6 in Allergies Allergy/AdvReac Type Severity Reaction Status Date / Time chlorhexidine Allergy Intermediate Redness, Verified 12/05/22 12:58 burning Medications Home Medications Medication Instructions Recorded Confirmed Last Taken budesonide-formoterol HFA 160 2 puff inhalation BID 03/06/19 12/05/22 11/18/21 06:45 mcg-4.5 mcg/actuation aerosol inhaler (Symbicort) carvedilol 12.5 mg tablet 12.5 mg PO BID 03/06/19 12/05/22 11/18/21 06:45 pantoprazole 40 mg tablet,delayed 40 mg PO QAM 03/06/19 12/05/22 11/18/21 06:45 release (Protonix) tiotropium bromide 2.5 2 puff inhalation QAM PRN Wheezing 03/06/19 12/05/22 04/02/19 06:05 mcg/actuation mist for inhalation (Spiriva Respimat) levocetirizine 5 mg tablet 5 mg PO HS 03/07/19 12/05/22 11/17/21 22:00 apixaban 5 mg tablet (Eliquis) 5 mg PO BID 04/23/21 12/05/22 11/14/21 20:00 tolvaptan 30 mg tablet (Samsca) 30 mg PO QAM 04/23/21 12/05/22 11/17/21 08:00 acetaminophen 500 mg tablet 1,000 mg PO Q6H PRN Pain 06/04/21 12/05/22 11/17/21 06:45 ipratropium bromide 21 mcg (0.03 2 spray intranasal BID PRN Nasal 06/04/21 12/05/22 Unknown %) nasal spray Congestion montelukast 10 mg tablet 10 mg PO HS 06/04/21 12/05/22 11/17/21 20:00 amlodipine 2.5 mg tablet 2.5 mg PO QAM 11/09/21 12/05/22 11/17/21 20:30 hyoscyamine sulfate 0.125 mg 0.125 mg PO QID 11/09/21 12/05/22 11/17/21 08:00 tablet (Levsin) omalizumab 75 mg/0.5 mL 0 mg subcut Q14D 11/09/21 12/05/22 11/17/21 10:30 subcutaneous syringe cholecalciferol (vitamin D3) 125 125 mcg PO DAILY 01/21/22 12/05/22 Unknown mcg (5,000 unit) capsule albuterol sulfate 90 mcg/actuation 1 inh inhalation QID 12/05/22 12/05/22 Unknown aerosol inhaler (ProAir HFA) ciprofloxacin HCl 250 mg tablet 250 mg PO BID 10 days #20 tabs 12/05/22 12/05/22 Unknown ferric subsulfate 259 mg/g topical 1 applic topical DAILY 12/05/22 12/05/22 Unknown solution hydrocodone 7.5 mg-acetaminophen 15 ml PO Q6H PRN 12/05/22 12/05/22 Unknown 325 mg/15 mL oral solution sacubitril 49 mg-valsartan 51 mg 1 tab PO BID 12/05/22 12/05/22 Unknown tablet (Entresto) torsemide 20 mg tablet 20 mg PO DAILY 12/05/22 12/05/22 Unknown vitamin B comp and C no.3 15 mg-10 1 cap PO DAILY 12/05/22 12/05/22 Unknown mg-50 mg-5 mg-300 mg capsule (B Complex Plus Vitamin C) Active Medications Generic Name Dose Route Start Last Admin Trade Name Freq PRN Reason Stop Dose Admin Fentanyl Citrate 50 mcg 12/06/22 04:38 12/06/22 06:51 Fentanyl Citrate 100 Mcg/2 Ml Vial IV 12/20/22 04:37 50 mcg Q15M PRN Administration Pain NPO Date Last Intake of Fluids: 12/05/22 Time Last Intake of Fluids: 16:00 Date Last Intake of Solids: 12/05/22 Time Last Intake of Solids: 07:00 Past Medical History Medical History Anemia S/p blood transfusions 3+ years ago IRON INFUSIONS 09/2021 BPH (benign prostatic hyperplasia) Chronic kidney disease Stage III, under surveillance by Dr. Moreno/[facility] Chronic obstructive pulmonary disease Stable Cirrhosis Suspected per imaging/records per patient Stable GERD (gastroesophageal reflux disease) Controlled History of COVID-19 DX'D 09/09/21 DAVIN LEVY SYMPTOMS OF COUGH-TREATED WITH ANTIBODIES/RECOVERED AT HOME-SYMPTOMS RESOLVED History of IBS Hx of gastric ulcer Remote hx Hypertension Paroxysmal A-fib + A-flutter S/P radiofrequency ablation (~3 yrs ago)-F/U DR AASHISH LEVY CARDIOLOGY SIADH (syndrome of inappropriate ADH production) Per nephrology records "ETOH/liver disease and/or COPD/pulmonary nodule (R/O CA)/SIADH...longstanding history of hyponatremia, baseline high 120s per chart review Sleep apnea Non-compliant with CPAP Sleeps with wedge Stroke CVA (02/18/21) > no residual effects, PCP following, on Eliquis now (Plavix was discontinued after 3 months) Thoracic aortic aneurysm Following with vascular, Dr. Bill Mcarthur/[facility] (CT surgery), stable per CTA 12/2020 at 5.3 x 5.1 per cardiology records, no surgical intervention planned at this time Past Family History Family History Father Family hx of colon cancer Mother Family history of diabetes mellitus Past Surgical History Surgical History H/O cardiac radiofrequency ablation 5+ years ago H/O total knee replacement Left History of cataract surgery R/L History of cholecystectomy History of colonoscopy History of ERCP ERCP (04/28/19): Elective glidescope #3, ETT 7.5 at [facility] History of esophagogastroduodenoscopy (EGD) History of lumbar fusion PT DENIES History of nasal cauterization Hx of appendectomy Hx of foot surgery Left Hx of repair of left rotator cuff Hx of repair of right rotator cuff Hx of tonsillectomy S/P TURP PT DENIES S/P ureteral stent placement Left (2019)-PT DENIES Social History Smoking Status: Current some day smoker tobacco type: cigars Smoking cigarettes per day: 2-3 CIGARS PER WEEK Hx Alcohol Use: Yes Alcohol type: beer and hard liquor alcohol intake frequency: 0-2 drinks per day (2-3 BEERS/DAY) Hx Substance Use: No substance use type: does not use Physical Exam Vital Signs Last Vital Signs Temp 37.0 C 03/21/23 08:07 Pulse 109 H 12/06/22 08:07 Resp 20 12/06/22 08:07 BP 176/100 H 12/06/22 08:07 Pulse Ox 100 12/06/22 08:07 O2 Del Method Room Air 12/06/22 08:07 Testing Laboratory Results 12/06/22 03:58 12/06/22 03:58 12/06/22 04:07 POC Glucose (other) 105 H
[2022-12-06] MEDS ORDERED: ePHEDrine sulfate 50 MG/ML AMP IV PRN (08:35)
[2022-12-06] MEDS ORDERED: fentaNYL citrate PF 100 MCG/2 ML VIAL IV PRN (08:35)
[2022-12-06] MEDS ORDERED: ONDANSETRON INJ 2 MG/ML 2 ML VIAL IV PRN ×2 (08:35→10:12)
[2022-12-06] MEDS ORDERED: ATROPINE SULFATE 0.1 MG/ML 10ML SYR IV PRN (08:35)
[2022-12-06] MEDS ORDERED: HYDROmorphone INJ 2 MG/ML SYR/VIAL IV PRN (08:35)
[2022-12-06] MEDS ORDERED: PROMETHAZINE HCL 12.5 MG in SODIUM CHLORIDE 0.9% 50 ML IV PRN (08:35)
--- NOTE | 2022-12-06 08:59 | Operative Report ---
PG Post Operative Report Pre & Post Diagnosis Operation Date: 12/06/22 11:30 Pre-Op Diagnosis: Acute urinary retention Post-Op Diagnosis: Acute urinary retention I identified the patient and participated in the time-out.: Yes Procedure Operation Date: 12/06/22 11:30 Actual Procedures p Cystoscopy with Dilation and Clot Evacuation(Not Applicable) - Francisco Cordova DO Surgeon Francisco Cordova, II, DO Vp Treasurer None Estimated Blood Loss 5 Findings Consistent with Post-Op Diagnosis Mild bulbar and meatal strictures dilated due to stricture. Small false passage in bulbar urethra. Significant high bladder neck with narrowing of bladder neck. Dilated and bypassed. Moderate blood clot evacuated. . Specimens None Drains 22 Fr Odd Tip Anesthesia Type MAC Complications none Disposition Disposition: Recovery Room Indications Patient with concern for urinary retention in acute/emergent obstruction with possible urethral stricture. Risks and benefits discussed at length. Description of Procedure Patient was consented and brought back to the operating room. Patient was placed under anesthesia in the supine position and moved to the dorsal lithotomy position. Patient was prepped and draped in the regular sterile fashion. A time out was completed. The meatus was dilated due to narrowing. A 30 degree Cystoscope was placed into the urethra. The scope was advanced and a bulbar urethra false passage and narrowing/stricture was discovered in the urethra. These were mild but were causing some restriction. A flexible wire was able to be manipulated into the opening. The area was dilated and then advanced. The bladder neck was assessed. This was found to be significantly high and narrowed. The high bladder neck also had area at the 6 o'clock position that appeared to be where the catheter was hitting and not advancing. The wire was placed into the bladder. The bladder neck was dilated and the scope advanced. A moderate amount of clot was then evacuated. The bladder was dilated and irritated but no major bleeding. Only minor bleeding was at the 6 o'clock position of the bladder neck likely from multiple catheter attempts. The scope was then advanced to the bladder and the entire bladder was examined. The UO's were identified as well as the bladder neck, trigone, dome, and the other important landmarks. No lesions/suspicious areas were identified. No significant bleeding. The bladder was inspected a final time. The scope was removed. No considerable bleeding from the dilations. The wire remained in placed. A poarch tip catheter was placed over the wire and positioned into the bladder and set to drainage. The patient was cleaned, aroused from anesthesia, and transferred to the pacu in stable condition having tolerated the procedure well with no complications. I was present and participated in all aspects of the procedure. The patient will be monitored in the PACU until transferred. Catheter will remain until followup for removal. Likely followup in approx 3-4 weeks with scope and possible catheter removal. I attest to the content of the Intraoperative Record and any orders documented therein. Any exceptions are noted below.
[2022-12-06] MEDS ORDERED: MAGNESIUM HYDROXIDE SUSP 30 ML UDC PO PRN (10:12)
[2022-12-06] MEDS ORDERED: POLYETHYLENE (MIRALAX) 17 GM PACK PO PRN (10:12)
[2022-12-06] MEDS ORDERED: ALUMINUM/MAGNESIUM SUSP 30 ML UDC PO PRN (10:12)
[2022-12-06] MEDS ORDERED: SODIUM CHLORIDE 0.9% 500 ML IV SCH (10:30)
[2022-12-06] MEDS: ACETAMINOPHEN 325 MG TAB PO PRN (11:00)
--- NOTE | 2022-12-06 12:14 | History & Physical Report ---
Date of Service December 06, 2022 Assessment & Plan (1) Retention of urine, unspecified: Plan: Urinary retention s/p catheter placement by Dr. Cordova on 12/06 in OR - Urology following, appreciate assistance - Add Flomax 0.4mg HS - UA in office on 12/05 concerning for infection - started on Cipro as outpatient - Repeat UA with reflex urine culture ordered - pending - Check blood cultures x 2 - Empiric Ceftriaxone 2g IV daily until culture data finalized and tailor ac cordingly (2) Acute kidney injury superimposed on chronic kidney disease: Plan: - Creatinine up to 2.50 with a baseline of around 2.0 - Hydrate with 500 cc of NSS x 1 bag - Repeat BMP this afternoon - Suspect that this is post renal (3) Afib: Plan: - Stable with controlled HR - Continue Eliquis 5mg BID and Coreg 12.5mg BID (4) HTN (hypertension): Plan: - Resume antihypertensives including Coreg, Amlodipine, and Entresto (5) COPD (chronic obstructive pulmonary disease): Plan: - Stable w/o acute exacerbation (6) SIADH (syndrome of inappropriate ADH production): Plan: - Appears at his baseline which ranges 129-131 - Managed with Tolvaptan and Torsemide, resumed Plan DVT ppx will be covered with resumption of Eliquis. Heart healthy diet ordered. AM labs including cbc, bmp, and mag Above plan of care has been d/w Dr. Renae who will also see and evaluate this patient. Further orders will be implemented as warranted. Admission and Anticipated Discharge Date Admission Date: December 06, 2022 History of Present Illness Primary Care Provider: Unruly Laughlin Ruy Mcbride is a 72 yo M with a pmhx of afib, hyponatremia d/t SIADH, HTN, COPD, anemia, cirrhosis who presented to the ER today d/t blocked urinary catheter. P charis had a urinary catheter placed around 230pm yesterday afternoon due to retention. 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 During the urology visit on 12/05, patient endorsed bothersome urinary symptoms including urgency and incontinence and just recently completed a course of Fluconazole from his PCP for yeast in his urine. He had a UA performed in the office on 12/05 which was suspicious for infection with a dip showing large blood, large LE, >30 RBCs and >30 WBCs. His PVR in the office was 564 mL and after voiding again was 534 mL. Urinary catheter was successfully placed in the office on 12/05 and he was started on empiric Cipro 250mg BID x 10 days for suspected UTI. Plan was to continue with catheter until he is seen in follow up for cystoscopy. Unfortunately, after patient left the office and went home yesterday, his catheter stopped draining. He ended up going to the ER at [place] and the catheter was repositioned and the urine began draining again and was discharged home. When he returned home, the catheter stopped draining again and he began having pain and returned again to the ER. They attempted but were unable to get the brown to drain and subsequently told him to come to [place]. Patient presented to the ER around 0300 this morning, urology was contacted but was unable to replace the catheter at bedside. He was subsequently taken to the OR for it to be replaced. His work up in the ER demonstrated a normal wbc count w/o shift, but elevated BUN and creatinine above his baseline of 38 and 2.50, respectively. He has been referred for admission to the hospitalist service for further care. Allergies Allergy/AdvReac Type Severity Reaction Status Date / Time chlorhexidine Allergy Intermediate Redness, Verified 12/05/22 12:58 burning Home Medications Medication Instructions Recorded Confirmed Type budesonide-formoterol HFA 160 2 puff inhalation BID 03/06/19 12/05/22 History mcg-4.5 mcg/actuation aerosol inhaler (Symbicort) carvedilol 12.5 mg tablet 12.5 mg PO BID 03/06/19 12/05/22 History pantoprazole 40 mg tablet,delayed 40 mg PO QAM 03/06/19 12/05/22 History release (Protonix) tiotropium bromide 2.5 2 puff inhalation QAM PRN Wheezing 03/06/19 12/05/22 History mcg/actuation mist for inhalation (Spiriva Respimat) levocetirizine 5 mg tablet 5 mg PO HS 03/07/19 12/05/22 History apixaban 5 mg tablet (Eliquis) 5 mg PO BID 04/23/21 12/05/22 History tolvaptan 30 mg tablet (Samsca) 30 mg PO QAM 04/23/21 12/05/22 History acetaminophen 500 mg tablet 1,000 mg PO Q6H PRN Pain 06/04/21 12/05/22 History ipratropium bromide 21 mcg (0.03 2 spray intranasal BID PRN Nasal 06/04/21 12/05/22 History %) nasal spray Congestion montelukast 10 mg tablet 10 mg PO HS 06/04/21 12/05/22 History amlodipine 2.5 mg tablet 2.5 mg PO QAM 11/09/21 12/05/22 History hyoscyamine sulfate 0.125 mg 0.125 mg PO QID 11/09/21 12/05/22 History tablet (Levsin) omalizumab 75 mg/0.5 mL 0 mg subcut Q14D 11/09/21 12/05/22 History subcutaneous syringe cholecalciferol (vitamin D3) 125 125 mcg PO DAILY 01/21/22 12/05/22 History mcg (5,000 unit) capsule albuterol sulfate 90 mcg/actuation 1 inh inhalation QID 12/05/22 12/05/22 History aerosol inhaler (ProAir HFA) ciprofloxacin HCl 250 mg tablet 250 mg PO BID 10 days #20 tabs 12/05/22 12/05/22 Rx ferric subsulfate 259 mg/g topical 1 applic topical DAILY 12/05/22 12/05/22 History solution hydrocodone 7.5 mg-acetaminophen 15 ml PO Q6H PRN 12/05/22 12/05/22 History 325 mg/15 mL oral solution sacubitril 49 mg-valsartan 51 mg 1 tab PO BID 12/05/22 12/05/22 History tablet (Entresto) torsemide 20 mg tablet 20 mg PO DAILY 12/05/22 12/05/22 History vitamin B comp and C no.3 15 mg-10 1 cap PO DAILY 12/05/22 12/05/22 History mg-50 mg-5 mg-300 mg capsule (B Complex Plus Vitamin C) Past Med/Surg History Medical History Anemia S/p blood transfusions 3+ years ago IRON INFUSIONS 09/2021 BPH (benign prostatic hyperplasia) Chronic kidney disease Stage III, under surveillance by Dr. Moreno/Ryan Chronic obstructive pulmonary disease Stable Cirrhosis Suspected per imaging/records per patient Stable GERD (gastroesophageal reflux disease) Controlled History of COVID-19 DX'D 09/09/21 DAVIN LEVY SYMPTOMS OF COUGH-TREATED WITH ANTIBODIES/RECOVERED AT HOME-SYMPTOMS RESOLVED History of IBS Hx of gastric ulcer Remote hx Hypertension Paroxysmal A-fib + A-flutter S/P radiofrequency ablation (~3 yrs ago)-F/U DR AASHISH LEVY CARDIOLOGY SIADH (syndrome of inappropriate ADH production) Per nephrology records "ETOH/liver disease and/or COPD/pulmonary nodule (R/O CA)/SIADH...longstanding history of hyponatremia, baseline high 120s per chart review Sleep apnea Non-compliant with CPAP Sleeps with wedge Stroke CVA (02/18/21) > no residual effects, PCP following, on Eliquis now (Plavix was discontinued after 3 months) Thoracic aortic aneurysm Following with vascular, Dr. Bill Mcarthur/[facility] (CT surgery), stable per CTA 12/2020 at 5.3 x 5.1 per cardiology records, no surgical intervention planned at this time Surgical History H/O cardiac radiofrequency ablation 5+ years ago H/O total knee replacement Left History of cataract surgery R/L History of cholecystectomy History of colonoscopy History of ERCP ERCP (04/28/19): Elective glidescope #3, ETT 7.5 at [facility] History of esophagogastroduodenoscopy (EGD) History of lumbar fusion PT DENIES History of nasal cauterization Hx of appendectomy Hx of foot surgery Left Hx of repair of left rotator cuff Hx of repair of right rotator cuff Hx of tonsillectomy S/P TURP PT DENIES S/P ureteral stent placement Left (2018)-PT DENIES Family History Father Family hx of colon cancer Mother Family history of diabetes mellitus Social History Smoking Status: Current some day smoker Cigarettes Per Day: 2-3 CIGARS PER WEEK; Second Hand Exposure: Yes; Do You Dip or Chew Tobacco: No; Tobacco Cessation Education Requested by Patient: No Hx Alcohol Use: Yes Alcohol type: beer Hx Substance Use: No Preferred Language: Azeri Communication Ability: Effective Still Operator Required: No Beliefs That Will Affect Care: None marital status: Current Living Situation: Spouse current occupational status: retired Other Information That Helps Us Care for You: No Feels Safe at Home: Yes Safety Concerns: Feels Safe At This Time Assistive Devices: None Physical Exam Physical Exam: GENERAL: 72 yo Well-developed, well-nourished WM. NAD. LUNGS: Clear to auscultation bilaterally. CARDIOVASCULAR: S1 S2 ABDOMEN: Soft, non-tender and non-distended. : Brown in place, pale yellow urine in bag Results & Data Results & Data Vital Signs (Past 12 Hours) Vital Signs Temp Pulse Pulse Pulse Resp BP BP 12/06/22 11:18 37.9 C H 18 176/89 H 12/06/22 10:40 37.9 C H 100 H 16 174/93 H 12/06/22 10:10 12/06/22 10:10 37.5 C 103 H 16 193/85 H 12/06/22 09:55 110 H 20 160/83 H 12/06/22 09:40 37.8 C H 103 H 19 146/77 H 12/06/22 09:20 100 H 19 159/83 H 12/06/22 09:30 110 H 19 152/80 H 12/06/22 09:10 102 H 20 153/83 H 12/06/22 09:03 37.0 C 102 H 20 160/90 H 12/06/22 08:07 37.0 C 109 H 20 176/100 H 12/06/22 07:50 104 H 20 172/94 H 12/06/22 07:47 113 H 19 12/06/22 07:30 101 H 20 12/06/22 07:00 109 H 19 12/06/22 06:30 115 H 21 12/06/22 06:00 117 H 19 12/06/22 05:30 100 H 18 12/06/22 05:30 128/89 12/06/22 05:00 113 H 19 12/06/22 05:00 168/97 H 12/06/22 04:33 97 H 13 12/06/22 05:45 104 H 18 128/89 12/06/22 04:43 99 H 12/06/22 04:09 99 H 17 139/90 12/06/22 02:51 36.6 C 85 20 143/83 H Pulse Ox O2 Del Method O2 Flow Rate 12/06/22 11:18 98 Room Air 12/06/22 10:40 97 Room Air 12/06/22 10:10 Room Air 12/06/22 10:10 95 Room Air 12/06/22 09:55 95 Room Air 12/06/22 09:40 94 Room Air 12/06/22 09:20 100 Oxymask 4 12/06/22 09:30 95 Room Air 12/06/22 09:10 100 Oxymask 4 12/06/22 09:03 100 Oxymask 4 12/06/22 08:07 100 Room Air 12/06/22 07:50 95 12/06/22 07:47 12/06/22 07:30 12/06/22 07:00 12/06/22 06:30 12/06/22 06:00 96 12/06/22 05:30 95 12/06/22 05:30 12/06/22 05:00 96 12/06/22 05:00 12/06/22 04:33 97 12/06/22 05:45 94 Room Air 12/06/22 04:43 12/06/22 04:09 97 Room Air 12/06/22 02:51 97 Room Air Laboratory Results 12/06/22 03:58 12/06/22 03:58 PG Care Time/CCT Total # of Minutes Spent Total Time Spent with Patient: Total time spent is greater than 50% in coordination of care (as documented) at patient's floor/unit and/or counseling patient: Coding Level of Care Code 18914 INT INP/OBS CARE 3/75MIN Diagnoses Retention of urine, unspecified R33.9 Acute kidney injury superimposed on chronic kidney disease N17.9; N18.9 Afib I48.91 HTN (hypertension) I10 COPD (chronic obstructive pulmonary disease) J44.9 SIADH (syndrome of inappropriate ADH production) E22.2
[2022-12-06 12:43] LABS: Appearance Urine Turbid (Clear); Bacteria Urine Automated Negative (Negative); Bilirubin Urine Negative (Negative); Blood Urine 3+ (Negative); Color Urine Orange; Glucose Urine UA Negative (Negative); Ketones Urine Negative (Negative); Leukocyte Esterase Urine 3+ (Negative); Nitrite Urine Negative (Negative); Protein Urine 2+ (Negative); RBC Urine Automated >30 /hpf (0-4); Specific Gravity Urine 1.011 (1.000-1.030); Urobilinogen Urine Negative (Negative); WBC Urine Automated >30 /hpf (0-5); pH Urine 6.5 (4.5-7.5)
[2022-12-06] MEDS: APIXABAN 5 MG TABLET PO SCH ×2 (13:05→20:53)
[2022-12-06] MEDS: VALSARTAN/SACUBITRIL 51/49 MG TAB PO SCH ×2 (13:05→20:54)
[2022-12-06] MEDS: amLODIPine BESYLATE 5 MG TAB PO SCH ×2 (13:05→13:16)
[2022-12-06] MEDS: carvediloL 12.5 MG TAB PO SCH ×2 (13:05→21:14)
[2022-12-06] MEDS: cefTRIAXone SODIUM 2,000 MG in DEXTROSE 5% 50 ML IV SCH (13:07)
[2022-12-06] MEDS ORDERED: oxyCODONE/ACETAMINOPHEN 5mg/325mg TAB PO PRN (13:49)
[2022-12-06] MEDS: oxyCODONE/ACETAMINOPHEN 5mg/325mg TAB PO PRN ×2 (14:59→21:16)
[2022-12-06 15:18] LABS: BUN Creatinine Ratio 14.9 (10-20); Calcium 9.2 mg/dl (8.5-10.1); Creatinine Clr Calc Pharmacy 34.2 ml/min; Est GFR (African American) 28.6 ml/min; Est GFR (Non-African American) 24.7 ml/min; Potassium 3.8 mmol/L (3.5-5.1)
[2022-12-06] MEDS ORDERED: TAMSULOSIN HCL 0.4 MG CAP PO SCH (21:00)
[2022-12-07] MEDS: oxyCODONE/ACETAMINOPHEN 5mg/325mg TAB PO PRN (03:00)
[2022-12-07 08:24] LABS: Basophils # (auto) 0.02 K/uL (0-0.2); Basophils % (auto) 0.4 %; Hematocrit (blood only) 32.9 % (42.0-52.0); Hemoglobin 11.3 g/dl (14.0-18.0); Immature Granulocytes # (auto) 0.05 K/uL (0.01-0.20); Lymphocytes # (auto) 0.18 K/uL (1.2-3.4); Lymphocytes % (auto) 3.6 %; Mean Corpuscular Hemoglobin 31.7 pg (25.0-34.0); Mean Corpuscular Hgb Conc 34.3 g/dL (32.0-36.0); Mean Corpuscular Volume 92.4 fL (80.0-100.0); Mean Platelet Volume 9.7 fL (9.4-12.4); Monocytes # (auto) 0.33 K/uL (0.11-0.59); Monocytes % (auto) 6.6 %; Neutrophils # (auto) 4.41 K/uL (1.40-6.50); Neutrophils % (auto) 88.4 %; Platelet Count 135 K/uL (130-400); RDW Coefficient of Variation 16.9 % (11.5-14.5); RDW Standard Deviation 57.5 fL (36.4-46.3); Red Blood Count 3.56 M/uL (4.70-6.10); White Blood Count 4.99 K/ul (4.8-10.8)
[2022-12-07 08:32] LABS: Est GFR (African American) 31.5 ml/min; Est GFR (Non-African American) 27.2 ml/min; Magnesium 1.9 mg/dl (1.7-2.4); Potassium 3.6 mmol/L (3.5-5.1)
[2022-12-07] MEDS: carvediloL 12.5 MG TAB PO SCH (08:33)
[2022-12-07] MEDS: ACETAMINOPHEN 325 MG TAB PO PRN (08:33)
[2022-12-07] MEDS: APIXABAN 5 MG TABLET PO SCH (08:33)
[2022-12-07] MEDS: VALSARTAN/SACUBITRIL 51/49 MG TAB PO SCH (08:33)
[2022-12-07] MEDS ORDERED: PANTOprazole 40 MG TAB PO SCH (09:00)
[2022-12-07] MEDS ORDERED: FLUTICASONE/VILANTEROL 100/25MCG 14 PUFFS/INHALER INH SCH (09:00)
[2022-12-07] MEDS ORDERED: TOLVAPTAN 15 MG TABLET PO SCH (09:00)
[2022-12-07] MEDS ORDERED: TORSEMIDE 20 MG TAB PO SCH (09:00)
[2022-12-07] MEDS: cefTRIAXone SODIUM 2,000 MG in DEXTROSE 5% 50 ML IV SCH (09:35)
--- NOTE | 2022-12-07 10:11 | Urology Progress Note ---
Date of Service December 07, 2022 Assessment & Plan (1) Acute urinary retention: (2) UTI (urinary tract infection): Plan POD #1 s/p cystoscopy, dilation, clot evacuation, catheter placement by Dr. Cordova in the operating room. Afebrile and hemodynamically stable. Labs show no leukocytosis and creatinine downtrending to 2.30 today. Continue to trend. UA in office on 12/05 concerning for infection, urine PCR sent and finalized negative. Urine and blood cultures from admission 12/06 are pending. On IV ceftriaxone, continue antibiotics and tailor as culture data becomes available. Maintain Garvye catheter. OK to gently hand irrigate as needed for clots, retention, suprapubic pain. Garvey catheter to remain in place until outpatient follow-up with urology. Continue supportive care and antibiotic therapy. Continue tamsulosin. Can consider addition of PRN Pyridium and Oxybutynin for bladder pain, spasms. Urology will follow peripherally. Please contact us with any questions, concerns, or changes in patient status. Admission and Anticipated Discharge Date Admission Date: December 06, 2022 Subjective Patient examined at bedside this AM. Awake, resting in bed on arrival. No acute distress. at bedside. Garvey catheter intact, draining light pink- tinged urine. No clots. Nursing irrigated manually overnight with return of small clot per patient. Notes some intermittent dysuria and bladder discomfort with occasional spasms. Denies any significant pain or discomfort. No fevers overnight (Tmax yesterday 39.2C). No nausea or vomiting. Has not been OOB yet today. Review of Systems Constitutional: as per Subjective / HPI Gastrointestinal: as per Subjective / HPI Genitourinary: + as per Subjective / HPI Physical Exam Constitutional: well developed and well nourished; no acute distress Respiratory: normal respiratory effort; no respiratory distress and no labored breathing Skin: No visible rashes or lesions to exposed skin areas Neurologic: moves all extremities and awake Psychiatric: A+Ox3, euthymic affect Genitourinary: Garvey catheter intact Results & Data Vital Signs (Past 12 Hours) Vital Signs Temp Pulse Resp BP Pulse Ox O2 Del Method 12/07/22 07:50 36.7 C 88 17 149/71 H 100 Room Air 12/07/22 03:41 36.9 C 87 18 128/70 96 Room Air 12/06/22 23:05 37.4 C 12/06/22 22:17 38 C H 88 96 Room Air PG Care Time/CCT Total # of Minutes Spent Total Time Spent with Patient: Total time spent is greater than 50% in coordination of care (as documented) at patient's floor/unit and/or counseling patient: Coding Level of Care Code 77572 SUB INP/OBS CARE 2/35MIN Diagnoses Acute urinary retention R33.8 UTI (urinary tract infection) N39.0
[2022-12-07] MEDS ORDERED: HYOSCYAMINE SULFATE 0.125 MG TAB PO STA (11:00)
--- NOTE | 2022-12-07 11:11 | Discharge Summary ---
Date of Service December 07, 2022 Admission HPI Per Admitting Provider Ruy Mcbride is a 72 yo M with a pmhx of afib, hyponatremia d/t SIADH, HTN, COPD, anemia, cirrhosis who presented to the ER today d/t blocked urinary catheter. Patient had a urinary catheter placed around 230pm yesterday afternoon due to retention. 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 During the urology visit on 12/05, patient endorsed bothersome urinary symptoms including urgency and incontinence and just recently completed a course of Fluconazole from his PCP for yeast in his urine. He had a UA performed in the office on 12/05 which was suspicious for infection with a dip showing large blood, large LE, >30 RBCs and >30 WBCs. His PVR in the office was 564 mL and after voiding again was 534 mL. Urinary catheter was successfully placed in the office on 12/05 and he was started on empiric Cipro 250mg BID x 10 days for suspected UTI. Plan was to continue with catheter until he is seen in follow up for cystoscopy. Unfortunately, after patient left the office and went home y ester, his catheter stopped draining. He ended up going to the ER at [place] and the catheter was repositioned and the urine began draining again and was discharged home. When he returned home, the catheter stopped draining again and he began having pain and returned again to the ER. They attempted but were unable to get the brown to drain and subsequently told him to come to [place]. Patient presented to the ER around 0300 this morning, urology was contacted but was unable to replace the catheter at bedside. He was subsequently taken to the OR for it to be replaced. His work up in the ER demonstrated a normal wbc count w/o shift, but elevated BUN and creatinine above his baseline of 38 and 2.50, respectively. He has been referred for admission to the hospitalist service for further care. Principal Diagnosis 1. Urinary catheter obstruction s/p cystoscopy and catheter replacement 2. GEE on CKD d/t #1 3. UTI Discharge Exam GENERAL: 72 yo Well-developed, well-nourished WM. NAD. LUNGS: Clear to auscultation bilaterally. CARDIOVASCULAR: S1 S2 ABDOMEN: Soft, non-tender and non-distended. : Brown in place, pale yellow urine in bag Discharge Data Allergies Allergy/AdvReac Type Severity Reaction Status Date / Time chlorhexidine Allergy Intermediate Redness, Verified 12/05/22 12:58 burning Consultations 12/06/22 06:12 ED Decision to Admit Stat 12/06/22 10:12 Consult Urology Routine Procedures Performed Operation Date: 12/06/22 11:30 Actual Procedures p Cystoscopy, Dilation, Clot Evacuation(Not Applicable) - Francisco Cordova, Ordered Studies Abdomen/Pelvis CT 12/06/22 04:07 Exam(s): CT ABDOMEN + PELVIS Without Contrast EXAM: CT Abdomen and Pelvis Without Intravenous Contrast CLINICAL HISTORY: Reason for exam: ua retention, ? prostate/bladder issue. TECHNIQUE: Axial computed tomography images of the abdomen and pelvis without intravenous contrast. CTDI is 36.59 mGy and DLP is 1906.43 mGy-cm. Automated exposure control was utilized for the study. A dose lowering technique was utilized adhering to the principles of ALARA. COMPARISON: Prior 04/27/2019 FINDINGS: Lung bases: Unremarkable. No mass. No consolidation. ABDOMEN: Liver: Unremarkable. Gallbladder and bile ducts: Interval cholecystectomy. No biliary dilation. Small foci of pneumobilia. Pancreas: Unremarkable. No ductal dilation. Spleen: Unremarkable. No splenomegaly. Adrenals: Unremarkable. No mass. Kidneys and ureters: Mildly dilated renal collecting systems likely relates to distended urinary bladder. No obstructing stones. Stomach and bowel: Unremarkable. No obstruction. No mucosal thickening. PELVIS: Appendix: No findings to suggest acute appendicitis. Bladder: Markedly distended urinary bladder. May represent bladder outlet obstruction. Prostate does not appear enlarged. Small amount of gas within the bladder. Reproductive: See above. ABDOMEN and PELVIS: Intraperitoneal space: Unremarkable. No free air. No significant fluid collection. Bones/joints: Stable curvilinear sclerotic lesion in the right inferior pubic ramus. Likely benign given stability. Degenerative changes of the spine. No acute fracture. No dislocation. Soft tissues: Fat-containing inguinal hernias. Vasculature: Unremarkable. No abdominal aortic aneurysm. Lymph nodes: Unremarkable. No enlarged lymph nodes. IMPRESSION: 1. Markedly distended urinary bladder. May represent bladder outlet obstruction. 2. Small amount of gas within the bladder. May relate to infection or recent instrumentation. 3. Interval cholecystectomy. No biliary dilation. Electronically signed by: Eloisa Mcclure M.D. 12/06/22 05:51 AM Hospital Course (1) Retention of urine, unspecified: Urinary retention s/p catheter placement by Dr. Cordova on 12/06 in OR - Urology consulted, will follow up as outpatient - Added Flomax 0.4mg HS - rx faxed to preferred pharmacy - UA in office on 12/05 concerning for infection - ordered Cipro as outpatient but hasn't started yet - Repeat UA with reflex urine culture ordered - pending - Check blood cultures x 2 - Empiric Ceftriaxone 2g IV daily given on 12/06 and 12/07 - Can resume Cipro that was rx'd by urology on 12/08 and complete course - Urology will contact if any adjustments in antibiotic needed - Follow up with urology as scheduled (2) Acute kidney injury superimposed on chronic kidney disease: - Creatinine up to 2.50 with a baseline of around 2.0 - Hydrated with 500 cc of NSS x 1 bag - Suspect that this is post renal - Creatinine on 12/07 labs reviewed, down to 2.30 - anticipate will continue to normalize (3) Afib: - Stable with controlled HR - Continue Eliquis 5mg BID and Coreg 12.5mg BID (4) HTN (hypertension): - Resume antihypertensives including Coreg and Entresto (5) COPD (chronic obstructive pulmonary disease): - Stable w/o acute exacerbation (6) SIADH (syndrome of inappropriate ADH production): - Appears at his baseline which ranges 129-131 - Managed with Tolvaptan and Torsemide, resumed - BMP this AM reviewed, Na 128, stable Plan Patient is medically and hemodynamically stable for discharge home today. Will follow up with urology as an outpatient. Above plan of care has been d/w Dr. Renae. Total Time Total Time Spent Total Time Spent (In Minutes): <30 minutes Discharge Plan Discharge Items Patient Disposition: Home - Self-Care Reason For Visit: UNABLE TO URINATE,HAD A CATHETER REMOVED Discharge Diagnosis: blocked urinary catheter urinary tract infection Condition on Discharge: Good Activity: Resume your previous activity Non-emergency contact: Primary Care Provider and Urologist Call non-emergency contact if: you have any medication questions Follow-up/Referrals: Francisco Cordova DO [Physician] - Unruly Laughlin D.O. [Primary Care Provider] - Diet: Regular Addtl Attending Provider Instructions: You were hospitalized due to blocked urinary catheter and required a procedure under anesthesia to have the catheter replaced. You were also placed on IV antibiotics to treat a suspected urinary tract infection. You can resume the Cipro 250mg that was prescribed by the urology office as your last visit. Please pick this medication up and start taking on 12/08/22. You will take it twice a day until it is gone. The office will contact you if any changes need to be made to the antibiotic. Follow up as scheduled with urology. If you have any questions or concerns following your discharge, you can call the nonemergency number listed on your paperwork. In the event of a medical emergency, call 911. Addtl Manager Care Provider Instructions: Please call the urology office at [phone] with any questions, concerns or need to reschedule appointments for any reason. We are happy to assist you. Tips for your recovery at home: Dont be alarmed by brownish or reddish blood or clots in your urine. This is a result of the procedure. This may occur off and but should continue to improve. Drink plenty of fluids during the day (enough to keep your urine very light colored). This will help keep a healthy flow of urine. Avoid constipation. Please use a stool softener (Colace) as needed. Be sure to finish the antibiotics as prescribed. Keep the catheter well secured with either a leg back or leg strap with large bag. Empty your bag when it's about half full. You may notice some blood in the bag. This is normal after surgery and while the catheter is in place. Use mild soap (such as Dove or Dial) and water to wash the catheter and the head of your penis daily, or more frequently if needed. You may shower as normal. Please avoid tub baths or soaking until catheter removed. When to call [facility] at [phone]: Your urine contains heavy blood clots or your catheter stops draining You are constantly leaking urine Fever of 101F or higher, chills, nausea, or vomiting Severe pain or pain is not relieved with medication Pending Studies at Discharge: Yes Studies:: urine culture Stand-Alone Forms: My [employer], Smoking Cessation Medications and DC Order Prescriptions: New tamsulosin 0.4 mg Capsule 0.4 mg PO HS Qty: 30 0RF Continued Entresto 49-51 mg tablet 1 tab PO BID torsemide 20 mg tablet 20 mg PO DAILY albuterol sulfate [ProAir HFA] 90 mcg/actuation HFA aerosol inhaler 1 inh inhalation QID B Complex Plus Vitamin C 69-76-89-5-300 mg capsule 1 cap PO DAILY Rx Instructions: give with food (meal/snack) hydrocodone-acetaminophen 7.5-325 mg/15 mL solution 15 ml PO Q6H PRN ferric subsulfate 259 mg/g solution 1 applic topical DAILY ciprofloxacin HCl 250 mg tablet 250 mg PO BID 10 Days Qty: 20 0RF cholecalciferol (vitamin D3) 125 mcg (5,000 unit) capsule 125 mcg PO DAILY tolvaptan [Samsca] 30 mg tablet 30 mg PO QAM Eliquis 5 mg tablet 5 mg PO BID carvedilol 12.5 mg Tablet 12.5 mg PO BID pantoprazole [Protonix] 40 mg Tablet,Delayed Release (Dr/Ec) 40 mg PO QAM budesonide-formoterol [Symbicort] 160-4.5 mcg/actuation Hfa Aerosol Inhaler 2 puff INHALATION BID Spiriva Respimat 2.5 mcg/actuation Mist 2 puff INHALATION QAM PRN (Reason: Wheezing) levocetirizine 5 mg Tablet 5 mg PO HS montelukast 10 mg Tablet 10 mg PO HS acetaminophen 500 mg Tablet 1,000 mg PO Q6H PRN (Reason: Pain) ipratropium bromide 21 mcg (0.03 %) [place],Non-Aerosol 2 spray INTRANASAL BID PRN (Reason: Nasal Congestion) amlodipine 2.5 mg Tablet 2.5 mg PO QAM omalizumab 75 mg/0.5 mL Syringe 0 mg SUBCUT Q14D hyoscyamine sulfate [Levsin] 0.125 mg Tablet 0.125 mg PO QID Krames/Other Patient Handouts: Anatomy of the Male Urinary Tract, Urinary Catheter Bag Empty Clean, Leg Bag Care Dc Admission Data Admit Date/Time: 12/06/22 09:45 Attending Provider: Derick Renae Admit Provider: Derick Renae Primary Care Provider: Unruly Laughlin Other Providers: Brenda Grimes ; Francisco Cordova Coding Level of Care Code 05785 IN/OBS DISCH 30 MIN/LESS Diagnoses Retention of urine, unspecified R33.9 Acute kidney injury superimposed on chronic kidney disease N17.9; N18.9 Afib I48.91 HTN (hypertension) I10 COPD (chronic obstructive pulmonary disease) J44.9 SIADH (syndrome of inappropriate ADH production) E22.2
== END 2022-12-07 13:01 | disposition home or self-care (01) ==
LOC: SUATTDRO → ED 02:49 → OR 08:00 → 3W 08:00 → OR 08:06

== ENCOUNTER 2023-11-20 00:48 | Inpatient (IN) ==
[2023-11-20 02:21] LABS: Appearance Urine Clear (Clear); Bacteria Urine Automated Negative (Negative); Bilirubin Urine Negative (Negative); Blood Urine Negative (Negative); Cast Urine Automated 0 /lpf (0-5); Color Urine Yellow; Glucose Urine UA Negative (Negative); Ketones Urine Negative (Negative); Leukocyte Esterase Urine 2+ (Negative); Nitrite Urine Negative (Negative); Protein Urine Negative (Negative); RBC Urine Automated 0-4 /hpf (0-4); Specific Gravity Urine 1.007 (1.000-1.030); Urobilinogen Urine Negative (Negative)
[2023-11-20 02:30] LABS: Basophils # (auto) 0.02 K/uL (0.00-0.20); Basophils % (auto) 0.4 %; Eosinophils # (auto) 0.09 K/uL (0.00-0.50); Eosinophils % (auto) 1.9 %; Hematocrit (blood only) 24.4 % (42.0-52.0); Hemoglobin 8.9 g/dl (14.0-18.0); Immature Granulocytes # (auto) 0.01 K/uL (0.01-0.20); Immature Granulocytes % (auto) 0.2 %; Lymphocytes # (auto) 1.02 K/uL (1.20-3.40); Lymphocytes % (auto) 21.6 %; Mean Corpuscular Hemoglobin 33.3 pg (25.0-34.0); Mean Corpuscular Hgb Conc 36.5 g/dL (32.0-36.0); Mean Corpuscular Volume 91.4 fL (80.0-100.0); Mean Platelet Volume 9.4 fL (9.4-12.4); Monocytes # (auto) 0.56 K/uL (0.11-0.59); Monocytes % (auto) 11.8 %; Neutrophils # (auto) 3.03 K/uL (1.40-6.50); Neutrophils % (auto) 64.1 %; Platelet Count 291 K/uL (130-400); RDW Coefficient of Variation 13.4 % (11.5-14.5); RDW Standard Deviation 44.8 fL (36.4-46.3); Red Blood Count 2.67 M/uL (4.70-6.10); White Blood Count 4.73 K/ul (4.8-10.8)
--- NOTE | 2023-11-20 02:34 | CT Scan Report ---
Exam(s): CT HEAD Without Contrast EXAM: CT Head Without Intravenous Contrast CLINICAL HISTORY: Reason for exam: weakness. TECHNIQUE: Axial computed tomography images of the head/brain without intravenous contrast. CTDI is 48.86 mGy and DLP is 900.54 mGy-cm. Automated exposure control was utilized for the study. A dose lowering technique was utilized adhering to the principles of ALARA. COMPARISON: CT Head dated 04/26/19 FINDINGS: Artifacts: Some motion artifact. Brain: Minimal new hyperdensity in the left high frontal region sulci may be small amount of subarachnoid hemorrhage. Volume loss with prominent ventricles and sulci. Periventricular and subcortical white matter hypoattenuation likely reflects chronic small vessel disease. Right frontoparietal encephalomalacia, chronic appearance although new since the prior. Ventricles: See above. Bones/joints: Unremarkable. No acute fracture. Soft tissues: Unremarkable. Sinuses: Unremarkable as visualized. No acute sinusitis. Mastoid air cells: Unremarkable as visualized. No mastoid effusion. IMPRESSION: Minimal new hyperdensity in the left high frontal region sulci may be small amount of subarachnoid hemorrhage. Communications: Call Doctor Intracranial Hemorrhage Electronically signed by: Eloisa Mcclure M.D. 11/20/23 02:32 AM
--- NOTE | 2023-11-20 03:14 | Emergency Department Note ---
Impression & Plan Hyponatremia, Acute urinary retention, Anemia Admit to the [facility] ED Provider Note NAME: DEJAH WHITE AGE: 73 SEX: Male INFORMANT: Patient ED PROVIDER(S): Sade Pickens DO CHIEF COMPLAINT: Unable to void PLAN: Disposition: Admit to the [facility] MEDICAL DECISION MAKING: This is a 73-year-old with previous history of hyponatremia and recent subarachnoid hemorrhage who presents to the emergency department unable to empty his bladder. Patient had a recent admission to [facility]. Upon discharge, the patient had been doing well but has had decreased oral intake according to the . She became concerned because he had increased generalized weakness and is now unable to empty his bladder. Bladder scan showed more than a liter of urine in the bladder. A Garvey catheter was placed and he drained almost 2 L of urine from the bladder. Laboratory studies showed a sodium of 116. His hemoglobin was 8.9. There was no significant leukocytosis. BNP was 839. Urinalysis showed 2+ leukocyte esterase with increased white blood cells but significant epithelial cells. We did perform a CT scan of the brain which showed persistent subarachnoid blood but is most likely resolution of his previous bleed. Patient was started on 3% saline. [facility] and [facility] will [facility] for further inpatient care. Care/management discussed with: The patient, his , the data processing manager, the [facility], the stat rad radiologist Triage Nursing notes: Reviewed and agree with them. Vital Signs: reviewed and remarkable for hypertension and bradycardia Additional History obtained from: The patient's is at the bedside Chronic Medical/Social Conditions affecting care: Chronic hyponatremia and urinary outlet obstruction Prior/ Outside/ External records reviewed: I was able to obtain the records from [facility] from his most recent admission to the hospital. Differential Diagnosis: Dehydration, hyponatremia, renal failure, UTI, urinary retention, obstructive uropathy Diagnostics, independently interpreted by me: ECG: A-fib at a rate of [address] segment elevation or signs of ischemia Cardiac Monitoring: A-fib at a rate of 59 Imaging studies: Portable chest x-ray: No acute pulmonary infiltrates or consolidations as per my independent interpretation Bladder scan: Greater than 1 L HPI: 73 year old Male arrives for evaluation of unable to urinate. PAST MEDICAL HISTORY: See Below, PAST SURGICAL HISTORY: See Below, SOCIAL HISTORY: See Below, HOME MEDICATIONS: See list ALLERGIES: See list VITALS: See Below PHYSICAL EXAMINATION: HEENT: Head - normocephalic and atraumatic. Pupils are equal, round, and reactive to light. Extraocular eye muscles are intact, and sclera are anicteric. Nose - moist nasal mucosa without discharge. Mouth - moist buccal mucosa. Oropharynx is nonerythematous and there is no tonsillar exudate or edema noted. Neck: Supple; no cervical lymphadenopathy Heart: irregularly irregular rhythm with a controlled rate there is a normal S1 and S2 with no murmurs, clicks, or gallops appreciated. Lungs: Clear to auscultation bilaterally with no wheezes, rales, or rhonchi. Abdomen: Moderately distended and slightly tender to palpation. There are no palpable pulsatile masses or hepatosplenomegaly. There is no guarding, rigidity, or rebound noted. Extremities: No evidence of cyanosis, clubbing, or edema. There are easily palpable peripheral pulses. Skin: warm and dry with poor turgor and multiple bruises Neuro: Patient seems slightly confused and slow to move. He is moving all 4 extremities Emergency department course: The patient was evaluated in room B-9. A complete history and physical was performed. IV lock was initiated and labs were drawn as above. A twelve-lead EKG was obtained as described above. Chest x-ray was performed. A bladder scan was obtained and a Garvey catheter was placed. Patient went for CT scan of the brain. Patient was ordered to have 3% saline as he was significantly hyponatremic. Past Med/Surg History Medical History (Updated 11/21/23 @ 08:51 by Sade Pickens DO) History of GI bleed > 1 yr ago, blood transfusion Memory difficulties difficulty remembering things he is told UTI (urinary tract infection) following with urology Environmental allergies History of IBS History of COVID-19 DX'D 09/09/21 DAVIN LEVY SYMPTOMS OF COUGH-TREATED WITH ANTIBODIES/RECOVERED AT HOME-SYMPTOMS RESOLVED SIADH (syndrome of inappropriate ADH production) Per nephrology records "ETOH/liver disease and/or COPD/pulmonary nodule (R/O CA)/SIADH...longstanding history of hyponatremia, baseline high 120s per chart review Cirrhosis Suspected per imaging/records per patient Stable Chronic kidney disease Thoracic aortic aneurysm Following with vascular, Dr. Bill Mcarthur/[facility] (CT surgery), stable per CT chest 08/23/22 (5.1cm) Stroke CVA (02/18/21) > no residual effects, PCP following, on Eliquis now (Plavix was discontinued after 3 months) Hx of gastric ulcer Remote hx Anemia Chronic/stable Paroxysmal A-fib + A-flutter S/P radiofrequency ablation (~3 yrs ago)-F/U DR AASHISH LEVY CARDIOLOGY BPH (benign prostatic hyperplasia) GERD (gastroesophageal reflux disease) Controlled Chronic obstructive pulmonary disease Stable Sleep apnea Non-compliant with CPAP Sleeps with wedge Hypertension Surgical History Hx of cardiac catheterization 10/2022 DAVIN Levy- no stents - checking for pulmonary hypertension; Dr Aashish Levy cardiology- last visit 02/2023 History of nasal cauterization History of ERCP ERCP (04/28/19): Elective glidescope #3, ETT 7.5 at [facility] History of cholecystectomy H/O cardiac radiofrequency ablation 5+ years ago History of colonoscopy History of esophagogastroduodenoscopy (EGD) S/P ureteral stent placement Left (2018)-PT DENIES S/P TURP PT DENIES History of cataract surgery R/L History of lumbar fusion PT DENIES H/O total knee replacement Left Hx of tonsillectomy Hx of appendectomy Hx of foot surgery Left Hx of repair of left rotator cuff Hx of repair of right rotator cuff Family History Father Family hx of colon cancer Mother Family history of diabetes mellitus Social History Smoking Status: Light tobacco smoker Tobacco Type: Cigars Cigarettes Per Day: 2-3 CIGARS PER WEEK- advised; Second Hand Exposure: Yes (in the past); Do You Dip or Chew Tobacco: No; Hx Alcohol Use: Yes Alcohol type: beer Hx Substance Use: No Preferred Language: Bermudian Communication Ability: Effective Visual Impairment: No Limitations Cook Helper Dessert Required: No Beliefs That Will Affect Care: None marital status: Current Living Situation: Spouse current occupational status: retired Feels Safe at Home: Yes Assistive Devices: Cane and Walker Allergies Allergies Allergy/AdvReac Type Severity Reaction Status Date / Time chlorhexidine Allergy Intermediate Redness, Verified 07/06/23 10:18 burning Home Meds Home Medications Medication Instructions Recorded Confirmed budesonide-formoterol HFA 160 2 puff inhalation BID 03/06/19 11/20/23 mcg-4.5 mcg/actuation aerosol inhaler (Symbicort) carvedilol 12.5 mg tablet 12.5 mg PO BID 03/06/19 11/20/23 pantoprazole 40 mg tablet,delayed 40 mg PO QAM 03/06/19 11/20/23 release (Protonix) levocetirizine 5 mg tablet 5 mg PO HS 03/07/19 11/20/23 apixaban 5 mg tablet (Eliquis) 5 mg PO .ON HOLD 04/23/21 11/20/23 tolvaptan 30 mg tablet (Samsca) 45 mg PO QAM 04/23/21 11/20/23 acetaminophen 500 mg tablet 1,000 mg PO BID PRN Pain 06/04/21 11/20/23 ipratropium bromide 21 mcg (0.03 2 spray intranasal BID PRN Nasal 06/04/21 11/20/23 %) nasal spray Congestion montelukast 10 mg tablet 10 mg PO HS 06/04/21 11/20/23 hyoscyamine sulfate 0.125 mg 0.125 mg PO QID 11/09/21 11/20/23 tablet (Levsin) albuterol sulfate 90 mcg/actuation 2 inh inhalation QID PRN Shortness 12/05/22 11/20/23 aerosol inhaler (ProAir HFA) Of Breath Or Wheezing sacubitril 49 mg-valsartan 51 mg 1 tab PO BID 12/05/22 11/20/23 tablet (Entresto) ferrous sulfate 325 mg (65 mg 325 mg PO QAM 03/10/23 11/20/23 iron) tablet (iron) amitriptyline 50 mg tablet 50 mg PO HS 05/03/23 11/20/23 cholecalciferol (vitamin D3) 125 2,000 unit PO BID 05/03/23 11/20/23 mcg (5,000 unit) capsule torsemide 20 mg tablet 30 mg PO QAM 05/03/23 11/20/23 allopurinol 100 mg tablet 100 mg PO HS 11/20/23 11/20/23 diphenoxylate-atropine 2.5 1 tab PO BID 11/20/23 11/20/23 mg-0.025 mg tablet finasteride 5 mg tablet 5 mg PO QAM 11/20/23 11/20/23 hydrocodone 5 mg-acetaminophen 325 1 tab PO UD PRN Pain 11/20/23 11/20/23 mg tablet tamsulosin 0.4 mg capsule 0.4 mg PO QAM 11/20/23 11/20/23 tezepelumab-ekko 210 mg/1.91 mL 210 mg subcut MONTHLY 11/20/23 11/20/23 (110 mg/mL) subcutaneous syringe (Tezspire) torsemide 10 mg tablet 10 mg PO .IN AFTERNOON 11/20/23 11/20/23 vitamin B complex 1 tab PO QPM 11/20/23 11/20/23 Results & Data (ED) Vital Signs Vital Signs - 24 hr 11/20/23 00:52 11/20/23 01:30 11/20/23 01:48 Temperature 36.8 C Temperature Source Temporal Artery Scan Pulse Rate 79 69 Pulse Rate [Apical] 77 Pulse Rhythm Irregular Pulse Rhythm [Apical] Irregular Pulse Strength [Apical] Normal Respiratory Rate 20 16 16 Respiratory Effort / Characteristics Non-Labored Spontaneous Non-Labored Spontaneous Respiratory Depth Normal Normal Respiratory Pattern Regular Regular Blood Pressure 180/102 H Blood Pressure [Right Arm] 158/76 H Blood Pressure Mean 128 Blood Pressure Mean [Right Arm] 103 Blood Pressure Position [Right Arm] Semi-fowlers Pulse Oximetry 98 98 98 Oxygen Delivery Method Room Air Room Air Room Air Sepsis Recent Fever Within 48 Hours No Sepsis New/Unexplained Change in Mental Status Yes Sepsis Action Taken by Nursing No Action Required 11/20/23 02:30 Temperature Temperature Source Pulse Rate Pulse Rate [Apical] 66 Pulse Rhythm Pulse Rhythm [Apical] Regular Pulse Strength [Apical] Normal Respiratory Rate 18 Respiratory Effort / Characteristics Non-Labored Spontaneous Respiratory Depth Normal Respiratory Pattern Regular Blood Pressure Blood Pressure [Right Arm] 148/82 H Blood Pressure Mean Blood Pressure Mean [Right Arm] 104 Blood Pressure Position [Right Arm] Semi-fowlers Pulse Oximetry 98 Oxygen Delivery Method Room Air Sepsis Recent Fever Within 48 Hours Sepsis New/Unexplained Change in Mental Status Sepsis Action Taken by Nursing Laboratory Data 11/21/23 05:53 11/21/23 05:53 Lab Results 11/20/23 11/20/23 Range/Units 01:50 01:55 WBC 4.73 L (4.8-10.8) K/ul RBC 2.67 L (4.70-6.10) M/uL Hgb 8.9 L (14.0-18.0) g/dl Hct 24.4 L (42.0-52.0) % MCV 91.4 (80.0-100.0) fL MCH 33.3 (25.0-34.0) pg MCHC 36.5 H (32.0-36.0) g/dL RDW Std Deviation 44.8 (36.4-46.3) fL RDW Coeff of Greer 13.4 (11.5-14.5) % Plt Count 291 (130-400) K/uL MPV 9.4 (9.4-12.4) fL Immature Gran % (Auto) 0.2 % Neut % (Auto) 64.1 % Lymph % (Auto) 21.6 % Leslie % (Auto) 11.8 % Eos % (Auto) 1.9 % Baso % (Auto) 0.4 % Neut # (Auto) 3.03 (1.40-6.50) K/uL Lymph # (Auto) 1.02 L (1.20-3.40) K/uL Leslie # (Auto) 0.56 (0.11-0.59) K/uL Eos # (Auto) 0.09 (0.00-0.50) K/uL Baso # (Auto) 0.02 (0.00-0.20) K/uL Immature Gran # (Auto) 0.01 (0.01-0.20) K/uL Sodium 112 L* (136-145) mmol/L Potassium 4.7 (3.5-5.1) mmol/L Chloride 81 L (98-107) mmol/L Carbon Dioxide 21 (21-32) mmol/L Anion Gap 10 (3-11) BUN 65 H (6-23) mg/dl Creatinine 2.09 H (0.6-1.4) mg/dl Est Cr Clr Drug Dosing 40.1 ml/min Est GFR ( Amer) 35.1 ml/min Est GFR (Non-Af Amer) 30.3 ml/min BUN/Creatinine Ratio 31.1 H (10-20) Glucose 101 H (70-99(Fasting)) mg/dl Osmolality 263 L (280-300) mOsm/kg Calcium 8.9 (8.6-10.3) mg/dl Total Bilirubin 0.6 (0.2-1.0) mg/dl AST 27 (13-39) U/L ALT 25 (7-52) U/L Alkaline Phosphatase 81 (34-104) U/L B-Natriuretic Peptide 839 H (0-100) pg/ml Total Protein 7.7 (6.0-8.3) gm/dl Albumin 4.4 (3.4-5.0) gm/dl Globulin 3.3 (2.5-4.0) gm/dl Albumin/Globulin Ratio 1.3 (0.9-2) TSH 1.647 (0.300-4.500) uIu/ml Urine Color Yellow Urine Appearance Clear (Clear) Urine pH 7.0 (4.5-7.5) Ur Specific [place] 1.007 (1.000-1.030) Urine Protein Negative (Negative) Urine Glucose (UA) Negative (Negative) Urine Ketones Negative (Negative) Urine Blood Negative (Negative) Urine Nitrite Negative (Negative) Urine Bilirubin Negative (Negative) Urine Urobilinogen Negative (Negative) Ur Leukocyte Esterase 2+ H (Negative) Urine WBC (Auto) 10-30 H (0-5) /hpf Urine RBC (Auto) 0-4 (0-4) /hpf U Hyaline Cast (Auto) 0 (0-5) /lpf U Epithel Cells (Auto) 10-20 H (0-5) /lpf Urine Bacteria (Auto) Negative (Negative) Urine Osmolality 155 L (500-800) mOsm/kg Urine Sodium 13 mmol/L Urine Potassium 23.7 mmol/L Urine Chloride < 15 mmol/L Administered Medications Acetaminophen (Acetaminophen 325 Mg Tab) 650 mg PO Q6H PRN PRN Reason: Headache or Pain Stop: 12/20/23 05:49 Last Admin: 11/20/23 16:38 Dose: 650 mg Documented By: MTM Allopurinol (Allopurinol 100 Mg Tab) 100 mg PO HS ROCKY Stop: 12/20/23 20:59 Last Admin: 11/20/23 19:47 Dose: 100 mg Documented By: CR Carvedilol (Carvedilol 12.5 Mg Tab) 12.5 mg PO BID ROCKY Stop: 12/20/23 08:59 Last Admin: 11/21/23 07:43 Dose: 12.5 mg Documented By: Admin: 11/20/23 19:47 Dose: 12.5 mg Documented By: Admin: 11/20/23 08:44 Dose: 12.5 mg Documented By: ELIEZER Finasteride (Finasteride 5 Mg Tab) 5 mg PO QAM ROCKY Stop: 12/20/23 08:59 Last Admin: 11/21/23 07:43 Dose: 5 mg Documented By: Admin: 11/20/23 08:44 Dose: 5 mg Documented By: ELIEZER Fluticasone/Vilanterol (Fluticasone/Vilanterol 100/25mcg 14 Puffs/Inhaler) 1 puffs INH DAILY ROCKY Stop: 12/20/23 08:59 Last Admin: 11/21/23 07:44 Dose: 1 puffs Documented By: Admin: 11/20/23 08:41 Dose: 1 puffs Documented By: ELIEZER Furosemide (Furosemide 40 Mg/4 Ml Vial) 40 mg IV Q12H ROCKY Stop: 12/20/23 16:59 Last Admin: 11/21/23 04:44 Dose: 40 mg Documented By: Admin: 11/20/23 17:06 Dose: 40 mg Documented By: JANES Miscellaneous (Tolvaptan [Samsca]: Order Awaiting Action) 1 each N/A QS ROCKY Stop: 12/20/23 07:59 Last Admin: 11/21/23 07:44 Dose: Not Given Documented By: Admin: 11/21/23 00:23 Dose: Not Given Documented By: Admin: 11/20/23 17:08 Dose: Not Given Documented By: Admin: 11/20/23 08:40 Dose: 1 each Documented By: ELIEZER Pantoprazole Sodium (Pantoprazole 40 Mg Tab) 40 mg PO QAM [facility] Stop: 12/20/23 08:59 Last Admin: 11/21/23 07:43 Dose: 40 mg Documented By: Admin: 11/20/23 08:44 Dose: 40 mg Documented By: ELIEZER Tamsulosin HCl (Tamsulosin Hcl 0.4 Mg Cap) 0.4 mg PO QAM ROCKY Stop: 12/20/23 08:59 Last Admin: 11/21/23 07:43 Dose: 0.4 mg Documented By: Admin: 11/20/23 08:44 Dose: 0.4 mg Documented By: ELIEZER Vitamin D (Cholecalciferol 25 Mcg (1000 Units) Tab) 50 mcg PO BID RCOKY Stop: 12/20/23 08:59 Last Admin: 11/21/23 07:43 Dose: 50 mcg Documented By: Admin: 11/20/23 19:47 Dose: 50 mcg Documented By: Admin: 11/20/23 08:44 Dose: 50 mcg Documented By: ELIEZER Discontinued Medications Epoetin James (Epoetin James 10,000 Units/Ml Vial) 10,000 units SQ ONE ONE Stop: 11/20/23 12:38 Last Admin: 11/20/23 14:00 Dose: 10,000 units Documented By: ELIEZER Sodium Chloride (Hypertonic Saline 3%) 50 mls @ 300 mls/hr IV .Q10M ONE; Protocol Stop: 11/20/23 05:54 Last Infusion: 11/20/23 06:40 Dose: Infused Documented By: REBECCA Co-signed By: PANCHO Admin: 11/20/23 05:55 Dose: 300 mls/hr Documented By: INA Co-signed By: DEBRA Iron Sucrose 200 mg/ Sodium (Chloride) 110 mls @ 220 mls/hr IV ONE ONE Stop: 11/20/23 13:29 Last Infusion: 11/20/23 13:53 Dose: Infused Documented By: Admin: 11/20/23 13:09 Dose: 220 mls/hr Documented By: JACKIE Miscellaneous (Stop Order) 1 each N/A ONE ONE Stop: 11/20/23 04:14 Last Admin: 11/20/23 06:41 Dose: Not Given Documented By: REBECCA Sodium Chloride (Sodium Chloride 1 Gm Tablet) 1 gm PO ONE STA Stop: 11/20/23 05:17 Last Admin: 11/20/23 06:33 Dose: Not Given Documented By: REBECCA Sodium Chloride (Sodium Chloride 1 Gm Tablet) 1 gm PO ONE ONE Stop: 11/20/23 18:16 Last Admin: 11/20/23 18:54 Dose: 1 gm Documented By: JANES Sodium Chloride (Sodium Chloride 1 Gm Tablet) 1 gm PO NOW STA Stop: 11/21/23 00:12 Last Admin: 11/21/23 00:36 Dose: 1 gm Documented By: BLAKE Sodium Chloride (Sodium Chloride 0.65% Na Soln 45 Ml ([place])) 0 sprays NA NOW ONE Stop: 11/21/23 07:35 Last Admin: 11/21/23 07:41 Dose: 1 sprays Documented By: JANES Imaging Data Radiologist's Impression: Head CT 11/20/23 01:18 CR Exam(s): CT HEAD Without Contrast EXAM: CT Head Without Intravenous Contrast CLINICAL HISTORY: Reason for exam: weakness. TECHNIQUE: Axial computed tomography images of the head/brain without intravenous contrast. CTDI is 48.86 mGy and DLP is 900.54 mGy-cm. Automated exposure control was utilized for the study. A dose lowering technique was utilized adhering to the principles of ALARA. COMPARISON: CT Head dated 04/26/19 FINDINGS: Artifacts: Some motion artifact. Brain: Minimal new hyperdensity in the left high frontal region sulci may be small amount of subarachnoid hemorrhage. Volume loss with prominent ventricles and sulci. Periventricular and subcortical white matter hypoattenuation likely reflects chronic small vessel disease. Right frontoparietal encephalomalacia, chronic appearance although new since the prior. Ventricles: See above. Bones/joints: Unremarkable. No acute fracture. Soft tissues: Unremarkable. Sinuses: Unremarkable as visualized. No acute sinusitis. Mastoid air cells: Unremarkable as visualized. No mastoid effusion. IMPRESSION: Minimal new hyperdensity in the left high frontal region sulci may be small amount of subarachnoid hemorrhage. Communications: Call Doctor Intracranial Hemorrhage Electronically signed by: lEoisa Mcclure M.D. 11/20/23 02:32 AM Discharge Plan Visit Data Chief Complaint: Unable to Void Stated Complaint: UNABLE TO VOID,WEAK,CONFUSED ED Provider: Sade Pickens Discharge Problem: Hyponatremia, Acute urinary retention, Anemia Patient Disposition: Admitted As Inpatient Discharge Instructions Interventions: ED Discharge Assessment Last Done: 11/20/23 05:51
[2023-11-20 03:56] LABS: Albumin Globulin Ratio 1.3 (0.9-2); Albumin Level 4.4 gm/dl (3.4-5.0); BUN Creatinine Ratio 31.1 (10-20); Bilirubin,Total 0.6 mg/dl (0.2-1.0); Calcium 8.9 mg/dl (8.6-10.3); Creatinine Clr Calc Pharmacy 40.1 ml/min; Est GFR (African American) 35.1 ml/min; Est GFR (Non-African American) 30.3 ml/min; Globulin 3.3 gm/dl (2.5-4.0); Potassium 4.7 mmol/L (3.5-5.1); Thyroid Stimulating Hormone 1.647 uIu/ml (0.300-4.500); Total Protein 7.7 gm/dl (6.0-8.3)
[2023-11-20] MEDS ORDERED: STAT IV/IM STA (04:13)
[2023-11-20] MEDS ORDERED: SODIUM CHLORIDE 3 % 500 ML IV SCH (04:15)
--- NOTE | 2023-11-20 04:31 | History & Physical Report ---
Date of Service November 20, 2023 Assessment & Plan (1) Hyponatremia: Plan: Hyponatremia - chronic hyponatremia, follows with nephrology - given 50mL bolus hypertonic saline in the ED, trend BMP q6 and continue with hypertonic saline vs salt repletion with salt tabs as appropriate - consult nephrology as he would to establish with [place] - fluid restriction 1500mL - urine osm/electrolytes - continue Tolvaptan and Torsemide Urinary Retention with BPH - consult urology - catheter inserted in the ED - continue finasteride - on an number of anti-cholangitic medications that could contribute Afib - Suleman still on hold from subarachnoid hemorrhage - was supposed to have f/u with neurology as an outpatient today History of SAH - reported smaller on Head CT this admission - Suleman has been on hold, was supposed to have outpatient f/u with neurosurg philippe today HTN/HFpEF - continue home regimen COPD - continue home inhalers Elevated Uric Acid - continue allopurinol GERD/History of GI bleed - continue PPI - follows with GI - trend CBC DVT: Prophylaxis: SCDs Diet: regular with 1500mL fluid restriction (2) Retention of urine, unspecified: (3) HTN (hypertension): (4) Afib: (5) History of subarachnoid hemorrhage: (6) COPD (chronic obstructive pulmonary disease): (7) (HFpEF) heart failure with preserved ejection fraction: History of Present Illness Primary Care Provider: Unruly Laughlin 73 year old male with a past medical history of hyponatremia, GERD, cirrhosis, HFpEF, a fib, COPD, GERD, HTN, TIA, SHEREEN presenting with concern for urinary retention and weakness. Admitted to [facility] in early September for dark stools and acute worsening of hyponatremia. EGD with hemorrhagic gastric polyps and esophagitis. Represented to the ED later that month after fall at home, CT with subarachnoid hemorrhage was seen by neurosurgery and is following with them as outpatient. Since he was discharged approximately 2 weeks ago per his , he has had increased weakness and poor PO intake. Has been following with nephrology for his hyponatremia. 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 In the ED his Km=[id number]. Head CT again demonstrated small subarachnoid hemorrhage, reported improved from prior. Allergies Allergy/AdvReac Type Severity Reaction Status Date / Time chlorhexidine Allergy Intermediate Redness, Verified 07/06/23 10:18 burning Home Medications Medication Instructions Recorded Confirmed Type budesonide-formoterol HFA 160 2 puff inhalation BID 03/06/19 11/20/23 History mcg-4.5 mcg/actuation aerosol inhaler (Symbicort) carvedilol 12.5 mg tablet 12.5 mg PO BID 03/06/19 11/20/23 History pantoprazole 40 mg tablet,delayed 40 mg PO QAM 03/06/19 11/20/23 History release (Protonix) levocetirizine 5 mg tablet 5 mg PO HS 03/07/19 11/20/23 History apixaban 5 mg tablet (Eliquis) 5 mg PO .ON HOLD 04/23/21 11/20/23 History tolvaptan 30 mg tablet (Samsca) 45 mg PO QAM 04/23/21 11/20/23 History acetaminophen 500 mg tablet 1,000 mg PO BID PRN Pain 06/04/21 11/20/23 History ipratropium bromide 21 mcg (0.03 2 spray intranasal BID PRN Nasal 06/04/21 11/20/23 History %) nasal spray Congestion montelukast 10 mg tablet 10 mg PO HS 06/04/21 11/20/23 History hyoscyamine sulfate 0.125 mg 0.125 mg PO QID 11/09/21 11/20/23 History tablet (Levsin) albuterol sulfate 90 mcg/actuation 2 inh inhalation QID PRN Shortness 12/05/22 11/20/23 History aerosol inhaler (ProAir HFA) Of Breath Or Wheezing sacubitril 49 mg-valsartan 51 mg 1 tab PO BID 12/05/22 11/20/23 History tablet (Entresto) ferrous sulfate 325 mg (65 mg 325 mg PO QAM 03/10/23 11/20/23 History iron) tablet (iron) amitriptyline 50 mg tablet 50 mg PO HS 05/03/23 11/20/23 History cholecalciferol (vitamin D3) 125 2,000 unit PO BID 05/03/23 11/20/23 History mcg (5,000 unit) capsule torsemide 20 mg tablet 30 mg PO QAM 05/03/23 11/20/23 History allopurinol 100 mg tablet 100 mg PO HS 11/20/23 11/20/23 History diphenoxylate-atropine 2.5 1 tab PO BID 11/20/23 11/20/23 History mg-0.025 mg tablet finasteride 5 mg tablet 5 mg PO QAM 11/20/23 11/20/23 History hydrocodone 5 mg-acetaminophen 325 1 tab PO UD PRN Pain 11/20/23 11/20/23 History mg tablet tamsulosin 0.4 mg capsule 0.4 mg PO QAM 11/20/23 11/20/23 History tezepelumab-ekko 210 mg/1.91 mL 210 mg subcut MONTHLY 11/20/23 11/20/23 History (110 mg/mL) subcutaneous syringe (Tezspire) torsemide 10 mg tablet 10 mg PO .IN AFTERNOON 11/20/23 11/20/23 History vitamin B complex 1 tab PO QPM 11/20/23 11/20/23 History Past Med/Surg History Medical History (Updated 11/20/23 @ 12:38 by Unruly Kincaid MD) History of GI bleed > 1 yr ago, blood transfusion Memory difficulties difficulty remembering things he is told UTI (urinary tract infection) following with urology Environmental allergies History of IBS History of COVID-19 DX'D 09/09/21 DAVIN LEVY SYMPTOMS OF COUGH-TREATED WITH ANTIBODIES/RECOVERED AT HOME-SYMPTOMS RESOLVED SIADH (syndrome of inappropriate ADH production) Per nephrology records "ETOH/liver disease and/or COPD/pulmonary nodule (R/O CA)/SIADH...longstanding history of hyponatremia, baseline high 120s per chart review Cirrhosis Suspected per imaging/records per patient Stable Chronic kidney disease Thoracic aortic aneurysm Following with vascular, Dr. Bill Mcarthur/[facility] (CT surgery), stable per CT chest 08/23/22 (5.1cm) Stroke CVA (02/18/21) > no residual effects, PCP following, on Eliquis now (Plavix was discontinued after 3 months) Hx of gastric ulcer Remote hx Anemia Chronic/stable Paroxysmal A-fib + A-flutter S/P radiofrequency ablation (~3 yrs ago)-F/U DR AASHISH [facility] BPH (benign prostatic hyperplasia) GERD (gastroesophageal reflux disease) Controlled Chronic obstructive pulmonary disease Stable Sleep apnea Non-compliant with CPAP Sleeps with wedge Hypertension Surgical History Hx of cardiac catheterization 10/2022 DAVIN Levy- no stents - checking for pulmonary hypertension; Dr Aashish Levy cardiology- last visit 02/2023 History of nasal cauterization History of ERCP ERCP (04/28/19): Elective glidescope #3, ETT 7.5 at [facility] History of cholecystectomy H/O cardiac radiofrequency ablation 5+ years ago History of colonoscopy History of esophagogastroduodenoscopy (EGD) S/P ureteral stent placement Left (2018)-PT DENIES S/P TURP PT DENIES History of cataract surgery R/L History of lumbar fusion PT DENIES H/O total knee replacement Left Hx of tonsillectomy Hx of appendectomy Hx of foot surgery Left Hx of repair of left rotator cuff Hx of repair of right rotator cuff Family History Father Family hx of colon cancer Mother Family history of diabetes mellitus Social History Smoking Status: Light tobacco smoker Tobacco Type: Cigars Cigarettes Per Day: 2-3 CIGARS PER WEEK- advised; Second Hand Exposure: Yes (in the past); Do You Dip or Chew Tobacco: No; Hx Alcohol Use: Yes Alcohol type: beer Hx Substance Use: No Preferred Language: Norwegian Communication Ability: Effective Visual Impairment: No Limitations Rotary Shear Cutter Required: No Beliefs That Will Affect Care: None marital status: Current Living Situation: Spouse current occupational status: retired Feels Safe at Home: Yes Assistive Devices: Cane and Walker Review of Systems Review of Systems: As per above Physical Exam Physical Exam: Constitutional: well-appearing, no acute distress HEENT: NCAT, no conjunctival injection CV: regular rhythm, no murmur appreciated, extremities well-perfused, no LE edema Resp: CTABL, no wheezes/rales/rhonchi appreciated, no increased work of breathing GI: soft, nondistended, nontender, BS normoactive MSK: no gross deformities appreciated Skin: warm, dry, no rash appreciated Neuro: alert, oriented, no focal neurologic deficit appreciated Results & Data Results & Data Vital Signs (Past 12 Hours) Vital Signs Temp Pulse Pulse Resp BP BP Pulse Ox 11/20/23 02:30 66 18 148/82 H 98 11/20/23 01:48 69 16 98 11/20/23 01:30 77 16 158/76 H 98 11/20/23 00:52 36.8 C 79 20 180/102 H 98 O2 Del Method 11/20/23 02:30 Room Air 11/20/23 01:48 Room Air 11/20/23 01:30 Room Air 11/20/23 00:52 Room Air Supervising Physician Co-Signing Physician Notes Attending addendum: I have physically seen this patient, have supervised the medical residents activities, and agree with the H&P unless as otherwise noted. Assessment and Plan: Hyponatremia/history of SIADH- Acute worsening of chronic state Sodium tends to run in the mid 120s, with ideal 128 131 Sodium 112 on admission Follows with nephrology and do boys Serum and urine osmolality pending Continue tolvaptan and torsemide Given hypertonic saline 50 mill bolus BMP and magnesium levels every 6 hours BPH with LUTS- Follows with urology in [place] catheter placed in the ED Continue finasteride and tamsulosin He is on a number of medications with potential anticholinergic side effects ca using urinary retention such as: Amitriptyline, diphenoxylate-atropine, hyoscyamine sulfate, ipratropium bromide Atrial fibrillation/hypertension/HFpEF- Eliquis still on hold since subarachnoid hemorrhage last month Continue carvedilol, Entresto and torsemide Follow serial laboratories Patient is considering a Watchman procedure History of SAH- Recent CT head reported smaller Continue to hold Eliquis Resident Activity Tracking Resident Involvement: Resident Care Provided Care Provided: Adult Hospital Medicine
[2023-11-20] MEDS ORDERED: ACETAMINOPHEN 500 MG TAB PO PRN (05:50)
[2023-11-20] MEDS ORDERED: ALBUTEROL HFA 8 GM INHALER INH PRN (05:50)
[2023-11-20] MEDS ORDERED: STAT IV/IM ONE (05:55)
[2023-11-20] MEDS: SODIUM CHLORIDE 3 % 50 ML IV ONE (05:55)
[2023-11-20] MEDS ORDERED: IPRATROPIUM BROMIDE NASAL SPRAY 0.06% 15ML NAE PRN (06:07)
[2023-11-20] MEDS: SODIUM CHLORIDE 1 GM TABLET PO STA (06:33)
--- NOTE | 2023-11-20 07:10 | XRay Report ---
XR chest 1V portable CLINICAL HISTORY: weakness TECHNIQUE: Single frontal radiograph of the chest was obtained. Comparison: Comparison is made to chest radiograph 03/09/2023 FINDINGS: No lines and tubes are seen. Calcified aortic knob is seen. The lungs are clear. No evidence of pleur al effusion or pneumothorax. IMPRESSION: No acute chest disease. ACT 112: Negative or not required by law. Electronically signed by: Elijah Ortiz M.D. 11/20/2023 7:09 AM
[2023-11-20 07:46] LABS: BUN Creatinine Ratio 31.4 (10-20); Creatinine Clr Calc Pharmacy 41.1 ml/min; Est GFR (African American) 36.1 ml/min; Est GFR (Non-African American) 31.2 ml/min; Potassium 4.4 mmol/L (3.5-5.1)
--- NOTE | 2023-11-20 08:24 | Electrocardiogram Report ---
Test Reason : Blood Pressure : / mmHG Vent. Rate : 068 BPM Atrial Rate : 000 BPM P-R Int : 000 ms QRS Dur : 110 ms QT Int : 406 ms P-R-T Axes : 000 034 068 degrees QTc Int : 431 ms Atrial fibrillation Abnormal ECG When compared with ECG of 09-MAR-2023 13:13, No significant change was found Confirmed by Zack Velazquez ([id number]) on 11/20/2023 8:24:04 AM Referred By: REFERRED SELF Confirmed By:Zack Velazquez
[2023-11-20] MEDS: FLUTICASONE/VILANTEROL 100/25MCG 14 PUFFS/INHALER INH SCH (08:41)
[2023-11-20] MEDS: carvediloL 12.5 MG TAB PO SCH (08:44)
[2023-11-20] MEDS: TAMSULOSIN HCL 0.4 MG CAP PO SCH (08:44)
[2023-11-20] MEDS: FINASTERIDE 5 MG TAB PO SCH (08:44)
[2023-11-20] MEDS: PANTOprazole 40 MG TAB PO SCH (08:44)
[2023-11-20] MEDS: CHOLECALCIFEROL 25 MCG (1000 UNITS) TAB PO SCH (08:44)
[2023-11-20 08:58] LABS: Urine Chloride < 15 mmol/L; Urine Potassium 23.7 mmol/L; Urine Sodium 13 mmol/L
[2023-11-20] MEDS ORDERED: ENOXAPARIN INJ 40 MG/0.4 ML SYR SQ SCH (09:00)
[2023-11-20] MEDS ORDERED: SODIUM CHLORIDE 1 GM TABLET PO SCH ×2 (09:00)
[2023-11-20] MEDS ORDERED: VALSARTAN/SACUBITRIL 51/49 MG TAB PO SCH (09:00)
[2023-11-20] MEDS ORDERED: TORSEMIDE 10 MG TAB PO SCH ×2 (09:00→14:00)
--- NOTE | 2023-11-20 10:39 | Nephrology Consultation ---
Date of Consultation November 20, 2023 Assessment & Plan (1) Hyponatremia: Chronic. Severe. Current symptoms include mild FLETCHER and fatigue. Ruy has not slept in ~24 hours. Headaches are chronic. Volume status appears euvolemic. Good urine output. UOsm 155 (Domingo 13, K 23.7). Poor solute intake contributing to hypontaremia. Sodium improving acceptably with oral NaCl. Additional NaCl has been held. Repeat sodium level has been ordered for noon. Electrolytes are otherwise acceptable. Document strict I/O's. Avoid rapid correct. Continue to hold tolvaptan and torsemide for now. Monitor serum sodium q 4-6 hours. Goal would be to correct to no greater than 128 mmol/L in the next 24 hours. (2) SIADH (syndrome of inappropriate ADH production): Maintain 1.5 L daily fluid restriction. Document I/O's. CXR without lesion. (3) Chronic kidney disease: Followed by [facility]. CKD IV. Baseline creatinine 2.0-2.5 mg/dL. Volume status acceptable. Kidney function stable. Medications appropriate for kidney function. (4) Anemia: Iron profile and H/H to be repeated with next labs. IV iron +/- Epogen will then be coordinated accordingly. (5) Cirrhosis of liver: LFTs within normal limits. This is a documented suspected diagnosis and I do not have confirmation. Ruy has been tolerating tolvaptan well as an outpatient. Additional information will be required regarding this history and use of vaptans moving forward. (6) (HFpEF) heart failure with preserved ejection fraction: Volume status acceptable. Diuretics held. Continue (7) Afib: No AC due to recent GIB and SAH. Remains rate controlled in sinus rhythm. Will require close cardiology observation. (8) History of subarachnoid hemorrhage: (9) COPD (chronic obstructive pulmonary disease): History of Present Illness Reason for Consultation: Hyponatremia Requesting Physician: Unruly Kincaid MD Attending Physician: Unruly Kincaid MD History of Present Illness Mr. Ruy Mcbride is a 73 year-old male with CKD IV, chronic liver disease (history of ETOH and SWANSON), HFpEF, atrial fibrillation, COPD, hypertension, SHEREEN, history of TIA, hyperuricemia without gout, asthma (treated with Tezspire), chronic anemia, and chronic hyponatremia attributed to SIADH and potomania. He was recently admitted to [facility] with melena. EGD demonstrating gastritic polyps and esophagitis. Unfortunately, he then suffered a fall at home resulting in A SAH. Conservative treatment and monitoring provided. Thankfully, no neurologic deficits appreciated. He has remained deconditioned and weak following the hospitalizations. Ruy was seen and evaluated in the ER this morning with his at the bedside. Ruy's appetite has been poor. He presented to [facility] yesterday with generalized weakness. He was admitted with severe hyponatremia with symptoms. Serum sodium on admission 112 mmol/L. Sodium this AM 116 mmol/L following administration of PO NaCl. Ruy is non-oliguric. He has know CKD with a baseline creatinine of 2.0-2.5 mg/dL. He follows with [facility]. Ruy follows with [facility] ([facility]) regarding his dysnatremia as well. Hyponatremia attributed to SIADH and potomania. Treatment has included Tolvaptan 45 mg daily (last dose yesterday around 6:30 PM), as well as torsemide, and a fluid restriction (typically <2 L/d). Serum sodium as an outpatient ~132 mmol/L with treatment. Prior evaluation included a reassuring ACTH stim test and thyroid testing (TSH 0.8). Ruy reports fatigue this AM. He has not slept. He denies fluid retention or edema. Appetite has been very poor. No signs of GI bleeding currently. Allergies Allergy/AdvReac Type Severity Reaction Status Date / Time chlorhexidine Allergy Intermediate Redness, Verified 07/06/23 10:18 burning Home Medications Medication Instructions Recorded Confirmed Type budesonide-formoterol HFA 160 2 puff inhalation BID 03/06/19 11/20/23 History mcg-4.5 mcg/actuation aerosol inhaler (Symbicort) carvedilol 12.5 mg tablet 12.5 mg PO BID 03/06/19 11/20/23 History pantoprazole 40 mg tablet,delayed 40 mg PO QAM 03/06/19 11/20/23 History release (Protonix) levocetirizine 5 mg tablet 5 mg PO HS 03/07/19 11/20/23 History apixaban 5 mg tablet (Eliquis) 5 mg PO .ON HOLD 04/23/21 11/20/23 History tolvaptan 30 mg tablet (Samsca) 45 mg PO QAM 04/23/21 11/20/23 History acetaminophen 500 mg tablet 1,000 mg PO BID PRN Pain 06/04/21 11/20/23 History ipratropium bromide 21 mcg (0.03 2 spray intranasal BID PRN Nasal 06/04/21 11/20/23 History %) nasal spray Congestion montelukast 10 mg tablet 10 mg PO HS 06/04/21 11/20/23 History hyoscyamine sulfate 0.125 mg 0.125 mg PO QID 11/09/21 11/20/23 History tablet (Levsin) albuterol sulfate 90 mcg/actuation 2 inh inhalation QID PRN Shortness 12/05/22 11/20/23 History aerosol inhaler (ProAir HFA) Of Breath Or Wheezing sacubitril 49 mg-valsartan 51 mg 1 tab PO BID 12/05/22 11/20/23 History tablet (Entresto) ferrous sulfate 325 mg (65 mg 325 mg PO QAM 03/10/23 11/20/23 History iron) tablet (iron) amitriptyline 50 mg tablet 50 mg PO HS 05/03/23 11/20/23 History cholecalciferol (vitamin D3) 125 2,000 unit PO BID 05/03/23 11/20/23 History mcg (5,000 unit) capsule torsemide 20 mg tablet 30 mg PO QAM 05/03/23 11/20/23 History allopurinol 100 mg tablet 100 mg PO HS 11/20/23 11/20/23 History diphenoxylate-atropine 2.5 1 tab PO BID 11/20/23 11/20/23 History mg-0.025 mg tablet finasteride 5 mg tablet 5 mg PO QAM 11/20/23 11/20/23 History hydrocodone 5 mg-acetaminophen 325 1 tab PO UD PRN Pain 11/20/23 11/20/23 History mg tablet tamsulosin 0.4 mg capsule 0.4 mg PO QAM 11/20/23 11/20/23 History tezepelumab-ekko 210 mg/1.91 mL 210 mg subcut MONTHLY 11/20/23 11/20/23 History (110 mg/mL) subcutaneous syringe (Tezspire) torsemide 10 mg tablet 10 mg PO .IN AFTERNOON 11/20/23 11/20/23 History vitamin B complex 1 tab PO QPM 11/20/23 11/20/23 History Patient History Medical History (Updated 11/20/23 @ 10:53 by Glenn Peña DO) History of GI bleed > 1 yr ago, blood transfusion Memory difficulties difficulty remembering things he is told UTI (urinary tract infection) following with urology Environmental allergies History of IBS History of COVID-19 DX'D 09/09/21 DAVIN LEVY SYMPTOMS OF COUGH-TREATED WITH ANTIBODIES/RECOVERED AT HOME-SYMPTOMS RESOLVED SIADH (syndrome of inappropriate ADH production) Per nephrology records "ETOH/liver disease and/or COPD/pulmonary nodule (R/O CA)/SIADH...longstanding history of hyponatremia, baseline high 120s per chart review Cirrhosis Suspected per imaging/records per patient Stable Chronic kidney disease Thoracic aortic aneurysm Following with vascular, Dr. Bill Mcarthur/[facility] (CT surgery), stable per CT chest 08/23/22 (5.1cm) Stroke CVA (02/18/21) > no residual effects, PCP following, on Eliquis now (Plavix was discontinued after 3 months) Hx of gastric ulcer Remote hx Anemia Chronic/stable Paroxysmal A-fib + A-flutter S/P radiofrequency ablation (~3 yrs ago)-F/U DR AASHISH [facility] BPH (benign prostatic hyperplasia) GERD (gastroesophageal reflux disease) Controlled Chronic obstructive pulmonary disease Stable Sleep apnea Non-compliant with CPAP Sleeps with wedge Hypertension Surgical History Hx of cardiac catheterization 10/2022 DAVIN Levy- no stents - checking for pulmonary hypertension; Dr Aashish Levy cardiology- last visit 02/2023 History of nasal cauterization History of ERCP ERCP (04/28/19): Elective glidescope #3, ETT 7.5 at [facility] History of cholecystectomy H/O cardiac radiofrequency ablation 5+ years ago History of colonoscopy History of esophagogastroduodenoscopy (EGD) S/P ureteral stent placement Left (2018)-PT DENIES S/P TURP PT DENIES History of cataract surgery R/L History of lumbar fusion PT DENIES H/O total knee replacement Left Hx of tonsillectomy Hx of appendectomy Hx of foot surgery Left Hx of repair of left rotator cuff Hx of repair of right rotator cuff Family History Father Family hx of colon cancer Mother Family history of diabetes mellitus Social History Smoking Status: Current some day smoker Tobacco Type: Cigars Cigarettes Per Day: 2-3 CIGARS PER WEEK- advised; Second Hand Exposure: Yes (in the past); Do You Dip or Chew Tobacco: No; Hx Alcohol Use: Yes Alcohol type: beer Hx Substance Use: No Preferred Language: Luxembourger Communication Ability: Effective Visual Impairment: No Limitations 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 Required: No Beliefs That Will Affect Care: None marital status: Current Living Situation: Spouse current occupational status: retired Feels Safe at Home: Yes Assistive Devices: Cane Review of Systems Review of Systems: All systems reviewed & are unremarkable except as noted in HPI & below Constitutional: + fatigue, + weakness and + problem repo rted (poor appetite); no fever and no chills Respiratory: no dyspnea Cardiovascular: no palpitations, no lightheadedness and no edema Gastrointestinal: no abdominal pain, no vomiting, no constipation, no blood in stools and no melena Genitourinary: + urinary frequency and + decreased urin ation; no dysuria, no difficulty urinating or no hematuria Physical Exam Constitutional: well developed and + ill appearing; no acute distress Eyes: + anicteric sclerae; no corneal abnormal ity ENMT: Mouth: no oral mucosal abnormality and oral mucous membranes not dry Neck: normal visual inspection and trachea midline Respiratory: normal respiratory effort Auscultation: lungs clear to auscultation bilaterally Cardiovascular: Rate/Rhythm: + irregularly irregular Heart Sounds: normal S1 and normal S2 Extremities: + edema (L>R) and + varicosities Musculoskeletal: Extremities: no cyanosis and no clubbing Skin: normal turgor, + lesion (multiple skin tears - notably on thigh ) and + dry skin; no jaundice Neurologic: Motor/Sensory: no tremor and no asterixis Psychiatric: Orientation: alert and oriented x 3 Results & Data Vital Signs (Past 12 Hours) Vital Signs Temp Pulse Pulse Resp BP BP Pulse Ox 11/20/23 07:34 74 11/20/23 06:42 62 12 173/83 H 97 11/20/23 06:42 11/20/23 04:44 68 16 150/78 H 96 11/20/23 02:30 66 18 148/82 H 98 11/20/23 02:18 65 11/20/23 01:48 69 16 98 11/20/23 01:30 77 16 158/76 H 98 11/20/23 00:52 36.8 C 79 20 180/102 H 98 Pulse Ox O2 Del Method O2 Del Method 11/20/23 07:34 11/20/23 06:42 Room Air 11/20/23 06:42 99 Room Air 11/20/23 04:44 Room Air 11/20/23 02:30 Room Air 11/20/23 02:18 11/20/23 01:48 Room Air 11/20/23 01:30 Room Air 11/20/23 00:52 Room Air Laboratory Results Laboratory Results - last 24 hr 11/20/23 11/20/23 11/20/23 01:50 01:55 06:53 WBC 4.73 L RBC 2.67 L Hgb 8.9 L Hct 24.4 L MCV 91.4 MCH 33.3 MCHC 36.5 H RDW Std Deviation 44.8 RDW Coeff of Greer 13.4 Plt Count 291 MPV 9.4 Immature Gran % (Auto) 0.2 Neut % (Auto) 64.1 Lymph % (Auto) 21.6 King % (Auto) 11.8 Eos % (Auto) 1.9 Baso % (Auto) 0.4 Neut # (Auto) 3.03 Lymph # (Auto) 1.02 L King # (Auto) 0.56 Eos # (Auto) 0.09 Baso # (Auto) 0.02 Immature Gran # (Auto) 0.01 Sodium 112 L* 116 L* Potassium 4.7 4.4 Chloride 81 L 83 L Carbon Dioxide 21 24 Anion Gap 10 9 BUN 65 H 64 H Creatinine 2.09 H 2.04 H Est Cr Clr Drug Dosing 40.1 41.1 Est GFR ( Amer) 35.1 36.1 Est GFR (Non-Af Amer) 30.3 31.2 BUN/Creatinine Ratio 31.1 H 31.4 H Glucose 101 H 103 H Osmolality 263 L Calcium 8.9 9.0 Total Bilirubin 0.6 AST 27 ALT 25 Alkaline Phosphatase 81 B-Natriuretic Peptide 839 H Total Protein 7.7 Albumin 4.4 Globulin 3.3 Albumin/Globulin Ratio 1.3 TSH 1.647 Urine Color Yellow Urine Appearance Clear Urine pH 7.0 Ur Specific Clark 1.007 Urine Protein Negative Urine Glucose (UA) Negative Urine Ketones Negative Urine Blood Negative Urine Nitrite Negative Urine Bilirubin Negative Urine Urobilinogen Negative Ur Leukocyte Esterase 2+ H Urine WBC (Auto) 10-30 H Urine RBC (Auto) 0-4 U Hyaline Cast (Auto) 0 U Epithel Cells (Auto) 10-20 H Urine Bacteria (Auto) Negative Urine Osmolality 155 L Urine Sodium 13 Urine Potassium 23.7 Urine Chloride < 15 Diagnostic Findings XR chest 1V portable Comparison: Comparison is made to chest radiograph 03/09/2023 FINDINGS: No lines and tubes are seen. Calcified aortic knob is seen. The lungs are clear. No evidence of pleural effusion or pneumothorax. IMPRESSION: No acute chest disease. PG Care Time/CCT Total # of Minutes Spent Total Time Spent with Patient: Total time spent is greater than 50% in coordination of care (as documented) at patient's floor/unit and/or counseling patient: Coding Level of Care Code 02208 IN/OBS CONSULT LVL 4,60M Diagnoses Hyponatremia E87.1 SIADH (syndrome of inappropriate ADH production) E22.2 Chronic kidney disease N18.9 Anemia D64.9 Cirrhosis of liver K74.60 (HFpEF) heart failure with preserved ejection fraction I50.30 Afib I48.91 History of subarachnoid hemorrhage Z86.79 COPD (chronic obstructive pulmonary disease) J44.9
[2023-11-20 11:37] LABS: Hematocrit (blood only) 22.1 % (42.0-52.0); Hemoglobin 8.2 g/dl (14.0-18.0)
[2023-11-20 12:34] LABS: Ferritin 58.6 ng/ml (8-388)
--- NOTE | 2023-11-20 12:40 | Hospitalist Progress Note ---
Date of Service November 20, 2023 Assessment & Plan (1) Acute on chronic diastolic CHF (congestive heart failure): Plan: Present on chest x-ray but not heard on pulmonary examination. Continue parenteral Lasix diuresis. Monitor intake and output. Serial chest x-ray. Ejection fraction is preserved and there does not appear to be a need for Entresto at this time which could possibly be contributing to the hyponatremia. Entresto has been discontinued. (2) SIADH (syndrome of inappropriate ADH production): Plan: Sodium 112 on on admission. Serum osmolarity 263. Entresto and Elavil discontinued as potential offending agents. Continue Lasix diuresis and fluid restriction. Serial labs (3) Chronic kidney disease, stage III (moderate): Plan: Monitor intake and output. Serial labs (4) Essential hypertension: Plan: Entresto has been discontinued. Will use a different antihypertensive agent if needed (5) Subarachnoid hemorrhage: Plan: Occurred recently. Systemic anticoagulation has been discontinued recently. Will follow (6) Generalized weakness: Plan: OT and PT assessments requested. Plan To be determined Admission and Anticipated Discharge Date Admission Date: November 20, 2023 Subjective Alert and oriented. No distress. is at the bedside. Hemoglobin continues to drop down to 8.2. Will follow. Fecal occult blood pending. Sodium has improved to 118 and will be monitored daily. Serum osmolarity is low at 263. Findings are consistent with SIADH. He denies polydipsia. Several potentially offending medications have been discontinued including Entresto and Elavil. Last cardiac echo from September 2022 reveals normal ejection fraction with moderate AI and mild MR. He does not appear to require Entresto anyway with preserved ejection fraction. Will monitor blood pressure and use other agents if needed. OT and PT assessments requested for his weakness. He apparently had a recent subarachnoid hemorrhage and is no longer on systemic blood thinners. Review of Systems 2 Review of Systems: Constitutional-no fever or chills ENT-no blurred vision, no double vision, no epistaxis, no sore throat Respiratory-no cough, no wheezing, no shortness of breath Cardiac-no palpitations, no chest pain, no syncope GI-no nausea, vomiting, diarrhea, melena, hematochezia -no urinary retention, no urinary incontinence, no dysuria, no hematuria Musculoskeletal-no joint pain, no muscle tenderness Skin-no bruising, no rashes, no pruritus Neuro-generalized weakness. No focal deficits Psych-no depression, no anxiety Physical Exam 2 Physical Exam: General-alert and oriented x3, no fever, no chills HEENT-head atraumatic and normocephalic, pupils equal and reactive to light, extraocular muscles intact Neck-no lymphadenopathy or thyromegaly, trachea midline Chest-clear to auscultation. No rales interestingly. No wheezing or rhonchi Cardiac-regular rate and rhythm, normal S1 and S2 Abdomen-normal bowel sounds, nontender, no hepatosplenomegaly Extremities-no cyanosis, clubbing, or edema Neuro-cranial nerves II through XII intact, motor and sensory function within normal limits, strength symmetrical with generalized weakness, no focal deficits Psych-normal affect, normal mood Results & Data Results & Data Vital Signs (Past 12 Hours) Vital Signs Temp Pulse Pulse Resp BP BP Pulse Ox 11/20/23 07:34 74 11/20/23 06:42 62 12 173/83 H 97 11/20/23 06:42 11/20/23 04:44 68 16 150/78 H 96 11/20/23 02:30 66 18 148/82 H 98 11/20/23 02:18 65 11/20/23 01:48 69 16 98 11/20/23 01:30 77 16 158/76 H 98 11/20/23 00:52 36.8 C 79 20 180/102 H 98 Pulse Ox O2 Del Method O2 Del Method 11/20/23 07:34 11/20/23 06:42 Room Air 11/20/23 06:42 99 Room Air 11/20/23 04:44 Room Air 11/20/23 02:30 Room Air 11/20/23 02:18 11/20/23 01:48 Room Air 11/20/23 01:30 Room Air 11/20/23 00:52 Room Air Laboratory Results 11/20/23 11:16 11/20/23 11:16 PG Care Time/CCT Total # of Minutes Spent Total Time Spent with Patient: Total time spent is greater than 50% in coordination of care (as documented) at patient's floor/unit and/or counseling patient: Coding Level of Care Code 00190 SUB INP/OBS CARE 3/50MIN Diagnoses Acute on chronic diastolic CHF (congestive heart failure) I50.33 SIADH (syndrome of inappropriate ADH production) E22.2 Chronic kidney disease, stage III (moderate) N18.30 Essential hypertension I10 Subarachnoid hemorrhage I60.9 Generalized weakness R53.1
[2023-11-20] MEDS: IRON SUCROSE 200 MG in 0.9 % SODIUM CHLORIDE 100 ML IV ONE (13:09)
--- NOTE | 2023-11-20 13:44 | Urology Consultation ---
Date of Consultation November 20, 2023 Assessment & Plan (1) Acute urinary retention: 73yo M with a hx of bladder outlet obstruction with severe issues related to retention and stricture requiring dilation who was admitted with hyponatremia and acute urinary retention. He was bladder scanned for >1L on admission and a Garvey catheter was placed by nursing staff. Urology asked to evaluate patient due to urinary retention. - Afebrile and hemodynamically stable. - Labs WBC 4.73, Na 118, hemoglobin 8.2, creatinine 2.04. Continue to trend. Nephrology following. - Urine culture pending - Garvey draining appropriatelyurine is clear yellow. Continue to monitor. - Urinary retention is managed with a Garvey catheter. - Would recommend maintaining catheter for at least 7-10 days for bladder rest and decompression. - He was scheduled for follow-up office cystoscopy on 11/21/[address] Cordova. Will work on rescheduling as outpatient. Will also arrange outpatient catheter removal. - Continue Flomax and Finasteride. - Continue supportive care and management per primary team. - Urology will follow along. History of Present Illness Attending Physician: Unruly Kincaid MD History of Present Illness 73-year-old male with a PMHx including CKD IV, chronic liver disease (history of ETOH and SWANSON), HF, atrial fibrillation, COPD, hypertension, SHEREEN, history of TIA, hyperuricemia without gout, asthma, chronic anemia, and chronic hyponatremia who presented to the ED on 11/20/23 with concerns of urinary retention and weakness. In the ED he was afebrile, Na was 112, WBC 4.73, hemoglobin 8.9, creatinine 2.09. Urinalysis with 2+ LE, 1030 WBC, 1020 epithelial cells, negative bacteria, negative nitrite, negative blood. Urine culture was collected and pending. He was bladder scanned for >1L. A Garvey catheter was placed by nursing staff. He was admitted to medicine service for continued care and management. Nephrology consulted. Urology consulted for urinary retention. Well known to the urology service, follows with Dr. Cordova. History of bladder outlet obstruction with severe issues related to retention and inability to void. Most recent procedure 07/06/2023 was Direct Visual Urethrotomy, transurethral incision of Prostate/bladder neck. He was scheduled for follow-up office cystoscopy on 11/21/[address] Cordova. Continues on Flomax and Finasteride. Patient examined at bedside in the ED. He was awake and sitting up in bed on arrival. at bedside. No acute distress. Garvey intact and draining clear yellow urine. He denies any pain or discomfort at present. Allergies Allergy/AdvReac Type Severity Reaction Status Date / Time chlorhexidine Allergy Intermediate Redness, Verified 07/06/23 10:18 burning Home Medications Medication Instructions Recorded Confirmed Type budesonide-formoterol HFA 160 2 puff inhalation BID 03/06/19 11/20/23 History mcg-4.5 mcg/actuation aerosol inhaler (Symbicort) carvedilol 12.5 mg tablet 12.5 mg PO BID 03/06/19 11/20/23 History pantoprazole 40 mg tablet,delayed 40 mg PO QAM 03/06/19 11/20/23 History release (Protonix) levocetirizine 5 mg tablet 5 mg PO HS 03/07/19 11/20/23 History apixaban 5 mg tablet (Eliquis) 5 mg PO .ON HOLD 04/23/21 11/20/23 History tolvaptan 30 mg tablet (Samsca) 45 mg PO QAM 04/23/21 11/20/23 History acetaminophen 500 mg tablet 1,000 mg PO BID PRN Pain 06/04/21 11/20/23 History ipratropium bromide 21 mcg (0.03 2 spray intranasal BID PRN Nasal 06/04/21 11/20/23 History %) nasal spray Congestion montelukast 10 mg tablet 10 mg PO HS 06/04/21 11/20/23 History hyoscyamine sulfate 0.125 mg 0.125 mg PO QID 11/09/21 11/20/23 History tablet (Levsin) albuterol sulfate 90 mcg/actuation 2 inh inhalation QID PRN Shortness 12/05/22 11/20/23 History aerosol inhaler (ProAir HFA) Of Breath Or Wheezing sacubitril 49 mg-valsartan 51 mg 1 tab PO BID 12/05/22 11/20/23 History tablet (Entresto) ferrous sulfate 325 mg (65 mg 325 mg PO QAM 03/10/23 11/20/23 History iron) tablet (iron) amitriptyline 50 mg tablet 50 mg PO HS 05/03/23 11/20/23 History cholecalciferol (vitamin D3) 125 2,000 unit PO BID 05/03/23 11/20/23 History mcg (5,000 unit) capsule torsemide 20 mg tablet 30 mg PO QAM 05/03/23 11/20/23 History allopurinol 100 mg tablet 100 mg PO HS 11/20/23 11/20/23 History diphenoxylate-atropine 2.5 1 tab PO BID 11/20/23 11/20/23 History mg-0.025 mg tablet finasteride 5 mg tablet 5 mg PO QAM 11/20/23 11/20/23 History hydrocodone 5 mg-acetaminophen 325 1 tab PO UD PRN Pain 11/20/23 11/20/23 History mg tablet tamsulosin 0.4 mg capsule 0.4 mg PO QAM 11/20/23 11/20/23 History tezepelumab-ekko 210 mg/1.91 mL 210 mg subcut MONTHLY 11/20/23 11/20/23 History (110 mg/mL) subcutaneous syringe (Tezspire) torsemide 10 mg tablet 10 mg PO .IN AFTERNOON 11/20/23 11/20/23 History vitamin B complex 1 tab PO QPM 11/20/23 11/20/23 History Patient History Medical History (Updated 11/20/23 @ 12:38 by Unruly Kincaid MD) History of GI bleed > 1 yr ago, blood transfusion Memory difficulties difficulty remembering things he is told UTI (urinary tract infection) following with urology Environmental allergies History of IBS History of COVID-19 DX'D 09/09/21 PH CAM SYMPTOMS OF COUGH-TREATED WITH ANTIBODIES/RECOVERED AT HOME-SYMPTOMS RESOLVED SIADH (syndrome of inappropriate ADH production) Per nephrology records "ETOH/liver disease and/or COPD/pulmonary nodule (R/O CA)/SIADH...longstanding history of hyponatremia, baseline high 120s per chart review Cirrhosis Suspected per imaging/records per patient Stable Chronic kidney disease Thoracic aortic aneurysm Following with vascular, Dr. Bill Mcarthur/[facility] (CT surgery), stable per CT chest 08/23/22 (5.1cm) Stroke CVA (02/18/21) > no residual effects, PCP following, on Eliquis now (Plavix was discontinued after 3 months) Hx of gastric ulcer Remote hx Anemia Chronic/stable Paroxysmal A-fib + A-flutter S/P radiofrequency ablation (~3 yrs ago)-F/U DR [facility] BPH (benign prostatic hyperplasia) GERD (gastroesophageal reflux disease) Controlled Chronic obstructive pulmonary disease Stable Sleep apnea Non-compliant with CPAP Sleeps with wedge Hypertension Surgical History Hx of cardiac catheterization 10/2022 [facility]- no stents - checking for pulmonary hypertension; Dr Aashish [facility] cardiology- last visit 02/2023 History of nasal cauterization History of ERCP ERCP (04/28/19): Elective glidescope #3, ETT 7.5 at [facility] History of cholecystectomy H/O cardiac radiofrequency ablation 5+ years ago History of colonoscopy History of esophagogastroduodenoscopy (EGD) S/P ureteral stent placement Left (2018)-PT DENIES S/P TURP PT DENIES History of cataract surgery R/L History of lumbar fusion PT DENIES H/O total knee replacement Left Hx of tonsillectomy Hx of appendectomy Hx of foot surgery Left Hx of repair of left rotator cuff Hx of repair of right rotator cuff Family History Father Family hx of colon cancer Mother Family history of diabetes mellitus Social History Smoking Status: Current some day smoker Tobacco Type: Cigars Cigarettes Per Day: 2-3 CIGARS PER WEEK- advised; Second Hand Exposure: Yes (in the past); Do You Dip or Chew Tobacco: No; Hx Alcohol Use: Yes Alcohol type: beer Hx Substance Use: No Preferred Language: Georgian Communication Ability: Effective Visual Impairment: No Limitations Power Shovel Operator Required: No Beliefs That Will Affect Care: None marital status: Current Living Situation: Spouse current occupational status: retired Feels Safe at Home: Yes Assistive Devices: Cane Review of Systems Review of Systems: All systems reviewed & are unremarkable except as noted in HPI & below Physical Exam Constitutional: + ill appearing; no acute distress Respiratory: no respiratory distress and no labored breathing Musculoskeletal: Head/Neck/Chest: normocephalic Skin: No visible rashes or lesions to exposed skin areas Neurologic: awake Psychiatric: Orientation: alert and oriented x 3 Genitourinary: Garvey draining clear yellow urine Results & Data Vital Signs (Past 12 Hours) Vital Signs Temp Pulse Pulse Resp BP BP Pulse Ox 11/20/23 07:34 74 11/20/23 06:42 62 12 173/83 H 97 11/20/23 06:42 11/20/23 04:44 68 16 150/78 H 96 11/20/23 02:30 66 18 148/82 H 98 11/20/23 02:18 65 11/20/23 01:48 69 16 98 11/20/23 01:30 77 16 158/76 H 98 11/20/23 00:52 36.8 C 79 20 180/102 H 98 Pulse Ox O2 Del Method O2 Del Method 11/20/23 07:34 11/20/23 06:42 Room Air 11/20/23 06:42 99 Room Air 11/20/23 04:44 Room Air 11/20/23 02:30 Room Air 11/20/23 02:18 11/20/23 01:48 Room Air 11/20/23 01:30 Room Air 11/20/23 00:52 Room Air PG Care Time/CCT Total # of Minutes Spent Total Time Spent with Patient: Total time spent is greater than 50% in coordination of care (as documented) at patient's floor/unit and/or counseling patient: Coding Level of Care Code 91773 INT INP/OBS CARE 2/55MIN Diagnoses Acute urinary retention R33.8
[2023-11-20] MEDS: EPOETIN ALFA 10,000 UNITS/ML VIAL SQ ONE (14:00)
[2023-11-20] MEDS: ACETAMINOPHEN 325 MG TAB PO PRN (16:38)
[2023-11-20] MEDS: FUROSEMIDE 40 MG/4 ML VIAL IV SCH (17:06)
[2023-11-20] MEDS: SODIUM CHLORIDE 1 GM TABLET PO ONE (18:54)
[2023-11-20] MEDS: allopurinoL 100 MG TAB PO SCH (19:47)
[2023-11-20] MEDS ORDERED: AMITRIPTYLINE HCL 50 MG TAB PO SCH (21:00)
[2023-11-21] MEDS: SODIUM CHLORIDE 1 GM TABLET PO STA (00:36)
--- NOTE | 2023-11-21 06:26 | Billing Data ---
Date of Service November 21, 2023 Coding Level of Care Code 31702 INT INP/OBS CARE
[2023-11-21 06:32] LABS: Basophils # (auto) 0.02 K/uL (0.00-0.20); Basophils % (auto) 0.6 %; Eosinophils # (auto) 0.09 K/uL (0.00-0.50); Eosinophils % (auto) 2.6 %; Hematocrit (blood only) 22.1 % (42.0-52.0); Hemoglobin 7.9 g/dl (14.0-18.0); Lymphocytes # (auto) 0.64 K/uL (1.20-3.40); Lymphocytes % (auto) 18.2 %; Mean Corpuscular Hemoglobin 33.1 pg (25.0-34.0); Mean Corpuscular Hgb Conc 35.7 g/dL (32.0-36.0); Mean Corpuscular Volume 92.5 fL (80.0-100.0); Mean Platelet Volume 9.5 fL (9.4-12.4); Monocytes # (auto) 0.72 K/uL (0.11-0.59); Monocytes % (auto) 20.5 %; Neutrophils # (auto) 2.05 K/uL (1.40-6.50); Neutrophils % (auto) 58.1 %; Platelet Count 264 K/uL (130-400); RDW Coefficient of Variation 13.3 % (11.5-14.5); RDW Standard Deviation 44.9 fL (36.4-46.3); Red Blood Count 2.39 M/uL (4.70-6.10); White Blood Count 3.52 K/ul (4.8-10.8)
[2023-11-21 06:36] LABS: Calcium 8.9 mg/dl (8.6-10.3); Creatinine Clr Calc Pharmacy 39.2 ml/min; Est GFR (African American) 34.1 ml/min; Est GFR (Non-African American) 29.4 ml/min; Potassium 4.4 mmol/L (3.5-5.1)
[2023-11-21 06:58] LABS: RBC Morphology Unremarkable
--- NOTE | 2023-11-21 07:25 | XRay Report ---
XR chest 1V portable HISTORY: 73 years-old Male CHF acute shortness of breath with reported congestive heart failure COMPARISON: 11/20/2023 TECHNIQUE: AP view of the chest FINDINGS: Cardiac silhouette is enlarged. Atherosclerosis of the aorta. Pulmonary vascular congestion. Surgical anchors of the left humeral head. No pneumothorax, pleural effusion, airspace consolidation or overt pulmonary edema. Bones appear grossly intact. IMPRESSION: Cardiomegaly with pulmonary vascular congestion. ACT 112: Negative or not required by law. The above report was generated using voice recognition software. It may contain grammatical, syntax o r spelling errors. Electronically signed by: Destin Koenig M.D. 11/21/2023 7:23 AM
[2023-11-21] MEDS: SODIUM CHLORIDE 0.65% NA SOLN 45 ML (OCEAN) ONE (07:41)
[2023-11-21] MEDS: IRON SUCROSE 200 MG in 0.9 % SODIUM CHLORIDE 100 ML IV ONE (10:40)
[2023-11-21] MEDS: SODIUM CHLORIDE 1 GM TABLET PO ONE ×2 (10:40→15:40)
--- NOTE | 2023-11-21 10:52 | Urology Progress Note ---
Date of Service November 21, 2023 Assessment & Plan (1) Acute urinary retention: Plan 73yo M with a hx of bladder outlet obstruction with severe issues related to retention and stricture requiring dilation who was admitted with hyponatremia and acute urinary retention. He was bladder scanned for >1L on admission and a Garvey catheter was placed by nursing staff. Urology asked to evaluate patient due to urinary retention. - Afebrile and hemodynamically stable. - Labs- WBC 3.52, Na 122, hemoglobin 7.9, creatinine 2.14. Continue to trend. Nephrology following. - Urine culture pending - Garvey draining appropriatelyurine is clear yellow. Continue to monitor. - Urinary retention is managed with a Garvey catheter. - Would recommend maintaining catheter for at least 7-10 days for bladder rest and decompression. - He was scheduled for follow-up office cystoscopy on 11/21/[address] Cordova. Will work on rescheduling as outpatient. Will also arrange outpatient catheter removal. - Continue Flomax and Finasteride. - Continue supportive care and management per primary team. - Urology will follow peripherally. Please call with any questions or concerns. Admission and Anticipated Discharge Date Admission Date: November 20, 2023 Subjective Patient examined at bedside this AM. Awake, sitting in bedside chair on arrival. No acute distress. at bedside. Garvey draining clear yellow urine. States he is feeling much better today. Denies fever, chills, nausea, vomiting. Denies any pain or discomfort at present. Review of Systems Constitutional: as per Subjective / HPI Genitourinary: + as per Subjective / HPI Physical Exam Constitutional: no acute distress Respiratory: no respiratory distress and no labored breathing Musculoskeletal: Head/Neck/Chest: normocephalic Neurologic: awake Psychiatric: Orientation: alert and oriented x 3 Genitourinary: Garvey draining clear yellow urine Results & Data Vital Signs (Past 12 Hours) Vital Signs Temp Pulse Pulse Resp BP Pulse Ox O2 Del Method 11/21/23 07:31 36.5 C 59 L 18 132/55 L 93 Room Air 11/21/23 07:02 73 11/21/23 04:06 37.0 C 74 20 128/68 95 Room Air 11/20/23 23:14 36.7 C 73 20 130/73 94 Room Air PG Care Time/CCT Total # of Minutes Spent Total Time Spent with Patient: Total time spent is greater than 50% in coordination of care (as documented) at patient's floor/unit and/or counseling patient: Coding Level of Care Code 47393 SUB INP/OBS CARE 2/35MIN Diagnoses Acute urinary retention R33.8
--- NOTE | 2023-11-21 11:02 | Nephrology Progress Note ---
Date of Service November 21, 2023 Assessment & Plan (1) Hyponatremia: Plan: Chronic. Severe. Sodium improving at acceptable rate. Symptoms resolved. Appetite improving. Volume status remains euvolemic. Uosm 187 this AM. This has not increased significantly despite no Tolvaptan in >24 hours. Will continue to hold Tolvaptan for now and continue oral NaCl and fluid restriction. I suspect dysnatremia was largely due to poor oral solute intake. This has improved. Repeat sodium level has been ordered for noon. Electrolytes are otherwise acceptable. Document strict I/O's. Continue to hold torsemide for now. (2) SIADH (syndrome of inappropriate ADH production): Plan: Maintain 1.5 L daily fluid restriction. Document I/O's. CXR without lesion. Amitriptyline has been held but given the chronicity of the condition it is unclear if the medication contributed. (3) Chronic kidney disease: Plan: Followed by [facility]. CKD IV. Baseline creatinine 2.0-2.5 mg/dL. Volume status acceptable. Kidney function stable. Medications appropriate for kidney function. (4) Anemia: Plan: IV iron + Epogen provided yesterday. Additional IV iron ordered for this AM. (5) Cirrhosis of liver: Plan: LFTs within normal limits. This is a documented suspected diagnosis and I do not have confirmation. Ruy has been tolerating tolvaptan well as an outpatient. (6) (HFpEF) heart failure with preserved ejection fraction: Plan: Volume status acceptable. Diuretics held. (7) Afib: Plan: No AC due to recent GIB and SAH. Remains rate controlled in sinus rhythm. Will require close cardiology observation. (8) History of subarachnoid hemorrhage: (9) COPD (chronic obstructive pulmonary disease): Admission and Anticipated Discharge Date Admission Date: November 20, 2023 Subjective No acute events overnight. Ruy was seen and evaluated with his at the bedside. He is feeling significantly better today. Appetite improved. Garvey draining clear yellow urine. No abdominal pain. No signs of GI bleeding reported. Headache resolved. No fluid retention or edema. Review of Systems Review of Systems: All systems reviewed & are unremarkable except as noted in HPI & below Physical Exam Constitutional: well developed; no acute distress and not ill appearing Eyes: + anicteric sclerae; no corneal abnormal ity ENMT: Mouth: no oral mucosal abnormality and oral mucous membranes not dry Neck: normal visual inspection and trachea midline Respiratory: normal respiratory effort Auscultation: lungs clear to auscultation bilaterally Cardiovascular: Rate/Rhythm: + irregularly irregular Heart Sounds: normal S1 and normal S2 Extremities: + edema (L>R) and + varicosities Musculoskeletal: Extremities: no cyanosis and no clubbing Skin: normal turgor, + lesion (multiple skin tears - notably on thigh ) and + dry skin; no jaundice Neurologic: Motor/Sensory: no tremor and no asterixis Psychiatric: Orientation: alert and oriented x 3 Results & Data Vital Signs (Past 12 Hours) Vital Signs Temp Pulse Pulse Resp BP Pulse Ox O2 Del Method 11/21/23 07:31 36.5 C 59 L 18 132/55 L 93 Room Air 11/21/23 07:02 73 11/21/23 04:06 37.0 C 74 20 128/68 95 Room Air 11/20/23 23:14 36.7 C 73 20 130/73 94 Room Air Laboratory Results Laboratory Results - last 24 hr 11/20/23 11/20/23 11/20/23 11:16 17:00 21:49 WBC RBC Hgb 8.2 L Hct 22.1 L MCV MCH MCHC RDW Std Deviation RDW Coeff of Greer Plt Count MPV Immature Gran % (Auto) Neut % (Auto) Lymph % (Auto) Kidder % (Auto) Eos % (Auto) Baso % (Auto) Neut # (Auto) Lymph # (Auto) Kidder # (Auto) Eos # (Auto) Baso # (Auto) Immature Gran # (Auto) RBC Morphology Sodium 118 L* 118 L* 119 L* Potassium Chloride Carbon Dioxide Anion Gap BUN Creatinine Est Cr Clr Drug Dosing Est GFR ( Amer) Est GFR (Non-Af Amer) BUN/Creatinine Ratio Glucose Calcium Iron 73 TIBC 361 Unsaturated IBC 288 Transferrin % Sat 20 Ferritin 58.6 Urine Osmolality 11/21/23 11/21/23 05:53 Unknown WBC 3.52 L RBC 2.39 L Hgb 7.9 L Hct 22.1 L MCV 92.5 MCH 33.1 MCHC 35.7 RDW Std Deviation 44.9 RDW Coeff of Greer 13.3 Plt Count 264 MPV 9.5 Immature Gran % (Auto) 0.0 Neut % (Auto) 58.1 Lymph % (Auto) 18.2 Kidder % (Auto) 20.5 Eos % (Auto) 2.6 Baso % (Auto) 0.6 Neut # (Auto) 2.05 Lymph # (Auto) 0.64 L Kidder # (Auto) 0.72 H Eos # (Auto) 0.09 Baso # (Auto) 0.02 Immature Gran # (Auto) 0.00 L RBC Morphology Unremarkable Sodium 122 L Potassium 4.4 Chloride 92 L Carbon Dioxide 23 Anion Gap 7 BUN 62 H Creatinine 2.14 H Est Cr Clr Drug Dosing 39.2 Est GFR ( Amer) 34.1 Est GFR (Non-Af Amer) 29.4 BUN/Creatinine Ratio 29.0 H Glucose 115 H Calcium 8.9 Iron TIBC Unsaturated IBC Transferrin % Sat Ferritin Urine Osmolality 187 L PG Care Time/CCT Total # of Minutes Spent Total Time Spent with Patient: Total time spent is greater than 50% in coordination of care (as documented) at patient's floor/unit and/or counseling patient: Coding Level of Care Code 08820 SUB INP/OBS CARE 3/50MIN Diagnoses Hyponatremia E87.1 SIADH (syndrome of inappropriate ADH production) E22.2 Chronic kidney disease N18.9 Anemia D64.9 Cirrhosis of liver K74.60 (HFpEF) heart failure with preserved ejection fraction I50.30 Afib I48.91 History of subarachnoid hemorrhage Z86.79 COPD (chronic obstructive pulmonary disease) J44.9
--- NOTE | 2023-11-21 14:15 | Hospitalist Progress Note ---
Date of Service November 21, 2023 Assessment & Plan (1) Acute on chronic diastolic CHF (congestive heart failure): Plan: Present on chest x-ray but not heard on pulmonary examination. Continue parenteral Lasix. Brisk diuresis so far. Monitor intake and output. Repeat chest x-ray again tomorrow, November 21. Ejection fraction is preserved and there does not appear to be a need for Entresto at this time which could possibly be contributing to the hyponatremia. Entresto has been discontinued. (2) SIADH (syndrome of inappropriate ADH production): Plan: Sodium 112 on on admission. Now improved to 122. Serum osmolarity 263. Entresto and Elavil discontinued as potential offending agents. Continue Lasix diuresis and fluid restriction. Serial labs. Appreciate nephrology consultation and recommendations. He will remain off tolvaptan for the time being (3) Chronic kidney disease, stage III (moderate): Plan: Stable. Monitor intake and output. Serial labs (4) Essential hypertension: Plan: Entresto has been discontinued. Will use a different antihypertensive agent if needed (5) Subarachnoid hemorrhage: Plan: Occurred recently. Systemic anticoagulation has been discontinued recently. Will follow (6) Generalized weakness: Plan: Continue OT and PT while hospitalized. Plan Hopeful discharge to home within the next day or 2. Admission and Anticipated Discharge Date Admission Date: November 20, 2023 Subjective Alert and oriented. No distress. Urology and nephrology entry is noted. Sodium improved to 122. Brisk diuretic effect with parenteral Lasix. Will repeat portable chest x-ray again tomorrow, November 21. He is complaining of left lower extremity pain although there is no swelling. Venous Doppler ordered and pending. He does have brawny induration consistent with chronic venous stasis. He remains on room air. Hemoglobin has drifted down to 7.9. Fecal occult blood is pending. There is no overt melena or hematochezia. Review of Systems 2 Review of Systems: Constitutional-no fever or chills ENT-no blurred vision, no double vision, no epistaxis, no sore throat Respiratory-no cough, no wheezing, no shortness of breath Cardiac-no palpitations, no chest pain, no syncope GI-no nausea, vomiting, diarrhea, melena, hematochezia -no urinary retention, no urinary incontinence, no dysuria, no hematuria Musculoskeletal-no joint pain, no muscle tenderness Skin-no bruising, no rashes, no pruritus Neuro-generalized weakness. No focal deficits Psych-no depression, no anxiety Physical Exam 2 Physical Exam: General-alert and oriented x3, no fever, no chills HEENT-head atraumatic and normocephalic, pupils equal and reactive to light, extraocular muscles intact Neck-no lymphadenopathy or thyromegaly, trachea midline Chest-clear to auscultation. No rales interestingly. No wheezing or rhonchi Cardiac-regular rate and rhythm, normal S1 and S2 Abdomen-normal bowel sounds, nontender, no hepatosplenomegaly Extremities-no cyanosis, clubbing, or edema. Brawny induration consistent with chronic venous stasis bilateral lower extremities Neuro-cranial nerves II through XII intact, motor and sensory function within normal limits, strength symmetrical with generalized weakness, no focal deficits Psych-normal affect, normal mood Results & Data Results & Data Vital Signs (Past 12 Hours) Vital Signs Temp Pulse Pulse Resp BP Pulse Ox O2 Del Method 11/21/23 11:39 36.8 C 62 18 115/63 99 Room Air 11/21/23 07:31 36.5 C 59 L 18 132/55 L 93 Room Air 11/21/23 07:02 73 11/21/23 04:06 37.0 C 74 20 128/68 95 Room Air Laboratory Results 11/21/23 05:53 11/21/23 12:04 PG Care Time/CCT Total # of Minutes Spent Total Time Spent with Patient: Total time spent is greater than 50% in coordination of care (as documented) at patient's floor/unit and/or counseling patient: Coding Level of Care Code 80159 SUB INP/OBS CARE 3/50MIN Diagnoses Acute on chronic diastolic CHF (congestive heart failure) I50.33 SIADH (syndrome of inappropriate ADH production) E22.2 Chronic kidney disease, stage III (moderate) N18.30 Essential hypertension I10 Subarachnoid hemorrhage I60.9 Generalized weakness R53.1
--- NOTE | 2023-11-21 15:33 | Ultrasound Report ---
LEFT LOWER EXTREMITY VENOUS DOPPLER HISTORY: Acute pain in the left lower pain COMPARISON STUDY: None. FINDINGS: There is normal compressibility, flow, and augmentation within the left lower extremity kar p venous system. IMPRESSION: No DVT within the left lower extremity. ACT 112: Negative or not required by law. Electronically signed by: Destin Koenig M.D. 11/21/2023 3:32 PM
[2023-11-22] MEDS: SODIUM CHLORIDE 1 GM TABLET PO ONE (00:01)
[2023-11-22 06:54] LABS: Basophils # (auto) 0.02 K/uL (0.00-0.20); Basophils % (auto) 0.5 %; Eosinophils # (auto) 0.11 K/uL (0.00-0.50); Eosinophils % (auto) 2.8 %; Hematocrit (blood only) 22.4 % (42.0-52.0); Hemoglobin 8.1 g/dl (14.0-18.0); Immature Granulocytes # (auto) 0.02 K/uL (0.01-0.20); Immature Granulocytes % (auto) 0.5 %; Lymphocytes # (auto) 0.81 K/uL (1.20-3.40); Lymphocytes % (auto) 20.6 %; Mean Corpuscular Hemoglobin 33.3 pg (25.0-34.0); Mean Corpuscular Hgb Conc 36.2 g/dL (32.0-36.0); Mean Corpuscular Volume 92.2 fL (80.0-100.0); Mean Platelet Volume 9.4 fL (9.4-12.4); Monocytes # (auto) 0.88 K/uL (0.11-0.59); Monocytes % (auto) 22.3 %; Neutrophils % (auto) 53.3 %; Platelet Count 269 K/uL (130-400); RDW Coefficient of Variation 13.6 % (11.5-14.5); Red Blood Count 2.43 M/uL (4.70-6.10); White Blood Count 3.94 K/ul (4.8-10.8)
[2023-11-22 07:19] LABS: BUN Creatinine Ratio 26.5 (10-20); Calcium 9.1 mg/dl (8.6-10.3); Creatinine Clr Calc Pharmacy 38.3 ml/min; Est GFR (African American) 33.2 ml/min; Est GFR (Non-African American) 28.6 ml/min; Potassium 4.4 mmol/L (3.5-5.1)
--- NOTE | 2023-11-22 07:26 | XRay Report ---
XR chest 1V portable CLINICAL HISTORY: CHF TECHNIQUE: Single frontal radiograph of the chest was obtained. Comparison: Comparison is made to chest radiograph 11/21/2023 FINDINGS: No lines and tubes are seen. Cardiomegaly is noted. The aortic arch is calcified. The lungs are clear . No evidence of pleural effusion or pneumothorax. IMPRESSION: No acute abnormality and in particular no evidence of pulmonary edema. Previously noted vascular amarjit estion is less conspicuous. ACT 112: Negative or not required by law. Electronically signed by: Elijah Ortiz M.D. 11/22/2023 7:25 AM
[2023-11-22] MEDS: TOLVAPTAN 15 MG TABLET PO SCH (10:35)
--- NOTE | 2023-11-22 11:41 | Nephrology Progress Note ---
Date of Service November 22, 2023 Assessment & Plan (1) Hyponatremia: Plan: Chronic. Severe. Sodium improving at acceptable rate. Symptoms resolved. Volume status remains euvolemic. Uosm now up to 250. Sodium reasonable. I will plan to restart Tolvaptan with a dose of 15 mg this AM. I suspect dysnatremia was largely due to poor oral solute intake. This has improved. Hopefully, we can restart tolvaptan this morning and see a continued trend in the right direction. Repeat sodium level has been ordered for this afternoon. Electrolytes are otherwise acceptable. Document strict I/O's. Diuretics PRN to encourage even to slightly negative fluid balance. (2) SIADH (syndrome of inappropriate ADH production): Plan: Maintain 1.5 L daily fluid restriction. Document I/O's. CXR without lesion. Amitriptyline has been held but given the chronicity of the condition it is unclear if the medication contributed. (3) Chronic kidney disease: Plan: Followed by [facility]. CKD IV. Baseline creatinine 2.0-2.5 mg/dL. Volume status acceptable. Kidney function stable. Medications appropriate for kidney function. (4) Anemia: Plan: Received 2 x 200 mg IV venofer. Single dose of Epogen 26775 units provided on 11/19. (5) Cirrhosis of liver: Plan: LFTs within normal limits. This is a documented suspected diagnosis and I do not have confirmation. Ruy has been tolerating tolvaptan well as an outpatient. (6) (HFpEF) heart failure with preserved ejection fraction: Plan: Volume status acceptable. Diuretics held. (7) Afib: Plan: No AC due to recent GIB and SAH. Remains rate controlled in sinus rhythm. Will require close cardiology observation. (8) History of subarachnoid hemorrhage: (9) COPD (chronic obstructive pulmonary disease): Admission and Anticipated Discharge Date Admission Date: November 20, 2023 Subjective No acute events overnight. Ruy feels well overall. He was out of bed walking t he lam with his this morning. He is ambulating with a walker for support. LE edema has improved. He denies dyspnea. Appetite improved. No GI symptoms endorsed. Garvey draining clear yellow urine. Review of Systems Review of Systems: All systems reviewed & are unremarkable except as noted in HPI & below Physical Exam Constitutional: well developed; no acute distress and not ill appearing Eyes: + anicteric sclerae; no corneal abnormal ity ENMT: Mouth: no oral mucosal abnormality and oral mucous membranes not dry Neck: normal visual inspection and trachea midline Respiratory: normal respiratory effort Auscultation: lungs clear to auscultation bilaterally Cardiovascular: Rate/Rhythm: + irregularly irregular Heart Sounds: normal S1 and normal S2 Extremities: + edema (L>R) and + varicosities Musculoskeletal: Extremities: no cyanosis and no clubbing Skin: normal turgor; no jaundice Neurologic: Motor/Sensory: no tremor and no asterixis Psychiatric: Orientation: alert and oriented x 3 Results & Data Vital Signs (Past 12 Hours) Vital Signs Temp Pulse Pulse Resp BP Pulse Ox O2 Del Method 11/22/23 11:25 36.5 C 68 18 123/65 100 Room Air 11/22/23 08:27 36.6 C 64 16 149/68 H 97 Room Air 11/22/23 07:03 56 L 11/22/23 03:52 36.7 C 59 L 20 133/72 96 Room Air Laboratory Results Laboratory Results - last 24 hr 11/21/23 11/21/23 11/22/23 12:04 21:46 06:26 WBC 3.94 L RBC 2.43 L Hgb 8.1 L Hct 22.4 L MCV 92.2 MCH 33.3 MCHC 36.2 H RDW Std Deviation 46.0 RDW Coeff of Greer 13.6 Plt Count 269 MPV 9.4 Immature Gran % (Auto) 0.5 Neut % (Auto) 53.3 Lymph % (Auto) 20.6 [place] % (Auto) 22.3 Eos % (Auto) 2.8 Baso % (Auto) 0.5 Neut # (Auto) 2.10 Lymph # (Auto) 0.81 L [place] # (Auto) 0.88 H Eos # (Auto) 0.11 Baso # (Auto) 0.02 Immature Gran # (Auto) 0.02 Sodium 124 L 125 L 128 L Potassium 4.4 Chloride 95 L Carbon Dioxide 24 Anion Gap 9 BUN 58 H Creatinine 2.19 H Est Cr Clr Drug Dosing 38.3 Est GFR ( Amer) 33.2 Est GFR (Non-Af Amer) 28.6 BUN/Creatinine Ratio 26.5 H Glucose 114 H Calcium 9.1 Urine Osmolality Stool Occult Bld Scrn 11/22/23 11/22/23 10:00 Unknown WBC RBC Hgb Hct MCV MCH MCHC RDW Std Deviation RDW Coeff of Greer Plt Count MPV Immature Gran % (Auto) Neut % (Auto) Lymph % (Auto) [place] % (Auto) Eos % (Auto) Baso % (Auto) Neut # (Auto) Lymph # (Auto) [place] # (Auto) Eos # (Auto) Baso # (Auto) Immature Gran # (Auto) Sodium Potassium Chloride Carbon Dioxide Anion Gap BUN Creatinine Est Cr Clr Drug Dosing Est GFR ( Amer) Est GFR (Non-Af Amer) BUN/Creatinine Ratio Glucose Calcium Urine Osmolality 256 L Stool Occult Bld Scrn Pending PG Care Time/CCT Total # of Minutes Spent Total Time Spent with Patient: Total time spent is greater than 50% in coordination of care (as documented) at patient's floor/unit and/or counseling patient: Coding Level of Care Code 89282 SUB INP/OBS CARE 3/50MIN Diagnoses Hyponatremia E87.1 SIADH (syndrome of inappropriate ADH production) E22.2 Chronic kidney disease N18.9 Anemia D64.9 Cirrhosis of liver K74.60 (HFpEF) heart failure with preserved ejection fraction I50.30 Afib I48.91 History of subarachnoid hemorrhage Z86.79 COPD (chronic obstructive pulmonary disease) J44.9
[2023-11-22] MEDS: DOCUSATE SODIUM 100 MG CAP PO SCH (12:58)
[2023-11-22 13:24] LABS: BUN Creatinine Ratio 25.8 (10-20); Calcium 9.2 mg/dl (8.6-10.3); Creatinine Clr Calc Pharmacy 37.9 ml/min; Est GFR (African American) 32.8 ml/min; Est GFR (Non-African American) 28.3 ml/min; Potassium 4.7 mmol/L (3.5-5.1)
--- NOTE | 2023-11-22 14:33 | Hospitalist Progress Note ---
Date of Service November 22, 2023 Assessment & Plan (1) Acute on chronic diastolic CHF (congestive heart failure): Plan: Present on initial chest x-ray but not heard on pulmonary examination. Will the chest x-ray done today, November 21, looks much better. He continues to have significant diuresis with parenteral Lasix. Monitor intake and output. Ejection fraction is preserved and there does not appear to be a need for Entresto at this time which could possibly be contributing to the hyponatremia. Entresto has been discontinued. (2) SIADH (syndrome of inappropriate ADH production): Plan: Sodium 112 on on admission. Now improved to 128. Serum osmolarity 263. Entresto and Elavil discontinued as potential offending agents. Improving with continued Lasix diuresis and fluid restriction. Serial labs. Appreciate nephrology consultation and recommendations. Tolvaptan restarted today, November 21 (3) Chronic kidney disease, stage III (moderate): Plan: Stable. Monitor intake and output. Serial labs (4) Essential hypertension: Plan: Entresto has been discontinued. Will use a different antihypertensive agent if needed (5) Subarachnoid hemorrhage: Plan: Occurred recently. Systemic anticoagulation has been discontinued recently. Will follow (6) Generalized weakness: Plan: Continue OT and PT while hospitalized. Plan Probable discharge to home tomorrow, November 22 Admission and Anticipated Discharge Date Admission Date: November 20, 2023 Subjective Alert and oriented. He wants to go home today but he agrees to stay until tomorrow. Nephrology entry noted. They will restart tolvaptan and today. Sodium improved to 128. Fecal occult blood has not been done as requested. Hemoglobin stable at 8.1. Creatinine stable at 2.1. He remains on room air. Chest x-ray done today, 11/22, looks much better. Significant diuretic effect produce with parenteral Lasix. Fortunately, the venous Doppler of the left lower extremity is negative for DVT. Anticipate discharge to home tomorrow, November 22 Review of Systems 2 Review of Systems: Constitutional-no fever or chills ENT-no blurred vision, no double vision, no epistaxis, no sore throat Respiratory-no cough, no wheezing, no shortness of breath Cardiac-no palpitations, no chest pain, no syncope GI-no nausea, vomiting, diarrhea, melena, hematochezia -no urinary retention, no urinary incontinence, no dysuria, no hematuria Musculoskeletal-no joint pain, no muscle tenderness Skin-no bruising, no rashes, no pruritus Neuro-generalized weakness. No focal deficits Psych-no depression, no anxiety Physical Exam 2 Physical Exam: General-alert and oriented x3, no fever, no chills HEENT-head atraumatic and normocephalic, pupils equal and reactive to light, extraocular muscles intact Neck-no lymphadenopathy or thyromegaly, trachea midline Chest-clear to auscultation. No rales interestingly. No wheezing or rhonchi Cardiac-regular rate and rhythm, normal S1 and S2 Abdomen-normal bowel sounds, nontender, no hepatosplenomegaly Extremities-no cyanosis, clubbing, or edema. Brawny induration consistent with chronic venous stasis bilateral lower extremities Neuro-cranial nerves II through XII intact, motor and sensory function within normal limits, strength symmetrical with generalized weakness, no focal deficits Psych-normal affect, normal mood Results & Data Results & Data Vital Signs (Past 12 Hours) Vital Signs Temp Pulse Pulse Resp BP Pulse Ox O2 Del Method 11/22/23 11:25 36.5 C 68 18 123/65 100 Room Air 11/22/23 08:27 36.6 C 64 16 149/68 H 97 Room Air 11/22/23 07:03 56 L 11/22/23 03:52 36.7 C 59 L 20 133/72 96 Room Air Laboratory Results 11/22/23 06:26 11/22/23 12:53 PG Care Time/CCT Total # of Minutes Spent Total Time Spent with Patient: Total time spent is greater than 50% in coordination of care (as documented) at patient's floor/unit and/or counseling patient: Coding Level of Care Code 11995 SUB INP/OBS CARE 3/50MIN Diagnoses Acute on chronic diastolic CHF (congestive heart failure) I50.33 SIADH (syndrome of inappropriate ADH production) E22.2 Chronic kidney disease, stage III (moderate) N18.30 Essential hypertension I10 Subarachnoid hemorrhage I60.9 Generalized weakness R53.1
[2023-11-23] MEDS: SODIUM CHLORIDE 1 GM TABLET PO ONE (00:06)
[2023-11-23 06:38] LABS: Basophils # (auto) 0.04 K/uL (0.00-0.20); Basophils % (auto) 0.8 %; Eosinophils # (auto) 0.17 K/uL (0.00-0.50); Eosinophils % (auto) 3.3 %; Hematocrit (blood only) 23.7 % (42.0-52.0); Hemoglobin 8.5 g/dl (14.0-18.0); Immature Granulocytes # (auto) 0.01 K/uL (0.01-0.20); Immature Granulocytes % (auto) 0.2 %; Lymphocytes % (auto) 19.5 %; Mean Corpuscular Hemoglobin 33.5 pg (25.0-34.0); Mean Corpuscular Hgb Conc 35.9 g/dL (32.0-36.0); Mean Corpuscular Volume 93.3 fL (80.0-100.0); Mean Platelet Volume 9.9 fL (9.4-12.4); Monocytes # (auto) 1.08 K/uL (0.11-0.59); Neutrophils # (auto) 2.84 K/uL (1.40-6.50); Neutrophils % (auto) 55.2 %; Platelet Count 285 K/uL (130-400); RDW Coefficient of Variation 13.9 % (11.5-14.5); RDW Standard Deviation 46.7 fL (36.4-46.3); Red Blood Count 2.54 M/uL (4.70-6.10); White Blood Count 5.14 K/ul (4.8-10.8)
[2023-11-23 06:53] LABS: Calcium 9.2 mg/dl (8.6-10.3); Potassium 4.6 mmol/L (3.5-5.1)
[2023-11-23 06:58] LABS: BUN Creatinine Ratio 22.9 (10-20); Creatinine Clr Calc Pharmacy 36.5 ml/min; Est GFR (African American) 28.4 ml/min; Est GFR (Non-African American) 24.5 ml/min
[2023-11-23] MEDS: TOLVAPTAN 15 MG TABLET PO SCH (08:13)
--- NOTE | 2023-11-23 13:07 | Nephrology Progress Note ---
Date of Service November 23, 2023 Assessment & Plan (1) Hyponatremia: Plan: Chronic. Severe. Sodium improved at an acceptable rate to 129 mmol/L. Volume status is acceptable. Tolvaptan was restarted yesterday at a reduced dose. Home dose of 45 mg provided this AM. I advised Ruy to continue the medication as well as his torsemide as previously Rx'd. I suspect dysnatremia was largely due to poor oral solute intake. This has improved. I would continue oral NaCl ~1 gm BID pending repeat labs as an outpatient. I advised Ruy that a follow up BMP early next week is advised. He states that he will be able to complete this on Monday. Follow up with outboard motor tester and PCP in the next couple of weeks. (2) SIADH (syndrome of inappropriate ADH production): Plan: Continue prior home regimen of tolvaptan and torsemide with close outpatient follow up with outboard motor tester. Advised to continue oral NaCl 1-2 grams daily pending repeat labs next week. (3) Chronic kidney disease: Plan: Followed by [facility]. CKD IV. Baseline creatinine 2.0-2.5 mg/dL. Volume status acceptable. Kidney function stable. Medications appropriate for kidney function. (4) Anemia: Plan: Received 2 x 200 mg IV venofer. Single dose of Epogen 90693 units provided on 11/19. (5) (HFpEF) heart failure with preserved ejection fraction: Plan: Volume status acceptable. Resume torsemide upon discharge. (6) History of subarachnoid hemorrhage: (7) COPD (chronic obstructive pulmonary disease): Admission and Anticipated Discharge Date Admission Date: November 20, 2023 Subjective No acute events overnight. Ruy was seen and evaluated with his at the bedside today. He feels well. He would like to be discharged home. He has been walking in the halls. He denies lightheadedness or dizziness. Appetite is good. No fluid retention or edema. He states that he will be able to arrange close outpatient follow up with [facility]. Review of Systems Review of Systems: All systems reviewed & are unremarkable except as noted in HPI & below Physical Exam Constitutional: well developed; no acute distress Eyes: + anicteric sclerae; no corneal abnormal ity ENMT: Mouth: no oral mucosal abnormality and oral mucous membranes not dry Neck: normal visual inspection and trachea midline Respiratory: normal respiratory effort Auscultation: lungs clear to auscultation bilaterally Cardiovascular: Rate/Rhythm: regular rate Heart Sounds: normal S1 and normal S2 Extremities: + edema (L>R) and + varicosities Musculoskeletal: Extremities: no cyanosis and no clubbing Skin: normal turgor; no jaundice Neurologic: Motor/Sensory: no tremor and no asterixis Psychiatric: Orientation: alert and oriented x 3 Results & Data Vital Signs (Past 12 Hours) Vital Signs Temp Pulse Resp BP Pulse Ox O2 Del Method 11/23/23 11:47 36.5 C 72 18 128/69 100 Room Air 11/23/23 07:59 36.8 C 65 18 161/76 H 92 Room Air 11/23/23 03:19 36.7 C 67 18 134/77 96 Room Air Laboratory Results Laboratory Results - last 24 hr 11/22/23 11/22/23 11/22/23 10:00 12:53 20:06 WBC RBC Hgb Hct MCV MCH MCHC RDW Std Deviation RDW Coeff of Greer Plt Count MPV Immature Gran % (Auto) Neut % (Auto) Lymph % (Auto) [place] % (Auto) Eos % (Auto) Baso % (Auto) Neut # (Auto) Lymph # (Auto) [place] # (Auto) Eos # (Auto) Baso # (Auto) Immature Gran # (Auto) Sodium 128 L 127 L Potassium 4.7 Chloride 93 L Carbon Dioxide 27 Anion Gap 8 BUN 57 H Creatinine 2.21 H Est Cr Clr Drug Dosing 37.9 Est GFR ( Amer) 32.8 Est GFR (Non-Af Amer) 28.3 BUN/Creatinine Ratio 25.8 H Glucose 103 H Calcium 9.2 Stool Occult Bld Scrn Positive A 11/23/23 05:55 WBC 5.14 RBC 2.54 L Hgb 8.5 L Hct 23.7 L MCV 93.3 MCH 33.5 MCHC 35.9 RDW Std Deviation 46.7 H RDW Coeff of Greer 13.9 Plt Count 285 MPV 9.9 Immature Gran % (Auto) 0.2 Neut % (Auto) 55.2 Lymph % (Auto) 19.5 [place] % (Auto) 21.0 Eos % (Auto) 3.3 Baso % (Auto) 0.8 Neut # (Auto) 2.84 Lymph # (Auto) 1.00 L [place] # (Auto) 1.08 H Eos # (Auto) 0.17 Baso # (Auto) 0.04 Immature Gran # (Auto) 0.01 Sodium 129 L Potassium 4.6 Chloride 98 Carbon Dioxide 23 Anion Gap 8 BUN 57 H Creatinine 2.49 H Est Cr Clr Drug Dosing 36.5 Est GFR ( Amer) 28.4 Est GFR (Non-Af Amer) 24.5 BUN/Creatinine Ratio 22.9 H Glucose 108 H Calcium 9.2 Stool Occult Bld Scrn PG Care Time/CCT Total # of Minutes Spent Total Time Spent with Patient: Total time spent is greater than 50% in coordination of care (as documented) at patient's floor/unit and/or counseling patient: Coding Level of Care Code 86393 SUB INP/OBS CARE 3/50MIN Diagnoses Hyponatremia E87.1 SIADH (syndrome of inappropriate ADH production) E22.2 Chronic kidney disease N18.9 Anemia D64.9 (HFpEF) heart failure with preserved ejection fraction I50.30 History of subarachnoid hemorrhage Z86.79 COPD (chronic obstructive pulmonary disease) J44.9
--- NOTE | 2023-11-23 13:38 | Discharge Summary ---
Date of Service November 23, 2023 Admission HPI Per Admitting Provider 73 year old male with a past medical history of hyponatremia, GERD, cirrhosis, HFpEF, a fib, COPD, GERD, HTN, TIA, SHEREEN presenting with concern for urinary retention and weakness. Admitted to [facility] in early September for dark stools and acute worsening of hyponatremia. EGD with hemorrhagic gastric polyps and esophagitis. Represented to the ED later that month after fall at home, CT with subarachnoid hemorrhage was seen by neurosurgery and is following with them as outpatient. Since he was discharged approximately 2 weeks ago per his , he has had increased weakness and poor PO intake. Has been following with nephrology for his hyponatremia. 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 In the ED his Pv=[id number]. Head CT again demonstrated small subarachnoid hemorrhage, reported improved from prior. Principal Diagnosis Acute on chronic diastolic congestive heart failure, exacerbation chronic hyponatremia due to SIADH, fecal occult blood positivity, Discharge Exam General-alert and oriented x3, no fever, no chills HEENT-head atraumatic and normocephalic, pupils equal and reactive to light, extraocular muscles intact Neck-no lymphadenopathy or thyromegaly, trachea midline Chest-clear to auscultation. No rales interestingly. No wheezing or rhonchi Cardiac-regular rate and rhythm, normal S1 and S2 Abdomen-normal bowel sounds, nontender, no hepatosplenomegaly Extremities-no cyanosis, clubbing, or edema. Brawny induration consistent with chronic venous stasis bilateral lower extremities Neuro-cranial nerves II through XII intact, motor and sensory function within normal limits, strength symmetrical with generalized weakness, no focal defici ts Psych-normal affect, normal mood Discharge Data Allergies Allergy/AdvReac Type Severity Reaction Status Date / Time chlorhexidine Allergy Intermediate Redness, Verified 07/06/23 10:18 burning Consultations 11/20/23 04:00 ED Decision to Admit Stat 11/20/23 06:57 Consult Nephrology Routine Consult Urology Routine Ordered Studies 11/20/23 01:18 CT head/brain wo con Stat 11/21/23 13:00 US venous doppler LE LT Urgent Hospital Course (1) Acute on chronic diastolic CHF (congestive heart failure): Present on initial chest x-ray but not heard on pulmonary examination. Brisk diuresis with parenteral Lasix. He is now on room air. CHF has resolved. Monitor intake and output. Ejection fraction is preserved and there does not appear to be a need for Entresto at this time which could possibly be contributing to the hyponatremia. Entresto has been discontinued. (2) SIADH (syndrome of inappropriate ADH production): Sodium 112 on on admission. Now improved to 129. Serum osmolarity 263. Entresto and Elavil discontinued as potential offending agents. Improved with continued Lasix diuresis and fluid restriction. Serial labs. Appreciate nephrology consultation and recommendations. Tolvaptan restarted on November 21 (3) Chronic kidney disease, stage III (moderate): Stable. Monitor intake and output. Serial labs (4) Essential hypertension: Entresto has been discontinued. Will use a different antihypertensive agent if needed (5) Subarachnoid hemorrhage: Occurred recently. Systemic anticoagulation has been discontinued recently. Will follow (6) Generalized weakness: Continue OT and PT while hospitalized. Plan Home today, November 22 Total Time Total Time Spent Total Time Spent (In Minutes): 45-minute Discharge Plan Discharge Items Patient Disposition: Home - Self-Care Reason For Visit: HYPONATREMIA Discharge Diagnosis: Acute on chronic diastolic congestive heart failure, exacerbation of hyponatremia with chronic SIADH, fecal occult blood positivity Activity: Resume your previous activity Non-emergency contact: Primary Care Provider and Wood Turner Call non-emergency contact if: you have any medication questions and your symptoms worsen Follow-up/Referrals: Unruly Laughlin D.O. [Primary Care Provider] - Diet: Regular and Heart Healthy Addtl Attending Provider Instructions: Entresto and Elavil (amitriptyline) have been discontinued. All other medications remain the same Pending Studies at Discharge: No Stand-Alone Forms: My [facility] [email or web address], Smoking Cessation Medications and DC Order Prescriptions: Continued albuterol sulfate [ProAir HFA] 90 mcg/actuation HFA aerosol inhaler 2 inh inhalation QID PRN (Reason: Shortness Of Breath Or Wheezing) torsemide 20 mg tablet 30 mg PO QAM cholecalciferol (vitamin D3) 125 mcg (5,000 unit) capsule 2,000 unit PO BID tolvaptan [Samsca] 30 mg tablet 45 mg PO QAM Eliquis 5 mg tablet 5 mg PO .ON HOLD Rx Instructions: ON HOLD...ORDERED BID WHEN RESTARTED carvedilol 12.5 mg Tablet 12.5 mg PO BID pantoprazole [Protonix] 40 mg Tablet,Delayed Release (Dr/Ec) 40 mg PO QAM budesonide-formoterol [Symbicort] 160-4.5 mcg/actuation Hfa Aerosol Inhaler 2 puff INHALATION BID levocetirizine 5 mg Tablet 5 mg PO HS montelukast 10 mg Tablet 10 mg PO HS acetaminophen 500 mg Tablet 1,000 mg PO BID PRN (Reason: Pain) ipratropium bromide 21 mcg (0.03 %) Bazine,Non-Aerosol 2 spray INTRANASAL BID PRN (Reason: Nasal Congestion) hyoscyamine sulfate [Levsin] 0.125 mg Tablet 0.125 mg PO QID ferrous sulfate [iron] 325 mg (65 mg iron) Tablet 325 mg PO QAM tamsulosin 0.4 mg capsule 0.4 mg PO QAM finasteride 5 mg tablet 5 mg PO QAM allopurinol 100 mg tablet 100 mg PO HS diphenoxylate-atropine 2.5-0.025 mg tablet 1 tab PO BID torsemide 10 mg tablet 10 mg PO .IN AFTERNOON vitamin B complex [Vitamin B-50 Complex] Tablet 1 tab PO QPM hydrocodone-acetaminophen 5-325 mg Tablet 1 tab PO UD PRN (Reason: Pain) Tezspire 210 mg/1.91 mL (110 mg/mL) Syringe 210 mg SUBCUT MONTHLY Discontinued Entresto 49-51 mg tablet 1 tab PO BID amitriptyline 50 mg tablet 50 mg PO HS Discharge Orders: Discharge Order- CHF (Routine); Ordered 11/23/23 Ordered By: Unruly Kincaid Admission Data Admit Date/Time: 11/20/23 04:35 Attending Provider: Unruly Kincaid Admit Provider: Brigid Myles Primary Care Provider: Unruly Laughlin Other Providers: Stef Israel; Francisco Pruitt; Marta Randle Kevin C.; Dione Murdock; Robert Coughlin; Cedric Riggins; Javad Richey; Arabella Chatman; Francisco Cordova; Laura Holloway; Ricarda Templeton; Zac Celeste; Dee Boyd; Derick Roberts; Brenda Jean; Chucky Lyle. Coding Level of Care Code 25713 INP/OBS DISCH >30 MIN Diagnoses Acute on chronic diastolic CHF (congestive heart failure) I50.33 SIADH (syndrome of inappropriate ADH production) E22.2 Chronic kidney disease, stage III (moderate) N18.30 Essential hypertension I10 Subarachnoid hemorrhage I60.9 Generalized weakness R53.1
== END 2023-11-23 15:57 | disposition home or self-care (01) | DRG 643 ==
LOC: ED 00:48 → SUATTDRO 04:35 → EDINP 04:35 → 2N 05:51

== ENCOUNTER 2024-04-09 12:41 | Inpatient (IN) ==
--- NOTE | 2024-04-09 13:31 | Emergency Department Note ---
Impression & Plan Acute hyponatremia, Weakness, Anemia, Acute urinary retention ED Provider Note NAME: DEJAH WHITE AGE: 73 SEX: M : 1950 ARRIVES VIA: Walk-In INFORMANT: Patient, ED PROVIDER(S): Sky Giles MD CHIEF COMPLAINT: Weakness, concern for low sodium versus possible UTI MEDICAL DECISION MAKING: Patient presents due to concern for weakness and fatigue. IV was established and blood work was obtained. Patient was ordered p.o. Tylenol. Patient blood work shows a white count of 4.2 with a hemoglobin of 8.3. Anemia is chronic and stable. Platelet count is unremarkable. Creatinine of 2.2 relatively unchanged from prior. Urinalysis pending. Patient sodium significantly low at 117 although the patient does chronically run in the 120s. Patient was ordered 2 of IV Bumex. Patient is also on tolvaptan. Urine and serum osmolality ordered along with urine electrolytes. The patient was having difficulty with urine output so Garvey catheter was placed. CT of the head was negative. I did speak with the on-call hospital service Dr. Mustafa and the patient was admitted to the medicine service. Discussion w/ other healthcare providers: Dr. Mustafa inpatient medicine service Prior /Outside records reviewed: None Differential diagnosis: Infection, dehydration, metabolic abnormality, hypo/hyperglycemia, electrolyte imbalance, anemia, UTI, pneumonia, thyroid dysfunction among others were considered. Diagnostics, as interpreted by me: ECG: None Cardiac monitoring: An order was placed for continuous cardiac monitoring. The monitor shows a rate of 65 with sinus rhythm. Patient was placed on pulse oximetry Medical decision rules: None Imaging studies: I informally interpreted the patient's chest x-ray does not show obvious pneumonia or pneumothorax with formal report to follow. HPI: Patient presents due to concern for increasing weakness and associated fatigue. Patient's at bedside states that he has had some associated dysuria and has been difficult to cath this morning. The patient typically gets a Garvey catheter for straight catheterization in the morning in the evening. He typically puts out more closer to 6 or 700 cc but most recently was only about 2 or 300 this morning. Patient denies any chest pains or shortness of breath. He did have a fall back in November and associated subarachnoid hemorrhage. Patient was restarted on his Eliquis about 10 days ago and reports having a fall several days later but denies any head strike. The patient does suffer from chronic headaches and states that this is no change from before. Patient has had some associated lower extremity swelling which is worsened. He does take Bumex 2 mg twice daily. at bedside states that sometimes his symptoms are indicative of UTI and/or low sodium which she has suffered from in the past. PAST MEDICAL HISTORY: See Below PAST SURGICAL HISTORY: See Below SOCIAL HISTORY: See Below HOME MEDICATIONS: See Below ALLERGIES: See Below VITALS: See Below PHYSICAL EXAMINATION: GENERAL: NAD, non-toxic. EYE EXAM: Normal conjunctiva. PERRL, no anisocoria and EOM's grossly intact w/o pain. OROPHARYNX: Moist mucus membranes, grossly normal dentition. NECK: Trachea midline, no stridor. LUNGS: Clear to auscultation. Normal chest wall mechanics. HEART: NSR, no MRG. ABDOMEN: Abdomen soft, non-tender, no masses, no rebound or guarding. BACK: No CVA TTP. SKIN: No rashes and no bruising. UPPER EXTREMITIES: Upper extremities are grossly normal. LOWER EXTREMITIES: Grossly normal, bilateral lower extremity edema without any calf pain or erythema. NEURO EXAM: A&O x3, cranial nerves II-XII grossly intact, normal speech, moves all 4 extremities. Past Med/Surg History Problem List (Updated 04/10/24 @ 14:59 by Sky Giles MD) Acute hyponatremia (Acute) Weakness (Acute) Acute hyponatremia Anemia (Acute) Acute urinary retention (Acute) Hyponatremia (Acute) Generalized weakness Subarachnoid hemorrhage Essential hypertension Chronic kidney disease, stage III (moderate) SIADH (syndrome of inappropriate ADH production) Acute on chronic diastolic CHF (congestive heart failure) Chronic kidney disease (HFpEF) heart failure with preserved ejection fraction History of subarachnoid hemorrhage Incomplete bladder emptying Rotator cuff tear, right Encounter for pre-operative examination Postoperative urinary retention HTN (hypertension) Afib COPD (chronic obstructive pulmonary disease) Confusion Hyponatremia Elevated LFTs Cholecystitis with cholelithiasis Choledocholithiasis S/P total knee arthroplasty Retention of urine, unspecified Thoracic aortic aneurysm without rupture SHEREEN (obstructive sleep apnea) DVT prophylaxis Anemia Cirrhosis of liver Cholelithiasis Acute urinary retention (Acute) Hematuria, gross Lesion of bladder Postoperative fever Acute kidney injury (Acute) Persistent atrial fibrillation Fever Acute kidney injury superimposed on chronic kidney disease UTI (urinary tract infection) SIADH (syndrome of inappropriate ADH production) Per nephrology records "ETOH/liver disease and/or COPD/pulmonary nodule (R/O CA)/SIADH...longstanding history of hyponatremia, baseline high 120s per chart review BPH (benign prostatic hyperplasia) Stroke CVA (02/18/21) > no residual effects, PCP following, on Eliquis now (Plavix was discontinued after 3 months) Medical History History of GI bleed > 1 yr ago, blood transfusion Memory difficulties difficulty remembering things he is told UTI (urinary tract infection) following with urology Environmental allergies History of IBS History of COVID-19 DX'D 09/09/21 DAVIN LEVY SYMPTOMS OF COUGH-TREATED WITH ANTIBODIES/RECOVERED AT HOME-SYMPTOMS RESOLVED Cirrhosis Suspected per imaging/records per patient Stable Thoracic aortic aneurysm Following with vascular, Dr. Bill Mcarthur/[facility] (CT surgery), stable per CT chest 08/23/22 (5.1cm) Hx of gastric ulcer Remote hx Anemia Chronic/stable Paroxysmal A-fib + A-flutter S/P radiofrequency ablation (~3 yrs ago)-F/U DR AASHISH LEVY CARDIOLOGY GERD (gastroesophageal reflux disease) Controlled Chronic obstructive pulmonary disease Stable Sleep apnea Non-compliant with CPAP Sleeps with wedge Hypertension Surgical History Hx of cardiac catheterization 10/2022 DAVIN Levy- no stents - checking for pulmonary hypertension; Dr Aashish Levy cardiology- last visit 02/2023 History of nasal cauterization History of ERCP ERCP (04/28/19): Elective glidescope #3, ETT 7.5 at [facility] History of cholecystectomy H/O cardiac radiofrequency ablation 5+ years ago History of colonoscopy History of esophagogastroduodenoscopy (EGD) S/P ureteral stent placement Left (2018)-PT DENIES S/P TURP PT DENIES History of cataract surgery R/L History of lumbar fusion PT DENIES H/O total knee replacement Left Hx of tonsillectomy Hx of appendectomy Hx of foot surgery Left Hx of repair of left rotator cuff Hx of repair of right rotator cuff Family History Father Family hx of colon cancer Mother Family history of diabetes mellitus Social History Smoking Status: Never smoker Tobacco Type: Cigars Cigarettes Per Day: 1 cigar/week; Second Hand Exposure: Yes (in the past); Do You Dip or Chew Tobacco: No; Hx Alcohol Use: Yes Alcohol type: beer Hx Substance Use: No Preferred Language: Burmese Communication Ability: Effective Visual Impairment: No Limitations Call Center Operations Manager Required: No Beliefs That Will Affect Care: None marital status: Current Living Situation: Spouse current occupational status: retired Other Information That Helps Us Care for You: No Feels Safe at Home: Yes Safety Concerns: Feels Safe At This Time Assistive Devices: Cane and Walker Allergies Allergies Allergy/AdvReac Type Severity Reaction Status Date / Time chlorhexidine Allergy Intermediate Redness, Verified 04/02/24 13:45 burning Home Meds Home Medications Medication Instructions Recorded Confirmed budesonide-formoterol HFA 160 2 puff inhalation BID 03/06/19 04/09/24 mcg-4.5 mcg/actuation aerosol inhaler (Symbicort) carvedilol 12.5 mg tablet 12.5 mg PO BID 03/06/19 04/09/24 pantoprazole 40 mg tablet,delayed 40 mg PO QAM 03/06/19 04/09/24 release (Protonix) levocetirizine 5 mg tablet 5 mg PO HS 03/07/19 04/09/24 tolvaptan 30 mg tablet (Samsca) 30 mg PO BID 04/23/21 04/09/24 acetaminophen 500 mg tablet 1,000 mg PO BID PRN Pain 06/04/21 04/09/24 ipratropium bromide 21 mcg (0.03 2 spray intranasal BID PRN Nasal 06/04/21 04/09/24 %) nasal spray Congestion montelukast 10 mg tablet 10 mg PO HS 06/04/21 04/09/24 hyoscyamine sulfate 0.125 mg 0.125 mg PO QID 11/09/21 04/09/24 tablet (Levsin) albuterol sulfate 90 mcg/actuation 2 inh inhalation QID PRN Shortness 12/05/22 04/09/24 aerosol inhaler (ProAir HFA) Of Breath Or Wheezing cholecalciferol (vitamin D3) 125 2,000 unit PO BID 05/03/23 04/09/24 mcg (5,000 unit) capsule allopurinol 100 mg tablet 100 mg PO HS 11/20/23 04/09/24 diphenoxylate-atropine 2.5 1 tab PO QID PRN Diarrhea 11/20/23 04/09/24 mg-0.025 mg tablet finasteride 5 mg tablet 5 mg PO QAM 11/20/23 04/09/24 hydrocodone 5 mg-acetaminophen 325 1 tab PO UD PRN Pain 11/20/23 04/09/24 mg tablet tamsulosin 0.4 mg capsule 0.4 mg PO QAM 11/20/23 04/09/24 tezepelumab-ekko 210 mg/1.91 mL 210 mg subcut MONTHLY 11/20/23 04/09/24 (110 mg/mL) subcutaneous syringe (Tezspire) vitamin B complex 1 tab PO QPM 11/20/23 04/09/24 apixaban 5 mg tablet (Eliquis) 5 mg PO BID 04/02/24 04/09/24 bumetanide 2 mg tablet 2 mg PO UD 04/09/24 04/09/24 sodium bicarbonate 650 mg tablet 650 mg PO BID 04/09/24 04/09/24 Results & Data (ED) Vital Signs Vital Signs - 24 hr 04/09/24 14:51 04/09/24 14:51 04/09/24 15:01 Pulse Rate 59 L 48 L Pulse Rate [Apical] Pulse Rate from SpO2 Sensor 59 L Pulse Rhythm [Apical] Pulse Strength [Apical] Respiratory Rate 16 Respiratory Effort / Characteristics Respiratory Depth Respiratory Pattern Blood Pressure 116/79 Blood Pressure [Right Arm] Blood Pressure Mean 101 Blood Pressure Mean [Right Arm] Pulse Oximetry 96 Oxygen Delivery Method 04/09/24 15:01 04/09/24 15:01 04/09/24 15:01 Pulse Rate Pulse Rate [Apical] Pulse Rate from SpO2 Sensor Pulse Rhythm [Apical] Pulse Strength [Apical] Respiratory Rate Respiratory Effort / Characteristics Respiratory Depth Respiratory Pattern Blood Pressure 116/79 116/79 116/79 Blood Pressure [Right Arm] Blood Pressure Mean 101 101 101 Blood Pressure Mean [Right Arm] Pulse Oximetry Oxygen Delivery Method 04/09/24 15:07 04/09/24 15:15 04/09/24 15:30 Pulse Rate 58 L Pulse Rate [Apical] 58 L Pulse Rate from SpO2 Sensor 58 L Pulse Rhythm [Apical] Pulse Strength [Apical] Normal Respiratory Rate 18 15 Respiratory Effort / Characteristics Non-Labored Spontaneous Respiratory Depth Normal Respiratory Pattern Regular Blood Pressure 147/86 H Blood Pressure [Right Arm] 116/79 Blood Pressure Mean 113 Blood Pressure Mean [Right Arm] 91 Pulse Oximetry 99 99 Oxygen Delivery Method Room Air 04/09/24 15:30 04/09/24 15:30 04/09/24 15:30 Pulse Rate 52 L Pulse Rate [Apical] Pulse Rate from SpO2 Sensor 48 L Pulse Rhythm [Apical] Pulse Strength [Apical] Respiratory Rate 18 Respiratory Effort / Characteristics Respiratory Depth Respiratory Pattern Blood Pressure 147/86 H 147/86 H Blood Pressure [Right Arm] Blood Pressure Mean 113 113 Blood Pressure Mean [Right Arm] Pulse Oximetry 98 Oxygen Delivery Method 04/09/24 15:54 04/09/24 16:00 04/09/24 16:00 Pulse Rate 86 Pulse Rate [Apical] Pulse Rate from SpO2 Sensor 73 Pulse Rhythm [Apical] Pulse Strength [Apical] Respiratory Rate 17 Respiratory Effort / Characteristics Respiratory Depth Respiratory Pattern Blood Pressure 154/84 H 154/84 H Blood Pressure [Right Arm] Blood Pressure Mean 123 123 Blood Pressure Mean [Right Arm] Pulse Oximetry 94 Oxygen Delivery Method 04/09/24 16:03 04/09/24 17:00 Pulse Rate 60 Pulse Rate [Apical] 55 L Pulse Rate from SpO2 Sensor 58 L Pulse Rhythm [Apical] Regular Pulse Strength [Apical] Normal Respiratory Rate 18 19 Respiratory Effort / Characteristics Non-Labored Spontaneous Respiratory Depth Normal Respiratory Pattern Regular Blood Pressure Blood Pressure [Right Arm] 161/78 H Blood Pressure Mean Blood Pressure Mean [Right Arm] 105 Pulse Oximetry 98 99 Oxygen Delivery Method Room Air Home Medications Current Medication List: was personally reviewed by me Laboratory Data Attestation: I reviewed the patient's lab results. 04/10/24 04:58 04/10/24 11:20 Lab Results 04/09/24 04/09/24 04/09/24 Range/Units 13:08 14:50 17:00 WBC 4.23 L (4.8-10.8) K/ul RBC 2.77 L (4.70-6.10) M/uL Hgb 8.3 L (14.0-18.0) g/dl Hct 23.4 L (42.0-52.0) % MCV 84.5 (80.0-100.0) fL MCH 30.0 (25.0-34.0) pg MCHC 35.5 (32.0-36.0) g/dL RDW Std Deviation 75.3 H (36.4-46.3) fL RDW Coeff of [place]er 25.1 H (11.5-14.5) % Plt Count 173 (130-400) K/uL MPV 9.8 (9.4-12.4) fL Immature Gran % (Auto) 0.5 % Neut % (Auto) 64.3 % Lymph % (Auto) 17.3 % [place] % (Auto) 15.8 % Eos % (Auto) 1.4 % Baso % (Auto) 0.7 % Neut # (Auto) 2.72 (1.40-6.50) K/uL Lymph # (Auto) 0.73 L (1.20-3.40) K/uL [place] # (Auto) 0.67 H (0.11-0.59) K/uL Eos # (Auto) 0.06 (0.00-0.50) K/uL Baso # (Auto) 0.03 (0.00-0.20) K/uL Immature Gran # (Auto) 0.02 (0.01-0.20) K/uL Polychromasia 1+ Poikilocytosis Present Anisocytosis Present PT 11.4 (9.0-12.0) Seconds INR 1.1 (0.9-1.1) APTT 33 H (21-31) Seconds PTT Ratio 1.2 Sodium 117 L* 116 L* (136-145) mmol/L Potassium 4.3 3.9 (3.5-5.1) mmol/L Chloride 83 L 84 L (98-107) mmol/L Carbon Dioxide 27 27 (21-32) mmol/L Anion Gap 7 5 (3-11) BUN 26 H 25 H (6-23) mg/dl Creatinine 2.24 H 2.33 H (0.6-1.4) mg/dl Est Cr Clr Drug Dosing PIPE PULLER 39.2 Est GFR ( Amer) 32.3 30.8 ml/min Est GFR (Non-Af Amer) 27.8 26.5 ml/min BUN/Creatinine Ratio 11.6 10.7 (10-20) Glucose 112 H 124 H (70-99(Fasting)) mg/dl Osmolality 251 L (280-300) mOsm/kg Calcium 9.0 9.0 (8.6-10.3) mg/dl Total Bilirubin 1.1 H (0.2-1.0) mg/dl AST 22 (13-39) U/L ALT 10 (7-52) U/L Alkaline Phosphatase 100 (34-104) U/L Total Protein 7.0 (6.0-8.3) gm/dl Albumin 4.0 (3.4-5.0) gm/dl Globulin 3.0 (2.5-4.0) gm/dl Albumin/Globulin Ratio 1.3 (0.9-2) Procalcitonin 0.07 (0-0.5) ng/ml Urine Color Yellow Urine Appearance Clear (Clear) Urine pH 7.0 (4.5-7.5) Ur Specific [place] 1.006 (1.000-1.030) Urine Protein Negative (Negative) Urine Glucose (UA) Negative (Negative) Urine Ketones Negative (Negative) Urine Blood 2+ H (Negative) Urine Nitrite Negative (Negative) Urine Bilirubin Negative (Negative) Urine Urobilinogen Negative (Negative) Ur Leukocyte Esterase 1+ H (Negative) Urine WBC (Auto) 6-10 H (0-5) /hpf Urine RBC (Auto) >20 H (0-2) /hpf U Hyaline Cast (Auto) 0-2 (0-2) /lpf U Epithel Cells (Auto) 0-2 (0-2) /hpf Urine Bacteria (Auto) None Seen (None Seen) Urine Osmolality 109 L (500-800) mOsm/kg Urine Sodium 13 mmol/L Urine Potassium 17.7 mmol/L Urine Chloride < 15 mmol/L Administered Medications Acetaminophen (Acetaminophen 325 Mg Tab) 650 mg PO Q6H PRN PRN Reason: pain(1-4),headache,fever Stop: 05/09/24 17:20 Last Admin: 04/10/24 13:05 Dose: 650 mg Documented By: Admin: 04/10/24 03:12 Dose: 650 mg Documented By: AKD Allopurinol (Allopurinol 100 Mg Tab) 100 mg PO HS ROCKY Stop: 08/22/24 20:59 Last Admin: 04/09/24 21:25 Dose: 100 mg Documented By: ANCELMO Apixaban (Apixaban 5 Mg Tablet) 5 mg PO BID [facility] Stop: 05/09/24 20:59 Last Admin: 04/10/24 08:16 Dose: 5 mg Documented By: Admin: 04/09/24 21:25 Dose: 5 mg Documented By: ANCELMO Carvedilol (Carvedilol 12.5 Mg Tab) 12.5 mg PO BID [facility] Stop: 05/09/24 20:59 Last Admin: 04/10/24 08:16 Dose: 12.5 mg Documented By: Admin: 04/09/24 21:26 Dose: 12.5 mg Documented By: ANCELMO Cetirizine HCl (Cetirizine Hcl 10 Mg Tablet) 10 mg PO HS [facility] Stop: 05/09/24 20:59 Last Admin: 04/09/24 21:25 Dose: 10 mg Documented By: ANCELMO Finasteride (Finasteride 5 Mg Tab) 5 mg PO QAM [facility] Stop: 05/10/24 08:59 Last Admin: 04/10/24 08:16 Dose: 5 mg Documented By: HENRIQUE Fluticasone/Vilanterol (Fluticasone/Vilanterol 100/25mcg 14 Puffs/Inhaler) 1 puffs INH DAILY [facility]; Protocol Stop: 05/10/24 08:59 Last Admin: 04/10/24 08:17 Dose: 1 puffs Documented By: HENRIQUE Hyoscyamine (Hyoscyamine Sulfate 0.125 Mg Tab) 0.125 mg PO QID [facility] Stop: 05/09/24 20:59 Last Admin: 04/10/24 13:05 Dose: 0.125 mg Documented By: Admin: 04/10/24 08:16 Dose: 0.125 mg Documented By: Admin: 04/09/24 21:26 Dose: 0.125 mg Documented By: ANCELMO Montelukast Sodium (Montelukast Sodium 10 Mg Tablet) 10 mg PO HS [facility] Stop: 05/09/24 20:59 Last Admin: 04/09/24 21:25 Dose: 10 mg Documented By: ANCELMO Pantoprazole Sodium (Pantoprazole 40 Mg Tab) 40 mg PO QAM [facility] Stop: 05/10/24 08:59 Last Admin: 04/10/24 08:16 Dose: 40 mg Documented By: HENRIQUE Sodium Bicarbonate (Sodium Bicarbonate 650 Mg Tab) 650 mg PO BID [facility]OCK[facility] Stop: 05/09/24 20:59 Last Admin: 04/09/24 21:26 Dose: 650 mg Documented By: ANCELMO Tamsulosin HCl (Tamsulosin Hcl 0.4 Mg Cap) 0.4 mg PO QAM [facility] Stop: 05/10/24 08:59 Last Admin: 04/10/24 08:16 Dose: 0.4 mg Documented By: HENRIQUE Discontinued Medications Acetaminophen (Acetaminophen 500 Mg Tab) 1,000 mg PO NOW STA Stop: 04/09/24 15:15 Last Admin: 04/09/24 15:35 Dose: 1,000 mg Documented By: AM Bumetanide (Bumetanide 1 Mg Tab) 1.5 mg PO QAM [facility]OCK[facility] Stop: 05/10/24 08:59 Last Admin: 04/10/24 08:16 Dose: 1.5 mg Documented By: HENRIQUE Furosemide (Furosemide 40 Mg/4 Ml Vial) 40 mg IV ONE ONE Stop: 04/09/24 14:06 Last Admin: 04/09/24 15:03 Dose: Not Given Documented By: CINTHIA Bumetanide 2 mg/ Syringe 8 mls @ 4 mls/min IV ONE ONE Stop: 04/09/24 14:16 Last Admin: 04/09/24 15:02 Dose: 4 mls/min Documented By: CINTHIA Sodium Chloride (Hypertonic Saline 3%) 100 mls @ 600 mls/hr IV .Q10M ONE; Protocol Stop: 04/09/24 17:47 Last Infusion: 04/09/24 18:54 Dose: Infused Documented By: MELISSA Co-signed By: cmm inspector: 04/09/24 18:36 Dose: 600 mls/hr Documented By: MELISSA Co-signed By: AM Sodium Chloride (Sodium Chloride 1 Gm Tablet) 1 gm PO BID [facility]OCKY Stop: 05/09/24 20:59 Last Admin: 04/09/24 21:27 Dose: 1 gm Documented By: ANCELMO Tolvaptan (Tolvaptan 15 Mg Tablet) 30 mg PO BID [facility] Stop: 05/09/24 20:59 Last Admin: 04/09/24 21:27 Dose: 30 mg Documented By: ANCELMO Imaging Data Radiologist's Impression: Chest X-Ray 04/09/24 14:03 XR chest 1V portable HISTORY: Fall. COMPARISON: Chest 11/22/2023. FINDINGS: No pneumothorax. No pleural effusions. No focal lung consolidations to suggest a pneumonia. No evidence for pulmonary edema. The cardiac silhouette remains mildly enlarged. There are calcifications within the aortic knob. No acute fractures identified. Postoperative changes within the left humeral head. IMPRESSION: No significant change compared to the prior study. No acute process. ACT 112: Negative or not required by law. Electronically signed by: Ramiro Jeffrey M.D. 04/09/2024 3:[address] 04/09/24 14:15 CT head/brain wo con CLINICAL HISTORY: 73 years-old Male with h/o SAH, fall on eliquis 8 days prior, headaches. Acute head injury status post fall TECHNIQUE: Multiple axial CT images of the head were obtained without contrast. A dose lowering technique was utilized adhering to the principles of ALARA. CT DOSE: 1499.97 mGy.cm COMPARISON: 11/20/2023 FINDINGS: Motion degraded exam. Involutional changes with chronic microvascular ischemic disease redemonstrated. 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 No acute intracranial hemorrhage, midline shift, intracranial mass, hydrocephalus, territorial ischemia or abnormal extra-axial collection. The calvarium is intact. Prior bilateral lens repair. The paranasal sinuses, mastoid air cells, and middle ear cavities are clear. IMPRESSION: No acute intracranial abnormality or calvarial fracture identified. ACT 112: Negative or not required by law. The above report was generated using voice recognition software. It may contain grammatical, syntax or spelling errors. Electronically signed by: Destin Koenig M.D. 04/09/2024 3:22 PM Discharge Plan Visit Data Chief Complaint: Urinary Symptoms Stated Complaint: UTI, LOW SODIUM, SWELLING LEGS, WEAK ED Provider: Sky Giles Discharge Problem: Acute hyponatremia, Weakness, Anemia, Acute urinary retention Patient Disposition: Admitted As Inpatient Discharge Instructions Interventions: ED Discharge Assessment Last Done: 04/09/24 19:20 Discharge Problem: Anemia Qualifiers: Anemia type: unspecified type Qualified Code(s): D64.9 - Anemia, unspecified
[2024-04-09 13:40] LABS: Basophils # (auto) 0.03 K/uL (0.00-0.20); Basophils % (auto) 0.7 %; Eosinophils # (auto) 0.06 K/uL (0.00-0.50); Eosinophils % (auto) 1.4 %; Hematocrit (blood only) 23.4 % (42.0-52.0); Hemoglobin 8.3 g/dl (14.0-18.0); Immature Granulocytes # (auto) 0.02 K/uL (0.01-0.20); Immature Granulocytes % (auto) 0.5 %; Lymphocytes # (auto) 0.73 K/uL (1.20-3.40); Lymphocytes % (auto) 17.3 %; Mean Corpuscular Hgb Conc 35.5 g/dL (32.0-36.0); Mean Corpuscular Volume 84.5 fL (80.0-100.0); Mean Platelet Volume 9.8 fL (9.4-12.4); Monocytes # (auto) 0.67 K/uL (0.11-0.59); Monocytes % (auto) 15.8 %; Neutrophils # (auto) 2.72 K/uL (1.40-6.50); Neutrophils % (auto) 64.3 %; Platelet Count 173 K/uL (130-400); RDW Coefficient of Variation 25.1 % (11.5-14.5); RDW Standard Deviation 75.3 fL (36.4-46.3); Red Blood Count 2.77 M/uL (4.70-6.10); White Blood Count 4.23 K/ul (4.8-10.8)
[2024-04-09 13:59] LABS: Alanine Aminotransferase 10 U/L (7-52); Albumin Globulin Ratio 1.3 (0.9-2); Alkaline Phosphatase 100 U/L (34-104); Anion Gap 7 (3-11); Aspartate Aminotransferase 22 U/L (13-39); BUN Creatinine Ratio 11.6 (10-20); Bilirubin,Total 1.1 mg/dl (0.2-1.0); Blood Urea Nitrogen 26 mg/dl (6-23); Carbon Dioxide 27 mmol/L (21-32); Chloride 83 mmol/L (98-107); Est GFR (African American) 32.3 ml/min; Est GFR (Non-African American) 27.8 ml/min; Glucose 112 mg/dl (70-99(Fasting)); Potassium 4.3 mmol/L (3.5-5.1); Sodium 117 mmol/L (136-145)
[2024-04-09 14:01] LABS: INR 1.1 (0.9-1.1); Partial Thromboplastin Ratio 1.2; Partial Thromboplastin Time 33 Seconds (21-31); Prothrombin Time 11.4 Seconds (9.0-12.0)
[2024-04-09 14:09] LABS: Anisocytosis Present; Poikilocytosis Present; Polychromasia 1+
[2024-04-09] MEDS: BUMETANIDE 2 MG in SYRINGE 0 ML IV ONE (15:02)
[2024-04-09] MEDS: FUROSEMIDE 40 MG/4 ML VIAL IV ONE (15:03)
--- NOTE | 2024-04-09 15:23 | CT Scan Report ---
CT head/brain wo con CLINICAL HISTORY: 73 years-old Male with h/o SAH, fall on eliquis 8 days prior, headaches. Acute hea d injury status post fall TECHNIQUE: Multiple axial CT images of the head were obtained without contrast. A dose lowering tech nique was utilized adhering to the principles of ALARA. CT DOSE: 1499.97 mGy.cm COMPARISON: 11/20/2023 FINDINGS: Motion degraded exam. Involutional changes with chronic microvascular ischemic disease redemonstrated . 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 No acute intracranial hemorrhage, midline shift, intracranial mass, hydrocephalus, territorial ischemia or abnormal extra-axial collection. The calvarium is intact. Prior bilateral lens repair. The paranasal sinuses, mastoid air cells, and m iddle ear cavities are clear. IMPRESSION: No acute intracranial abnormality or calvarial fracture identified. ACT 112: Negative or not required by law. The above report was generated using voice recognition software. It may contain grammatical, syntax o r spelling errors. Electronically signed by: Destin Koenig M.D. 04/09/2024 3:22 PM
[2024-04-09] MEDS: ACETAMINOPHEN 500 MG TAB PO STA (15:35)
--- NOTE | 2024-04-09 15:35 | XRay Report ---
XR chest 1V portable HISTORY: Fall. COMPARISON: Chest 11/22/2023. FINDINGS: No pneumothorax. No pleural effusions. No focal lung consolidations to suggest a pneumonia. No evidence for pulmonary edema. The cardiac silhouette remains mildly enlarged. There are calcifica tions within the aortic knob. No acute fractures identified. Postoperative changes within the left hu meral head. IMPRESSION: No significant change compared to the prior study. No acute process. ACT 112: Negative or not required by law. Electronically signed by: Ramiro Jeffrey M.D. 04/09/2024 3:33 PM
[2024-04-09 15:38] LABS: Appearance Urine Clear (Clear); Bacteria Urine Automated None Seen (None Seen); Bilirubin Urine Negative (Negative); Blood Urine 2+ (Negative); Cast Urine Automated 0-2 /lpf (0-2); Color Urine Yellow; Epithelial Cell Urine Auto 0-2 /hpf (0-2); Glucose Urine UA Negative (Negative); Ketones Urine Negative (Negative); Leukocyte Esterase Urine 1+ (Negative); Nitrite Urine Negative (Negative); Protein Urine Negative (Negative); RBC Urine Automated >20 /hpf (0-2); Specific Gravity Urine 1.006 (1.000-1.030); Urobilinogen Urine Negative (Negative)
[2024-04-09 16:38] LABS: Urine Chloride < 15 mmol/L; Urine Potassium 17.7 mmol/L; Urine Sodium 13 mmol/L
--- NOTE | 2024-04-09 16:58 | History & Physical Report ---
Date of Service April 09, 2024 Assessment & Plan (1) Acute hyponatremia: Plan: Admit to the PCU on telemetry and pulse oximetry Currently stable and nontoxic-appearing Presented to the ED with his due to progressive generalized weakness, intermittent confusion, and recurrent urinary symptoms such as dysuria Noted to have a sodium of 117 on arrival, baseline is normally around 129 as he has a known history of both SIADH and beer [place] Patient did have 1 beer last evening per his as they were with friends, they confirmed that he is not still drinking consistently Workup thus far reveals serum osmolality of 251, urine osmolality of 109, and urine sodium of 13 Suspect this hyponatremia is a combination of tea/toast diet, known cirrhosis, known SIADH and beer [place] Stat repeat BMP on admission shows a sodium 116 At this time we will give 100 mL IV hypertonic saline stat Will start 1 g twice daily NaCl tabs Will continue his home daily Bumex Will continue to monitor every 4 hours BMPs, intake output every shift Will continue patient's home tolvaptan, his confirms that he did have his a.m. dose prior to arrival Seizure precautions have been started Fall/aspiration precautions Home Eliquis for DVT prophylaxis Heart healthy diet with 1 L fluid restriction, communication placed that patient should not have plain water at this time AM CBC, CMP, mag, PT/INR (2) Acute urinary retention: Plan: Patient has a known history of severe urinary retention, he follows with urology Patient's explains that she straight caths him once daily and he continues to take tamsulosin but he can often retain approximately 1 L without being significantly uncomfortable Garvey catheter was placed in the ER, will continue for now as we need to watch his intake/output closely moving forward Should consider voiding trial prior to discharge UA today does not appear grossly infected, I have added a urine culture for further evaluation but will hold antibiotics at this time as he is not toxic or showing a leukocytosis Will also add procalcitonin for further evaluation (3) Weakness: Plan: Weakness is likely combination of hyponatremia and deconditioning Continue treatment of his acute issues Fall/aspiration precautions PT/OT consults (4) Essential hypertension: Plan: Currently stable Continue home carvedilol (5) Afib: Plan: Currently in rate controlled A-fib Continue carvedilol and Eliquis (6) COPD (chronic obstructive pulmonary disease): Plan: Currently stable on room air and without signs of exacerbation Continue home breathing treatments Incentive spirometry, as needed O2 to keep SpO2 between 89 to 92% (7) SHEREEN (obstructive sleep apnea): Plan: HS CPAP ordered as patient is currently alert enough to protect his own airway Plan Patient was discussed with Dr. Mustafa at the time of admission History of Present Illness Chief Complaint: Confusion, weakness, dysuria Primary Care Provider: Unruly Laughlin Ruy is a 73-year-old male with a past medical history significant for chronic hyponatremia, GERD, alcohol abuse, alcoholic cirrhosis, HFpEF, a fib (on Eliquis), COPD, GERD, HTN, TIA, SHEREEN who presented to the [facility] ED with his on 04/09/2024 due to concerns for increased confusion and weakness consistent with previous history of UTIs and hyponatremia. Patient was noted to be bradycardic at times in the ED with heart rate in the 40s to 50s but was otherwise stable. Labs were significant for a sodium of 117 (baseline is near 129), UA with 2+ blood, 1+ leukocyte Estrace, 610 WBC, greater than [address] of the head without contrast and chest x-ray were read as negative acute changes. Prior to admission the patient was given 1 g p.o. Tylenol and 2 mg IV Bumex. Patient was lying in bed in no acute distress at time of exam with his bedside, history was obtained from both. His explains that the patient had been treated for a recent UTI last week. He was seen in the urology office on 04/02/2024 and they expressed to clinic staff that the patient was still experiencing dysuria. Urine culture was obtained in office at time, review of the urine culture shows no significant growth. His explains that the urology office was shipping out a PCR urinalysis test today however due to his progressive symptoms they presented to the ED for further evaluation. When asked, they explained that the patient did have 1 beer last night but only drinks socially at this time. He has been taking his medications as prescribed the only a.m. medication he did not have prior to ED arrival today was his dose of Bumex as they did not want him to have to urinate while driving to the hospital. Patient has chronic headaches at baseline but denies worsening headache at this time, vision changes, paresthesias, unilateral weakness, chest pain, shortness of breath, productive cough, abdominal pain, hematuria, melena, and recent trauma. They report the patient has been having ongoing dysuria 04/02/2024. The patient is confirmed that he is a DNR/DNI, his is his medical decision-maker if he cannot make decisions himself. Please refer to Dr. Mustafa's attestation for any changes to the treatment plan Allergies Allergy/AdvReac Type Severity Reaction Status Date / Time chlorhexidine Allergy Intermediate Redness, Verified 04/02/24 13:45 burning Home Medications Medication Instructions Recorded Confirmed Type budesonide-formoterol HFA 160 2 puff inhalation BID 03/06/19 04/09/24 History mcg-4.5 mcg/actuation aerosol inhaler (Symbicort) carvedilol 12.5 mg tablet 12.5 mg PO BID 03/06/19 04/09/24 History pantoprazole 40 mg tablet,delayed 40 mg PO QAM 03/06/19 04/09/24 History release (Protonix) levocetirizine 5 mg tablet 5 mg PO HS 03/07/19 04/09/24 History tolvaptan 30 mg tablet (Samsca) 30 mg PO BID 04/23/21 04/09/24 History acetaminophen 500 mg tablet 1,000 mg PO BID PRN Pain 06/04/21 04/09/24 History ipratropium bromide 21 mcg (0.03 2 spray intranasal BID PRN Nasal 06/04/21 04/09/24 History %) nasal spray Congestion montelukast 10 mg tablet 10 mg PO HS 06/04/21 04/09/24 History hyoscyamine sulfate 0.125 mg 0.125 mg PO QID 11/09/21 04/09/24 History tablet (Levsin) albuterol sulfate 90 mcg/actuation 2 inh inhalation QID PRN Shortness 12/05/22 04/09/24 History aerosol inhaler (ProAir HFA) Of Breath Or Wheezing cholecalciferol (vitamin D3) 125 2,000 unit PO BID 05/03/23 04/09/24 History mcg (5,000 unit) capsule allopurinol 100 mg tablet 100 mg PO HS 11/20/23 04/09/24 History diphenoxylate-atropine 2.5 1 tab PO QID PRN Diarrhea 11/20/23 04/09/24 History mg-0.025 mg tablet finasteride 5 mg tablet 5 mg PO QAM 11/20/23 04/09/24 History hydrocodone 5 mg-acetaminophen 325 1 tab PO UD PRN Pain 11/20/23 04/09/24 History mg tablet tamsulosin 0.4 mg capsule 0.4 mg PO QAM 11/20/23 04/09/24 History tezepelumab-ekko 210 mg/1.91 mL 210 mg subcut MONTHLY 11/20/23 04/09/24 History (110 mg/mL) subcutaneous syringe (Tezspire) vitamin B complex 1 tab PO QPM 11/20/23 04/09/24 History apixaban 5 mg tablet (Eliquis) 5 mg PO BID 04/02/24 04/09/24 History bumetanide 2 mg tablet 2 mg PO UD 04/09/24 04/09/24 History sodium bicarbonate 650 mg tablet 650 mg PO BID 04/09/24 04/09/24 History Past Med/Surg History Problem List (Updated 04/09/24 @ 17:44 by Glenn Frye PA-C) Weakness Acute hyponatremia Anemia (Acute) Acute urinary retention (Acute) Hyponatremia (Acute) Generalized weakness Subarachnoid hemorrhage Essential hypertension Chronic kidney disease, stage III (moderate) SIADH (syndrome of inappropriate ADH production) Acute on chronic diastolic CHF (congestive heart failure) Chronic kidney disease (HFpEF) heart failure with preserved ejection fraction History of subarachnoid hemorrhage Incomplete bladder emptying Rotator cuff tear, right Encounter for pre-operative examination Postoperative urinary retention HTN (hypertension) Afib COPD (chronic obstructive pulmonary disease) Confusion Hyponatremia Elevated LFTs Cholecystitis with cholelithiasis Choledocholithiasis S/P total knee arthroplasty Retention of urine, unspecified Thoracic aortic aneurysm without rupture SHEREEN (obstructive sleep apnea) DVT prophylaxis Anemia Cirrhosis of liver Cholelithiasis Acute urinary retention (Acute) Hematuria, gross Lesion of bladder Postoperative fever Acute kidney injury (Acute) Persistent atrial fibrillation Fever Acute kidney injury superimposed on chronic kidney disease UTI (urinary tract infection) SIADH (syndrome of inappropriate ADH production) Per nephrology records "ETOH/liver disease and/or COPD/pulmonary nodule (R/O CA)/SIADH...longstanding history of hyponatremia, baseline high 120s per chart review BPH (benign prostatic hyperplasia) Stroke CVA (02/18/21) > no residual effects, PCP following, on Eliquis now (Plavix was discontinued after 3 months) Medical History (Updated 04/09/24 @ 17:44 by Glenn Frye PA-C) History of GI bleed > 1 yr ago, blood transfusion Memory difficulties difficulty remembering things he is told UTI (urinary tract infection) following with urology Environmental allergies History of IBS History of COVID-19 DX'D 09/09/21 DAVIN LEVY SYMPTOMS OF COUGH-TREATED WITH ANTIBODIES/RECOVERED AT HOME-SYMPTOMS RESOLVED Cirrhosis Suspected per imaging/records per patient Stable Thoracic aortic aneurysm Following with vascular, Dr. Bill Mcarthur/[facility] (CT surgery), stable per CT chest 08/23/22 (5.1cm) Hx of gastric ulcer Remote hx Anemia Chronic/stable Paroxysmal A-fib + A-flutter S/P radiofrequency ablation (~3 yrs ago)-F/U DR AASHISH LEVY CARDIOLOGY GERD (gastroesophageal reflux disease) Controlled Chronic obstructive pulmonary disease Stable Sleep apnea Non-compliant with CPAP Sleeps with wedge Hypertension Surgical History Hx of cardiac catheterization 10/2022 DAVIN Levy- no stents - checking for pulmonary hypertension; Dr Aashish Levy cardiology- last visit 02/2023 History of nasal cauterization History of ERCP ERCP (04/28/19): Elective glidescope #3, ETT [address] [facility] History of cholecystectomy H/O cardiac radiofrequency ablation 5+ years ago History of colonoscopy History of esophagogastroduodenoscopy (EGD) S/P ureteral stent placement Left (2018)-PT DENIES S/P TURP PT DENIES History of cataract surgery R/L History of lumbar fusion PT DENIES H/O total knee replacement Left Hx of tonsillectomy Hx of appendectomy Hx of foot surgery Left Hx of repair of left rotator cuff Hx of repair of right rotator cuff Family History Father Family hx of colon cancer Mother Family history of diabetes mellitus Social History Smoking Status: Never smoker Tobacco Type: Cigars Cigarettes Per Day: 1 cigar/week; Second Hand Exposure: Yes (in the past); Do You Dip or Chew Tobacco: No; Hx Alcohol Use: Yes Alcohol type: beer Hx Substance Use: No Preferred Language: Ethiopian Communication Ability: Effective Visual Impairment: No Limitations Continuous Improvement Analyst Required: No Beliefs That Will Affect Care: None marital status: Current Living Situation: Spouse current occupational status: retired Other Information That Helps Us Care for You: No Feels Safe at Home: Yes Safety Concerns: Feels Safe At This Time Assistive Devices: Cane and Walker Physical Exam Physical Exam: Physical Exam: General: In no acute distress, stated age, well-nourished, non-toxic appearing HEENT: Normocephalic, atraumatic, no scleral icterus, pupils around round, symmetrical, and reactive to light, moist mucus membranes, trachea midline, no thyromegaly Chest/Pulm: No respiratory distress, symmetrical chest expansion, clear breath sounds throughout Cardiac: irregular rate and rhythm, no murmurs noted Abdomen: Mild abdominal distention, normoactive bowel sounds, soft, non- tender to palpation throughout : Garvey catheter currently in place draining clear yellow urine Musculoskeletal: Symmetrical and without signs of acute trauma, upper and lower extremities with full ROM, no atrophy, spasticity, or flaccidity Extremities: Radial, dorsalis pedis, and posterior tibial pulses are intact and symmetrical, no edema noted in the BL LE's Skin: patient with chronic stasis ulcer on the lateral aspect of the left ankle without signs of infection Neuro: Alert and oriented to person, place, month, year, no focal defects, CN II-XII tested and intact, no tremors noted Psych: No acute distress, calm and cooperative during the exam Results & Data Results & Data Vital Signs (Past 12 Hours) Vital Signs Temp Pulse Pulse Resp BP BP Pulse Ox 04/09/24 16:03 60 18 98 04/09/24 16:00 154/84 H 04/09/24 16:00 154/84 H 04/09/24 15:54 86 17 94 04/09/24 15:30 52 L 18 98 04/09/24 15:30 147/86 H 04/09/24 15:30 147/86 H 04/09/24 15:30 147/86 H 04/09/24 15:15 58 L 15 99 04/09/24 15:07 58 L 18 116/79 99 04/09/24 15:01 116/79 04/09/24 15:01 116/79 04/09/24 15:01 116/79 04/09/24 15:01 116/79 04/09/24 14:51 48 L 16 96 04/09/24 14:51 59 L 04/09/24 14:45 68 18 100 04/09/24 14:15 69 16 04/09/24 14:12 161/92 H 04/09/24 14:12 161/92 H 04/09/24 14:12 161/92 H 04/09/24 12:48 36.4 C L 55 L 20 157/70 H 97 O2 Del Method 04/09/24 16:03 04/09/24 16:00 04/09/24 16:00 04/09/24 15:54 04/09/24 15:30 04/09/24 15:30 04/09/24 15:30 04/09/24 15:30 04/09/24 15:15 04/09/24 15:07 Room Air 04/09/24 15:01 04/09/24 15:01 04/09/24 15:01 04/09/24 15:01 04/09/24 14:51 04/09/24 14:51 04/09/24 14:45 04/09/24 14:15 04/09/24 14:12 04/09/24 14:12 04/09/24 14:12 04/09/24 12:48 Room Air Laboratory Results Abnormal lab results 04/09/24 04/09/24 04/09/24 Range/Units 13:08 14:50 17:00 WBC 4.23 L (4.8-10.8) K/ul RBC 2.77 L (4.70-6.10) M/uL Hgb 8.3 L (14.0-18.0) g/dl Hct 23.4 L (42.0-52.0) % RDW Std Deviation 75.3 H (36.4-46.3) fL RDW Coeff of [place]er 25.1 H (11.5-14.5) % Lymph # (Auto) 0.73 L (1.20-3.40) K/uL [place] # (Auto) 0.67 H (0.11-0.59) K/uL APTT 33 H (21-31) Seconds Sodium 117 L* 116 L* (136-145) mmol/L Chloride 83 L 84 L (98-107) mmol/L BUN 26 H 25 H (6-23) mg/dl Creatinine 2.24 H 2.33 H (0.6-1.4) mg/dl Glucose 112 H 124 H (70-99(Fasting)) mg/dl Osmolality 251 L (280-300) mOsm/kg Total Bilirubin 1.1 H (0.2-1.0) mg/dl Urine Blood 2+ H (Negative) Ur Leukocyte Esterase 1+ H (Negative) Urine WBC (Auto) 6-10 H (0-5) /hpf Urine RBC (Auto) >20 H (0-2) /hpf Urine Osmolality 109 L (500-800) mOsm/kg Diagnostic Findings Chest X-Ray 04/09/24 14:03 XR chest 1V portable HISTORY: Fall. COMPARISON: Chest 11/22/2023. FINDINGS: No pneumothorax. No pleural effusions. No focal lung consolidations to suggest a pneumonia. No evidence for pulmonary edema. The cardiac silhouette remains mildly enlarged. There are calcifications within the aortic knob. No acute fractures identified. Postoperative changes within the left humeral head. IMPRESSION: No significant change compared to the prior study. No acute process. ACT 112: Negative or not required by law. Electronically signed by: Ramiro Jeffrey M.D. 04/09/2024 3:[address] 04/09/24 14:15 CT head/brain wo con CLINICAL HISTORY: 73 years-old Male with h/o SAH, fall on eliquis 8 days prior, headaches. Acute head injury status post fall TECHNIQUE: Multiple axial CT images of the head were obtained without contrast. A dose lowering technique was utilized adhering to the principles of ALARA. CT DOSE: 1499.97 mGy.cm COMPARISON: 11/20/2023 FINDINGS: Motion degraded exam. Involutional changes with chronic microvascular ischemic disease redemonstrated. 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 No acute intracranial hemorrhage, midline shift, intracranial mass, hydrocephalus, territorial ischemia or abnormal extra-axial collection. The calvarium is intact. Prior bilateral lens repair. The paranasal sinuses, mastoid air cells, and middle ear cavities are clear. IMPRESSION: No acute intracranial abnormality or calvarial fracture identified. ACT 112: Negative or not required by law. The above report was generated using voice recognition software. It may contain grammatical, syntax or spelling errors. Electronically signed by: Destin Koenig M.D. 04/09/2024 3:22 PM Code Status & VTE Plan Code Status DNR/DNI VTE Prophylaxis Plan VTE Prophylaxis will be ordered: Yes Supervising Physician Co-Signing Physician Notes I personally saw and examined the patient. I verified all castellon points and agree with Glenn Frye PA-C with the following exceptions and/or additions: 73 year old male presents to the ER with increased confusions and dizziness. O/E A&Ox3, HS irregular rhythm, regular rate, no murmurs, Chest CTAB, Abdo SNT, CN 2-> 12 intact, no focal extremity motor or sensory deficit A/P Acute on chronic hyponatremia - suspect nutritional depletion in setting of chronic SIADH, continue tolvaptan, Given decrease from 117 -> 116 (after bumex) and symptomatic will give 100ml hypertonic saline, start NaCl 1g BID, aim 6 meq increase in 24 hours Otherwise as above PG Care Time/CCT Total # of Minutes Spent Total Time Spent with Patient: Total time spent is greater than 50% in coordination of care (as documented) at patient's floor/unit and/or counseling patient: Coding [place] [address] INT INP/OBS CARE 3/75MIN Patient Type Established Medical Decision Making High Complexity Diagnoses Acute hyponatremia E87.1 Acute urinary retention R33.8 Weakness R53.1 Essential hypertension I10 Afib I48.91 COPD (chronic obstructive pulmonary disease) J44.9 SHEREEN (obstructive sleep apnea) G47.33
[2024-04-09] MEDS ORDERED: STAT IV/IM STA (17:38)
[2024-04-09 17:40] LABS: BUN Creatinine Ratio 10.7 (10-20); Creatinine Clr Calc Pharmacy 39.2 ml/min; Est GFR (African American) 30.8 ml/min; Est GFR (Non-African American) 26.5 ml/min; Potassium 3.9 mmol/L (3.5-5.1)
[2024-04-09] MEDS: SODIUM CHLORIDE 3 % 100 ML IV ONE (18:36)
[2024-04-09] MEDS ORDERED: ALBUTEROL HFA 8 GM INHALER INH PRN (20:46)
[2024-04-09 21:10] LABS: BUN Creatinine Ratio 11.4 (10-20); Calcium 8.9 mg/dl (8.6-10.3); Creatinine Clr Calc Pharmacy 41.5 ml/min; Est GFR (Non-African American) 28.5 ml/min; Potassium 3.7 mmol/L (3.5-5.1)
[2024-04-09] MEDS: allopurinoL 100 MG TAB PO SCH (21:25)
[2024-04-09] MEDS: APIXABAN 5 MG TABLET PO SCH (21:25)
[2024-04-09] MEDS: CETIRIZINE HCL 10 MG TABLET PO SCH (21:25)
[2024-04-09] MEDS: MONTELUKAST SODIUM 10 MG TABLET PO SCH (21:25)
[2024-04-09] MEDS: SODIUM BICARBONATE 650 MG TAB PO SCH (21:26)
[2024-04-09] MEDS: carvediloL 12.5 MG TAB PO SCH (21:26)
[2024-04-09] MEDS: HYOSCYAMINE SULFATE 0.125 MG TAB PO SCH (21:26)
[2024-04-09] MEDS: SODIUM CHLORIDE 1 GM TABLET PO SCH (21:27)
[2024-04-09] MEDS: TOLVAPTAN 15 MG TABLET PO SCH (21:27)
[2024-04-10 01:23] LABS: BUN Creatinine Ratio 10.8 (10-20); Calcium 8.8 mg/dl (8.6-10.3); Creatinine Clr Calc Pharmacy 39.4 ml/min; Est GFR (African American) 30.9 ml/min; Est GFR (Non-African American) 26.7 ml/min; Potassium 3.9 mmol/L (3.5-5.1)
[2024-04-10] MEDS: ACETAMINOPHEN 325 MG TAB PO PRN (03:12)
[2024-04-10 05:31] LABS: Albumin Globulin Ratio 1.3 (0.9-2); Albumin Level 3.6 gm/dl (3.4-5.0); BUN Creatinine Ratio 10.5 (10-20); Calcium 8.9 mg/dl (8.6-10.3); Creatinine Clr Calc Pharmacy 40.1 ml/min; Est GFR (African American) 31.6 ml/min; Est GFR (Non-African American) 27.3 ml/min; Globulin 2.8 gm/dl (2.5-4.0); Magnesium 1.9 mg/dl (1.7-2.4); Potassium 3.8 mmol/L (3.5-5.1); Total Protein 6.4 gm/dl (6.0-8.3)
[2024-04-10 05:39] LABS: Basophils # (auto) 0.03 K/uL (0.00-0.20); Basophils % (auto) 0.9 %; Eosinophils # (auto) 0.06 K/uL (0.00-0.50); Eosinophils % (auto) 1.8 %; Hematocrit (blood only) 22.5 % (42.0-52.0); Hemoglobin 7.7 g/dl (14.0-18.0); Immature Granulocytes # (auto) 0.01 K/uL (0.01-0.20); Immature Granulocytes % (auto) 0.3 %; Lymphocytes # (auto) 0.68 K/uL (1.20-3.40); Lymphocytes % (auto) 20.9 %; Mean Corpuscular Hemoglobin 29.7 pg (25.0-34.0); Mean Corpuscular Hgb Conc 34.2 g/dL (32.0-36.0); Mean Corpuscular Volume 86.9 fL (80.0-100.0); Mean Platelet Volume 9.9 fL (9.4-12.4); Monocytes # (auto) 0.54 K/uL (0.11-0.59); Monocytes % (auto) 16.6 %; Neutrophils # (auto) 1.93 K/uL (1.40-6.50); Neutrophils % (auto) 59.5 %; Platelet Count 141 K/uL (130-400); RDW Coefficient of Variation 25.2 % (11.5-14.5); Red Blood Count 2.59 M/uL (4.70-6.10); White Blood Count 3.25 K/ul (4.8-10.8)
[2024-04-10 05:57] LABS: Anisocytosis Present
[2024-04-10 05:59] LABS: INR 1.1 (0.9-1.1); Prothrombin Time 11.9 Seconds (9.0-12.0)
--- NOTE | 2024-04-10 07:33 | Hospitalist Progress Note ---
Date of Service April 10, 2024 Assessment & Plan (1) Acute hyponatremia: Plan: 73 y/o known to have chronic hyponatremia which is multifactorial but includes SIADH, admitted with symptomatic acute on chronic hyponatremia Reviewed recent nephrology note, most recent sodium was 124 in the office and asymptomatic, has been mid to high 120s at baseline Initial sodium 117 and symptomatic of weakness, acute metabolic encephalopathy. Corrected to 123 by this AM and trending up, at risk of overly rapid correction. -goal sodium around 122-123 today (would be 5 point correction), max 124 -stop NaCl tabs and stop tolvaptan (not given this AM), hold sodium bicarbonate -continue usual po bumex for now -liberalize fluid restriction for today - 2L (at home goal is 1500 mL) -repeat BMP now and q4h Afternoon addendum: 123-->124-->125 -starting to overcorrect, ordered 500 mL D5W, continue monitoring (2) Acute urinary retention: Plan: Acute on chronic urinary retention -followed by urology Dr. Cordova, reviewed recent clinic note -his performs CIC at home typically 1-2X a day, retains up to a liter without symptoms -brown placed in ED, blood tinged probably traumatic insertion and anticoagulated - continue brown for today and monitor for clots -continue finasteride and tamsulosin for BPH with bladder outlet obstruction (3) Weakness: Plan: Weakness is likely combination of hyponatremia and deconditioning. Feels improved today PT/OT consults (4) Essential hypertension: Plan: Currently stable Continue home carvedilol (5) Afib: Plan: Currently in rate controlled A-fib Continue carvedilol and Eliquis -- has had recurrent issues with GI bleeding and iron deficiency anemia. 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 Endorses low appetite and feeling full easily no abdominal pain nausea or vomiting. Tends to eat pudding in AMs. Had diarrhea after one type of boost or ensure. GI aware of his diarrhea and takes prn loperamide Physical Exam 2 Physical Exam: PHYSICAL EXAMINATION Last 24h vital signs reviewed, see documentation in flowsheet General: comfortable appearing, no distress HEENT: Normocephalic, atraumatic, pupils round and equal, sclerae anicteric, no conjunctival injection, moist mucus membranes Lungs: Normal respiratory effort. Clear to auscultation bilaterally. No RRW Heart: Regular rate and rhythm, no murmurs. No JVD Abdomen: Soft, nontender, nondistended. Bowel sounds present. Extremities: Warm, dry, well-perfused. No extremity edema. Neuro: Alert and oriented x 4, face symmetric, moves 4 extremities well Psych: Normal affect and behavior Results & Data Results & Data Vital Signs (Past 12 Hours) Vital Signs Temp Pulse Pulse Resp BP Pulse Ox O2 Del Method 04/10/24 03:14 36.7 C 58 L 18 144/80 H 99 Room Air 04/09/24 23:13 36.9 C 55 L 15 124/65 99 Room Air 04/09/24 22:02 59 L 04/09/24 21:05 Room Air 04/09/24 20:46 04/09/24 20:42 60 04/09/24 20:42 37.2 C 58 L 16 144/78 H 99 Room Air 04/09/24 19:54 36.8 C 63 19 145/76 H 98 Room Air O2 Del Method 04/10/24 03:14 04/09/24 23:13 04/09/24 22:02 04/09/24 21:05 04/09/24 20:46 Room Air 04/09/24 20:42 04/09/24 20:42 04/09/24 19:54 Laboratory Results 04/10/24 04:58 04/10/24 11:20 PG Care Time/CCT Total # of Minutes Spent Total Time Spent with Patient: I personally spent: 65 minutes today on clinical care activities including: reviewing chart notes and vital signs reviewing labs reviewing studies reviewing outside records discussion with pharmacist critical care examining and counseling the patient counseling the patient's family writing orders documentation Coding Level of Care Code 93824 SUB INP/OBS CARE 3/50MIN Diagnoses Acute hyponatremia E87.1 Acute urinary retention R33.8 Weakness R53.1 Essential hypertension I10 Afib I48.91 COPD (chronic obstructive pulmonary disease) J44.9 SHEREEN (obstructive sleep apnea) G47.33
[2024-04-10] MEDS: TAMSULOSIN HCL 0.4 MG CAP PO SCH (08:16)
[2024-04-10] MEDS: FINASTERIDE 5 MG TAB PO SCH (08:16)
[2024-04-10] MEDS: BUMETANIDE 1 MG TAB PO SCH (08:16)
[2024-04-10] MEDS: PANTOprazole 40 MG TAB PO SCH (08:16)
[2024-04-10] MEDS: FLUTICASONE/VILANTEROL 100/25MCG 14 PUFFS/INHALER INH SCH (08:17)
[2024-04-10 08:23] LABS: BUN Creatinine Ratio 10.8 (10-20); Calcium 9.1 mg/dl (8.6-10.3); Creatinine Clr Calc Pharmacy 37.6 ml/min; Est GFR (African American) 32.4 ml/min; Potassium 3.8 mmol/L (3.5-5.1)
[2024-04-10 11:53] LABS: BUN Creatinine Ratio 10.8 (10-20); Calcium 9.1 mg/dl (8.6-10.3); Creatinine Clr Calc Pharmacy 37.7 ml/min; Est GFR (African American) 32.6 ml/min; Est GFR (Non-African American) 28.1 ml/min; Potassium 3.9 mmol/L (3.5-5.1)
[2024-04-10] MEDS: DEXTROSE 5% IV SCH (14:56)
[2024-04-10 16:23] LABS: BUN Creatinine Ratio 10.6 (10-20); Calcium 8.9 mg/dl (8.6-10.3); Creatinine Clr Calc Pharmacy 35.5 ml/min; Est GFR (African American) 30.3 ml/min; Est GFR (Non-African American) 26.1 ml/min; Potassium 3.9 mmol/L (3.5-5.1)
[2024-04-10] MEDS: DEXTROSE 5% 1,000 ML IV SCH (18:38)
[2024-04-10 20:07] LABS: BUN Creatinine Ratio 10.2 (10-20); Creatinine Clr Calc Pharmacy 34.3 ml/min; Est GFR (African American) 29.1 ml/min; Est GFR (Non-African American) 25.1 ml/min
[2024-04-11 00:28] LABS: BUN Creatinine Ratio 10.4 (10-20); Calcium 8.8 mg/dl (8.6-10.3); Creatinine Clr Calc Pharmacy 33.6 ml/min; Est GFR (African American) 28.4 ml/min; Est GFR (Non-African American) 24.5 ml/min; Potassium 4.3 mmol/L (3.5-5.1)
[2024-04-11 06:25] LABS: Basophils # (auto) 0.04 K/uL (0.00-0.20); Eosinophils % (auto) 2.5 %; Hematocrit (blood only) 22.2 % (42.0-52.0); Hemoglobin 7.6 g/dl (14.0-18.0); Immature Granulocytes # (auto) 0.01 K/uL (0.01-0.20); Immature Granulocytes % (auto) 0.2 %; Lymphocytes # (auto) 0.89 K/uL (1.20-3.40); Lymphocytes % (auto) 21.9 %; Mean Corpuscular Hemoglobin 30.3 pg (25.0-34.0); Mean Corpuscular Hgb Conc 34.2 g/dL (32.0-36.0); Mean Corpuscular Volume 88.4 fL (80.0-100.0); Mean Platelet Volume 9.6 fL (9.4-12.4); Monocytes # (auto) 0.61 K/uL (0.11-0.59); Neutrophils # (auto) 2.41 K/uL (1.40-6.50); Neutrophils % (auto) 59.4 %; Platelet Count 134 K/uL (130-400); Red Blood Count 2.51 M/uL (4.70-6.10); White Blood Count 4.06 K/ul (4.8-10.8)
[2024-04-11 06:44] LABS: Albumin Globulin Ratio 1.3 (0.9-2); Albumin Level 3.6 gm/dl (3.4-5.0); BUN Creatinine Ratio 10.4 (10-20); Bilirubin,Total 0.8 mg/dl (0.2-1.0); Creatinine Clr Calc Pharmacy 34.8 ml/min; Est GFR (African American) 29.5 ml/min; Est GFR (Non-African American) 25.5 ml/min; Globulin 2.7 gm/dl (2.5-4.0); Potassium 4.1 mmol/L (3.5-5.1); Total Protein 6.3 gm/dl (6.0-8.3)
[2024-04-11 06:49] LABS: INR 1.1 (0.9-1.1); Prothrombin Time 11.8 Seconds (9.0-12.0)
[2024-04-11 06:50] LABS: Anisocytosis Present
[2024-04-11] MEDS: BUMETANIDE 1 MG TAB PO SCH (08:14)
[2024-04-11 13:31] LABS: Ferritin 368.8 ng/ml (8-388)
[2024-04-11] MEDS: DOXYCYCLINE HYCLATE 100 MG CAP PO SCH (13:41)
--- NOTE | 2024-04-11 16:14 | Hospitalist Progress Note ---
Date of Service April 11, 2024 Assessment & Plan (1) Acute hyponatremia: Plan: 73 y/o known to have chronic hyponatremia which is multifactorial but includes SIADH, admitted with symptomatic acute on chronic hyponatremia Reviewed recent nephrology note, most recent sodium was 124 in the office and asymptomatic, has been mid to high 120s at baseline Initial sodium 117 and symptomatic of weakness, acute metabolic encephalopathy. Corrected appropriately slowly, 2 doses of 500 mL D5W given yesterday to slow the correction rate. This a.m. sodium 126, resumed sodium bicarb, noon check today 128 which is his baseline. Restart tolvaptan 30 mg p.o. twice daily tonight, which is his chronic dosing. continue usual p.o. Bumex. Continue usual mild fluid restriction of 2 L discussed twice daily protein supplements to continue at home, increase oral intake a.m. BMP he is scheduled outpatient blood draw on Monday, going forward plans to have blood draw weekly for sodium etc. check (2) Acute urinary retention: Plan: Acute on chronic urinary retention -followed by urology Dr. Cordova, reviewed recent clinic note -his performs CIC at home typically 1-2X a day, retains up to a liter without symptoms -brown placed in ED, blood tinged probably traumatic insertion and anticoagulated - mild hematuria has resolved. plan to discontinue Brown catheter in a.m. -continue finasteride and tamsulosin for BPH with bladder outlet obstruction (3) Weakness: Plan: Weakness is likely combination of hyponatremia and deconditioning. improving PT/OT consults completed plan to discharge home, he would benefit from using a walker at this time (4) Essential hypertension: Plan: Currently stable Continue home carvedilol, normotensive (5) Afib: Plan: Currently in rate controlled A-fib Continue carvedilol and Eliquis -- has had recurrent issues with GI bleeding and iron deficiency anemia. 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 phlebotomy playing a role in decreasing hemoglobin as well - iron studies done today and his stores are good -trying to continue AC to allow Watchman procedure SHEREEN -continue HS CPAP Admission and Anticipated Discharge Date Admission Date: April 09, 2024 Subjective Ruy continues to improve he is weaker than baseline but much better than at the time of admission, he has been taking multiple walks in the hallway with his walker and his assisting normally he uses a cane his says that the left second and toe wound has been present a long time and has not been healing, it is at the tip of a hammertoe she tries to use shoes that do not cause pressure there 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 It seems like it is more erythematous and swollen than usual. Ruy denies any pain from this wound or in his toe Physical Exam 2 Physical Exam: PHYSICAL EXAMINATION Last 24h vital signs reviewed, see documentation in flowsheet General: comfortable appearing, no distress HEENT: Normocephalic, atraumatic, pupils round and equal, sclerae anicteric, no conjunctival injection, moist mucus membranes Lungs: Normal respiratory effort. Clear to auscultation bilaterally. No RRW Heart: Regular rate and rhythm, no murmurs. No JVD Abdomen: Soft, nontender, nondistended. Bowel sounds present. Extremities: Warm, dry, well-perfused. No extremity edema. left second toe with 0.8 mm ulcer appears relatively shallow no drainage mild surrounding erythema of second toe and a little bit onto dorsum of forefoot. No warmth. His other wounds which include left calf right knee right thigh are all superficial abrasions or skin tears with no erythema warmth induration or drainage Neuro: Alert and oriented x 4, face symmetric, moves 4 extremities well Psych: Normal affect and behavior Results & Data Results & Data Vital Signs (Past 12 Hours) Vital Signs Temp Pulse Pulse Pulse Resp BP BP 04/11/24 15:13 36.7 C 56 L 17 114/69 04/11/24 10:20 36.6 C 65 18 134/68 04/11/24 09:13 36.8 C 81 18 121/71 04/11/24 07:22 48 L Pulse Ox O2 Del Method 04/11/24 15:13 94 Room Air 04/11/24 10:20 99 Room Air 04/11/24 09:13 100 Room Air 04/11/24 07:22 Laboratory Results 04/11/24 06:01 04/11/24 12:39 PG Care Time/CCT Total # of Minutes Spent Total Time Spent with Patient: Total time spent is greater than 50% in coordination of care (as documented) at patient's floor/unit and/or counseling patient: Coding Level of Care Code 65260 SUB INP/OBS CARE 2/35MIN Diagnoses Acute hyponatremia E87.1 Acute urinary retention R33.8 Weakness R53.1 Essential hypertension I10 Afib I48.91 COPD (chronic obstructive pulmonary disease) J44.9
[2024-04-11] MEDS: ACETAMINOPHEN 500 MG TAB PO PRN (16:32)
[2024-04-11] MEDS: TOLVAPTAN 15 MG TABLET PO SCH (20:59)
[2024-04-11] MEDS: DIPHENOXYLATE/ATROPINE 2.5/0.025MG TAB PO PRN (22:01)
[2024-04-11] MEDS: LOPERAMIDE HCL 2 MG CAP PO STA (22:58)
[2024-04-12 08:40] LABS: BUN Creatinine Ratio 10.9 (10-20); Calcium 9.4 mg/dl (8.6-10.3); Creatinine Clr Calc Pharmacy 30.4 ml/min; Est GFR (African American) 25.1 ml/min; Est GFR (Non-African American) 21.6 ml/min; Potassium 4.2 mmol/L (3.5-5.1)
--- NOTE | 2024-04-12 18:57 | Discharge Summary ---
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 Corrected appropriately slowly, 2 doses of 500 mL D5W given 04/10 to slow the correction rate. 04/11 was near baseline sodium, restarted sodium bicarbonate and tolvaptan which he tolerated well. Sodium this morning was 130 continue home bumetanide and fluid restriction discussed twice daily protein supplements to continue at home, increase oral intake he is scheduled outpatient blood draw on Monday, going forward plans to have blood draw weekly for sodium etc. check discussed plan of care with Ruy and his today (2) Acute urinary retention: Acute on chronic urinary retention -followed by urology Dr. Cordova, reviewed recent clinic note -his performs CIC at home typically 1-2X a day, retains up to a liter without symptoms -brown placed in ED, blood tinged probably traumatic insertion and anticoagulated - mild hematuria has resolved. discontinued Brown catheter and resume CIC -continue finasteride and tamsulosin for BPH with bladder outlet obstruction (3) Weakness: Weakness is likely combination of hyponatremia and deconditioning. improving PT/OT consults completed plan to discharge home, he would benefit from using a walker at this time and already has 1 at home (4) Essential hypertension: Currently stable Continue home carvedilol, mostly has been normotensive (5) Afib: Currently in rate controlled A-fib Continue carvedilol and Eliquis -- has had recurrent issues with GI bleeding and iron deficiency anemia. 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 phlebotomy playing a role in decreasing hemoglobin as well - iron studies done and his stores are good currently -trying to continue AC to allow Watchman procedure SHEREEN -continue HS CPAP Notes For Next Care Provider has had poor oral intake related to low appetite they will add 30 g protein supplement twice a day probably a bar and a protein shake, will help with sodium regulation and natriuresis Medication Changes From Visit none Admission HPI Per Admitting Provider Ruy is a 73-year-old male with a past medical history significant for chronic hyponatremia, GERD, alcohol abuse, alcoholic cirrhosis, HFpEF, a fib (on Eliquis), COPD, GERD, HTN, TIA, SHEREEN who presented to the [facility] ED with his on 04/09/2024 due to concerns for increased confusion and weakness consistent with previous history of UTIs and hyponatremia. Patient was noted to be bradycardic at times in the ED with heart rate in the 40s to 50s but was otherwise stable. Labs were significant for a sodium of 117 (baseline is near 129), UA with 2+ blood, 1+ leukocyte Estrace, 610 WBC, greater than [address] of the head without contrast and chest x-ray were read as negative acute changes. Prior to admission the patient was given 1 g p.o. Tylenol and 2 mg IV Bumex. Patient was lying in bed in no acute distress at time of exam with his bedside, history was obtained from both. His explains that the patient had been treated for a recent UTI last week. He was seen in the urology office on 04/02/2024 and they expressed to clinic staff that the patient was still experiencing dysuria. Urine culture was obtained in office at time, review of the urine culture shows no significant growth. His explains that the urology office was shipping out a PCR urinalysis test today however due to his progressive symptoms they presented to the ED for further evaluation. When asked, they explained that the patient did have 1 beer last night but only drinks socially at this time. He has been taking his medications as prescribed the only a.m. medication he did not have prior to ED arrival today was his dose of Bumex as they did not want him to have to urinate while driving to the hospital. Patient has chronic headaches at baseline but denies worsening headache at this time, vision changes, paresthesias, unilateral weakness, chest pain, shortness of breath, productive cough, abdominal pain, hematuria, melena, and recent trauma. They report the patient has been having ongoing dysuria 04/02/2024. The patient is confirmed that he is a DNR/DNI, his is his medical decision-maker if he cannot make decisions himself. Please refer to Dr. Mustafa's attestation for any changes to the treatment plan Discharge Exam PHYSICAL EXAMINATION Last 24h vital signs reviewed, see documentation in flowsheet General: comfortable appearing, no distress HEENT: Normocephalic, atraumatic, pupils round and equal, sclerae anicteric, no conjunctival injection, moist mucus membranes Lungs: Normal respiratory effort. Clear to auscultation bilaterally. No RRW Heart: Regular rate and rhythm, no murmurs. No JVD Abdomen: Soft, nontender, nondistended. Bowel sounds present. Extremities: Warm, dry, well-perfused. No extremity edema. left second toe with 0.8 mm ulcer appears relatively shallow no drainage mild surrounding erythema of second toe and a little bit onto dorsum of forefoot substantially improved overnight with oral antibiotic. No warmth. His other wounds which include left calf right knee right thigh are all superficial abrasions or skin tears with no erythema warmth induration or drainage Neuro: Alert and oriented x 4, face symmetric, moves 4 extremities well Psych: Normal affect and behavior Updated Medication List Medication Instructions Recorded Confirmed Type budesonide-formoterol HFA 160 2 puff inhalation BID 03/06/19 04/09/24 History mcg-4.5 mcg/actuation aerosol inhaler (Symbicort) carvedilol 12.5 mg tablet 12.5 mg PO BID 03/06/19 04/09/24 History pantoprazole 40 mg tablet,delayed 40 mg PO QAM 03/06/19 04/09/24 History release (Protonix) levocetirizine 5 mg tablet 5 mg PO HS 03/07/19 04/09/24 History tolvaptan 30 mg tablet (Samsca) 30 mg PO BID 04/23/21 04/09/24 History acetaminophen 500 mg tablet 1,000 mg PO BID PRN Pain 06/04/21 04/09/24 History ipratropium bromide 21 mcg (0.03 2 spray intranasal BID PRN Nasal 06/04/21 04/09/24 History %) nasal spray Congestion montelukast 10 mg tablet 10 mg PO HS 06/04/21 04/09/24 History hyoscyamine sulfate 0.125 mg 0.125 mg PO QID 11/09/21 04/09/24 History tablet (Levsin) albuterol sulfate 90 mcg/actuation 2 inh inhalation QID PRN Shortness 12/05/22 04/09/24 History aerosol inhaler (ProAir HFA) Of Breath Or Wheezing cholecalciferol (vitamin D3) 125 2,000 unit PO BID 05/03/23 04/09/24 History mcg (5,000 unit) capsule allopurinol 100 mg tablet 100 mg PO HS 11/20/23 04/09/24 History diphenoxylate-atropine 2.5 1 tab PO QID PRN Diarrhea 11/20/23 04/09/24 History mg-0.025 mg tablet finasteride 5 mg tablet 5 mg PO QAM 11/20/23 04/09/24 History hydrocodone 5 mg-acetaminophen 325 1 tab PO UD PRN Pain 11/20/23 04/09/24 History mg tablet tamsulosin 0.4 mg capsule 0.4 mg PO QAM 11/20/23 04/09/24 History tezepelumab-ekko 210 mg/1.91 mL 210 mg subcut MONTHLY 11/20/23 04/09/24 History (110 mg/mL) subcutaneous syringe (Tezspire) vitamin B complex 1 tab PO QPM 11/20/23 04/09/24 History apixaban 5 mg tablet (Eliquis) 5 mg PO BID 04/02/24 04/09/24 History bumetanide 2 mg tablet 2 mg PO UD 04/09/24 04/09/24 History sodium bicarbonate 650 mg tablet 650 mg PO BID 04/09/24 04/09/24 History doxycycline hyclate 100 mg capsule 100 mg PO BID #12 caps 04/12/24 Rx Hospital Stay Data Consultations 04/09/24 15:21 ED Decision to Admit Stat 04/09/24 15:30 ED Decision to Admit Stat Diagnostic Imagining Performed 04/09/24 14:15 CT head/brain wo con Stat Chest X-Ray 04/09/24 14:03 XR chest 1V portable HISTORY: Fall. COMPARISON: Chest 11/22/2023. FINDINGS: No pneumothorax. No pleural effusions. No focal lung consolidations to suggest a pneumonia. No evidence for pulmonary edema. The cardiac silhouette remains mildly enlarged. There are calcifications within the aortic knob. No acute fractures identified. Postoperative changes within the left humeral head. IMPRESSION: No significant change compared to the prior study. No acute process. ACT 112: Negative or not required by law. Electronically signed by: Ramiro Jeffrey M.D. 04/09/2024 3:[address] 04/09/24 14:15 CT head/brain wo con CLINICAL HISTORY: 73 years-old Male with h/o SAH, fall on eliquis 8 days prior, headaches. Acute head injury status post fall TECHNIQUE: Multiple axial CT images of the head were obtained without contrast. A dose lowering technique was utilized adhering to the principles of ALARA. CT DOSE: 1499.97 mGy.cm COMPARISON: 11/20/2023 FINDINGS: Motion degraded exam. Involutional changes with chronic microvascular ischemic disease redemonstrated. 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 No acute intracranial hemorrhage, midline shift, intracranial mass, hydrocephalus, territorial ischemia or abnormal extra-axial collection. The calvarium is intact. Prior bilateral lens repair. The paranasal sinuses, mastoid air cells, and middle ear cavities are clear. IMPRESSION: No acute intracranial abnormality or calvarial fracture identified. ACT 112: Negative or not required by law. The above report was generated using voice recognition software. It may contain grammatical, syntax or spelling errors. Electronically signed by: Destin Koenig M.D. 04/09/2024 3:22 PM 04/11/24 06:01 04/12/24 07:24 Pending Results Patient Have Any Pending Studies at Discharge: No Discharge Instructions Given to Patient (Per Discharging Provider) You were treated for symptomatic hyponatremia Your sodium was initially 117 and we corrected it slowly to 130 Stay on your usual medicines including sodium bicarbonate and tolvaptan It will help if you increase the protein in your diet. High protein supplement 30g twice a day (protein shake or boost/ensure, or protein bar) will help with the hyponatremia. Some protein supplements can cause diarrhea, often related to artificial sweeteners (stevia is usually the best one) You are definitely not eating enough - frequent small high protein/calorie meals might work well Have your blood drawn Monday as planned You have a mild infection around the left foot toe ulcer. The wound culture had MRSA. Take oral doxycycline Follow up with your marine extension agent Try to avoid all pressure from shoes etc, or the toe wound won't be able to heal. Foam dressing may be helpful Total Time Total Time Spent Total Time Spent (In Minutes): I personally spent: 40 minutes today on clinical care activities including: reviewing chart notes and vital signs reviewing labs examining and counseling the patient counseling the patient's family writing orders, discharge instructions documentation Coding Level of Care Code 23938 INP/OBS DISCH >30 MIN Diagnoses Acute hyponatremia E87.1 Acute urinary retention R33.8 Weakness R53.1 Essential hypertension I10 Afib I48.91 COPD (chronic obstructive pulmonary disease) J44.9
== END 2024-04-12 12:19 | disposition home or self-care (01) | DRG 643 ==
LOC: ED 12:41 → 2E 17:02 → SUATTDRO 17:02 → 2E 19:20 → 3N 04-11 10:25

== ENCOUNTER 2024-09-03 13:06 | Inpatient (IN) ==
--- NOTE | 2024-09-03 13:59 | Emergency Department Note ---
History of Present Illness General Chief complaint: Weakness Time Seen by Provider: 09/03/24 13:14 Source: patient Mode of arrival: EMS Limitations: physical limitation (needs walker ) History of Present Illness Patient is a 73-year-old male who presents by EMS with concerns for low sodium on recent lab work. According to patient's his sodium level from yesterday was 122. He has also been generally weak and has had episodes of confusion. Patient was recently discharged from the hospital after being treated for hyponatremia and a UTI. He is on ciprofloxacin outpatient. He does report some suprapubic discomfort and reports that he is straight cathed every night. No fevers, chills, flank pain, nausea, vomiting reported. Patient's is also worried that he has had some increased redness and drainage from a right calf wound. Patient reports 6 weeks of increased pain and swelling to the right lower extremity. Redness has been getting worse over the past few days and patient's noted some drainage from a chronic stasis ulcer of the right lateral calf that is new. Home Medications Medication Instructions Recorded Confirmed Type budesonide-formoterol HFA 160 2 puff inhalation BID 03/06/19 04/19/24 History mcg-4.5 mcg/actuation aerosol inhaler (Symbicort) carvedilol 12.5 mg tablet 12.5 mg PO BID 03/06/19 04/19/24 History pantoprazole 40 mg tablet,delayed 40 mg PO QAM 03/06/19 04/19/24 History release (Protonix) levocetirizine 5 mg tablet 5 mg PO HS 03/07/19 04/19/24 History tolvaptan 30 mg tablet (Samsca) 30 mg PO BID 04/23/21 04/19/24 History acetaminophen 500 mg tablet 1,000 mg PO BID PRN Pain 06/04/21 04/19/24 History ipratropium bromide 21 mcg (0.03 2 spray intranasal BID PRN Nasal 06/04/21 04/19/24 History %) nasal spray Congestion montelukast 10 mg tablet 10 mg PO HS 06/04/21 04/19/24 History hyoscyamine sulfate 0.125 mg 0.125 mg PO QID 11/09/21 04/19/24 History tablet (Levsin) albuterol sulfate 90 mcg/actuation 2 inh inhalation QID PRN Shortness 12/05/22 04/19/24 History aerosol inhaler (ProAir HFA) Of Breath Or Wheezing cholecalciferol (vitamin D3) 125 2,000 unit PO BID 05/03/23 04/19/24 History mcg (5,000 unit) capsule allopurinol 100 mg tablet 100 mg PO HS 11/20/23 04/19/24 History diphenoxylate-atropine 2.5 1 tab PO QID PRN Diarrhea 11/20/23 04/19/24 History mg-0.025 mg tablet hydrocodone 5 mg-acetaminophen 325 1 tab PO UD PRN Pain 11/20/23 04/19/24 History mg tablet tamsulosin 0.4 mg capsule 0.4 mg PO QAM 11/20/23 04/19/24 History tezepelumab-ekko 210 mg/1.91 mL 210 mg subcut MONTHLY 11/20/23 04/19/24 History (110 mg/mL) subcutaneous syringe (Tezspire) vitamin B complex 1 tab PO QPM 11/20/23 04/19/24 History apixaban 5 mg tablet (Eliquis) 5 mg PO BID 04/02/24 04/19/24 History bumetanide 2 mg tablet 2 mg PO UD 04/09/24 04/19/24 History sodium bicarbonate 650 mg tablet 650 mg PO BID 04/09/24 04/19/24 History doxycycline hyclate 100 mg capsule 100 mg PO BID #12 caps 04/12/24 04/19/24 Rx finasteride 5 mg tablet 5 mg PO DAILY #90 tabs 08/07/24 Rx Allergies Allergy/AdvReac Type Severity Reaction Status Date / Time chlorhexidine Allergy Intermediate Redness, Verified 04/19/24 11:28 burning Past Med/Surg History Problem List (Updated 09/03/24 @ 17:24 by Clay Reyna MD) Acute hyponatremia (Acute) Acute hyponatremia (Acute) Weakness (Acute) Acute hyponatremia Anemia (Acute) Acute urinary retention (Acute) Hyponatremia (Acute) Generalized weakness Subarachnoid hemorrhage Essential hypertension Chronic kidney disease, stage III (moderate) SIADH (syndrome of inappropriate ADH production) Acute on chronic diastolic CHF (congestive heart failure) Chronic kidney disease (HFpEF) heart failure with preserved ejection fraction History of subarachnoid hemorrhage Incomplete bladder emptying Rotator cuff tear, right Encounter for pre-operative examination Postoperative urinary retention HTN (hypertension) Afib COPD (chronic obstructive pulmonary disease) Confusion Hyponatremia Elevated LFTs Cholecystitis with cholelithiasis Choledocholithiasis S/P total knee arthroplasty Retention of urine, unspecified Thoracic aortic aneurysm without rupture SHEREEN (obstructive sleep apnea) DVT prophylaxis Anemia Cirrhosis of liver Cholelithiasis Acute urinary retention (Acute) Hematuria, gross Lesion of bladder Postoperative fever Acute kidney injury (Acute) Persistent atrial fibrillation Fever Acute kidney injury superimposed on chronic kidney disease UTI (urinary tract infection) SIADH (syndrome of inappropriate ADH production) Per nephrology records "ETOH/liver disease and/or COPD/pulmonary nodule (R/O CA)/SIADH...longstanding history of hyponatremia, baseline high 120s per chart review BPH (benign prostatic hyperplasia) Stroke CVA (02/18/21) > no residual effects, PCP following, on Eliquis now (Plavix was discontinued after 3 months) Medical History History of GI bleed > 1 yr ago, blood transfusion Memory difficulties difficulty remembering things he is told UTI (urinary tract infection) following with urology Environmental allergies History of IBS History of COVID-19 DX'D 09/09/21 DAVIN LEVY SYMPTOMS OF COUGH-TREATED WITH ANTIBODIES/RECOVERED AT HOME-SYMPTOMS RESOLVED Cirrhosis Suspected per imaging/records per patient Stable Thoracic aortic aneurysm Following with vascular, Dr. Bill Mcarthur/[facility] (CT surgery), stable per CT chest 08/23/22 (5.1cm) Hx of gastric ulcer Remote hx Anemia Chronic/stable Paroxysmal A-fib + A-flutter S/P radiofrequency ablation (~3 yrs ago)-F/U DR AASHISH LEVY CARDIOLOGY GERD (gastroesophageal reflux disease) Controlled Chronic obstructive pulmonary disease Stable Sleep apnea Non-compliant with CPAP Sleeps with wedge Hypertension Surgical History Hx of cardiac catheterization 10/2022 DAVIN Levy- no stents - checking for pulmonary hypertension; Dr Aashish Levy cardiology- last visit 02/2023 History of nasal cauterization History of ERCP ERCP (04/28/19): Elective glidescope #3, ETT 7.5 at [facility] History of cholecystectomy H/O cardiac radiofrequency ablation 5+ years ago History of colonoscopy History of esophagogastroduodenoscopy (EGD) S/P ureteral stent placement Left (2018)-PT DENIES S/P TURP PT DENIES History of cataract surgery R/L History of lumbar fusion PT DENIES H/O total knee replacement Left Hx of tonsillectomy Hx of appendectomy Hx of foot surgery Left Hx of repair of left rotator cuff Hx of repair of right rotator cuff Family History Father Family hx of colon cancer Mother Family history of diabetes mellitus Social History Smoking Status: Current some day smoker Tobacco Type: Cigars Cigarettes Per Day: 1 cigar/week; Second Hand Exposure: Yes (in the past); Do You Dip or Chew Tobacco: No; Hx Alcohol Use: Yes Alcohol type: beer Hx Substance Use: No Preferred Language: Uzbek Communication Ability: Effective Visual Impairment: No Limitations Scrap Burner Required: No Beliefs That Will Affect Care: None marital status: Current Living Situation: Spouse current occupational status: retired Feels Safe at Home: Yes Assistive Devices: Cane and Walker Review of Systems See HPI for pertinent positives & negatives. Physical Exam Vital Signs Vital Signs - 24 hr 09/03/24 13:15 09/03/24 13:15 09/03/24 13:15 Temperature 37.3 C 37.3 C Temperature Source Oral Oral Pulse Rate 71 Pulse Rate [Apical] 71 Respiratory Rate 18 18 Respiratory Effort / Characteristics Non-Labored Spontaneous Non-Labored Spontaneous Blood Pressure 172/83 H Blood Pressure [Right Arm] 172/83 H Blood Pressure Mean 112 Blood Pressure Mean [Right Arm] 112 Blood Pressure Position Lying Blood Pressure Position [Right Arm] Lying Pulse Oximetry 95 95 95 Oxygen Delivery Method Room Air Room Air Room Air Sepsis Recent Fever Within 48 Hours No Sepsis New/Unexplained Change in Mental Status No Sepsis Action Taken by Nursing No Action Required 09/03/24 13:22 09/03/24 15:00 Temperature Temperature Source Pulse Rate 88 Pulse Rate [Apical] 76 Respiratory Rate 18 Respiratory Effort / Characteristics Blood Pressure Blood Pressure [Right Arm] 123/74 Blood Pressure Mean Blood Pressure Mean [Right Arm] 90 Blood Pressure Position Blood Pressure Position [Right Arm] Pulse Oximetry 96 Oxygen Delivery Method Room Air Sepsis Recent Fever Within 48 Hours Sepsis New/Unexplained Change in Mental Status Sepsis Action Taken by Nursing See below Constitutional WD/WN, vitals as above well developed and well nourished Eyes PERRL, conjunctivae normal, anicteric sclerae ENMT external ear and nose normal, oropharynx normal Neck trachea midline, no thyromegaly Respiratory normal respiratory effort, lungs clear to auscultation Cardiovascular RRR, no murmur, no edema Chest (Breasts) Chest: normal inspection of chest Musculoskeletal no cyanosis or clubbing, extremities motor strength 5/5 Nonpitting edema to the right lower extremity. Erythema from the right foot extending above the right knee. stage II stasis ulcer to the right lateral calf measuring around 4 cm by 1.5cm. Sanguinous drainage from the wound. 2+ DP pulses b/l Skin no rashes, warm and dry Neurologic PERRL, EOMI, accommodation nl, no face palsy, no dysarthria Motor/Sensory: normal movement, no pronator drift and no sensory deficit Course Administered Medications Discontinued Medications Sodium Chloride (Hypertonic Saline 3%) 150 mls @ 450 mls/hr IV .Q20M ONE; Protocol Stop: 09/03/24 16:11 Last Infusion: 09/03/24 17:07 Dose: Infused Documented By: SLAVA Co-signed By: DIANA Admin: 09/03/24 16:27 Dose: 450 mls/hr Documented By: SLAVA Co-signed By: Morphine Sulfate (Morphine Sulfate 4 Mg/Ml 1 Ml Carp\\Vial) 4 mg IV NOW STA Stop: 09/03/24 15:12 Last Admin: 09/03/24 15:17 Dose: 4 mg Documented By: SLAVA Critical Care Time Critical Care Time: Yes Total Critical Care Time: 45 Medical Decision Making Differential Diagnosis Hyponatremia, chronic venous stasis ulcer Medical Records Attestation: I reviewed the patient's medical records. Laboratory Data Attestation: I reviewed the patient's lab results. 09/03/24 13:14 09/03/24 13:14 Lab Results 09/03/24 09/03/24 09/03/24 Range/Units 13:14 13:17 14:29 WBC 4.01 L (4.8-10.8) K/ul RBC 3.17 L (4.70-6.10) M/uL Hgb 10.5 L (14.0-18.0) g/dl Hct 30.4 L (42.0-52.0) % MCV 95.9 (80.0-100.0) fL MCH 33.1 (25.0-34.0) pg MCHC 34.5 (32.0-36.0) g/dL RDW Std Deviation 59.6 H (36.4-46.3) fL RDW Coeff of Greer 17.0 H (11.5-14.5) % Plt Count 140 (130-400) K/uL MPV 10.4 (9.4-12.4) fL Immature Gran % (Auto) 0.2 % Neut % (Auto) 67.0 % Lymph % (Auto) 13.2 % Harrison % (Auto) 16.2 % Eos % (Auto) 2.2 % Baso % (Auto) 1.2 % Neut # (Auto) 2.68 (1.40-6.50) K/uL Lymph # (Auto) 0.53 L (1.20-3.40) K/uL Harrison # (Auto) 0.65 H (0.11-0.59) K/uL Eos # (Auto) 0.09 (0.00-0.50) K/uL Baso # (Auto) 0.05 (0.00-0.20) K/uL Immature Gran # (Auto) 0.01 (0.01-0.20) K/uL Sodium 119 L* (136-145) mmol/L Potassium 5.4 H (3.5-5.1) mmol/L Chloride 89 L (98-107) mmol/L Carbon Dioxide 23 (21-32) mmol/L Anion Gap 7 (3-11) BUN 31 H (6-23) mg/dl Creatinine 2.76 H (0.6-1.4) mg/dl Est Cr Clr Drug Dosing 33.7 ml/min eGFR 23.36 BUN/Creatinine Ratio 11.2 (10-20) Glucose 108 H (70-99(Fasting)) mg/dl Osmolality 263 L (280-300) mOsm/kg Lactate 0.6 (0.4-2.0) mmol/L Calcium 9.1 (8.6-10.3) mg/dl Total Bilirubin 0.8 (0.2-1.0) mg/dl AST 30 (13-39) U/L ALT 13 (7-52) U/L Alkaline Phosphatase 122 H (34-104) U/L Total Protein 7.4 (6.0-8.3) gm/dl Albumin 3.9 (3.4-5.0) gm/dl Globulin 3.5 (2.5-4.0) gm/dl Albumin/Globulin Ratio 1.1 (0.9-2) TSH 1.598 (0.300-4.500) uIu/ml Urine Color Yellow Urine Appearance Clear (Clear) Urine pH 7.5 (4.5-7.5) Ur Specific [place] 1.005 (1.000-1.030) Urine Protein Trace H (Negative) Urine Glucose (UA) Negative (Negative) Urine Ketones Negative (Negative) Urine Blood Trace H (Negative) Urine Nitrite Negative (Negative) Urine Bilirubin Negative (Negative) Urine Urobilinogen Negative (Negative) Ur Leukocyte Esterase 2+ H (Negative) Urine WBC (Auto) 11-20 H (0-5) /hpf Urine RBC (Auto) 0-2 (0-2) /hpf U Hyaline Cast (Auto) 0-2 (0-2) /lpf U Epithel Cells (Auto) 0-2 (0-2) /hpf Urine Bacteria (Auto) None Seen (None Seen) Urine Osmolality 127 L (500-800) mOsm/kg Ur Random Sodium 19 mmol/L Imaging Data Radiologist's Impression: Venous Doppler Study 09/03/24 13:46 EXAM: US Duplex Right Lower Extremity Veins INDICATION: Edema. TECHNIQUE: Real-time duplex ultrasound scan of the right lower extremity veins integrating B-mode two-dimensional vascular structure, Doppler spectral analysis, color flow Doppler imaging and compression. COMPARISON: No relevant prior studies available. FINDINGS: Deep veins: No DVT in the visualized common femoral, femoral or popliteal veins. The veins demonstrate normal color flow, are normally compressible, with normal phasic flow and/or augmentation response. Superficial veins: No abnormality noted. No thrombus in the visualized great saphenous vein. Soft tissues: Mild subcutaneous edema noted. No fluid collection. IMPRESSION: No deep venous thrombosis of the right lower extremity. ACT 112: Negative or not required by law. Electronically signed by Dori Knight 09-03-2024 4:25 PM MDM Narrative Patient is a 73-year-old male who presents for generalized weakness and recent low sodium level on outpatient lab work. Repeat sodium here today is 119. No focal neurologic deficits were reported procedure. I did speak with nephrology who recommends a dose of 150 mL of hypertonic saline and repeat of sodium level after. Patient is euvolemic on exam and hemodynamically stable otherwise. Also noted to have acute on chronic drainage from a right venous stasis ulcer. The wound itself does not look infected here today. No elevated white blood cell count or SIRS criteria. DVT ultrasound of the right lower extremity is negative for blood clot. Would recommend wound consultation inpatient for management of ulcer. Patient recently finished antibiotic course for UTI. Repeat urine culture sent here today. UA not consistent with active infection. Will hold on any further antibiotics until culture results return. Impression & Plan Acute hyponatremia Discharge Plan Visit Data Chief Complaint: Weakness ED Provider: Clay Reyna Discharge Problem: Acute hyponatremia Forms Stand Alone Forms: My [facility] [employer] Prescriptions Prescriptions: No Action finasteride 5 mg tablet 5 mg PO DAILY Qty: 90 1RF albuterol sulfate [ProAir HFA] 90 mcg/actuation HFA aerosol inhaler 2 inh inhalation QID PRN (Reason: Shortness Of Breath Or Wheezing) cholecalciferol (vitamin D3) 125 mcg (5,000 unit) capsule 2,000 unit PO BID tolvaptan [Samsca] 30 mg tablet 30 mg PO BID Eliquis 5 mg tablet 5 mg PO BID Rx Instructions: ON HOLD...ORDERED BID WHEN RESTARTED carvedilol 12.5 mg Tablet 12.5 mg PO BID pantoprazole [Protonix] 40 mg Tablet,Delayed Release (Dr/Ec) 40 mg PO QAM budesonide-formoterol [Symbicort] 160-4.5 mcg/actuation Hfa Aerosol Inhaler 2 puff INHALATION BID levocetirizine 5 mg Tablet 5 mg PO HS montelukast 10 mg Tablet 10 mg PO HS acetaminophen 500 mg Tablet 1,000 mg PO BID PRN (Reason: Pain) ipratropium bromide 21 mcg (0.03 %) Allen,Non-Aerosol 2 spray INTRANASAL BID PRN (Reason: Nasal Congestion) hyoscyamine sulfate [Levsin] 0.125 mg Tablet 0.125 mg PO QID bumetanide 2 mg tablet 2 mg PO UD Rx Instructions: takes 1.5mg po qam sodium bicarbonate 650 mg tablet 650 mg PO BID doxycycline hyclate 100 mg Capsule 100 mg PO BID Qty: 12 0RF tamsulosin 0.4 mg capsule 0.4 mg PO QAM allopurinol 100 mg tablet 100 mg PO HS diphenoxylate-atropine 2.5-0.025 mg tablet 1 tab PO QID PRN (Reason: Diarrhea) Rx Instructions: can take up to 4 times a day vitamin B complex Tablet 1 tab PO QPM hydrocodone-acetaminophen 5-325 mg Tablet 1 tab PO UD PRN (Reason: Pain) Tezspire 210 mg/1.91 mL (110 mg/mL) Syringe 210 mg SUBCUT MONTHLY Referrals Referrals: Usanena,Unruly Lyon D.O. [Primary Care Provider] -
[2024-09-03 14:06] LABS: Basophils # (auto) 0.05 K/uL (0.00-0.20); Basophils % (auto) 1.2 %; Eosinophils # (auto) 0.09 K/uL (0.00-0.50); Eosinophils % (auto) 2.2 %; Hematocrit (blood only) 30.4 % (42.0-52.0); Hemoglobin 10.5 g/dl (14.0-18.0); Immature Granulocytes # (auto) 0.01 K/uL (0.01-0.20); Immature Granulocytes % (auto) 0.2 %; Lymphocytes # (auto) 0.53 K/uL (1.20-3.40); Lymphocytes % (auto) 13.2 %; Mean Corpuscular Hemoglobin 33.1 pg (25.0-34.0); Mean Corpuscular Hgb Conc 34.5 g/dL (32.0-36.0); Mean Corpuscular Volume 95.9 fL (80.0-100.0); Mean Platelet Volume 10.4 fL (9.4-12.4); Monocytes # (auto) 0.65 K/uL (0.11-0.59); Monocytes % (auto) 16.2 %; Neutrophils # (auto) 2.68 K/uL (1.40-6.50); Platelet Count 140 K/uL (130-400); RDW Standard Deviation 59.6 fL (36.4-46.3); Red Blood Count 3.17 M/uL (4.70-6.10); White Blood Count 4.01 K/ul (4.8-10.8)
[2024-09-03 14:08] LABS: Appearance Urine Clear (Clear); Bacteria Urine Automated None Seen (None Seen); Bilirubin Urine Negative (Negative); Blood Urine Trace (Negative); Cast Urine Automated 0-2 /lpf (0-2); Color Urine Yellow; Epithelial Cell Urine Auto 0-2 /hpf (0-2); Glucose Urine UA Negative (Negative); Ketones Urine Negative (Negative); Leukocyte Esterase Urine 2+ (Negative); Nitrite Urine Negative (Negative); Protein Urine Trace (Negative); RBC Urine Automated 0-2 /hpf (0-2); Specific Gravity Urine 1.005 (1.000-1.030); Urobilinogen Urine Negative (Negative); pH Urine 7.5 (4.5-7.5)
[2024-09-03 14:43] LABS: Albumin Globulin Ratio 1.1 (0.9-2); Albumin Level 3.9 gm/dl (3.4-5.0); BUN Creatinine Ratio 11.2 (10-20); Bilirubin,Total 0.8 mg/dl (0.2-1.0); Calcium 9.1 mg/dl (8.6-10.3); Creatinine Clr Calc Pharmacy 33.7 ml/min; Globulin 3.5 gm/dl (2.5-4.0); Potassium 5.4 mmol/L (3.5-5.1); Thyroid Stimulating Hormone 1.598 uIu/ml (0.300-4.500); Total Protein 7.4 gm/dl (6.0-8.3)
[2024-09-03] MEDS: MoRPHine SULFATE 4 MG/ML 1 ML CARP\\VIAL IV STA (15:17)
--- NOTE | 2024-09-03 16:25 | Ultrasound Report ---
EXAM: US Duplex Right Lower Extremity Veins INDICATION: Edema. TECHNIQUE: Real-time duplex ultrasound scan of the right lower extremity veins integrating B-mode two-dimensional vascular structure, Doppler spectral analysis, color flow Doppler imaging and compression. COMPARISON: No relevant prior studies available. FINDINGS: Deep veins: No DVT in the visualized common femoral, femoral or popliteal veins. The veins demonstrate normal color flow, are normally compressible, with normal phasic flow and/or augmentation response. Superficial veins: No abnormality noted. No thrombus in the visualized great saphenous vein. Soft tissues: Mild subcutaneous edema noted. No fluid collection. IMPRESSION: No deep venous thrombosis of the right lower extremity. ACT 112: Negative or not required by law. Electronically signed by Dori nKight 09-03-2024 4:25 PM
[2024-09-03] MEDS: SODIUM CHLORIDE 3 % 150 ML IV ONE (16:27)
--- NOTE | 2024-09-03 17:38 | History & Physical Report ---
Date of Service September 03, 2024 Assessment & Plan (1) Acute hyponatremia: Plan: Recurrent episodes of similar secondary to chronic SIADH and nutritional deficiency Suspect current episode due to cellulitis and recently reduced tolvaptan and torsemide Urin osm and Na Aim 6-8 meq increase over 24 hours, 150ml hypertonic saline given in the ER, will hold off increasing his tolvaptan back to BID to avoid overcorrection (placed on hold on admission) Suspect will also need his torsemide back but deferred on admission to not complicate or over correct rise in sodium Consult nephrology (2) Cellulitis of right lower extremity: Plan: Erythema and swelling on exam CT right tib/fib to assess for fluid collection felt on exam Blood culture, CRP, Procalcitonin Daptomycin + ceftriaxone Consult wound care for ulcers (3) (HFpEF) heart failure with preserved ejection fraction: Plan: Acute on chronic due to holding torsemide since hospitalization last week Holding diuretics on admission to avoid over correction of sodium but will need some diuretics back likely tomorrow Worsening leg swelling with pulmonary vascular congestion on CXR (4) Difficulty urinating: Plan: Bladder scan PVR 396ml on admission Consult urology Continue tamsulosin and finasteride (5) Afib: Plan: No longer on Eliquis since Watchman procedure and recurrent GI bleeds Continue rate control with carvedilol (6) SIADH (syndrome of inappropriate ADH production): Plan: As above for hyponatremia Plan VTE Prophylaxis - unable to tolerate SCDs, deferred chemical on admission due to excessive bleeding from ulcer Diet - regular, fluid restrict 1L Disposition - admit to PCU Admission and Anticipated Discharge Date Admission Date: September 03, 2024 History of Present Illness Chief Complaint: Fatigue and generalized weakness Primary Care Provider: Unruly Laughlin Ruy Mcbride is a 73 year old male with chronic SIADH who presents to the ER with fatigue and generalized weakness. He lives on the ground floor with his and weak at baseline but today he was even unable to do the three steps to get out of his house. He denies any one sided weakness, change in speech, hearing or vision. His reports he is usually like this whenever he has a UTI or his sodium goes low again. In the ER his sodium was noted to be 119. She reports his sodium has been decreasing since his last hospitalization at [facility] last week for UTi and hyponatremia. He was hospitalized from August 27- 2023 (hospital records not available at time of admission therefore history obtained mainly from his ). He was treated with a UTI with ciprofloxacin and ampicillin as an inpatient and discharged on 4 days of ciprofloxacin on discharge which he has now finished. He was not having any specific urinary symptoms but that is not unusual for him when he gets a UTI. No fever chills or urinary symptoms currently. His sodium was 130 on 08/29/24 on discharge decreasing to 122 09/02/2024 so they were sure his sodium was going to be down again. He reports his torsemide was stopped during this last recent hospitalization and tolvaptan was decreased from BID to once daily as he was felt to be hypovolemic. He has noticed worsening leg swelling since. Usually this leg swelling is worse on the left side but currently the last 2 days he has noticed much worse leg swelling, pain and erythema on the right side with an ongoing venous ulcer this side. This ulcer was previously been looked after by wound care but because of recurrent hospitalization he has not been back in three weeks and it has been get much worse. After dressing removed in the ER today it has been bleeding significantly. He has a wound care follow up visit on Monday. History is somewhat limited as he gets most of his care through the [facility] system. He reports his nephrology was going to discuss starting dialysis at his appointment today that he had to cancel. He also notes a history fo recurrent gastric bleeding needing three units of blood in June which has significantly affected his appetite and he feels he has had more problems with his sodium since. He is also noticing increased difficulty urinating since his diagnosis with UTI and request to see urology during his inpatient admission. He has a history of severe prostate outlet obstruction with recurrent retention and incomplete emptying. PVR bladder scan today for 396ml. He has been performing a straight cath once daily for incomplete bladder emptying. Allergies Allergy/AdvReac Type Severity Reaction Status Date / Time chlorhexidine Allergy Intermediate Redness, Verified 04/19/24 11:28 burning Home Medications Medication Instructions Recorded Confirmed Type budesonide-formoterol HFA 160 2 puff inhalation BID 03/06/19 09/03/24 History mcg-4.5 mcg/actuation aerosol inhaler (Symbicort) carvedilol 12.5 mg tablet 12.5 mg PO BID 03/06/19 09/03/24 History pantoprazole 40 mg tablet,delayed 40 mg PO QAM 03/06/19 09/03/24 History release (Protonix) levocetirizine 5 mg tablet 5 mg PO HS 03/07/19 09/03/24 History tolvaptan 30 mg tablet (Samsca) 30 mg PO QAM 04/23/21 09/03/24 History acetaminophen 500 mg tablet 1,000 mg PO BID PRN Pain 06/04/21 09/03/24 History ipratropium bromide 21 mcg (0.03 2 spray intranasal BID PRN Nasal 06/04/21 09/03/24 History %) nasal spray Congestion montelukast 10 mg tablet 10 mg PO HS 06/04/21 09/03/24 History hyoscyamine sulfate 0.125 mg 0.125 mg PO QID 11/09/21 09/03/24 History tablet (Levsin) albuterol sulfate 90 mcg/actuation 2 inh inhalation QID PRN Shortness 12/05/22 09/03/24 History aerosol inhaler (ProAir HFA) Of Breath Or Wheezing cholecalciferol (vitamin D3) 125 2,000 unit PO BID 05/03/23 09/03/24 History mcg (5,000 unit) capsule allopurinol 100 mg tablet 100 mg PO HS 11/20/23 09/03/24 History diphenoxylate-atropine 2.5 1 tab PO QID PRN Diarrhea 11/20/23 09/03/24 History mg-0.025 mg tablet hydrocodone 5 mg-acetaminophen 325 1 tab PO UD PRN Pain 11/20/23 09/03/24 History mg tablet tamsulosin 0.4 mg capsule 0.4 mg PO QAM 11/20/23 09/03/24 History tezepelumab-ekko 210 mg/1.91 mL 210 mg subcut MONTHLY 11/20/23 09/03/24 History (110 mg/mL) subcutaneous syringe (Tezspire) vitamin B complex 1 tab PO QPM 11/20/23 09/03/24 History sodium bicarbonate 650 mg tablet 650 mg PO BID 04/09/24 09/03/24 History finasteride 5 mg tablet 5 mg PO DAILY #90 tabs 08/07/24 09/03/24 Rx aspirin 81 mg tablet,delayed 81 mg PO DAILY 09/03/24 09/03/24 History release Past Med/Surg History Problem List (Updated 09/03/24 @ 23:11 by Reginald Mustafa MD) Difficulty urinating Cellulitis of right lower extremity Acute hyponatremia (Acute) Acute hyponatremia (Acute) Weakness (Acute) Acute hyponatremia Anemia (Acute) Acute urinary retention (Acute) Hyponatremia (Acute) Generalized weakness Essential hypertension Chronic kidney disease, stage III (moderate) SIADH (syndrome of inappropriate ADH production) Chronic kidney disease (HFpEF) heart failure with preserved ejection fraction History of subarachnoid hemorrhage Incomplete bladder emptying Rotator cuff tear, right HTN (hypertension) Afib COPD (chronic obstructive pulmonary disease) Confusion Hyponatremia Elevated LFTs S/P total knee arthroplasty Retention of urine, unspecified Thoracic aortic aneurysm without rupture SHEREEN (obstructive sleep apnea) Anemia Cirrhosis of liver Cholelithiasis Hematuria, gross Lesion of bladder Postoperative fever Persistent atrial fibrillation Fever UTI (urinary tract infection) SIADH (syndrome of inappropriate ADH production) Per nephrology records "ETOH/liver disease and/or COPD/pulmonary nodule (R/O CA)/SIADH...longstanding history of hyponatremia, baseline high 120s per chart review BPH (benign prostatic hyperplasia) Medical History (Updated 09/03/24 @ 23:11 by Reginald Mustafa MD) Subarachnoid hemorrhage Stroke CVA (02/18/21) > no residual effects, PCP following, on Eliquis now (Plavix was discontinued after 3 months) Acute urinary retention Choledocholithiasis History of GI bleed > 1 yr ago, blood transfusion Memory difficulties difficulty remembering things he is told UTI (urinary tract infection) following with urology Environmental allergies History of IBS History of COVID-19 DX'D 09/09/21 DAVIN LEYV SYMPTOMS OF COUGH-TREATED WITH ANTIBODIES/RECOVERED AT HOME-SYMPTOMS RESOLVED Cirrhosis Suspected per imaging/records per patient Stable Thoracic aortic aneurysm Following with vascular, Dr. Bill Mcarthur/[facility] (CT surgery), stable per CT chest 08/23/22 (5.1cm) Hx of gastric ulcer Remote hx Anemia Chronic/stable Paroxysmal A-fib + A-flutter S/P radiofrequency ablation (~3 yrs ago)-F/U DR ASAHISH LEVY CARDIOLOGY GERD (gastroesophageal reflux disease) Controlled Chronic obstructive pulmonary disease Stable Sleep apnea Non-compliant with CPAP Sleeps with wedge Hypertension Surgical History Hx of cardiac catheterization 10/2022 DAVIN Levy- no stents - checking for pulmonary hypertension; Dr Aashish Levy cardiology- last visit 02/2023 History of nasal cauterization History of ERCP ERCP (04/28/19): Elective glidescope #3, ETT 7.5 at [facility] History of cholecystectomy H/O cardiac radiofrequency ablation 5+ years ago History of colonoscopy History of esophagogastroduodenoscopy (EGD) S/P ureteral stent placement Left (2018)-PT DENIES S/P TURP PT DENIES History of cataract surgery R/L History of lumbar fusion PT DENIES H/O total knee replacement Left Hx of tonsillectomy Hx of appendectomy Hx of foot surgery Left Hx of repair of left rotator cuff Hx of repair of right rotator cuff Family History Father Family hx of colon cancer Mother Family history of diabetes mellitus Social History Smoking Status: Current some day smoker Tobacco Type: Cigars Cigarettes Per Day: 1 cigar per week; Second Hand Exposure: Yes (in the past); Do You Dip or Chew Tobacco: No; Hx Alcohol Use: Yes Alcohol type: hard liquor Hx Substance Use: No Preferred Language: Serbian Communication Ability: Effective Visual Impairment: No Limitations Traffic Sign Supervisor Required: No Beliefs That Will Affect Care: None marital status: Current Living Situation: Spouse current occupational status: retired Feels Safe at Home: Yes Safety Concerns: Feels Safe At This Time Assistive Devices: Cane and Walker Review of Systems Review of Systems: All systems reviewed & are unremarkable except as noted in HPI & below Physical Exam Constitutional: WD/WN, vitals as above Eyes: + anicteric sclerae; normal pupil size ENMT: external ear and nose normal, oropharynx normal Respiratory: normal respiratory effort; no respiratory distress Auscultation: lungs clear to auscultation bilaterally and + diminished lung sounds (bibasal); no crackles, no rhonchi and no wheezes Cardiovascular: Rate/Rhythm: regular rate and + irregularly irregular Heart Sounds: no murmur Extremities: normal capillary refill, + calf tenderness (right) and + pedal edema (2+ right > left edema) Gastrointestinal (Abdomen): normal bowel sounds, soft, nontender, no hepatosplenomegaly Skin: Erythema and swelling extending to foot from bleeding wound on posterior right calf Neurologic: moves all extremities and awake; not confused Psychiatric: A+Ox3, euthymic affect Genitourinary: no CVA tenderness Results & Data Results & Data Vital Signs (Past 12 Hours) Vital Signs Temp Pulse Pulse Resp BP BP Pulse Ox 09/03/24 17:37 76 09/03/24 15:00 76 18 123/74 96 09/03/24 13:22 88 09/03/24 13:15 37.3 C 71 18 172/83 H 95 09/03/24 13:15 95 09/03/24 13:15 37.3 C 71 18 172/83 H 95 O2 Del Method 09/03/24 17:37 09/03/24 15:00 Room Air 09/03/24 13:22 09/03/24 13:15 Room Air 09/03/24 13:15 Room Air 09/03/24 13:15 Room Air Laboratory Results Abnormal lab results 09/03/24 09/03/24 09/03/24 Range/Units 13:14 13:17 17:16 WBC 4.01 L (4.8-10.8) K/ul RBC 3.17 L (4.70-6.10) M/uL Hgb 10.5 L (14.0-18.0) g/dl Hct 30.4 L (42.0-52.0) % RDW Std Deviation 59.6 H (36.4-46.3) fL RDW Coeff of Greer 17.0 H (11.5-14.5) % Lymph # (Auto) 0.53 L (1.20-3.40) K/uL Pickett # (Auto) 0.65 H (0.11-0.59) K/uL Sodium 119 L* 122 L (136-145) mmol/L Potassium 5.4 H (3.5-5.1) mmol/L Chloride 89 L 92 L (98-107) mmol/L BUN 31 H 32 H (6-23) mg/dl Creatinine 2.76 H 2.81 H (0.6-1.4) mg/dl Glucose 108 H 105 H (70-99(Fasting)) mg/dl Osmolality 263 L (280-300) mOsm/kg Alkaline Phosphatase 122 H (34-104) U/L Urine Protein Trace H (Negative) Urine Blood Trace H (Negative) Ur Leukocyte Esterase 2+ H (Negative) Urine WBC (Auto) 11-20 H (0-5) /hpf Urine Osmolality 127 L (500-800) mOsm/kg Diagnostic Findings US Duplex Right Lower Extremity Veins INDICATION: Edema. TECHNIQUE: Real-time duplex ultrasound scan of the right lower extremity veins integrating B-mode two-dimensional vascular structure, Doppler spectral analysis, color flow Doppler imaging and compression. COMPARISON: No relevant prior studies available. FINDINGS: Deep veins: No DVT in the visualized common femoral, femoral or popliteal veins. The veins demonstrate normal color flow, are normally compressible, with normal phasic flow and/or augmentation response. Superficial veins: No abnormality noted. No thrombus in the visualized great saphenous vein. Soft tissues: Mild subcutaneous edema noted. No fluid collection. IMPRESSION: No deep venous thrombosis of the right lower extremity. Medications Administered ER Medications Given: Morphine 4mg IV Hypertonic saline 3% 150ml Dilaudid 1mg IV Code Status & VTE Plan Code Status DNR/DNI per patient wishes VTE Prophylaxis Plan VTE Prophylaxis will be ordered: Yes PG Care Time/CCT Total # of Minutes Spent Total Time Spent with Patient: Total time spent is greater than 50% in coordination of care (as documented) at patient's floor/unit and/or counseling patient: Coding Level of Care Code 30947 INT INP/OBS CARE 3/75MIN Diagnoses Acute hyponatremia E87.1 Cellulitis of right lower extremity L03.115 (HFpEF) heart failure with preserved ejection fraction I50.30 Difficulty urinating R39.198 Afib I48.91 SIADH (syndrome of inappropriate ADH production) E22.2
[2024-09-03 17:50] LABS: BUN Creatinine Ratio 11.4 (10-20); Calcium 9.1 mg/dl (8.6-10.3); Creatinine Clr Calc Pharmacy 33.1 ml/min; Potassium 4.9 mmol/L (3.5-5.1)
[2024-09-03] MEDS: HYDROmorphone INJ 1 MG/ML SYRINGE IV STA (18:18)
--- NOTE | 2024-09-03 19:07 | XRay Report ---
EXAM: Radiograph of the Chest 1 View INDICATION: Question pulmonary edema. TECHNIQUE: Frontal view of the chest. COMPARISON: 04/09/2024 FINDINGS: Lungs and pleural spaces: There is pulmonary vascular congestion slightly more pronounced than seen on the prior study. No definite pulmonary edema. No confluent infiltrate. There is a trace right pleural effusion. No pneumothorax. Heart: Stable cardiomegaly. Mediastinum: Normal contour. Bones/joints: Metallic anchor noted in the left proximal humerus. Chronic changes distal clavicles. No acute osseous abnormality. Soft tissues: No abnormality noted. No radiopaque foreign body noted. Vasculature: Stable ectatic aorta and arch calcification. Upper abdomen: No abnormality noted. IMPRESSION: Pulmonary vascular congestion with trace right pleural effusion likely reflecting CHF. ACT 112: Negative or not required by law. Electronically signed by Dori Knight 09-03-2024 7:07 PM
[2024-09-03] MEDS: STAT IV/IM STA (19:45)
[2024-09-03] MEDS ORDERED: MoRPHine SULFATE 2 MG/ML CARP IV PRN (20:41)
[2024-09-03] MEDS ORDERED: IPRATROPIUM BROMIDE NASAL SPRAY 0.06% 15ML NAE PRN (20:53)
[2024-09-03] MEDS ORDERED: BUDESONIDE/FORMOTEROL FUMARATE 160/4.5 60 PUFFS/INHALER INH SCH (21:00)
[2024-09-03] MEDS: carvediloL 12.5 MG TAB PO SCH (21:18)
[2024-09-03] MEDS: CETIRIZINE HCL 10 MG TABLET PO SCH (21:18)
[2024-09-03] MEDS: allopurinoL 100 MG TAB PO SCH (21:18)
[2024-09-03] MEDS: CHOLECALCIFEROL 25 MCG (1000 UNITS) TAB PO SCH (21:19)
[2024-09-03] MEDS: SODIUM BICARBONATE 650 MG TAB PO SCH (21:19)
[2024-09-03] MEDS: MONTELUKAST SODIUM 10 MG TABLET PO SCH (21:19)
[2024-09-03] MEDS: HYOSCYAMINE SULFATE 0.125 MG TAB PO SCH (21:19)
[2024-09-03 21:52] LABS: Creatinine Clr Calc Pharmacy 32.4 ml/min
[2024-09-03] MEDS: DAPTOmycin 400 MG in SYRINGE 0 ML IV SCH (21:57)
[2024-09-03 22:02] LABS: C Reactive Protein 4.19 mg/dl (0-0.5); Calcium 9.3 mg/dl (8.6-10.3); Potassium 4.8 mmol/L (3.5-5.1)
[2024-09-03] MEDS: cefTRIAXone SODIUM 2,000 MG/50 ML BAG IV SCH (22:32)
[2024-09-03] MEDS: FLUTICASONE/VILANTEROL 100/25MCG 14 PUFFS/INHALER INH SCH (22:32)
[2024-09-03] MEDS: MoRPHine SULFATE 4 MG/ML 1 ML CARP\\VIAL IV PRN (23:10)
--- NOTE | 2024-09-03 23:40 | CT Scan Report ---
Exam(s): CT EXTREMITY RIGHT LOWER Without Contrast EXAM: CT Right Lower Extremity Without Intravenous Contrast CLINICAL HISTORY: Reason for exam: right posterior calf venous ulcer ?fluid collectio. TECHNIQUE: Axial computed tomography images of the right lower extremity without intravenous contrast. CTDI is 24.91 mGy and DLP is 1611.57 mGy-cm. Automated exposure control was utilized for the study. A dose lowering technique was utilized adhering to the principles of ALARA. COMPARISON: No relevant prior studies available. FINDINGS: Limitations: Motion. Bones/joints: Unremarkable. No acute fracture. No dislocation. Soft tissues: Diffuse subcutaneous edema, bland edema versus cellulitis. No soft tissue gas to suggest necrotizing infection. No fluid collection to suggest abscess. Discrete cutaneous ulceration not clearly visualized. IMPRESSION: 1. No soft tissue gas to suggest necrotizing infection. No fluid collection to suggest abscess. 2. Diffuse subcutaneous edema, bland edema versus cellulitis. 3. Discrete cutaneous ulceration not clearly visualized. Correlate with exam. Electronically signed by: Bogdan Zazueta M.D. 09/03/24 23:39 PM
[2024-09-04 01:10] LABS: BUN Creatinine Ratio 11.6 (10-20); Calcium 9.1 mg/dl (8.6-10.3); Creatinine Clr Calc Pharmacy 33.5 ml/min; Potassium 4.3 mmol/L (3.5-5.1)
[2024-09-04 03:48] LABS: Basophils # (auto) 0.05 K/uL (0.00-0.20); Basophils % (auto) 1.5 %; Eosinophils # (auto) 0.15 K/uL (0.00-0.50); Eosinophils % (auto) 4.6 %; Hematocrit (blood only) 30.3 % (42.0-52.0); Hemoglobin 10.2 g/dl (14.0-18.0); Immature Granulocytes # (auto) 0.01 K/uL (0.01-0.20); Immature Granulocytes % (auto) 0.3 %; Lymphocytes # (auto) 0.57 K/uL (1.20-3.40); Lymphocytes % (auto) 17.4 %; Mean Corpuscular Hemoglobin 33.1 pg (25.0-34.0); Mean Corpuscular Hgb Conc 33.7 g/dL (32.0-36.0); Mean Corpuscular Volume 98.4 fL (80.0-100.0); Mean Platelet Volume 9.8 fL (9.4-12.4); Monocytes # (auto) 0.49 K/uL (0.11-0.59); Neutrophils % (auto) 61.2 %; Platelet Count 126 K/uL (130-400); RDW Coefficient of Variation 17.5 % (11.5-14.5); RDW Standard Deviation 63.1 fL (36.4-46.3); Red Blood Count 3.08 M/uL (4.70-6.10); White Blood Count 3.27 K/ul (4.8-10.8)
[2024-09-04 04:04] LABS: BUN Creatinine Ratio 10.6 (10-20); Calcium 9.4 mg/dl (8.6-10.3); Potassium 4.7 mmol/L (3.5-5.1)
[2024-09-04] MEDS: ADVANCED PROBIOTIC 625 MG CAPSULE PO SCH (08:26)
[2024-09-04] MEDS: PANTOprazole 40 MG TAB PO SCH (08:26)
[2024-09-04] MEDS: ASPIRIN 81 MG ECTAB PO SCH (08:27)
[2024-09-04] MEDS: FINASTERIDE 5 MG TAB PO SCH (08:27)
[2024-09-04] MEDS: TAMSULOSIN HCL 0.4 MG CAP PO SCH (08:27)
[2024-09-04] MEDS: ACETAMINOPHEN 500 MG TAB PO PRN (08:30)
[2024-09-04 09:42] LABS: BUN Creatinine Ratio 11.4 (10-20); Calcium 9.3 mg/dl (8.6-10.3); Creatinine Clr Calc Pharmacy 33.6 ml/min; Potassium 4.4 mmol/L (3.5-5.1)
--- NOTE | 2024-09-04 10:09 | Urology Consultation ---
Date of Consultation September 04, 2024 Assessment & Plan (1) Difficulty urinatinyo M with a hx of bladder outlet obstruction with severe issues related to retention and stricture requiring dilation who was admitted with hyponatremia and right lower extremity cellulitis. Patient afebrile, hypertensive. Labs reviewedcreatinine 2.71, WBC 3.27, hemoglobin 10.2, sodium 127. Urinalysis on arrival was not suggestive of UTI. Recently completed course of ciprofloxacin as an outpatient. Urine and blood cultures are pending. Currently on antibiotics for RLE cellulitis/possible UTI. Recommend continue broad-spectrum antibiotics, follow cultures and narrow per sensitivity data when available. Patient is voiding spontaneously, reports some difficulty with voids. Performs CIC at home once daily before bedtime. Discussed options including increasing CIC frequency or placement of Garvey catheter. Recommend check PVR after voiding. PVR was 226 mL this morning and patient wishes to monitor for now. If elevated PVRs, then Garvey placement recommended. Continue Tamsulosin and Finasteride. Continue supportive care, antibiotics and medical management per hospital medicine service. will follow. History of Present Illness Reason for Consultation: Difficulty voiding Attending Physician: Jes Diaz MD History of Present Illness 73-year-old male with past medical history including CKD stage IV, chronic liver disease (history of EtOH and SWANSON), HF, atrial fibrillation, COPD, hypertension, SHEREEN, history of TIA, hyperuricemia with gout, asthma, chronic anemia, bladder outlet obstruction, urethral stricture, and chronic hyponatremia who presented to the ED on 09/03/2024 for evaluation of low sodium on recent labs, weakness and confusion. He was recently discharged from [facility] after being treated for hyponatremia and a UTI. He was placed on ciprofloxacin as an outpatient. On arrival to ED, he was afebrile, hypertensive. Lab work showed sodium 119, potassium 5.4, creatinine 2.76, WBC 4.01 and hemoglobin 10.5. Urinalysis showed trace protein, trace blood, 2+ LE, 11-20 WBC, 0-2 RBC and negative for bacteria. He was treated with hypertonic saline in ED. He was admitted to the hospital medicine service for acute hyponatremia and cellulitis of right lower extremity. Urology is consulted for difficulty urinating, history of urethral stricture. Well known to the urology service, follows with Dr. Cordova. History of bladder outlet obstruction with severe issues related to retention and inability to void. History of Direct Visual Urethrotomy, transurethral incision of Prostate/bladder neck in June 2023. Continues on Flomax and Finasteride, performs CIC. Patient seen and examined at bedside. present. He reports increased difficulty urinating for the past week or so. Reports straining to urinate at times, small voids. He performs self-catheterization prior to bedtime. No issues passing straight catheter at home. Denies dysuria or gross hematuria. No nausea, vomiting, fever or chills. Reports pain of his right lower extremity. Patient and spouse reports that he was hospitalized at [place] last week for hyponatremia and UTI. He completed outpatient course of ciprofloxacin on 09/02. Allergies Allergy/AdvReac Type Severity Reaction Status Date / Time chlorhexidine Allergy Intermediate Redness, Verified 04/19/24 11:28 burning Home Medications Medication Instructions Recorded Confirmed Type budesonide-formoterol HFA 160 2 puff inhalation BID 03/06/19 09/03/24 History mcg-4.5 mcg/actuation aerosol inhaler (Symbicort) carvedilol 12.5 mg tablet 12.5 mg PO BID 03/06/19 09/03/24 History pantoprazole 40 mg tablet,delayed 40 mg PO QAM 03/06/19 09/03/24 History release (Protonix) levocetirizine 5 mg tablet 5 mg PO HS 03/07/19 09/03/24 History tolvaptan 30 mg tablet (Samsca) 30 mg PO QAM 04/23/21 09/03/24 History acetaminophen 500 mg tablet 1,000 mg PO BID PRN Pain 06/04/21 09/03/24 History ipratropium bromide 21 mcg (0.03 2 spray intranasal BID PRN Nasal 06/04/21 09/03/24 History %) nasal spray Congestion montelukast 10 mg tablet 10 mg PO HS 06/04/21 09/03/24 History hyoscyamine sulfate 0.125 mg 0.125 mg PO QID 11/09/21 09/03/24 History tablet (Levsin) albuterol sulfate 90 mcg/actuation 2 inh inhalation QID PRN Shortness 12/05/22 09/03/24 History aerosol inhaler (ProAir HFA) Of Breath Or Wheezing cholecalciferol (vitamin D3) 125 2,000 unit PO BID 05/03/23 09/03/24 History mcg (5,000 unit) capsule allopurinol 100 mg tablet 100 mg PO HS 11/20/23 09/03/24 History diphenoxylate-atropine 2.5 1 tab PO QID PRN Diarrhea 11/20/23 09/03/24 History mg-0.025 mg tablet hydrocodone 5 mg-acetaminophen 325 1 tab PO UD PRN Pain 11/20/23 09/03/24 His tory mg tablet tamsulosin 0.4 mg capsule 0.4 mg PO QAM 11/20/23 09/03/24 History tezepelumab-ekko 210 mg/1.91 mL 210 mg subcut MONTHLY 11/20/23 09/03/24 History (110 mg/mL) subcutaneous syringe (Tezspire) vitamin B complex 1 tab PO QPM 11/20/23 09/03/24 History sodium bicarbonate 650 mg tablet 650 mg PO BID 04/09/24 09/03/24 History finasteride 5 mg tablet 5 mg PO DAILY #90 tabs 08/07/24 09/03/24 Rx aspirin 81 mg tablet,delayed 81 mg PO DAILY 09/03/24 09/03/24 History release Patient History Medical History Subarachnoid hemorrhage Stroke CVA (02/18/21) > no residual effects, PCP following, on Eliquis now (Plavix was discontinued after 3 months) Acute urinary retention Choledocholithiasis History of GI bleed > 1 yr ago, blood transfusion Memory difficulties difficulty remembering things he is told UTI (urinary tract infection) following with urology Environmental allergies History of IBS History of COVID-19 DX'D 09/09/21 PH CAM SYMPTOMS OF COUGH-TREATED WITH ANTIBODIES/RECOVERED AT HOME-SYMPTOMS RESOLVED Cirrhosis Suspected per imaging/records per patient Stable Thoracic aortic aneurysm Following with vascular, Dr. Bill Mcarthur/[facility] (CT surgery), stable per CT chest 08/23/22 (5.1cm) Hx of gastric ulcer Remote hx Anemia Chronic/stable Paroxysmal A-fib + A-flutter S/P radiofrequency ablation (~3 yrs ago)-F/U DR [facility]ASH[facility] GERD (gastroesophageal reflux disease) Controlled Chronic obstructive pulmonary disease Stable Sleep apnea Non-compliant with CPAP Sleeps with wedge Hypertension Surgical History Hx of cardiac catheterization 10/2022 [facility]- no stents - checking for pulmonary hypertension; Dr Aashish [facility] cardiology- last visit 02/2023 History of nasal cauterization History of ERCP ERCP (04/28/19): Elective glidescope #3, ETT 7.5 at [facility] History of cholecystectomy H/O cardiac radiofrequency ablation 5+ years ago History of colonoscopy History of esophagogastroduodenoscopy (EGD) S/P ureteral stent placement Left (2018)-PT DENIES S/P TURP PT DENIES History of cataract surgery R/L History of lumbar fusion PT DENIES H/O total knee replacement Left Hx of tonsillectomy Hx of appendectomy Hx of foot surgery Left Hx of repair of left rotator cuff Hx of repair of right rotator cuff Family History Father Family hx of colon cancer Mother Family history of diabetes mellitus Social History Smoking Status: Current some day smoker Tobacco Type: Cigars Cigarettes Per Day: 1 cigar per week; Second Hand Exposure: Yes (in the past); Do You Dip or Chew Tobacco: No; Hx Alcohol Use: Yes Alcohol type: hard liquor Hx Substance Use: No Preferred Language: Belgian Communication Ability: Effective Visual Impairment: No Limitations Fabric Stretcher Required: No Beliefs That Will Affect Care: None marital status: Current Living Situation: Spouse current occupational status: retired Feels Safe at Home: Yes Safety Concerns: Feels Safe At This Time Assistive Devices: Cane and Walker Review of Systems Review of Systems: All systems reviewed & are unremarkable except as noted in HPI & below Physical Exam Constitutional: no acute distress Respiratory: normal respiratory effort; no respiratory distress and no labored breathing Gastrointestinal (Abdomen): Inspection/Auscultation: abdomen normal to inspection Musculoskeletal: Head/Neck/Chest: normocephalic Neurologic: moves all extremities and awake Psychiatric: Orientation: alert and oriented x 3 Results & Data Vital Signs (Past 12 Hours) Vital Signs Temp Pulse Pulse Resp BP Pulse Ox O2 Del Method 09/04/24 10:05 Room Air 09/04/24 07:35 36.5 C 75 18 165/83 H 99 Room Air 09/04/24 07:34 69 09/04/24 02:43 36.8 C 79 18 130/79 99 Room Air 09/03/24 23:36 36.9 C 78 18 143/81 H 99 Room Air 09/03/24 22:53 70 PG Care Time/CCT Total # of Minutes Spent Total Time Spent with Patient: Total time spent is greater than 50% in coordination of care (as documented) at patient's floor/unit and/or counseling patient: Coding Level of Care Code 67775 INT INP/OBS CARE 2/55MIN Diagnoses Difficulty urinating R39.198
--- NOTE | 2024-09-04 10:27 | Hospitalist Progress Note ---
Date of Service September 04, 2024 Assessment & Plan (1) Acute hyponatremia: Plan: Patient has a history of Recurrent episodes of similar secondary to chronic SIADH and nutritional deficiency Suspect current episode due to cellulitis and recently reduced tolvaptan and torsemide Some improvement following hypertonic saline, Sodium now 127 from 119 yesterday Aim 6-8 meq increase over 24 hours, Consult nephrology (2) Cellulitis of right lower extremity: Plan: Erythema and swelling on exam CT right tib/fib to assess for fluid collection felt on exam Blood culture, CRP, Procalcitonin Daptomycin + ceftriaxone Consult wound care for ulcers (3) (HFpEF) heart failure with preserved ejection fraction: Plan: Acute on chronic due to holding torsemide since hospitalization last week Holding diuretics on admission to avoid over correction of sodium but will need some diuretics back likely tomorrow Worsening leg swelling with pulmonary vascular congestion on CXR (4) Difficulty urinating: Plan: History of bladder outlet obstruction with severe issues related to retention and inability to void Bladder scan PVR 396ml on admission Consult urology Continue tamsulosin and finasteride (5) Afib: Plan: No longer on Eliquis since Watchman procedure and recurrent GI bleeds Continue rate control with carvedilol (6) SIADH (syndrome of inappropriate ADH production): Plan: As above for hyponatremia Plan VTE Prophylaxis - unable to tolerate SCDs, deferred chemical on admission due to excessive bleeding from ulcer Diet - regular, fluid restrict 1L Disposition - admit to PCU Admission and Anticipated Discharge Date Admission Date: September 03, 2024 Subjective patient seen and examined, by the bedside, complains of pain on the right leg Review of Systems Review of Systems: All systems reviewed are negative, apart from the ones contained in the history. Physical Exam Physical Exam: The patient is awake, alert and oriented 3, well developed and well nourished, normocephalic and atraumatic, lying in bed and in no acute distress. HEENT--PERRL, EOMI, mucous membranes and oropharynx mildly dry Neck--supple. No JVD. No bruits. Thyroid normal, trachea midline, no adenopathy. Heart--normal S1 and S2. No murmurs, rubs or gallops. Lungs--clear bilaterally, no respiratory distress, no accessory muscle use. Abdomen--normal bowel sounds and soft. Extremities--no cyanosis or clubbing. No edema. Dermatologic--normal skin turgor, normal color, no abnormal lymph nodes, no rash. Neurologic--cranial nerves II through XII grossly intact. Rheumatologic--normal range of motion. Psychiatric--normal affect. Results & Data Results & Data Vital Signs (Past 12 Hours) Vital Signs Temp Pulse Pulse Resp BP Pulse Ox O2 Del Method 09/04/24 10:05 Room Air 09/04/24 07:35 97.7 F 75 18 165/83 H 99 Room Air 09/04/24 07:34 69 09/04/24 02:43 98.2 F 79 18 130/79 99 Room Air 09/03/24 23:36 98.4 F 78 18 143/81 H 99 Room Air 09/03/24 22:53 70 PG Care Time/CCT Total # of Minutes Spent Total Time Spent with Patient: Total time spent is greater than 50% in coordination of care (as documented) at patient's floor/unit and/or counseling patient: Coding Level of Care Code 96848 SUB INP/OBS CARE 2/35MIN Diagnoses Acute hyponatremia E87.1 Cellulitis of right lower extremity L03.115 (HFpEF) heart failure with preserved ejection fraction I50.30 Difficulty urinating R39.198 Afib I48.91 SIADH (syndrome of inappropriate ADH production) E22.2 Time Spent (min) 35
[2024-09-04] MEDS: traMADol HCL 50 MG TABLET PO STA (11:49)
[2024-09-04] MEDS: GABAPENTIN 300 MG CAP PO ONE (15:26)
--- NOTE | 2024-09-04 17:03 | Nephrology Consultation ---
Date of Consultation September 04, 2024 Assessment & Plan (1) Acute hyponatremia: (2) Generalized weakness: (3) Essential hypertension: (4) SIADH (syndrome of inappropriate ADH production): (5) HTN (hypertension): (6) Anemia: (7) Chronic kidney disease, stage 4 (severe): Plan 73 y o M with stage 4 CKD baseline creatinine 2.5 mg/dl, patient, serum sodium generally 130-132, previously was taking torsemide which was recently stopped. Admitted to the hospital with acute hyponatremia, generalized weakness and confusion. On admission serum sodium was 119, slowly improved to 127 this morning after 3% saline. Torsemide and tolvaptan been on hold. --Resume Torsemide 20 mg daily, continue to hold Tolvaptan --left arm nephrology precaution --fluid restriction to <1.5 L/d --Dose meds for eGFR <30 --Epogen 21904 units x 1 dose now. Thank you for the consult. History of Present Illness Reason for Consultation: Hyponatremia, stage 4 CKD Attending Physician: Jes Diaz MD History of Present Illness Mr. 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 Nephrology consult was requested for management management of CKD. EMR records are reviewed in detail during patient's visit. was at the bedside Ruy presented to ER yesterday with generalized weakness, confusion and difficulty voiding. In the ER his sodium was 119. Creatinine was 2.7 mg/dl. Hemoglobin was 10.2. U osm was 127. Urinalysis with no proteinuria. Was given 200 mL of 3% saline yesterday and sodium has been slowly improving, up to 127 this morning. Has h/o chronic hyponatremia serum sodium generally around 132. Previously was on tolvaptan 30 mg bid and torsemide 100 mg a day which was recently stopped during last hospitalization in outside facility. He was hospitalized from August 27-2023, treated for UTI with ciprofloxacin and ampicillin. He has noticed worsening leg swelling since. Has ongoing venous ulcer of rt LE. has anemia, recent EGD demonstrating gastritic polyps and esophagitis. Non smoker. No f/h of CKD, ESKD. Has stage 4 CKD with b/l cr of 2.0-2.5 mg/dL, follows with [facility]. Chronic Hyponatremia attributed to SIADH and potomania. Was on Tolvaptan and torsemide, and fluid restriction (typically <2 L/d). Serum sodium as an outpatient ~132 mmol/L with treatment. Prior evaluation included a reassuring ACTH stim test and thyroid testing (TSH 0.8). Reports feeling slightly better this morning, denies any confusion. No SOB. Reports pain in rt leg ulcer area. Allergies Allergy/AdvReac Type Severity Reaction Status Date / Time chlorhexidine Allergy Intermediate Redness, Verified 04/19/24 11:28 burning Home Medications Medication Instructions Recorded Confirmed Type budesonide-formoterol HFA 160 2 puff inhalation BID 03/06/19 09/03/24 History mcg-4.5 mcg/actuation aerosol inhaler (Symbicort) carvedilol 12.5 mg tablet 12.5 mg PO BID 03/06/19 09/03/24 History pantoprazole 40 mg tablet,delayed 40 mg PO QAM 03/06/19 09/03/24 History release (Protonix) levocetirizine 5 mg tablet 5 mg PO HS 03/07/19 09/03/24 History tolvaptan 30 mg tablet (Samsca) 30 mg PO QAM 04/23/21 09/03/24 History acetaminophen 500 mg tablet 1,000 mg PO BID PRN Pain 06/04/21 09/03/24 History ipratropium bromide 21 mcg (0.03 2 spray intranasal BID PRN Nasal 06/04/21 09/03/24 History %) nasal spray Congestion montelukast 10 mg tablet 10 mg PO HS 06/04/21 09/03/24 History hyoscyamine sulfate 0.125 mg 0.125 mg PO QID 11/09/21 09/03/24 History tablet (Levsin) albuterol sulfate 90 mcg/actuation 2 inh inhalation QID PRN Shortness 12/05/22 09/03/24 History aerosol inhaler (ProAir HFA) Of Breath Or Wheezing cholecalciferol (vitamin D3) 125 2,000 unit PO BID 05/03/23 09/03/24 History mcg (5,000 unit) capsule allopurinol 100 mg tablet 100 mg PO HS 11/20/23 09/03/24 History diphenoxylate-atropine 2.5 1 tab PO QID PRN Diarrhea 11/20/23 09/03/24 History mg-0.025 mg tablet hydrocodone 5 mg-acetaminophen 325 1 tab PO UD PRN Pain 11/20/23 09/03/24 History mg tablet tamsulosin 0.4 mg capsule 0.4 mg PO QAM 11/20/23 09/03/24 History tezepelumab-ekko 210 mg/1.91 mL 210 mg subcut MONTHLY 11/20/23 09/03/24 History (110 mg/mL) subcutaneous syringe (Tezspire) vitamin B complex 1 tab PO QPM 11/20/23 09/03/24 History sodium bicarbonate 650 mg tablet 650 mg PO BID 04/09/24 09/03/24 History finasteride 5 mg tablet 5 mg PO DAILY #90 tabs 08/07/24 09/03/24 Rx aspirin 81 mg tablet,delayed 81 mg PO DAILY 09/03/24 09/03/24 History release Patient History Medical History Subarachnoid hemorrhage Stroke CVA (02/18/21) > no residual effects, PCP following, on Eliquis now (Plavix was discontinued after 3 months) Acute urinary retention Choledocholithiasis History of GI bleed > 1 yr ago, blood transfusion Memory difficulties difficulty remembering things he is told UTI (urinary tract infection) following with urology Environmental allergies History of IBS History of COVID-19 DX'D 09/09/21 CAM SYMPTOMS OF COUGH-TREATED WITH ANTIBODIES/RECOVERED AT HOME-SYMPTOMS RESOLVED Cirrhosis Suspected per imaging/records per patient Stable Thoracic aortic aneurysm Following with vascular, Dr. Bill Mcarthur/[facility] (CT surgery), stable per CT chest 08/23/22 (5.1cm) Hx of gastric ulcer Remote hx Anemia Chronic/stable Paroxysmal A-fib + A-flutter S/P radiofrequency ablation (~3 yrs ago)-F/U DR AASHISH [facility] GERD (gastroesophageal reflux disease) Controlled Chronic obstructive pulmonary disease Stable Sleep apnea Non-compliant with CPAP Sleeps with wedge Hypertension Surgical History Hx of cardiac catheterization 10/2022 [facility]- no stents - checking for pulmonary hypertension; Dr Aashish eLvy cardiology- last visit 02/2023 History of nasal cauterization History of ERCP ERCP (04/28/19): Elective glidescope #3, ETT 7.5 at [facility] History of cholecystectomy H/O cardiac radiofrequency ablation 5+ years ago History of colonoscopy History of esophagogastroduodenoscopy (EGD) S/P ureteral stent placement Left (2018)-PT DENIES S/P TURP PT DENIES History of cataract surgery R/L History of lumbar fusion PT DENIES H/O total knee replacement Left Hx of tonsillectomy Hx of appendectomy Hx of foot surgery Left Hx of repair of left rotator cuff Hx of repair of right rotator cuff Family History Father Family hx of colon cancer Mother Family history of diabetes mellitus Social History Smoking Status: Current some day smoker Tobacco Type: Cigars Cigarettes Per Day: 1 cigar per week; Second Hand Exposure: Yes (in the past); Do You Dip or Chew Tobacco: No; Hx Alcohol Use: Yes Alcohol type: hard liquor Hx Substance Use: No Preferred Language: Spanish Communication Ability: Effective Visual Impairment: No Limitations Skidder Required: No Beliefs That Will Affect Care: None marital status: Current Living Situation: Spouse current occupational status: retired Feels Safe at Home: Yes Safety Concerns: Feels Safe At This Time Assistive Devices: Cane and Walker Review of Systems Review of Systems: All systems reviewed & are unremarkable except as noted in HPI & below Physical Exam Constitutional: WD/WN, vitals as above no acute distress Eyes: + anicteric sclerae Neck: normal visual inspection Respiratory: Auscultation: lungs clear to auscultation bilaterally Cardiovascular: Rate/Rhythm: regular rate and regular rhythm Heart Sounds: normal S1 and normal S2 Extremities: + edema (Trace LE edema) Gastrointestinal (Abdomen): Inspection/Auscultation: abdomen normal to inspection Musculoskeletal: Extremities: extremities normal to inspection Skin: + ulcer Neurologic: no focal motor deficits Psychiatric: Orientation: alert and oriented x 3 Affect: euthymic affect Results & Data Vital Signs (Past 12 Hours) Vital Signs Temp Pulse Pulse Resp BP Pulse Ox O2 Del Method 09/04/24 15:22 36.8 C 87 18 155/75 H 94 Room Air 09/04/24 11:09 36.9 C 89 18 130/78 96 Room Air 09/04/24 10:05 Room Air 09/04/24 07:35 36.5 C 75 18 165/83 H 99 Room Air 09/04/24 07:34 69 PG Care Time/CCT Total # of Minutes Spent Total Time Spent with Patient: Total time spent is greater than 50% in coordination of care (as documented) at patient's floor/unit and/or counseling patient: Coding Level of Care Code 28463 INT INP/OBS CARE 375MIN Diagnoses Acute hyponatremia E87.1 Generalized weakness R53.1 Essential hypertension I10 SIADH (syndrome of inappropriate ADH production) E22.2 HTN (hypertension) I10 Anemia D64.9 Chronic kidney disease, stage 4 (severe) N18.4
[2024-09-04] MEDS: TORSEMIDE 20 MG TAB PO SCH (18:35)
[2024-09-04] MEDS: EPOETIN ALFA 20,000 UNITS/ML VIAL SQ STA (18:35)
--- NOTE | 2024-09-04 21:33 | Electrocardiogram Report ---
Test Reason : Blood Pressure : */* mmHG Vent. Rate : 72 BPM Atrial Rate : * BPM P-R Int : * ms QRS Dur : 146 ms QT Int : 416 ms P-R-T Axes : * 73 -3 degrees QTcB Int : 455 ms Atrial fibrillation Right bundle branch block Abnormal ECG When compared with ECG of 20-Nov-2023 01:46, Right bundle branch block is now Present Confirmed by Jayden Garza ([id number] on 09/04/2024 9:33:17 PM Referred By: REFERRED SELF Confirmed By: Jayden Garza
[2024-09-05 07:02] LABS: Hematocrit (blood only) 30.8 % (42.0-52.0); Hemoglobin 10.3 g/dl (14.0-18.0); Mean Corpuscular Hemoglobin 33.2 pg (25.0-34.0); Mean Corpuscular Hgb Conc 33.4 g/dL (32.0-36.0); Mean Corpuscular Volume 99.4 fL (80.0-100.0); Mean Platelet Volume 10.1 fL (9.4-12.4); Platelet Count 150 K/uL (130-400); RDW Coefficient of Variation 17.5 % (11.5-14.5); RDW Standard Deviation 64.1 fL (36.4-46.3); White Blood Count 3.56 K/ul (4.8-10.8)
[2024-09-05 07:24] LABS: Albumin Level 3.7 gm/dl (3.4-5.0); Calcium 9.5 mg/dl (8.6-10.3); Creatinine Clr Calc Pharmacy 29.2 ml/min; Phosphorus 3.9 mg/dl (2.5-4.9); Potassium 4.9 mmol/L (3.5-5.1)
[2024-09-05] MEDS: traMADol HCL 50 MG TABLET PO PRN (07:35)
[2024-09-05] MEDS: GABAPENTIN 300 MG CAP PO SCH ×2 (07:37→21:41)
--- NOTE | 2024-09-05 10:38 | Nephrology Progress Note ---
Date of Service September 05, 2024 Assessment & Plan (1) Acute hyponatremia: (2) Chronic kidney disease, stage 4 (severe): (3) Generalized weakness: (4) Essential hypertension: (5) SIADH (syndrome of inappropriate ADH production): (6) HTN (hypertension): (7) Anemia: Plan 73 y o M with stage 4 CKD baseline creatinine 2.5 mg/dl, patient, serum sodium generally 130-132, previously was taking torsemide which was recently stopped. Admitted to the hospital with acute hyponatremia, generalized weakness and confusion. On admission serum sodium was 119, slowly improved to 127 this morning after 3% saline. Torsemide and tolvaptan been on hold. Sodium improved to 132, other electrolyte acceptable. Kidney function slightly worsened, creatinine 3.1, bicarb 25. --Decrease sodium bicarbonate to once a day, hold Torsemide --With a GFR less than 30, maximum gabapentin dose should be 3 and milligram per day --left arm nephrology precaution --fluid restriction to <1.5 L/d --Dose meds for eGFR <30 --Epogen 80220 units x 1 dose given on 09/04/2024. Admission and Anticipated Discharge Date Admission Date: September 03, 2024 Courtney Redmond was seen and evaluated this morning. Complaining of significant pain in his legs but otherwise doing well. No shortness of breath. Has been voiding normally. Blood pressure reasonable. Slight worsening of kidney function noted this morning, creatinine 3.1. Review of Systems Review of Systems: Detailed review of system was done and pertinent positives and negatives are mentioned above. Physical Exam Constitutional: WD/WN, vitals as above no acute distress Eyes: + anicteric sclerae Respiratory: Auscultation: lungs clear to auscultation bilaterally Cardiovascular: RRR, no murmur, no edema Musculoskeletal: Extremities: extremities normal to inspection Skin: + ulcer Neurologic: no focal motor deficits Psychiatric: Orientation: alert and oriented x 3 Affect: euthymic affect Results & Data Vital Signs (Past 12 Hours) Vital Signs Temp Pulse Pulse Resp BP BP Pulse Ox 09/05/24 07:58 37.1 C 83 18 148/87 H 97 09/05/24 03:12 36.5 C 70 19 148/71 H 95 09/05/24 00:12 36.8 C 71 17 147/88 H 96 09/04/24 23:13 69 O2 Del Method 09/05/24 07:58 Room Air 09/05/24 03:12 Room Air 09/05/24 00:12 Room Air 09/04/24 23:13 PG Care Time/CCT Total # of Minutes Spent Total Time Spent with Patient: Total time spent is greater than 50% in coordination of care (as documented) at patient's floor/unit and/or counseling patient: Coding Level of Care Code 41465 SUB INP/OBS CARE 2/35MIN Diagnoses Acute hyponatremia E87.1 Chronic kidney disease, stage 4 (severe) N18.4 Generalized weakness R53.1 Essential hypertension I10 SIADH (syndrome of inappropriate ADH production) E22.2 HTN (hypertension) I10 Anemia D64.9
--- NOTE | 2024-09-05 10:54 | Hospitalist Progress Note ---
Date of Service September 05, 2024 Assessment & Plan (1) Acute hyponatremia: Plan: Patient has a history of Recurrent episodes of similar secondary to chronic SIADH and nutritional deficiency Suspect current episode due to cellulitis and recently reduced tolvaptan and torsemide Some improvement following hypertonic saline, Sodium now 132 appreciate nephrology continue Torsemide, hold Tolvaptan (2) Cellulitis of right lower extremity: Plan: Erythema and swelling on exam CT right tib/fib to assess for fluid collection felt on exam Blood culture, CRP, Procalcitonin Daptomycin + ceftriaxone Consult wound care for ulcers (3) (HFpEF) heart failure with preserved ejection fraction: Plan: Acute on chronic due to holding torsemide since hospitalization last week Holding diuretics on admission to avoid over correction of sodium but will need some diuretics back likely tomorrow Worsening leg swelling with pulmonary vascular congestion on CXR (4) Acute kidney injury superimposed on stage 4 chronic kidney disease: Plan: worsening renal function could be due to resumption of Torsemide nephrology on board (5) Difficulty urinating: Plan: History of bladder outlet obstruction with severe issues related to retention and inability to void Bladder scan PVR 396ml on admission Consult urology Continue tamsulosin and finasteride (6) Afib: Plan: Persistent atrial fibrillation No longer on Eliquis since Watchman procedure and recurrent GI bleeds Continue rate control with carvedilol (7) SIADH (syndrome of inappropriate ADH production): Plan: As above for hyponatremia Plan VTE Prophylaxis - unable to tolerate SCDs, deferred chemical on admission due to excessive bleeding from ulcer Diet - regular, fluid restrict 1L Disposition - admit to PCU Admission and Anticipated Discharge Date Admission Date: September 03, 2024 Subjective patient seen and examined, still worried about the wound on his leg Review of Systems Review of Systems: All systems reviewed are negative, apart from the ones contained in the history. Physical Exam Physical Exam: The patient is awake, alert and oriented 3, well developed and well nourished, normocephalic and atraumatic, lying in bed and in no acute distress. HEENT--PERRL, EOMI, mucous membranes and oropharynx mildly dry Neck--supple. No JVD. No bruits. Thyroid normal, trachea midline, no adenopathy. Heart--normal S1 and S2. No murmurs, rubs or gallops. Lungs--clear bilaterally, no respiratory distress, no accessory muscle use. Abdomen--normal bowel sounds and soft. Extremities--no cyanosis or clubbing. No edema. Dermatologic--normal skin turgor, normal color, no abnormal lymph nodes, no rash. Neurologic--cranial nerves II through XII grossly intact. Rheumatologic--normal range of motion. Psychiatric--normal affect. Results & Data Results & Data Vital Signs (Past 12 Hours) Vital Signs Temp Pulse Pulse Resp BP BP Pulse Ox 09/05/24 10:00 70 09/05/24 07:58 98.8 F 83 18 148/87 H 97 09/05/24 03:12 97.7 F 70 19 148/71 H 95 09/05/24 00:12 98.2 F 71 17 147/88 H 96 09/04/24 23:13 69 O2 Del Method 09/05/24 10:00 09/05/24 07:58 Room Air 09/05/24 03:12 Room Air 09/05/24 00:12 Room Air 09/04/24 23:13 PG Care Time/CCT Total # of Minutes Spent Total Time Spent with Patient: Total time spent is greater than 50% in coordination of care (as documented) at patient's floor/unit and/or counseling patient: Coding Level of Care Code 95235 SUB INP/OBS CARE 2/35MIN Diagnoses Acute hyponatremia E87.1 Cellulitis of right lower extremity L03.115 (HFpEF) heart failure with preserved ejection fraction I50.30 Acute kidney injury superimposed on stage 4 chronic kidney disease N17.9; N18.4 Difficulty urinating R39.198 Afib I48.91 SIADH (syndrome of inappropriate ADH production) E22.2 Time Spent (min) 35
--- NOTE | 2024-09-05 11:30 | Urology Progress Note ---
Date of Service September 05, 2024 Assessment & Plan (1) Incomplete bladder emptying: (2) Difficulty urinating: Plan: 73yo M with a hx of bladder outlet obstruction with severe issues related to retention and stricture requiring dilation who was admitted with hyponatremia and right lower extremity cellulitis. Patient afebrile, hemodynamically stable. Labs reviewedcreatinine 3.11, WBC 3.56, hemoglobin 10.3, sodium 132. Urine culture prelim with pinpoint growth, reincubating. Blood cultures no growth x 24 hours. Currently on antibiotics for RLE cellulitis/possible UTI. Continue broad-spectrum antibiotics, follow cultures and narrow per sensitivity data when available. Patient voiding spontaneously, continues w/ some difficulty. He prefers to avoid Garvey catheter. PVRs yesterday <350 mL. Continue to monitor PVRs. Continue with CIC regimen at night. If elevated PVRs (>350 mL), then additional straight cath or Garvey placement recommended. Continue Tamsulosin and Finasteride. Continue supportive care, antibiotics and medical management per hospital medicine service. Will arrange outpatient follow-up with our service for ongoing management. will follow peripherally, please contact our service with any additional questions or concerns. Admission and Anticipated Discharge Date Admission Date: September 03, 2024 Subjective Patient seen and examined at bedside this morning. present. Reports he continues to have discomfort in his right lower extremity. Denies bladder or flank discomfort. He is voiding spontaneously. Continues to have some difficulty with voids. Postvoid residual scans yesterday were 226 and 324 mL. He straight cathed last night for 450 mL. He prefers to avoid Garvey. Review of Systems Constitutional: as per Subjective / HPI Genitourinary: + as per Subjective / HPI Physical Exam Constitutional: no acute distress Respiratory: normal respiratory effort; no respiratory distress and no labored breathing Gastrointestinal (Abdomen): Inspection/Auscultation: abdomen normal to inspection Musculoskeletal: Head/Neck/Chest: normocephalic Neurologic: moves all extremities and awake Psychiatric: Orientation: alert and oriented x 3 Results & Data Vital Signs (Past 12 Hours) Vital Signs Temp Pulse Pulse Resp BP BP Pulse Ox 09/05/24 11:22 36.8 C 65 18 130/71 97 09/05/24 10:00 70 09/05/24 07:58 37.1 C 83 18 148/87 H 97 09/05/24 03:12 36.5 C 70 19 148/71 H 95 09/05/24 00:12 36.8 C 71 17 147/88 H 96 O2 Del Method 09/05/24 11:22 Room Air 09/05/24 10:00 09/05/24 07:58 Room Air 09/05/24 03:12 Room Air 09/05/24 00:12 Room Air PG Care Time/CCT Total # of Minutes Spent Total Time Spent with Patient: Total time spent is greater than 50% in coordination of care (as documented) at patient's floor/unit and/or counseling patient: Coding Level of Care Code 12852 SUB INP/OBS CARE 10/12MIN Diagnoses Incomplete bladder emptying R33.9 Difficulty urinating R39.198
[2024-09-05] MEDS: ACETAMINOPHEN 500 MG TAB PO PRN (15:57)
[2024-09-06 07:45] LABS: Albumin Level 3.5 gm/dl (3.4-5.0); BUN Creatinine Ratio 11.4 (10-20); Calcium 9.1 mg/dl (8.6-10.3); Creatinine Clr Calc Pharmacy 28.1 ml/min; Phosphorus 3.6 mg/dl (2.5-4.9); Potassium 4.8 mmol/L (3.5-5.1)
[2024-09-06] MEDS: SODIUM BICARBONATE 650 MG TAB PO SCH (08:23)
[2024-09-06 08:30] VITALS: RESP 18; TEMP 97.9; O2SAT 95
--- NOTE | 2024-09-06 10:31 | Nephrology Progress Note ---
Date of Service September 06, 2024 Assessment & Plan (1) Acute hyponatremia: (2) Chronic kidney disease, stage 4 (severe): (3) Generalized weakness: (4) Essential hypertension: (5) SIADH (syndrome of inappropriate ADH production): (6) HTN (hypertension): (7) Anemia: Plan 73 y o M with stage 4 CKD baseline creatinine 2.5 mg/dl, patient, serum sodium generally 130-132, previously was taking torsemide which was recently stopped. Admitted to the hospital with acute hyponatremia, generalized weakness and confusion. On admission serum sodium was 119, slowly improved to 127 this morning after 3% saline. Torsemide and tolvaptan been on hold. Sodium improved to 133, other electrolyte acceptable. Kidney function slightly worsened, creatinine 3.2. --Continue to hold Torsemide with slight worsening of kidney function, clinically no sign of volume overload and net negative without diuretic. --With a GFR less than 30, maximum gabapentin dose should be 3 and milligram per day --left arm nephrology precaution --fluid restriction to <1.5 L/d --Dose meds for eGFR <30 --Epogen 14230 units x 1 dose given on 09/04/2024. --Although slight worsening of kidney function noted from his baseline, would be okay to discharge with close outpatient monitoring with his bss solution architect and lab early next week and copy to his b[facility] solution architect in [place]. --Will need decision regarding antibiotic before discharge as he is currently on 2 IV antibiotic for lower extremity cellulitis. . Admission and Anticipated Discharge Date Admission Date: September 03, 2024 Courtney Redmond was seen and evaluated this morning. Overall feeling better but continues to have some pain in his legs. Reports ongoing difficulty voiding, doing self- catheterization at night. Decent urine output with net negative off of torsemide. Blood pressure reasonable. Slight worsening of kidney function noted this morning, creatinine 3.2. Sodium continues to improve slowly, 133 t his morning, without tolvaptan or torsemide. Review of Systems Review of Systems: Detailed review of system was done and pertinent positives and negatives are mentioned above. Physical Exam Constitutional: WD/WN, vitals as above no acute distress Eyes: + anicteric sclerae Respiratory: Auscultation: lungs clear to auscultation bilaterally Cardiovascular: RRR, no murmur, no edema Musculoskeletal: Extremities: extremities normal to inspection Skin: + ulcer Neurologic: no focal motor deficits Psychiatric: Orientation: alert and oriented x 3 Affect: euthymic affect Results & Data Vital Signs (Past 12 Hours) Vital Signs Temp Pulse Pulse Resp BP Pulse Ox O2 Del Method 09/06/24 07:44 36.6 C 73 18 139/86 95 Room Air 09/06/24 07:00 59 L 09/06/24 03:34 36.9 C 67 20 130/85 97 Room Air 09/05/24 23:06 36.6 C 65 20 124/58 L 98 Room Air PG Care Time/CCT Total # of Minutes Spent Total Time Spent with Patient: Total time spent is greater than 50% in coordination of care (as documented) at patient's floor/unit and/or counseling patient: Coding Level of Care Code 50276 SUB INP/OBS CARE 3/50MIN Diagnoses Acute hyponatremia E87.1 Chronic kidney disease, stage 4 (severe) N18.4 Generalized weakness R53.1 Essential hypertension I10 SIADH (syndrome of inappropriate ADH production) E22.2 HTN (hypertension) I10 Anemia D64.9
[2024-09-06 11:26] VITALS: BP 148/71; PULSE 73
--- NOTE | 2024-09-06 14:41 | Discharge Summary ---
Date of Service September 06, 2024 Admission HPI Per Admitting Provider Ruy Mcbride is a 73 year old male with chronic SIADH who presents to the ER with fatigue and generalized weakness. He lives on the ground floor with his and weak at baseline but today he was even unable to do the three steps to get out of his house. He denies any one sided weakness, change in speech, hearing or vision. His reports he is usually like this whenever he has a UTI or his sodium goes low again. In the ER his sodium was noted to be 119. She reports his sodium has been decreasing since his last hospitalization at [facility] last week for UTi and hyponatremia. He was hospitalized from August 27- 2023 (hospital records not available at time of admission therefore history obtained mainly from his ). He was treated with a UTI with ciprofloxacin and ampicillin as an inpatient and discharged on 4 days of ciprofloxacin on discharge which he has now finished. He was not having any specific urinary symptoms but that is not unusual for him when he gets a UTI. No fever chills or urinary symptoms currently. His sodium was 130 on 08/29/24 on discharge decreasing to 122 09/02/2024 so they were sure his sodium was going to be down again. He reports his torsemide was stopped during this last recent hospitalization and tolvaptan was decreased from BID to once daily as he was felt to be hypovolemic. He has noticed worsening leg swelling since. Usually this leg swelling is worse on the left side but currently the last 2 days he has noticed much worse leg swelling, pain and erythema on the right side with an ongoing venous ulcer this side. This ulcer was previously been looked after by wound care but because of recurrent hospitalization he has not been back in three weeks and it has been get much worse. After dressing removed in the ER today it has been bleeding significantly. He has a wound care follow up visit on Monday. History is somewhat limited as he gets most of his care through the [facility] system. He reports his nephrology was going to discuss starting dialysis at his appointment today that he had to cancel. He also notes a history fo recurrent gastric bleeding needing three units of blood in June which has significantly affected his appetite and he feels he has had more problems with his sodium since. He is also noticing increased difficulty urinating since his diagnosis with UTI and request to see urology during his inpatient admission. He has a history of severe prostate outlet obstruction with recurrent retention and incomplete emptying. PVR bladder scan today for 396ml. He has been performing a straight cath once daily for incomplete bladder emptying. Admission Exam (Per Admitting) Constitutional The patient is awake, alert and oriented 3, well developed and well nourished, normocephalic and atraumatic, lying in bed and in no acute distress. HEENT--PERRL, EOMI, mucous membranes and oropharynx mildly dry Neck--supple. No JVD. No bruits. Thyroid normal, trachea midline, no adenopathy. Heart--normal S1 and S2. No murmurs, rubs or gallops. Lungs--clear bilaterally, no respiratory distress, no accessory muscle use. Abdomen--normal bowel sounds and soft. Extremities--no cyanosis or clubbing. No edema. Dermatologic--normal skin turgor, normal color, no abnormal lymph nodes, no rash. Neurologic--cranial nerves II through XII grossly intact. Rheumatologic--normal range of motion. Psychiatric--normal affect. Discharge Data Consultations 09/03/24 17:19 ED Decision to Admit Stat 09/03/24 20:47 Consult Urology Routine 09/03/24 20:48 Consult Nephrology Routine Hospital Course (1) Acute hyponatremia: Resolved continue Torsemide, hold Tolvaptan (2) Cellulitis of right lower extremity: Erythema and swelling on exam CT right tib/fib to assess for fluid collection felt on exam Blood culture, CRP, Procalcitonin Daptomycin + ceftriaxone Consult wound care for ulcers d/c on PO cephalexin for 7 days (3) (HFpEF) heart failure with preserved ejection fraction: Acute on chronic due to holding torsemide since hospitalization last week Holding diuretics on admission to avoid over correction of sodium but will need some diuretics back likely tomorrow Worsening leg swelling with pulmonary vascular congestion on CXR (4) Acute kidney injury superimposed on stage 4 chronic kidney disease: worsening renal function could be due to resumption of Torsemide nephrology on board (5) Difficulty urinating: History of bladder outlet obstruction with severe issues related to retention and inability to void Bladder scan PVR 396ml on admission Consult urology Continue tamsulosin and finasteride (6) Afib: Persistent atrial fibrillation No longer on Eliquis since Watchman procedure and recurrent GI bleeds Continue rate control with carvedilol (7) SIADH (syndrome of inappropriate ADH production): As above for hyponatremia Plan VTE Prophylaxis - unable to tolerate SCDs, deferred chemical on admission due to excessive bleeding from ulcer Diet - regular, fluid restrict 1L Disposition - d/c home with [facility] Coding Level of Care Code 41580 INP/OBS DISCH >30 MIN Diagnoses Acute hyponatremia E87.1 Cellulitis of right lower extremity L03.115 (HFpEF) heart failure with preserved ejection fraction I50.30 Acute kidney injury superimposed on stage 4 chronic kidney disease N17.9; N18.4 Difficulty urinating R39.198 Afib I48.91 SIADH (syndrome of inappropriate ADH production) E22.2 Time Spent (min) 35
[2024-09-06] MEDS ORDERED: DAPTOmycin 400 MG in SYRINGE 0 ML IV SCH (20:00)
== END 2024-09-06 12:37 | disposition home health service (06) | DRG 644 ==
LOC: ED 13:06 → SUATTDRO 17:37 → 2E 17:37